=== PATIENT | male | born 1945 | race Caucasian/White ===

== ENCOUNTER → 2023-02-16 | Outpatient (CLI) | payer MEDICARE, SELFPAY ==
[2023-02-16 17:07] LABS: PSA,Total - Annual Screen 1.53 ng/mL (0.00-4.00)
== END | disposition home or self-care (01) ==
PROVIDERS: Referring Provider Urology; Visit Provider Urology
DX: Z12.5 Encounter for screening for malignant neoplasm of prostate (principal); N40.1 Benign prostatic hyperplasia with lower urinary tract symptoms
CPT/HCPCS: 36415; 84153; 87086; G0103

== ENCOUNTER 2023-04-07 07:47 | Day surgery (SDC) | payer MEDICARE, SELFPAY ==
[2023-04-07 08:17] VITALS: BP 128/50; PULSE 68; RESP 18; TEMP 36.3; O2SAT 100; BMI 25.9
[2023-04-07] MEDS: Lactated Ringers 1,000 ML 15 ML IV (08:27)
[2023-04-07] MEDS: Cefazolin 2 GM in 0.9% Normal Saline (100mL Bag) 100 ML IV (10:05)
--- NOTE | 2023-04-07 10:25 | HP.PCM_ITS ---
HPI - General HPI Narrative EDUARDO MORALES, is a 77 M who presents for dilation of meatal stenosis patient also has a hypospadias [facility] Medical History (Updated 03/26/23 @ 12:50 by Kimberly Dsouza) Abdominal aortic aneurysm (AAA) Abrasion Alzheimer disease Ambulates with cane Arthritis Back pain Bladder disease Cardiology follow-up encounter Diabetes Dietary restriction Easy bruising Exposure to Agent [place] Fatty liver Former smoker High cholesterol History of atrial fibrillation History of diverticulitis History of echocardiogram History of edema History of GI bleed History of Holter monitoring History of renal disease History of stress test Hypotension Injury of head and neck Loss of hearing Prostate disease Shortness of breath on exertion Syncope TIA (transient ischemic attack) Wears glasses Home Medications apixaban 5 mg tablet (Eliquis) 5 mg PO BID 03/26/23 [History Last Taken 04/02/23] cetirizine 10 mg capsule (All Day Allergy (cetirizine)) 10 mg PO DAILY PRN allergy symptoms 03/26/23 [History Last Taken Unknown] cholecalciferol (vitamin D3) 25 mcg (1,000 unit) capsule (Vitamin D3) 25 mcg PO DAILY 03/26/23 [History Last Taken Unknown] ezetimibe 10 mg tablet 10 mg PO DAILY 03/26/23 [History Last Taken Unknown] finasteride 5 mg tablet 5 mg PO DAILY 03/26/23 [History Last Taken Unknown] fluticasone propionate 50 mcg/actuation nasal spray,suspension 1 spray intranasal DAILY 03/26/23 [History Last Taken Unknown] furosemide 20 mg tablet 20 mg PO DAILY 03/26/23 [History Last Taken Unknown] mecobalamin (vitamin B12) 500 mcg chewable tablet 500 mcg PO DAILY 03/26/23 [History Last Taken Unknown] tfxtrocachzi-cbazxjmp-pqlowx tablet 1 tab PO DAILY 03/26/23 [History Last Taken Unknown] omega 6-xdr-old-fish oil 1,200 mg (144 mg-216 mg) capsule (Fish Oil) 1 cap PO DAILY 03/26/23 [History Last Taken 03/26/23] potassium chloride 20 mEq tablet,extended release(part/cryst) (Klor-Con M) 20 meq PO DAILY 03/26/23 [History Last Taken Unknown] rosuvastatin 10 mg tablet 10 mg PO QHS 03/26/23 [History Last Taken Unknown] tamsulosin 0.4 mg capsule 0.4 mg PO QHS 03/26/23 [History Last Taken Unknown] cephalexin 500 mg capsule 500 mg PO BID #10 caps 04/07/23 [Rx Last Taken Unknown] Allergy/AdvReac Type Severity Reaction Status Date / Time latex Allergy Intermediate Other Verified 04/07/23 08:04 adhesive tape AdvReac Intermediate Other Verified 04/07/23 08:04 hydromorphone [From Dilaudid] AdvReac Intermediate Vomiting Verified 04/07/23 08:04 morphine AdvReac Intermediate Vomiting Verified 04/07/23 08:04 Surgical History (Updated 03/26/23 @ 12:50 by Kimberly Dsouza) History of cardiac catheterization History of colectomy History of colostomy reversal Hx of arthroscopy of left knee Hx of arthroscopy of right knee Hx of colonoscopy Hx of esophagogastroduodenoscopy Hx of total hip arthroplasty Hx of total hip arthroplasty Social History Smoking Status: Former smoker Vital Signs Vital Signs Vital Signs: 04/07/23 08:17 04/07/23 08:17 Temperature 97.3 F L Temperature Source Temporal Pulse Rate 68 Respiratory Rate 18 Respiratory Pattern Normal Blood Pressure 128/50 H Blood Pressure Mean 76 Blood Pressure Source Monitor Blood Pressure Position Semi-Fowlers Blood Pressure Location Right Arm Pulse Ox 100 Oxygen Delivery Method Room Air Weight Weight: 87 kg Body Mass Index (BMI) 25.9
--- NOTE | 2023-04-07 10:27 | DCINST_ITS ---
Discharge Instructions Diet Discharge Diet: No restrictions Activity Discharge Activity: Return to Normal Activity and May Not Drive (while taking narcotic pain medications.) Dressing / Incision Call your doctor if you observe: Fever of 101 or Higher Follow Up Care Please Follow Up With: Dashawn Cortes MD When: Call [phone] for an appointment Test Results: Test results from this visit will be discussed in further detail at your follow- up appointment, if applicable. Discharge Plan Admission Primary Reason for Your Visit: Dilation of meatus Attending Provider: Dashawn Cortes Primary Care Provider: Adam Ruano Consulting Providers: Mikie Armstrong Discharge Orders/Prescriptions Prescriptions: New cephalexin 500 mg capsule 500 mg PO BID Qty: 10 0RF Continued Eliquis 5 mg tablet 5 mg PO BID ezetimibe 10 mg tablet 10 mg PO DAILY Patient Comments: TAKE 1 TABLET BY MOUTH ONCE DAILY potassium chloride [Klor-Con M20] 20 mEq tablet,ER particles/crystals 20 meq PO DAILY finasteride 5 mg tablet 5 mg PO DAILY furosemide 20 mg tablet 20 mg PO DAILY tamsulosin 0.4 mg capsule 0.4 mg PO QHS rosuvastatin 10 mg tablet 10 mg PO QHS Patient Comments: TAKE 1 TABLET BY MOUTH EVERY DAY AT BEDTIME fluticasone propionate 50 mcg/actuation spray,suspension 1 spray INTRANASAL DAILY omega 9-xnf-goz-fish oil [Fish Oil] 1,200 (144-216) mg capsule 1 cap PO DAILY cholecalciferol (vitamin D3) [Vitamin D3] 25 mcg (1,000 unit) capsule 25 mcg PO DAILY mecobalamin (vitamin B12) 500 mcg tablet,chewable 500 mcg PO DAILY ygkclyzngtlf-fdkgttzb-uuvqbl Tablet 1 tab PO DAILY All Day Allergy (cetirizine) 10 mg capsule 10 mg PO DAILY PRN (Reason: allergy symptoms) Referrals / Follow Up: Dashawn Cortes MD [Med Staff - Active Staff] - Adam Ruano PA [Primary Care Provider] - Disposition Disposition (needs filled in before D/C Order can be placed): Home, Self Care
--- NOTE | 2023-04-07 10:27 | OP.PCM_ITS ---
Report of Operation Date of Procedure: 04/07/23 Pre-Operative Diagnosis: Meatal stenosis hypospadias Post-Operative Diagnosis: The same Surgery/Procedure Performed:: Cystoscopy and dilation of meatal stent stenosis Description of Surgical Findings:: This is a 77-year-old male who had some hematuria and in the office we attempted do a cystoscopy but a very very tight meatus and he has a hypospadias [place] taken the surgery to do a dilation of the meatal stenosis and a diagnostic cystoscopy Patient was taken back to the operating room at a [facility] he was placed in dorsolithotomy position. On inspection he had a slit in the the tip of the penis but this is a false lip and then right below this off to the ones side he had a very tight opening which is his hypospadias I put a wire through this and then I dilated this with with sounds starting at [address] up to 22 Malagasy I then was able to get in with a 21 Malagasy rigid cystourethroscope the entire length the urethra was clear of any scar tissue no strictures or structures along the course of the urethra just the meatus was tight sphincter was intact the prostate was normal minimal obstruction inside the bladder no tumors or stones within the bladder I then drained the bladder and patient anesthetic was reversed and he was taken back to PACU in good condition follow-up in a few weeks for checkup but the cystoscopy was negative for any findings within the bladder of the prostate normal and he has had a tight meatal stenosis which was dilated. Surgeon: Dashawn Cortes Type of Anesthesia: [facility] Drains: none Estimated Blood Loss (mL): 0
[2023-04-07 10:31] VITALS: BP 103/53; BP 128/50; PULSE 51; RESP 18; TEMP 36.5; O2SAT 96
[2023-04-07 10:35] VITALS: BP 104/54; BP 128/50; PULSE 51; RESP 18; O2SAT 98
[2023-04-07 10:40] VITALS: BP 104/49; BP 128/50; PULSE 50; RESP 18; O2SAT 97
[2023-04-07 10:45] VITALS: BP 111/55; BP 128/50; PULSE 53; RESP 14; TEMP 36.7; O2SAT 97
[2023-04-07 11:11] VITALS: BP 128/50
== END 2023-04-07 11:20 | disposition home or self-care (01) ==
LOC: SDC 07:47 → AC 07:48
PROVIDERS: PCP Physician Assistant; Referring Provider Urology; Visit Provider Urology
PROC: 0T7D8ZZ Dilation of Urethra, Via Natural or Artificial Opening Endoscopic (ICD-10-PCS; CPT 52281; principal; 2023-04-07 09:40)
DX: N35.013 Post-traumatic anterior urethral stricture (principal); F02.80 Dementia in other diseases classified elsewhere, unspecified severity, without behavioral disturbance, psychotic disturbance, mood disturbance, and anxiety; I71.40 Abdominal aortic aneurysm, without rupture, unspecified; E11.9 Type 2 diabetes mellitus without complications; Z87.891 Personal history of nicotine dependence; E78.00 Pure hypercholesterolemia, unspecified; Z79.01 Long term (current) use of anticoagulants; Z86.73 Personal history of transient ischemic attack (TIA), and cerebral infarction without residual deficits; Q54.1 Hypospadias, penile; N40.1 Benign prostatic hyperplasia with lower urinary tract symptoms; Z87.440 Personal history of urinary (tract) infections
CPT/HCPCS: 52290; 00910; J7120; C1769; J2405

== ENCOUNTER → 2025-01-17 | Outpatient (CLI) | payer OTHER, SELFPAY ==
--- NOTE | 2025-01-17 15:05 | ECHOD_ITS ---
Reason For Study Reason For Study: CAD/ASHD Procedure This was a 2D Doppler, Color Flow transthoracic echocardiogram. Exam performed in department. Left Ventricle Normal LV size. The left ventricular ejection fraction is 55 %. Stage 2 diastolic dysfunction. No regional wall motion abnormalities noted. Right Ventricle Normal RV size. Normal systolic function. Atria Normal left atrium. Normal right atrium. Tricuspid Valve Normal tricuspid valve. Mild (1+) tricuspid valve insufficiency. Pulmonary artery systolic pressure is 28 mmHg. Aortic Valve Trisinus/trileaflet aortic valve. Mild (1+) aortic valve insufficiency. Pulmonic Valve Normal pulmonic valve. Great Vessels Normal aortic root. The pulmonary artery is normal size. Inferior vena cava collapse with respiration. Pericardium/Pleural No pericardial effusion. MMode/2D Measurements & Calculations LVIDd: 5.4 cm IVSd: 0.76 cm Ao root diam: 3.3 cm LVIDs: 3.5 cm LVPWd: 0.89 cm RVDd: 3.4 cm FS: 35.6 % LAV(MOD-bp): 66.1 ml LVAd ap4: 35.4 cm2 SV(MOD-sp4): 66.9 ml LAV(MOD-bp) Indexed: 32.1 ml/m2 LVLd ap4: 8.4 cm SI(MOD-sp4): 32.5 ml/m2 LAV(MOD-sp2): 72.4 ml EDV(MOD-sp4): 125.9 ml LAV(MOD-sp4): 59.0 ml EDV(sp4-el): 127.0 ml LVAs ap4: 21.4 cm2 LVLs ap4: 6.5 cm ESV(MOD-sp4): 59.0 ml ESV(sp4-el): 59.7 ml EF(MOD-sp4): 53.1 % EF(sp4-el): 53.0 % SV(sp4-el): 67.3 ml LA dimension(2D): 3.8 cm LA A4 area: 18.9 cm2 RA A4 area: 18.0 cm2 TAPSE: 2.9 cm Time Measurements MV dec time: 0.26 sec Doppler Measurements & Calculations MV E max jasen: 68.5 cm/sec Lat Peak E' Jasen: 12.2 cm/sec Med Peak E' Jasen: 9.6 cm/sec MV A max jasen: 41.3 cm/sec E/E' lat: 5.6 E/E' med: 7.2 MV E/A: 1.7 MV V2 max: 70.5 cm/sec MV P1/2t max jasen: 78.9 cm/sec Ao V2 max: 114.8 cm/sec MV max P.0 mmHg MV P1/2t: 69.2 msec Ao max P.3 mmHg MV V2 mean: 40.2 cm/sec Ao V2 mean: 82.4 cm/sec MV mean P.72 mmHg MV dec slope: 334.3 cm/sec2 Ao mean P.1 mmHg MV V2 VTI: 23.2 cm MVA(P1/2t): 3.2 cm2 Ao V2 VTI: 30.7 cm AV (velocity ratio): 0.63 AI max jasen: 354.0 cm/sec LV V1 max: 74.8 cm/sec MR max jasen: 526.8 cm/sec AI max P.2 mmHg LV V1 max P.2 mmHg MR max P.0 mmHg LV V1 mean P.3 mmHg MR mean jasen: 430.5 cm/sec AI dec slope: 217.2 cm/sec2 LV V1 mean: 53.7 cm/sec MR mean P.1 mmHg AI P1/2t: 477.3 msec LV V1 VTI: 19.3 cm MR VTI: 205.2 cm PA V2 max: 100.0 cm/sec TR max jasen: 249.1 cm/sec PA V2 mean: 74.1 cm/sec TR max P.8 mmHg ECHO/Echo Complete Interpretation Summary Normal LV size. The left ventricular ejection fraction is 55 %. Mild (1+) aortic valve insufficiency. Stage 2 diastolic dysfunction. Ordering Physician: Jake Rios Referring Physician: Adam Ruano Performed By: France Peck RDCS, RVT
== END | disposition home or self-care (01) ==
PROVIDERS: PCP Physician Assistant; Referring Provider Chiropractor; Visit Provider Chiropractor
DX: I25.10 Atherosclerotic heart disease of native coronary artery without angina pectoris (principal)
CPT/HCPCS: 93306

== ENCOUNTER 2025-01-31 10:28 | Emergency (ER) | payer OTHER, SELFPAY ==
[2025-01-31] VITALS (15 sets, daily range): BP systolic 91–146; BP diastolic 34–73; PULSE 48–64; RESP 12–22; TEMP 36.4–36.6; O2SAT 96–100; BMI 27.6
--- NOTE | 2025-01-31 10:43 | ED.VIS.CHEST ---
HPI History of Present Illness Chief Complaint: Chest Pain [facility] Medical History Loss of hearing Wears glasses Alzheimer disease Abrasion Diabetes Ambulates with cane Arthritis Prostate disease History of renal disease Bladder disease Fatty liver High cholesterol Easy bruising Back pain Injury of head and neck TIA (transient ischemic attack) Fall Syncope Dietary restriction History of GI bleed History of diverticulitis Former smoker Shortness of breath on exertion History of edema Exposure to Agent [place] Hypotension History of echocardiogram History of stress test Abdominal aortic aneurysm (AAA) History of Holter monitoring Cardiology follow-up encounter History of atrial fibrillation Home Medications ?Medication ?Instructions ?Recorded ?Last Taken ?Type apixaban 5 mg tablet (Eliquis) 5 mg PO BID 03/26/23 04/02/23 History cetirizine 10 mg capsule (All Day 10 mg PO DAILY PRN allergy symptoms 03/26/23 Unknown History Allergy (cetirizine)) cholecalciferol (vitamin D3) 25 25 mcg PO DAILY 03/26/23 Unknown History mcg (1,000 unit) capsule (Vitamin D3) ezetimibe 10 mg tablet 10 mg PO DAILY 03/26/23 Unknown History finasteride 5 mg tablet 5 mg PO DAILY 03/26/23 Unknown History fluticasone propionate 50 1 spray intranasal DAILY 03/26/23 Unknown History mcg/actuation nasal spray,suspension furosemide 20 mg tablet 20 mg PO DAILY 03/26/23 Unknown History mecobalamin (vitamin B12) 500 mcg 500 mcg PO DAILY 03/26/23 Unknown History chewable tablet tmsfxzfdjusc-brosoppo-oxlwqw tablet 1 tab PO DAILY 03/26/23 Unknown History omega 7-jck-nfl-fish oil 1,200 mg 1 cap PO DAILY 03/26/23 03/26/23 History (144 mg-216 mg) capsule (Fish Oil) potassium chloride 20 mEq 20 meq PO DAILY 03/26/23 Unknown History tablet,extended release(part/cryst) (Klor-Con M) rosuvastatin 10 mg tablet 10 mg PO QHS 03/26/23 Unknown History tamsulosin 0.4 mg capsule 0.4 mg PO QHS 03/26/23 Unknown History cephalexin 500 mg capsule 500 mg PO BID #10 caps 04/07/23 Unknown Rx Allergy/AdvReac Type Severity Reaction Status Date / Time latex Allergy Intermediate Other Verified 08/13/25 10:32 adhesive tape AdvReac Intermediate Other Verified 01/31/25 10:32 hydromorphone (From Dilaudid) AdvReac Intermediate Vomiting Verified 01/31/25 10:32 morphine AdvReac Intermediate Vomiting Verified 01/31/25 10:32 Surgical History History of cardiac catheterization Hx of esophagogastroduodenoscopy Hx of colonoscopy Hx of total hip arthroplasty Hx of total hip arthroplasty Hx of arthroscopy of right knee Hx of arthroscopy of left knee History of colostomy reversal History of colectomy Social History Smoking Status: Former smoker EXAM Physical Exam Const Vital Signs: 01/31/25 10:29 01/31/25 10:55 01/31/25 11:12 Temperature 97.6 F L Temperature Source Oral Pulse Rate 54 L Respiratory Rate 20 H Respiratory Effort Normal Respiratory Pattern Normal Blood Pressure 138/73 H Blood Pressure Mean 94 Pulse Ox 100 Oxygen Delivery Method Room Air Room Air 01/31/25 11:28 01/31/25 11:39 01/31/25 11:45 Temperature Temperature Source Pulse Rate 54 L 52 L 52 L Respiratory Rate 19 H 21 H 21 H Respiratory Effort Respiratory Pattern Blood Pressure 132/63 H 146/67 H Blood Pressure Mean 86 89 Pulse Ox 100 100 100 Oxygen Delivery Method Room Air 01/31/25 11:50 01/31/25 12:00 01/31/25 12:01 Temperature Temperature Source Pulse Rate 58 L 58 L 64 Respiratory Rate 22 H 16 Respiratory Effort Respiratory Pattern Blood Pressure 146/67 H 111/64 Blood Pressure Mean 77 Pulse Ox 96 97 Oxygen Delivery Method 01/31/25 13:00 01/31/25 13:00 01/31/25 13:31 Temperature Temperature Source Pulse Rate 48 L 58 L Respiratory Rate 16 14 Respiratory Effort Respiratory Pattern Blood Pressure 102/45 L 102/45 L 91/67 Blood Pressure Mean 63 63 74 Pulse Ox 100 99 Oxygen Delivery Method MDM MDM MDM Narrative Medical decision making narrative: HISTORY OF PRESENT ILLNESS: Chief complaint: Chest pain 79-year-old male history of A-fib on Eliquis, hyperlipidemia, presents with chest pain. Notes left-sided chest pain began 45 minutes prior to arrival. REVIEW OF SYSTEMS: Pertinent positives: Chest pain Pertinent negatives: Abdominal pain, vomiting PHYSICAL EXAM: Nursing triage notes reviewed, Vital signs reviewed Constitutional: please see mdm HENT: MMM Eyes: Pupils equal round and reactive to light, Extraocular muscles intact Neck: No stridor, no JVD, full neck ROM Lungs: Clear to auscultation, No wheezing or rales. No increased work of breathing, no conversational dyspnea, no accessory muscle use, no nasal flaring. No respiratory distress noted Heart: Regular rate and rhythm, No murmurs, No rubs and No gallops, 2+ distal pulses (radial, femoral, posterior tibial) in all extremities Abdomen: Soft, there is no tenderness, negative Lopez sign, no rigidity, rebound or guarding, no obvious peritoneal signs, no palpable pulsatile abdominal masses, no auscultated abdominal bruit : No CVAT Extremities: No edema Neuro: No new focal neurological deficits, cranial nerves II through XII intact, 5/5 strength in all present extremities. Intact sensation to light touch in all present extremities, 2+ reflexes bilateral patella tendons. Skin: No rash or lesions noted MEDICAL DECISION MAKING: Chief Complaint: please see HPI External records reviewed: Reviewed echocardiogram from December 2024 shows an ejection fraction of 55% Factors affecting care: Gallstone, A-fib Social determinants of health: none History obtained from others: Consults: none [facility] Narrative: Patient was initially hemodynamically stable, afebrile and nontoxic-appearing. Exam without focal cardiopulmonary maladies. No obvious abdominal abnormalities. I considered the following differential diagnosis: ACS, arrhythmia, anemia, electro disturbance, pneumonia, CHF, intra-abdominal surgical pathology I obtained broad lab and imaging workup to further determine if the patient was suffering from a life-threatening etiology. Initially gave aspirin and nitroglycerin. ALL IMAGES (IF OBTAINED) HAVE BEEN PERSONALLY REVIEWED AND INTERPRETED BY MYSELF. EKG with sinus bradycardia rate of 53, normal axis, normal intervals, no STEMI CBC without leukocytosis, severe anemia, no thrombocytopenia. BMP without evidence of significant electrolyte abnormalities, no anion gap, no acute kidney injury. High-sensitivity troponin is negative, no evidence of myocardial ischemia x2 essentially ruling out ACS by high-sensitivity troponin I have personally reviewed the patient's chest x-ray. Chest x-ray is unremarkable for pulmonary edema, pneumothorax, pneumonia or focal cardiopulmonary abnormality. Upon reassessment patient complains of left-sided abdominal pain. This point add on a CT scan of the abdomen pelvis. CT scan abdomen pelvis negative for acute intra-abdominal pathology. Gallbladder showed a gallstone but otherwise no signs of acute cholecystitis. The synthesis of the patient's history, physical exam, labs images suggest no acute life or limb threat in etiology. Specifically no sign of ACS or acute surgical process in the abdomen. The patient is appropriate for discharge home with close outpatient follow-up. The patient and/or family, caregivers express understanding. The patient and/or family, caregivers agrees with the plan. Shared decision making: I will have a discussion with the patient and or visitors regarding risk/benefits of further testing or admission. They will be made aware of of the risk/benefits inherent in this decision they will be given the opportunity to voice understanding. Total critical care time today provided was at least 0 minutes. This excludes separately billable procedures. Critical care time (if documented) is secondary to the patient having high probability of clinically significant/life threatening deterioration in the patient's condition which required my urgent intervention. Impression: 1. Chest pain 2. History of A-fib 3. Abdominal pain Dispo: Discharge home This note was generated with [employer] dictation software. It may contain incorrect words, spelling, and punctuation that were not noted in review of the chart prior to signing. Lab Data Labs: Laboratory Results - last 24 hr 01/31/25 01/31/25 10:52 13:06 WBC 5.8 RBC 4.37 L Hgb 13.4 Hct 40.2 MCV 92.0 MCH 30.7 MCHC 33.3 RDW Std Deviation 41.7 RDW Coeff of Geeta 12.3 Plt Count 172 MPV 10.1 Immature Gran % (Auto) 0.300 Neut % (Auto) 63.8 Lymph % (Auto) 22.8 [place] % (Auto) 7.5 Eos % (Auto) 4.2 Baso % (Auto) 1.4 H Absolute Neuts (auto) 3.7 Absolute Lymphs (auto) 1.31 Nucleated RBC % 0 Sodium 137 Potassium 4.0 Chloride 102 Carbon Dioxide 22.9 Anion Gap 12 BUN 14 Creatinine 1.19 Estim Creat Clear Calc 57.06 Est GFR (MDRD) Non-Af 63 BUN/Creatinine Ratio 11.5 Glucose 175 H Calcium 9.2 Troponin T High Sens 14 Troponin T Hi Sens 2 Hr 14 Radiography Diagnostic Testing: Clinical Impression(s) from Imaging Studies Chest X-Ray 01/31/25 12:05 IMPRESSION: Mild thoracic spine degenerative changes are seen, along with thoracic dextroscoliosis. No acute osseous change is seen. Lungs appear clear throughout. No pleural effusion or pneumothorax is seen. The cardiomediastinal silhouette is remarkable for a partially calcified aorta; no evidence of cardiomegaly. No evidence of acute cardiopulmonary disease. Reading Location: [address] Abdomen/Pelvis CT 01/31/25 13:07 IMPRESSION: 1. Gallstone 2. Postsurgical changes to the distal small bowel in the sigmoid colon are uncomplicated. No bowel obstruction. 3. Tortuous, atherosclerotic abdominal aorta with aneurysmal dilation up to 3.4 cm. 4. Right adrenal nodule. Likely an adenoma but non-specific. On a nonemergent basis consider contrast-enhanced MRI. Reading Location: [id number] Discharge Plan Triage Chief Complaint: Chest Pain ED Provider: Cesar Nolasco Dx/Rx/DC Orders Prescriptions: No Action Eliquis 5 mg tablet 5 mg PO BID ezetimibe 10 mg tablet 10 mg PO DAILY Patient Comments: TAKE 1 TABLET BY MOUTH ONCE DAILY potassium chloride [Klor-Con M20] 20 mEq tablet,ER particles/crystals 20 meq PO DAILY finasteride 5 mg tablet 5 mg PO DAILY furosemide 20 mg tablet 20 mg PO DAILY tamsulosin 0.4 mg capsule 0.4 mg PO QHS rosuvastatin 10 mg tablet 10 mg PO QHS Patient Comments: TAKE 1 TABLET BY MOUTH EVERY DAY AT BEDTIME fluticasone propionate 50 mcg/actuation spray,suspension 1 spray INTRANASAL DAILY omega 2-oif-dlg-fish oil [Fish Oil] 1,200 (144-216) mg capsule 1 cap PO DAILY cholecalciferol (vitamin D3) [Vitamin D3] 25 mcg (1,000 unit) capsule 25 mcg PO DAILY mecobalamin (vitamin B12) 500 mcg tablet,chewable 500 mcg PO DAILY amzdkpmyscqq-jugcckfz-wncoqh Tablet 1 tab PO DAILY All Day Allergy (cetirizine) 10 mg capsule 10 mg PO DAILY PRN (Reason: allergy symptoms) cephalexin 500 mg capsule 500 mg PO BID Qty: 10 0RF Primary Care Provider: [facility] Referrals: Adam Ruano PA [Non-Staff -Ordering Privileges] - Print Language: Belarusian
--- NOTE | 2025-01-31 11:05 | EKG12_ITS ---
Test Reason : CP Blood Pressure : */* mmHG Vent. Rate : 53 BPM Atrial Rate : 53 BPM P-R Int : 168 ms QRS Dur : 100 ms QT Int : 452 ms P-R-T Axes : 98 47 65 degrees QTcB Int : 424 ms Sinus bradycardia Otherwise normal ECG No previous ECGs available Confirmed by AYANNA WILBURN, MAGDY ([id number]), acquisition editor MARK JOSE ([id number]) on 02/06/2025 6:18:01 AM Referred By: Confirmed By: MAGDY URENA MD
[2025-01-31 11:31] LABS: Hematocrit 40.2 % (40-54); Hemoglobin 13.4 g/dL (13.0-16.5); Immature Granulocytes Count 0.020 X10^3/uL (0.0-0.0); Mean Corp Hgb Conc 33.3 g/dL (32-36); Mean Corpuscular Volume 92.0 fL (80-94); Mean Platelet Vol. 10.1 fl (6.2-12.0); NRBC Flagged by Analyzer 0 % (0-5); Platelet Count 172 K/mm3 (150-450); RBC Distribution Width CV 12.3 % (11.6-14.6); RBC Distribution Width SD 41.7 fl (35.1-43.9); Red Blood Count 4.37 M/mm3 (4.6-6.2); White Blood Count 5.8 K/mm3 (4.4-11.0)
[2025-01-31] MEDS: Nitroglycerin SL (ED/IMG/CATH) 0.4 MG TABLET SL (11:50)
--- NOTE | 2025-01-31 12:05 | RAD_ITS ---
PROCEDURE: CHEST 1 VIEW (PORTABLE) 01/31/2025 REASON FOR EXAM: CHEST PAIN TECHNIQUE: Two-view AP portable upright chest COMPARISON: None provided. RAD/Chest 1 View (Portable) IMPRESSION: Mild thoracic spine degenerative changes are seen, along with thoracic dextrosc oliosis. No acute osseous change is seen. Lungs appear clear throughout. No pleural effusion or pneumothorax is seen. The cardiomediastinal silhouette is remarkable for a partially calcified aorta; no evidence of cardiomegaly. No evidence of acute cardiopulmonary disease. Reading Location: [id number]
[2025-01-31 12:06] LABS: Troponin T High Sensitivity 14 ng/L (<=22)
[2025-01-31 12:26] LABS: Anion Gap 12 (5-15); BUN 14 mg/dL (4-19); BUN/Creat Ratio 11.5 RATIO (10-20); Carbon Dioxide 22.9 mmol/L (21.0-32.0); Chloride 102 mmol/L (98-108); Estimated Creatinine Clearance 57.06 ml/min (50-250); Glucose 175 mg/dL (70-99); Potassium 4.0 mmol/L (3.3-5.1)
[2025-01-31 12:34] LABS: Calcium,Total 9.2 mg/dL (7.6-11.0)
--- NOTE | 2025-01-31 13:07 | CT_ITS ---
PROCEDURE: ABDOMEN/PELVIS W IV CONT ONLY 01/31/2025 REASON FOR EXAM: ABDOMINAL PAIN TECHNIQUE: ABDOMEN/PELVIS W IV CONT ONLY Coronal and Sagittal reconstruction series were provided. CONTRAST: Isovue 370 VOLUME: 99 mL One or more dose reduction techniques were used (e.g., Automated exposure control, adjustment of the mA and/or kV according to patient size, use of iterative reconstruction technique. RADIATION DOSE SUMMARY: CTDlvol: 42 mGy DLP: 1117 mGycm COMPARISON: None FINDINGS: Lung bases: Clear Liver: Normal Gallbladder: Nitrogen containing stone near the gallbladder neck. Otherwise unremarkable gallbladder. Spleen: Normal Pancreas: Normal Adrenals: Right adrenal mass is 1.5 x 1.6 x 1.2 cm. Subtle foci of potential fat are shown but this is not definitively diagnostic. Left adrenal gland is normal. Kidneys: Normal. No collecting system dilation. Bladder: Normal, but there is artifact related to the patient's hip replacements. Reproductive Organs: Limited by artifact but grossly normal. Bowel: Stomach is normal. Small bowel is normal. Surgical anastomosis are present. One in the right lower quadrant involving the small bowel and another in the sigmoid colon Appendix: Normal Lymph nodes: None appear enlarged. Vasculature: Nrlimusg-cr-qomizk atherosclerosis. Fusiform dilation of the aorta is 3.4 x 3.3 cm. Peritoneum / Retroperitoneum: No free air, free fluid or mass. Bones: Bilateral hip replacements. SI joint degenerative changes. Lower lumbar spondylosis. Abdominal wall: Midline laparotomy. No hernia. No inguinal hernia. CT/Abdomen/Pelvis W IV Cont ONLY IMPRESSION: 1. Gallstone 2. Postsurgical changes to the distal small bowel in the sigmoid colon are unc omplicated. No bowel obstruction. 3. Tortuous, atherosclerotic abdominal aorta with aneurysmal dilation up to 3. 4 cm. 4. Right adrenal nodule. Likely an adenoma but non-specific. On a nonemergen t basis consider contrast-enhanced MRI. Reading Location: [id number]
[2025-01-31 13:27] LABS: Troponin T High Sens 2 HR 14 ng/L (<=22)
--- OUTSIDE RECORDS SUMMARY | 2025-01-31 19:34 | XMS RPT_ITS | CCD ---
Author Organization [facility] CliniSyd[facility] Care Team Providers Care Salesperson Neckties Name Role Phone Unavailable Primary Care Provider UnavailClarence Moreno MD Unavailable [phone] Unavailable Primary Care Provider Unavailkenny e PROVIDER, UNKNOWN Admitting Unavailable PROVIDER, UNKNOWN Attending Unavailable CHRISTIAN MONTESINOS Referring Unavailable Clarence Rios MD Unavailable Acosta SOLANO, Luke E Unavailable Sebastian WILBURN, Dr[facility] Unavailable [phone] Anjelica Schaefer MA Unavailable Unavailable Acosta, Bailey C Unavailable Unavailable Raquel VENTURA, Vangie Nelson Unavailable Unavaila blaze Merrill LPN, Herminio Unavailable Unavailable Paulino SOLANO, Marika Ojeda Unavailable [phone] Arelis SOARES, Kalani Cervantes Unavailable Unavailab Sherrie Brown MA Unavailable Unavailable Unavailable Unavailable Joanie Donato CNP Unavailable Alma Reis LPN Unavailable Unavailabl e Acosta PA-C, Luke E Unavailable YANI COPPOLA Admitting Unavailable YANI COPPOLA Attending Unavailable YANI COPPOLA Primary Care Unavailable ACOSTA, LUKE E Consulting Unavailable PROVIDER, UNKNOWN Consulting Unavailable ACOSTA, LUKE E Admitting Unavailable ACOSTA, LUKE E Attending Unavailable ACOSTA, LUKE E Primary Care Unavailable ACOSTA, LUKE E Consulting Unavailable PROVIDER, UNKNOWN Consulting Unavailable JOANIE DONATO AGPCNP%BC Admitting Unabárbarai JOANIE Modi AGPCNP%BC Attending Unavai JOANIE ModiNP%BC Primary Care Unavai lable ACOSTA, LUKE E Consulting Unavailable PROVIDER, UNKNOWN Consulting [facility] Attending Unavailable Sherrie Mason LPN Unavailable Unavailable Eleanor Burgos Unavailable Unavailable Joanie Donato CNP Unavailable ANTHONY, JM Referring Unavailable ANTHONY, JM Attending Unavailable ANTHONY, JM Referring Unavailable CLARENCE RIOS G Attending Unavailable RIOS, CLARENCE G Referring Unavailable RIOS, CLARENCE G Referring Unavailable PIZARRO, HIBA Attending Unavailable PIZARRO, HIBA Referring Unavailable TECCO, TERI M Attending Unavailable ANTHONY, JM Referring Unavailable ANTHONY, JM Referring Unavailable ROSEANNA, JOSÉ MIGUELKA M Attending Unavailable RIOS, CLARENCE G Referring Unavailable RIOS, CLARENCE G Attending Unavailable RIOS, CLARENCE G Referring Unavailable Adam Oconnell Primary Care Provider Blanca BOND, Dr. Joseph Attending Provider Blanca BOND, Dr. Joseph Referring Provider Tanmay SCHOOL BUS DRIVER/TEACHER ASSISTANT-CJoanie Other Provider [phone] Adam Oconnell Primary Care Provider [phone] Dr. Varinder Shepherd MD Attending Provider [phone] Varinder Shepherd Attending Unavailable Acosta Luke Primary Care Unavailable Blanca, Jake Referring Unavailable Luperf, Jake Attending Unavailable Acosta Luke Primary Care Unavailable Joanie Donato Consulting Unavailable Blanca, Jake Referring Unavailable Luperf, Jake Attending Unavailable Acosta, Luke Primary Care Unavailable Dr. Cesar Nolasco DO Emergency Provider [place], [place] Primary Care Provider Unavailabl e Allergies Allergy Classification Reported Allergen(s) Allergy Type Date of Onset Reaction(s) Facility Opioid Agonists (1 source) HYDROmorphone Drug Allergy [facility]. (20 sources) HYDROmorphone; Translations: [HYDROMORPHONE (BULK)] Drug Allergy [address] [facility] (20 sources) Latex; Translations: [LATEX] Drug Allergy 3 Itching, Rash [facility] Comment on above: SEVERE SKIN BREAK DO WN (20 sources) Memantine; Translations: [MEMANTINE] Drug Allergy [address] [facility] (20 sources) Morphine; Translations: [MORPHINE] Drug Allergy 3 GI Upset, Vomiting [facility] (4 sources) Adhesive Tape; Translations: [adhesive tape] Propensity to adverse reactions 3 Other [facility] Comment on above: SKIN TEARS (20 sources) HYDROmorphone Drug Allergy 3 Vomiting [facility] (20 sources) Latex Gloves *MEDICAL DEVICES AND SUPPLIES* Theorem; Theorem (20 sources) Morphine Sulfate (Bulk) *ANALGESICS - OPIOID* Theorem; Theorem (1 source) Morphine Drug Allergy [facility] (1 source) HYDROmorphone Drug Allergy 3 [facility] (1 source) Latex Drug allergy (disorder) 3 [facility] (1 source) Morphine Drug Allergy 3 [facility] Medications Current Medications Medication Drug Class(es) Dates Sig (Normalized) Sig (Original) apixaban 2.5 mg oral tablet (20 sources) Factor Xa Inhibitor Start: 06-05-2024 End: 05-22-2025 take 1 tablet by mouth twice daily apixaban (ELIQUIS) 2.5 mg tab(s) Take 1 tablet by mouth two times a day. 180 tablet 1 11/23/2024 05/22/2025 Active Start: 09-22-2021 End: 09-05-2024 take 1 tablet by mouth twice daily Apixaban (Eliquis) 5 mg tablet Active 5 mg PO TWICE A DAY March 26, 2023 12:00am Eliquis 2.5 mg t ablet ; 1 daily (2.5 mg) Comment on above: Take 5 mg by mouth t wice daily. Take 1 tablet by kaleigh th two times a day. atorvastatin 20 mg oral tablet (20 sources) HMG-CoA Reductase Inhibitor Start: 3 End: 3 take 4 tablets by mouth once daily atorvastatin (LIPITOR) 20 mg tablet Take 4 tablets by mouth once daily. 120 tablet 0 09/15/2022 10/15/2022 Active Start: 09-04-2022 End: 02-08-2023 take 1 tablet by mouth once daily atorvastatin (LIPITOR) 80 mg tablet Take 80 mg by mouth once daily. 0 09/04/2022 02/08/2023 Discontinued Start: 06-09-2022 take 1 tablet by kaleigh once daily atorvastatin (LIPITOR) 20 mg tablet Take 20 mg by mouth once daily. 0 06/09/2022 Active Comment on above: Take 20 mg by mouth once daily. Take 4 tablets by mo [facility] once daily. Take 80 mg by mouth once daily. azelastine hydrochloride 0.137 mg/actuat metered dose nasal spray (20 sources) Histamine-1 Receptor Antagonist Star t: 12-0 6- 22 take 1 spray(s) nasal route once daily azelastine (ASTELIN, ASTEPRO) 0.1% nasal spray Use 1 [place] in each nostril once daily. 05/26/2022 Active Comment on above: Use 1 [place] in each nostril once daily. carboxymethylcellulose sodium 5 mg/ml ophthalmic solution (11 sources) Star t: -2 8- 25 take 1 drop(s) into the eye(s) three times daily carboxymethylcellulose (REFRESH) 0.5 % drop Use 1 Drop in both eyes three times a day. 07/18/2024 Active cephalexin 500 mg oral capsule (20 sources) Cephalosporin Antibacterial Star t: 10-1 8- 23 take 1 capsule by mouth twice daily Cephalexin 500 mg capsule Active 500 mg PO TWICE A DAY 10 0 April 07, 2023 12:00am Start: 02-23-2023 End: 03-02-2023 cephALEXin 500 mg capsule ; 1 (one) capsule four times daily for 7 days Quantity: 28 {Capsule} Refills: 0 Ordered: 23-Feb-2023 FANY Merrill Start: 23-Feb-2023 End: 02-Mar-2023 Status: Inactive cetirizine hydrochloride 10 mg oral capsule (20 sources) Histamine-1 Receptor Antagonist Start: 05-26-2022 take 1 capsule by mouth once daily as needed Cetirizine (All Day Allergy (Cetirizine)) 10 mg capsule Active 10 mg PO DAILY as needed for allergy symptoms March 26, 2023 12:00am take 1 tablet by mouth once mohit y ZyrTEC Allergy 10 MG Oral Tablet ; 1 daily (10 MG) Comment on above: Take 10 mg by mouth once daily. cholecalciferol 0.025 mg oral capsule (20 sources) Vitamin D Start: 03-26-20 23 take 1 capsule by mouth once daily Cholecalciferol (Vitamin D3) (Vitamin D3) 25 mcg (1,000 unit) capsule Active 25 ug PO DAILY March 26, 2023 12:00am take 1 capsule by mo [facility] every twenty-four hours Cholecalciferol, Vitamin D3, 25 mcg (1,0 00 unit) cap Take 1,000 Units by mouth q 24 HR. Active Comment on above: Take 1,000 Units by mouth q 24 HR. CPAP (11 sources) CPAP Active ezetimibe 10 mg oral tablet (20 sources) Dietary Cholesterol Absorption Inhibitor Start: 3 End: 4 take 1 tablet by mouth once daily Ezetimibe 10 mg tablet Active 10 mg PO DAILY March 26, 2023 12:00am Comment on above: [facility] finasteride 5 mg oral tablet (20 sources) 5-alpha Reductase Inhibitor Start: 3 take 1 tablet by mouth once daily Finasteride 5 mg tablet Active 5 mg PO DAILY March 26, 2023 12:00am Comment on above: Take 5 mg by mouth o nce daily. FLUoxetine 10 mg oral tablet (20 sources) Serotonin Reuptake Inhibitor Start: 5 FLUoxetine 10 mg tablet ; 1 (one) tablet daily for 0 days Quantity: 90 {Tablet} Refills: 3 Ordered: 02-Nov-2024 XIOMARA Shane Start: 02-Nov-2024 Start: 07-19-2024 FLUoxetine 10 mg tablet ; 1 (one) tablet daily for 0 days Quantity: 90 {Tablet} Refills: 3 Ordered: 19-Jul-2024 XIOMARA Shane Start: 19-Jul-2024 Start: 05-17-2024 FLUoxetine 10 mg tablet ; 1 (one) tablet daily for 0 days Quantity: 30 {Tablet} Refills: 2 Ordered: 19-May-2024 XIOMARA Shane Start: 19-May-2024 [facility] 1 [facility] FLUoxetine (PROZAC) 10 mg capsule Take 10 mg by mouth once daily. Active fluticasone propionate 0.05 mg/actuat metered dose nasal spray (3 sources) Corticosteroid Start: 03-26-2023 Fluticasone Pr opionate 50 mcg/actuation spray,suspension Active 1 NMA INTRANASAL DAILY March 26, 2023 12:00am Start: 03-26-2023 Fluticasone Pr opionate Active 1 SPRAY INTRANASAL DAILY March 26, 2023 12:00am furosemide 20 mg oral tablet (20 sources) Loop Diuretic Start: 03-26-2023 take 1 tablet by mouth once daily Furosemide 20 mg tablet Active 20 mg PO DAILY March 26, 2023 12:00am End: 11-01-2024 furosemide (LASIX) 40 mg tab let Take 20 mg by mouth once daily. 11/01/2024 Discontinued End: 08-17-2024 take 10 mg by mouth once daily furosemide (LASIX) 20 m g tablet Take 10 mg by mouth once daily. 08/17/2024 Discontinued (Discontinued by another Health Care Provider) End: 08-10-2022 take 1 tablet by mouth once daily furosemide (LASIX) 40 mg tablet Take 40 mg by mouth once daily. 0 08/10/2022 Discontinued (Course of therapy completed) Comment on above: Take 20 mg by mouth once daily. Take 40 mg by mouth once daily. Take 10 mg by mouth once daily. Medication taken as needed. per children's entertainer as needed and to wear compression stockings daily iv contrast (will be provided with radiology test) (1 source) Start: End: inject 1 dose intravenously once iv contrast (will be provided with radiology test) Indications: Paroxysmal atrial fibrillation (HCC) CT Pulm Vein - No IV access, insert saline lock prior to the sedation, infusion, injection for imaging exam. Discontinue saline lock post exam. If Pt. has a central line or IVAD, may access for administration according to line specific nursing protocol. Once exam is complete flush line and de-access according to line specific nursing protocol in the CT contrast administration guidelines link. 1 Each 0 07/23/2023 07/24/2023 Active Comment on above: CT Pulm Vein - No IV access, insert saline lock prior to the sedation, infusion, injection for imaging exam. Discontinue saline lock post exam. If Pt. has a central line or IVAD, may access for administration according to line specific nursing protocol. Once exam is complete flush line and de-access according to line specific nursing protocol in the CT contrast administration guidelines link. mecobalamin (3 sources) Start: take 1 tablet by mouth once daily Mecobalamin (Vitamin B12) 500 mcg tablet,chewable Active 500 ug PO DAILY March 26, 2023 12:00am Start: 03-26-2023 take 500 ug by mouth once mohit y Mecobalamin (Vitamin B12) Active 500 MCG PO DAILY March 26, 2023 12:00am memantine hydrochloride 5 mg oral tablet (1 source) N-tequuy-K-aspartate Receptor Antagonist Start: 03-10-2024 End: 06-08-2024 take 1 tablet by mouth once daily memantine (NAMENDA) 5 mg tablet Take 1 tablet by mouth once daily. 30 tablet 2 03/10/2024 06/08/2024 Active Mens Multivitamin Oral Tablet (20 sources) Mens Multivitamin Oral Tablet ; daily multivit-minerals/ folic acid (MEN'S MULTIVITAMIN GUMMIES ORAL) (20 sources) take 2 tablets by mouth once daily multivit-mineral s/folic acid (MEN'S MULTIVITAMIN GUMMIES ORAL) Take 2 tablets by mouth once daily. Active take 2 tablets by mouth once desi ly multivit-minerals/folic acid (MEN'S MULTIVITAMIN GUMMIES ORAL) Take 2 tablets by mouth once daily. 0 Active Comment on above: Take 2 tablets by mo [facility] once daily. Multivitamin-[place] ls-Lutein (1 source) Start: 03-26-2023 take 1 tablet by mouth once daily Multivitamin-Drug Purchaser als-Lutein Active 1 TABLET PO DAILY March 26, 2023 12:00am Multivitamin-[place]-Lutein tablet (2 sources) Start: 03-26-2023 Multivitamin-[place] als-Lutein tablet Active 1 {tbl} PO DAILY March 26, 2023 12:00am [place] 9-Qrg-Dzx-Fish Oil (Fish Oil) 1,200 (144-216) mg capsule (3 sources) Start: 03-26-2023 [place] 0-Gpz-Wjc-Fish Oil (Fish Oil) 1,200 (144-216) mg capsule Active 1 NMA PO DAILY March 26, 2023 12:00am Start: 03-26-2023 take 1 capsule by mo [facility] once daily [place] 5-Fbj-Hzm-Fish Oil (Fish Oil) 1,200 (144-216) mg capsule Active 1 CAP PO DAILY March 26, 2023 12:00am microencapsulated potassium chloride 20 meq extended release oral tablet (20 sources) Start: 03-26-2023 Potassium Chlo ride (Klor-Con M20) 20 mEq tablet,ER particles/crystals Active 20 meq PO DAILY March 26, 2023 12:00am Potassium Chlori de 20 MEQ Oral Packet ; daily (20 MEQ) Comment on above: Take 20 mEq by mouth once daily. rosuvastatin calcium 10 mg oral tablet (20 sources) HMG-CoA Reductase Inhibitor Start: 3 End: 4 take 1 tablet by mouth at bedtime Rosuvastatin 10 mg tablet Active 10 mg PO AT BEDTIME March 26, 2023 12:00am rosuvastatin Comment on above: Take 1 tablet by [facility] daily at bedtime. tamsulosin hydrochloride 0.4 mg oral capsule (20 sources) alpha-Adrenergic Trista Start: 3 take 1 capsule by mouth at bedtime Tamsulosin 0.4 mg capsule Active 0.4 mg PO AT BEDTIME March 26, 2023 12:00am Comment on above: Take 0.4 mg by mouth once daily. vitamin b12 1 mg oral tablet (20 sources) Vitamin B12 cyanocobalamin (VITAMIN B-12) 1,000 mcg tab Take 500 mcg by mouth q 24 HR. Active take 1 ug by mouth once daily Vi tamin B-12 500 MCG Oral Tablet ; daily (500 MCG) Comment on above: Take 500 mcg by mout h q 24 HR. Completed/Discontinued Medications Medication Drug Class(es) Dates Sig (Normalized) Sig (Original) amoxicillin 875 mg / clavulanate 125 mg oral tablet (20 sources) Penicillin-class Antibacterial Start: 04-28-2022 End: 05-05-2022 take 1 tablet by mouth twice daily Amoxicillin-Pot Clavulanate 875-125 MG Oral Tablet ; 1 (one) Tablet two times daily for 7 days Quantity: 14 {Tablet} Refills: 0 Ordered: 28-Apr-2022 XIOMARA Shane Start: 28-Apr-2022 End: 05-May-2022 Status: Inactive cefdinir 300 mg oral capsule (20 sources) Cephalosporin Antibacterial Start: 12-30-2023 End: 02-28-2024 cefdinir 300 mg capsule ; 1 (one) Capsule two times daily for 7 days Quantity: 14 {Capsule} Refills: 0 Ordered: 30-Dec-2023 XIOMARA Shane Start: 30-Dec-2023 End: 06-Jan-2024 Status: Inactive Start: 11-25-2023 End: 12-02-2023 cefdinir 300 mg capsule ; 1 (one) Capsule two times daily for 7 days Quantity: 14 {Capsule} Refills: 0 Ordered: 25-Nov-2023 XIOMARA Shane Start: 25-Nov-2023 End: 02-Dec-2023 Status: Inactive Start: 10-11-2023 End: 10-18-2023 cefdinir 300 mg capsule ; 1 (one) Capsule two times daily for 7 days Quantity: 14 {Capsule} Refills: 0 Ordered: 11-Oct-2023 XIOMARA Shane Start: 11-Oct-2023 End: 18-Oct-2023 Status: Inactive Start: 08-06-2022 End: 02-08-2023 take 1 capsule by mouth twice daily Cefdinir 300 MG Oral Capsule ; 1 (one) Capsule two times daily for 7 days Quantity: 14 {Capsule} Refills: 0 Ordered: 06-Aug-2022 FANY Infante Start: 06-Aug-2022 End: 13-Aug-2022 Status: Inactive Comment on above: Take 300 mg by mouth twice daily. fexofenadine hydrochloride 180 mg oral tablet (20 sources) Histamine-1 Receptor Antagonist take 1 mg by mouth once daily Fexofenadine HCl 180 MG Oral Tablet ; daily (180 MG) Status: Inactive Fish Oil-[place]-3 Fatty Acids (FISH OIL) 340-1,000 mg cap (3 sources) Start: 023 take 1 capsule by mouth once daily Fish Oil-[place]-3 Fatty Acids (FISH OIL) 340-1,000 mg cap Take 1 capsule by mouth once daily. 0 08/02/2022 Active Comment on above: Take 1 capsule by [facility] once daily. fish oil/borage/flax/om3,6 ,9 1 (OMEGA 3-6-9 ORAL) (8 sources) fish oil/borage/flax/om3 ,6,9 1 (OMEGA 3-6-9 ORAL) Take by mouth. 0 Active Comment on above: Take by mouth. nitrofurantoin, macrocrystals 25 mg / nitrofurantoin, monohydrate 75 mg oral capsule (20 sources) Nitrofuran Antibacterial Start: 023 End: 023 take 1 capsule by mouth twice daily Macrobid 100 MG Oral Capsule ; 1 (one) Capsule BID for 7 days Quantity: 14 {Capsule} Refills: 0 Ordered: 03-Aug-2022 FANY Infante Start: 03-Aug-2022 End: 10-Aug-2022 Status: Inactive 24 hr rivastigmine 0.192 mg/hr transdermal system (14 sources) Start: 024 End: 024 apply 1 dose transdermal route once daily rivastigmine (EXELON) 4.6 mg/24 hour patch Indications: MCI (mild cognitive impairment) Apply 1 Patch as directed once daily. 30 Patch 2 12/31/2023 01/03/2024 Discontinued (Course of therapy completed) Start: 10-26-2023 End: 01-24-2024 take 1 capsule by mouth twice daily rivastigmine tartrate (EXELON) 1.5 mg capsule Indications: Mixed dementia (HCC) Take 1 capsule by mouth two times a day. 60 capsule 2 10/26/2023 12/31/2023 Discontinued simvastatin 40 mg oral tablet (20 sources) HMG-CoA Reductase Inhibitor simvastatin 40 mg ta blet ; daily (40 mg) Status: Inactive 125 ml sodium chloride 9 mg/ml prefilled syringe (20 sources) Start: 07-23-2023 End: 10-13-2024 sodium chloride 0.9 %, flush, (BD POSIFLUSH) syringe Inject 2-10 mL intravenously as directed. For Echo procedure 10 mL 0 10/14/2023 10/26/2023 Discontinued (Course of therapy completed) Comment on above: Inject 2-10 mL intra venously as directed. For Echo procedure Problems Active Problems Problem Classification Problem Date Documented Date Episodic/Chronic Abdominal pain (20 sources) Left flank pain; Translations: [Unspecified abdominal pain] 12-27-2023 Episodic Aortic; peripheral; and visceral artery aneurysms (20 sources) Aneurysm of infrarenal abdominal aorta ; Translations: [Infrarenal abdominal aortic aneurysm (AAA) without rupture] Onset: 07-15-2023 07-15-2023 Chronic Cardiac dysrhythmias (20 sources) Paroxysmal atrial fibrillation; Translations: [Paroxysmal atrial fibrillation] Onset: 08-17-2024 02-08-2023 Chronic Comment on above: Cardiology, Dr. Teagan Troy Cardiac dysrhythmias (20 sources) Sinus bradycardia 04-28-2023 Episodic Coronary atherosclerosis and other heart disease (20 sources) Coronary arteriosclerosis; Translations: [Atherosclerotic heart disease of [place] coronary artery with other forms of angina pectoris] Onset: 07-15-2023 Chronic Comment on above: Dr. Rios; atorvasta tin 80mg Coronary atherosclerosis and other heart disease (20 sources) Coronary atherosclerosis and other heart disease 04-28-2023 Delirium, dementia, and amnestic and other cognitive disorders (20 sources) Alzheimer's disease; Translations: [Alzheimer's disease, unspecified] 04-29-2023 Chronic Disorders of lipid metabolism (20 sources) Hyperlipidemia; Translations: [Hyperlipidemia, unspecified] 04-28-2023 Chronic Genitourinary symptoms and ill-defined conditions (20 sources) Blood in urine; Translations: [Hematuria, unspecified] 04-28-2023 Episodic Hyperplasia of prostate (20 sources) Benign prostatic hyperplasia; Translations: [Benign prostatic hyperplasia without lower urinary tract symptoms] 04-28-2023 Chronic Immunizations and screening for infectious disease (20 sources) Immunization due; Translations: [Encounter for immunization] 04-28-2023 Episodic Mood disorders (20 sources) Depressive disorder; Translations: [Depressive disorder, not elsewhere classified] 05-17-2024 Chronic Nutritional deficiencies (20 sources) Vitamin D deficiency; Translations: [Vitamin D deficiency, unspecified] 04-28-2023 Chronic Nutritional deficiencies (20 sources) Cobalamin deficiency; Translations: [Deficiency of other specified B group vitamins] 04-28-2023 Episodic Osteoarthritis (20 sources) Arthritis 04-28-2023 Chronic Other aftercare (20 sources) Post-discharge follow-up; Translations: [Encounter for follow-up examination after completed treatment for conditions other than malignant neoplasm] 04-28-2023 Episodic Other aftercare (1 source) Patient encounter status; Translations: [Encounter for therapeutic drug level monitoring] 10-01-2023 Episodic Other aftercare (1 source) Long-term current use of anticoagulant; Translations: [correction (current) use of anticoagulants] 01-03-2024 Episodic Other and ill-defined cerebrovascular disease (1 source) Cerebrovascular disease; Translations: [Cerebrovascular disease, unspecified] 02-23-2024 Chronic Other circulatory disease (20 sources) Presence of other cardiac implants and grafts; Translations: [Other specified cardiac device in situ] Onset: 10-04-2023 10-04-2023 Chronic Other connective tissue disease (1 source) Paraparesis; Translations: [Other symptoms and signs involving the musculoskeletal system] 02-08-2023 Episodic Other diseases of bladder and urethra (20 sources) Unspecified urethral stricture, male, unspecified site; Translations: [Urethral stricture, unspecified] 04-29-2023 Episodic Comment on above: Urology, Dr. Cortes Other hereditary and degenerative nervous system conditions (1 source) Impaired cognition; Translations: [Mild cognitive impairment, so stated] 12-31-2023 Chronic Other injuries and conditions due to external causes (20 sources) Injury of head; Translations: [Unspecified injury of head, initial encounter] 04-28-2023 Episodic Other injuries and conditions due to external causes (20 sources) Hematoma; Translations: [Other injury of unspecified body region, initial encounter] 04-28-2023 Episodic Other lower respiratory disease (1 source) Dyspnea; Translations: [Dyspnea, unspecified] Episodic Other lower respiratory disease (1 source) Dyspnea, unspecified; Translations: [Dyspnea, unspecified] Onset: 10-09-2022 Episodic Other lower respiratory disease (1 source) Dyspnea on exertion; Translations: [Other forms of dyspnea] 02-23-2024 Episodic Other lower respiratory disease (6 sources) Cough; Translations: [Cough] 09-28-2024 Episodic Other nutritional; endocrine; and metabolic disorders (20 sources) Gilbert's syndrome; 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-28-2023 Chronic Other screening for suspected conditions (not mental disorders or infectious disease) (20 sources) Raised prostate specific antigen; Translations: [Elevated prostate specific antigen [PSA]] 04-28-2023 Episodic Other upper respiratory infections (20 sources) Sinusitis; Translations: [Chronic sinusitis, unspecified] 08-03-2022 Chronic Peripheral and visceral atherosclerosis (20 sources) Atherosclerosis of aorta; Translations: [Atherosclerosis of aorta] 04-29-2023 Chronic Pulmonary heart disease (20 sources) Pulmonary hypertension; Translations: [Pulmonary hypertension, unspecified] Onset: 02-08-2023 02-08-2023 Chronic Residual codes; unclassified (14 sources) Sleep apnea; Translations: [Sleep apnea, unspecified] 07-19-2024 Chronic Residual codes; unclassified (20 sources) Edema of lower extremity; Translations: [Localized edema] 04-28-2023 Episodic Skin and subcutaneous tissue infections (20 sources) Cellulitis; Translations: [Cellulitis, unspecified] 04-28-2023 Episodic Unclassified (20 sources) Early onset of Alzheimers 04-28-2023 Unclassified (20 sources) EMPHYSEMA/COPD 04-28-2023 Unclassified (20 sources) KIDNEY STONES 04-28-2023 Unclassified (20 sources) Paroxysmal Atril Fibrillation 04-28-2023 Unclassified (20 sources) Follow up from hospital stay - Name of Hospital: [facility]. Date of Admission: 02/08/23. The patient was hospitalized for fall (closed head injury, knee contusion, left wrist sprain). New medications include zetia, crestor and No new medications were prescribed. No post hospital therapies were ordered. Patient was discharged to home. Current Symptoms: knee pain/swelling. Note for Follow up from hospital stay: Taken off atorvastatin 02-15-2023 Unclassified (20 sources) [ADDITIONAL REASON] Transition into care - The patient is transitioning into care from an emergency room and a summary of care was reviewed. 02-15-2023 Unclassified (20 sources) Follow up for multiple chronic conditions - The patient is here for follow-up of a-fib (parosysmal atrial fib) and hyperlipidemia. The patient always takes the prescribed medications. No side effects noted. The patient has low activity level and no regular exercise program. Note for Multiple chronic conditions follow-up: Patient underwent second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 abnormalities noted. Right Ventricle Normal RV size. Normal systolic function. Atria Normal left atrium. Normal right atrium. Tricuspid Valve Normal tricuspid valve. Mild (1+) tricuspid valve insufficiency. Pulmonary artery systolic pressure is 28 mmHg. Aortic Valve Trisinus/trileaflet aortic valve. Mild (1+) aortic valve insufficiency. Pulmonic Valve Normal pulmonic valve. Great Vessels Normal aortic root. The pulmonary artery is normal size. Inferior vena cava collapse with respiration. Pericardium/Pleural No pericardial effusion. MMode/2D Measurements & Calculations LVIDd: 5.4 cm IVSd: 0.76 cm Ao root diam: 3.3 cm LVIDs: 3.5 cm LVPWd: 0.89 cm RVDd: 3.4 cm FS: 35.6 % LAV(MOD-bp): 66.1 ml LVAd ap4: 35.4 cm2 SV(MOD-sp4): 66.9 ml LAV(MOD-bp) Indexed: 32.1 ml/m2 LVLd ap4: 8.4 cm SI(MOD-sp4): 32.5 ml/m2 LAV(MOD-sp2): 72.4 ml EDV(MOD-sp4): 125.9 ml LAV(MOD-sp4): 59.0 ml EDV(sp4-el): 127.0 ml LVAs ap4: 21.4 cm2 LVLs ap4: 6.5 cm ESV(MOD-sp4): 59.0 ml ESV(sp4-el): 59.7 ml EF(MOD-sp4): 53.1 % EF(sp4-el): 53.0 % SV(sp4-el): 67.3 ml LA dimension(2D): 3.8 cm LA A4 area: 18.9 cm2 _ RA A4 area: 18.0 cm2 TAPSE: 2.9 cm Time Measurements MV dec time: 0.26 sec Doppler Measurements & Calculations MV E max alo: 68.5 cm/sec Lat Peak E' Alo: 12.2 cm/sec Med Peak E' Alo: 9.6 cm/sec MV A max alo: 41.3 cm/sec E/E' lat: 5.6 E/E' med: 7.2 MV E/A: 1.7 MV V2 max: 70.5 cm/sec MV P1/2t max alo: 78.9 cm/sec Ao V2 max: 114.8 cm/sec MV max P.0 mmHg MV P1/2t: 69.2 msec Ao max P.3 mmHg MV V2 mean: 40.2 cm/sec Ao V2 mean: 82.4 cm/sec MV mean P.72 mmHg MV dec slope: 334.3 cm/sec2 Ao mean P.1 mmHg MV V2 VTI: 23.2 cm MVA(P1/2t): 3.2 cm2 Ao V2 VTI: 30.7 cm AV (velocity ratio): 0.63 _ AI max alo: 354.0 cm/sec LV V1 max: 74.8 cm/sec MR max alo: 526.8 cm/sec AI max P.2 mmHg LV V1 max P.2 mmHg MR max P.0 mmHg LV V1 mean P.3 mmHg MR mean alo: 430.5 cm/sec AI dec slope: 217.2 cm/sec2 LV V1 mean: 53.7 cm/sec MR mean P.1 mmHg AI P1/2t: 477.3 msec LV V1 VTI: 19.3 cm MR VTI: 205.2 cm PA V2 max: 100.0 cm/sec TR max alo: 249.1 cm/sec PA V2 mean: 74.1 cm/sec TR max P.8 mmHg ECHO/Echo Complete Interpretation Summary Normal LV size. The left ventricular ejection fraction is 55 %. Mild (1+) aortic valve insufficiency. Stage 2 diastolic dysfunction. Ordering Physician: Jake Rios Referring Physician: Adam Shane Performed By: France Peck RDCS, RVT 01/17/25 1624 Date _ Varinder Shepherd MD CC: Dr. 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 [facility] Work Phone: CBC W Auto Differential pane l (Bld)on 11-27-2024 Basophils (Bld) [#/Vol] 0.10 10*3/uL Normal <0.11 [facility] Comment on above: Order Comment: Speci men Type: BLOOD SPECIMENOrdering Facility: [facility] Address: [address] [place] [address] Performed By: #### 5 7021-8 ####[facility] [id number] [place] [address] [place] Basophils/100 WBC (Bld) 1.6 % Normal [facility] Comment on above: Order Comment: Speci men Type: BLOOD SPECIMENOrdering Facility: [facility] Address: [address] [place] [address] Performed By: #### 5 7021-8 ####[facility] [id number] [place] [address] [place] Differential cell count method Nom (Bld) Auto Normal [facility] Comment on above: Order Comment: Speci men Type: BLOOD SPECIMENOrdering Facility: [facility] Address: [address] [place] [address] Performed By: #### 5 7021-8 ####[facility] [id number] [place] [address] [place] Eosinophils (Bld) [#/Vol] 0.40 10*3/uL Normal <0.46 [facility] Comment on above: Order Comment: Speci men Type: BLOOD SPECIMENOrdering Facility: [facility] Address: [address] [place] [address] Performed By: #### 5 7021-8 ####[facility] MARTHAWANITALIA [id number] [place] [address] [place] Eosinophils/100 WBC (Bld) 6.2 % Normal [facility] Comment on above: Order Comment: Speci men Type: BLOOD SPECIMENOrdering Facility: [facility] Address: [address] [place] [address] Performed By: #### 5 7021-8 ####[facility]ITALLIA [id number] [place] [address] [place] Erythrocyte distribution width (RBC) [Ratio] 12.6 % Normal 11.5-15.0 [facility] Comment on above: Order Comment: Speci men Type: BLOOD SPECIMENOrdering Facility: [facility] Address: [address] [place] [address] Performed By: #### 5 7021-8 ####[facility] [id number] [address] [place] Hematocrit (Bld) [Volume fraction] 40.9 % Normal 39.0-51.0 [facility] Comment on above: Order Comment: Speci men Type: BLOOD SPECIMENOrdering Facility: [facility] Address: [address] [place] [address] Performed By: #### 5 7021-8 ####[facility] [id number] [place] [address] [place] Hemoglobin (Bld) [Mass/Vol] 13.5 g/dL Normal 13.0-17.0 [facility] Comment on above: Order Comment: Speci men Type: BLOOD SPECIMENOrdering Facility: [facility] Address: [address] [place] [address] Performed By: #### 5 7021-8 ####[facility]ITALNCLI [id number] [place] [address] [place] Immature granulocytes (Bld) [#/Vol] 10*3/uL Normal <0.10 [facility] Comment on above: Order Comment: Speci men Type: BLOOD SPECIMENOrdering Facility: [facility] Address: [address] [place] [address] Performed By: #### 5 7021-8 ####[facility]PITALNCA [id number] [place] [address] [place] Immature granulocytes/100 WBC (Bld) 0.2 % Normal [facility] Comment on above: Order Comment: Speci men Type: BLOOD SPECIMENOrdering Facility: [facility] Address: [address] [place] [address] Performed By: #### 5 7021-8 ####[facility] [id number] [place] [address] [place] Lymphocytes (Bld) [#/Vol] 1.72 10*3/uL Normal 1.00-4.00 [facility] Comment on above: Order Comment: Speci men Type: BLOOD SPECIMENOrdering Facility: [facility] Address: [address] [place] [address] Performed By: #### 5 7021-8 ####[facility] [id number] [place] [address] [place] Lymphocytes/100 WBC (Bld) 26.8 % Normal [facility] Comment on above: Order Comment: Speci men Type: BLOOD SPECIMENOrdering Facility: [facility] Address: [address] [place] [address] Performed By: #### 5 7021-8 ####[facility] [id number] [place] [address] [place] MCH (RBC) [Entitic mass] 30.8 pg Normal 26.0-34.0 [facility] Comment on above: Order Comment: Speci men Type: BLOOD SPECIMENOrdering Facility: [facility] Address: [address] [place] [address] Performed By: #### 5 7021-8 ####[facility] MARTHATREM[facility] CITYAALIYAH [id number] [place] [address] [place] MCHC (RBC) [Mass/Vol] 33.0 g/dL Normal 30.5-36.0 [facility] Comment on above: Order Comment: Speci men Type: BLOOD SPECIMENOrdering Facility: [facility] Address: [address] [place] [address] Performed By: #### 5 7021-8 ####[facility] [id number] [place] [address] [place] MCV (RBC) [Entitic vol] 93.4 fL Normal 80.0-100.0 [facility] Comment on above: Order Comment: Speci men Type: BLOOD SPECIMENOrdering Facility: [facility] Address: [address] [place] [address] Performed By: #### 5 7021-8 ####[facility]ITALNCA [id number] [place] [address] [place] Monocytes (Bld) [#/Vol] 0.73 10*3/uL Normal <0.87 [facility] Comment on above: Order Comment: Speci men Type: BLOOD SPECIMENOrdering Facility: [facility] Address: [address] [place] [address] Performed By: #### 5 7021-8 ####[facility]ITALNCLIA [id number] [place] [address] [place] Monocytes/100 WBC (Bld) 11.4 % Normal [facility] Comment on above: Order Comment: Speci men Type: BLOOD SPECIMENOrdering Facility: [facility] Address: [address] [place] [address] Performed By: #### 5 7021-8 ####[facility]ITALWNCLIA [id number] [place] [address] [place] Neutrophils (Bld) [#/Vol] 3.46 10*3/uL Normal 1.45-7.50 [facility] Comment on above: Order Comment: Speci men Type: BLOOD SPECIMENOrdering Facility: [facility] Address: [address] [place] [address] Performed By: #### 5 7021-8 ####[facility]ITALL[facility] [id number] [place] [address] [place] Neutrophils/100 WBC (Bld) 53.8 % Normal [facility] Comment on above: Order Comment: Speci men Type: BLOOD SPECIMENOrdering Facility: [facility] Address: [address] [place] [address] Performed By: #### 5 7021-8 ####[facility] [id number] [place] [address] [place] Nucleated RBC (Bld) [#/Vol] 10*3/uL Normal <0.01 [facility] Comment on above: Order Comment: Speci men Type: BLOOD SPECIMENOrdering Facility: [facility] Address: [address] [place] [address] Performed By: #### 5 7021-8 ####[facility] [id number] [place] [address] [place] Nucleated RBC/100 WBC (Bld) [Ratio] 0.0 /100 WBC Normal [facility] Comment on above: Order Comment: Speci men Type: BLOOD SPECIMENOrdering Facility: [facility] Address: [address] [place] [address] Performed By: #### 5 7021-8 ####[facility]ITALNCLI [id number] [place] [address] [place] Platelet mean volume (Bld) [Entitic vol] 9.3 fL Normal 9.0-12.7 [facility] Comment on above: Order Comment: Speci men Type: BLOOD SPECIMENOrdering Facility: [facility] Address: [address] [place] [address] Performed By: #### 5 7021-8 ####[facility] [id number] [place] [address] [place] Platelets (Bld) [#/Vol] 176 10*3/uL Normal 150-400 [facility] Comment on above: Order Comment: Speci men Type: BLOOD SPECIMENOrdering Facility: [facility] Address: [address] [place] [address] Performed By: #### 5 7021-8 ####[facility] [id number] [place] [address] [place] RBC (Bld) [#/Vol] 4.38 10*6/uL Normal 4.20-6.00 [facility] Comment on above: Order Comment: Speci men Type: BLOOD SPECIMENOrdering Facility: [facility] Address: [address] [place] [address] Performed By: #### 5 7021-8 ####[facility]ITALNCA [id number] [place] [address] [place] WBC (Bld) [#/Vol] 6.42 10*3/uL Normal 3.70-11.00 [facility] Comment on above: Order Comment: Speci men Type: BLOOD SPECIMENOrdering Facility: [facility] Address: [address] [place] [address] Performed By: #### 5 7021-8 ####[facility]ITALNCLIA [id number] [place] [address] [place] Comprehensive metabolic 2000 panelon 11-27-2024 Albumin [Mass/Vol] 4.3 g/dL Normal 3.9-4.9 [facility] Comment on above: Order Comment: Speci men Type: BLOOD SPECIMENOrdering Facility: [facility] Address: [address] [place] [address] Performed By: #### 2 4323-8 ####[facility] MARTHAWNCLIA [id number] [place] [address] [place] ALP [Catalytic activity/Vol] 115 U/L High 38-113 [facility] Comment on above: Order Comment: Speci men Type: BLOOD SPECIMENOrdering Facility: [facility] Address: [address] [place] [address] Performed By: #### 2 4323-8 ####[facility]ITALWNCLIA [id number] [place] [address] [place] ALT [Catalytic activity/Vol] 19 U/L Normal 10-54 [facility] Comment on above: Order Comment: Speci men Type: BLOOD SPECIMENOrdering Facility: [facility] Address: [address] [place] [address] Performed By: #### 2 4323-8 ####[facility]ITALL[facility] [id number] [place] [address] [place] Anion gap [Moles/Vol] 15 mmol/L Normal 8-15 [facility] Comment on above: Order Comment: Speci men Type: BLOOD SPECIMENOrdering Facility: [facility] Address: [address] [place] [address] Performed By: #### 2 4323-8 ####[facility] MILLTOWNCLIA [id number] [place] [address] [place] AST [Catalytic activity/Vol] 26 U/L Normal 14-40 [facility] Comment on above: Order Comment: Speci men Type: BLOOD SPECIMENOrdering Facility: [facility] Address: [address] [place] [address] Performed By: #### 2 4323-8 ####[facility] MILLTOWNCLIA [id number] [place] [address] [place] Bilirubin [Mass/Vol] 1.8 mg/dL High 0.2-1.3 [facility] Comment on above: Order Comment: Speci men Type: BLOOD SPECIMENOrdering Facility: [facility] Address: [address] [place] [address] Performed By: #### 2 4323-8 ####[facility] MILLTOWNCLIA [id number] [place] [address] [place] Calcium [Mass/Vol] 9.4 mg/dL Normal 8.5-10.2 [facility] Comment on above: Order Comment: Speci men Type: BLOOD SPECIMENOrdering Facility: [facility] Address: [address] [place] [address] Performed By: #### 2 4323-8 ####[facility]ITALWNCLIA [id number] [place] [address] [place] Chloride [Moles/Vol] 102 mmol/L Normal 98-107 [facility] Comment on above: Order Comment: Speci men Type: BLOOD SPECIMENOrdering Facility: [facility] Address: [address] [place] [address] Performed By: #### 2 4323-8 ####[facility] MILLTOWNCLIA [id number] [place] [address] [place] CO2 [Moles/Vol] 24 mmol/L Normal 22-30 [facility] Comment on above: Order Comment: Speci men Type: BLOOD SPECIMENOrdering Facility: [facility] Address: [address] [place] [address] Performed By: #### 2 4323-8 ####[facility]ITALNCL[facility] [id number] [place] [address] [place] Creatinine [Mass/Vol] 1.17 mg/dL Normal 0.73-1.22 [facility] Comment on above: Order Comment: Vel kumar Type: BLOOD SPECIMENOrdering Facility: [facility] Address: [address] [place] [address] Performed By: #### 2 4323-8 ####[facility] [id number] [place] [address] [place] Creatinine and Glomerular filtration rate.predicted panel (S/P/Bld) 64 mL/min/1.73m??? Normal >=60 [facility] Comment on above: Order Comment: Vel kumar Type: BLOOD SPECIMENOrdering Facility: [facility] Address: [address] [place] [address] Result Comment: Keisha mated Glomerular Filtration Rate (eGFR) is calculated using the 2020 CKD-EPI creatinine equation. This equation utilizes serum creatinine, sex, and age as parameters. The creatinine assay has traceable calibration to isotope dilution-mass spectrometry. Refer to KDIGO guidelines for clinical interpretation. In patients with unstable renal function, e.g. those with acute kidney injury, the eGFR may not accurately reflect actual GFR. Performed By: #### 2 4323-8 ####[facility] [id number] [place] [address] [place] Glucose [Mass/Vol] 109 mg/dL High 74-99 [facility] Comment on above: Order Comment: Vel kumar Type: BLOOD SPECIMENOrdering Facility: [facility] Address: [address] [place] [address] Result Comment: The [place] Diabetes Association (ADA) provides guidance for cutoff values for fasting glucose and random glucose. The ADA defines fasting as no caloric intake for at least 8 hours. Fasting plasma glucose results between 100 to 125 mg/dL indicate increased risk for diabetes (prediabetes). Fasting plasma glucose results greater than or equal to 126 mg/dL meet the criteria for diagnosis of diabetes. In the absence of unequivocal hyperglycemia, results should be confirmed by repeat testing. In a patient with classic symptoms of hyperglycemia or hyperglycemic crisis, random plasma glucose results greater than or equal to 200 mg/dL meet the criteria for diagnosis of diabetes. Reference: Standards of Medical Care in Diabetes 2016, [place] [employer] Association. Diabetes Care. 2016.39(Suppl 1). Performed By: #### 2 4323-8 ####[facility] ELISA THOMASMARVIN [id number] [place] [address] [place] Potassium [Moles/Vol] 4.3 mmol/L Normal 3.7-5.1 [facility] Comment on above: Order Comment: Speci men Type: BLOOD SPECIMENOrdering Facility: [facility] Address: [address] [place] [address] Performed By: #### 2 4323-8 ####[facility]OSPITALAALIYAH [id number] [place] [address] [place] Protein [Mass/Vol] 7.0 g/dL Normal 6.3-8.0 [facility] Comment on above: Order Comment: Speci men Type: BLOOD SPECIMENOrdering Facility: [facility] Address: [address] [place] [address] Performed By: #### 2 4323-8 ####[facility] HOSPITALAALIYAH [id number] [place] [address] [place] Sodium [Moles/Vol] 141 mmol/L Normal 136-144 [facility] Comment on above: Order Comment: Speci men Type: BLOOD SPECIMENOrdering Facility: [facility] Address: [address] [place] [address] Performed By: #### 2 4323-8 ####[facility]ITALANITALIA [id number] [place] [address] [place] Urea nitrogen [Mass/Vol] 15 mg/dL Normal 9-24 [facility] Comment on above: Order Comment: Speci men Type: BLOOD SPECIMENOrdering Facility: [facility] Address: [address] [place] [address] Performed By: #### 2 4323-8 ####[facility] ELISA THOMASINDIANA UNIVERSITY HE[facility] SA[facility] HOSPITALLIA [id number] [place] [address] [place] LIPID PANEL, NONFASTINGon Cholesterol [Mass/Vol] 99 mg/dL Normal <200 [facility] Comment on above: Order Comment: Speci men Type: BLOOD SPECIMENOrdering Facility: [facility] Address: [address] [place] [address] Result Comment: <200 mg/dL, Desirable 200-239 mg/dL, Borderline high >239 mg/dL, High Performed By: #### L IPNF ####[facility] LABCLIA [id number] [place] [address] [place] HDL CHOLESTEROL, NF 55 mg/dL Normal >39 [facility] Comment on above: Order Comment: Speci men Type: BLOOD SPECIMENOrdering Facility: [facility] Address: [address] [place] [address] Result Comment: 40-5 9 mg/dL, Acceptable >59 mg/dL, High: Negative risk factor for coronary heart disease <40 mg/dL, Low: Positive risk factor for coronary heart disease Performed By: #### L IPNF ####[facility] LABCLIA [id number] [address] [place] LDL CHOLESTEROL CALCULATED, NF 30 mg/dL Normal <100 [facility] Comment on above: Order Comment: Speci men Type: BLOOD SPECIMENOrdering Facility: [facility] Address: [address] [place] [address] Result Comment: <100 mg/dL, Optimal 100-129 mg/dL, Near optimal/above optimal 130-159 mg/dL, Borderline high 160-189 mg/dL, High >189 mg/dL, Very high Secondary prevention optimal LDL Cholesterol levels are recommended to be <70 mg/dL LDL cholesterol is calculated using the Rooney-NIH equation. Performed By: #### L IPNF ####[facility] LABCLIA [id number] [place] [address] [place] LDL/HDL RATIO, NF 0.55 mg/dL Normal <2.54 [facility] Comment on above: Order Comment: Speci men Type: BLOOD SPECIMENOrdering Facility: [facility] Address: [address] [place] [address] Result Comment: Refe ольгаce: 1. National Cholesterol Education Program ATP III Guideline At-A-Glance Quick Desk Reference: National Heart, Lung, and Blood [place]. National Institutes of Health. 2001: NIH Publication No. 01-3305. 2. An International Atherosclerosis Society position paper: global recommendations for the management of dyslipidemia: executive summary, Atherosclerosis. 2014: 232(2):410-413. Performed By: #### L IPNF ####[facility] LABCLIA [id number] [address] [place] NON HDL CHOL, NF 44 mg/dL Normal <130 [facility] Comment on above: Order Comment: Speci men Type: BLOOD SPECIMENOrdering Facility: [facility] Address: [address] [place] [address] Result Comment: <130 mg/dL, Optimal 130-159 mg/dL, Near optimal/above optimal 160-189 mg/dL, Borderline high 190-219 mg/dL, High >219 mg/dL, Very high Secondary prevention optimal non HDL Cholesterol levels are recommended to be <100 mg/dL Performed By: #### L IPNF ####[facility] LABCLIA [id number] [place] [address] [place] T CHOL/HDL RATIO NF 1.80 mg/dL Normal <5.10 [facility] Comment on above: Order Comment: Speci men Type: BLOOD SPECIMENOrdering Facility: [facility] Address: [address] [place] [address] Performed By: #### L IPNF ####[facility] LABCLIA [id number] [place] [id number] [place] TRIGLYCERIDES, NF 63 mg/dL Normal <150 [facility] Comment on above: Order Comment: Speci men Type: BLOOD SPECIMENOrdering Facility: [facility] Address: [address] [place] [address] Result Comment: <150 mg/dL, Normal 150-199 mg/dL, Borderline high 200-499 mg/dL, High >499 mg/dL, Very high Performed By: #### L IPNF ####[facility] LABCLIA [id number] [place] [address] [place] VLDL CHOLESTEROL, NF 8 mg/dL Normal <30 [facility] Comment on above: Order Comment: Ahsanjaskaran kumar Type: BLOOD SPECIMENOrdering Facility: [facility] Address: [address] [place] [address] Performed By: #### L IPNF ####[facility] LABCLIA [id number] [address] [place] CNPZuleyma 11-10-2024 CNPN Telephone (STEFANY) -------- EDUARDO MORALES ([id number]) 1945 M DEF Date Time Provider Department 11/10/24 JM CRUZ During your visit today, we recorded the following information about you: Silvia [place] 11/10/2024 1:55 PM Signed Received incoming fax, scanned into [employer]/EP Outside Report -Olga Murrell Allergies As of Date: 11/10/2024 Noted Allergy Reaction HYDROMORPHONE (BULK) 08/10/2022 11 - Vomiting LATEX 08/10/2022 9 - Itching 2 - Rash MORPHINE 08/10/2022 8 - GI Upset 11 - Vomiting MEMANTINE 08/10/2022 5 - Intolerance Comments: Dizziness Date Reviewed: 11/01/2024 Reviewed by: Cathryn Matos, LORENZO - Fully Assessed Prescriptions as of 11/10/2024 - FLUoxetine (PROZAC) 10 mg capsule Take 10 mg by mouth once daily. - carboxymethylcellulose (REFRESH) 0.5 % drop Use 1 Drop in both eyes three times a day. - CPAP - apixaban (ELIQUIS) 2.5 mg tab(s) Take 1 tablet by mouth two times a day. - ezetimibe (ZETIA) 10 mg tablet Take 1 tablet by mouth once daily. - rosuvastatin (CRESTOR) 10 mg tablet Take 1 tablet by mouth daily at bedtime. - finasteride (PROSCAR) 5 mg tablet Take 5 mg by mouth once daily. - tamsulosin (FLOMAX) 0.4 mg Take 0.4 mg by mouth once daily. - multivit-minerals/folic acid (MEN'S MULTIVITAMIN GUMMIES ORAL) Take 2 tablets by mouth once daily. - cyanocobalamin (VITAMIN B-12) 1,000 mcg tab Take 500 mcg by mouth q 24 HR. - Cetirizine 10 mg cap Take 10 mg by mouth once daily. - potassium chloride ER (K-DUR, KLOR-CON) 20 mEq tablet Take 20 mEq by mouth once daily. - Cholecalciferol, Vitamin D3, 25 mcg (1,000 unit) cap Take 1,000 Units by mouth q 24 HR. - azelastine (ASTELIN, ASTEPRO) 0.1% nasal spray Use 1 [place] in each nostril once daily. Meds Comments as of 02/08/2023: All medications are dispensed through [place] Please print all prescriptions. Thanks Problem List As Of Date 11/10/2024 Noted Resolved Pulmonary hypertension (HCC) [I27.20] 02/08/2023 Infrarenal abdominal aortic aneurysm (AAA) with*07/15/2023 Coronary artery disease [I25.10] 07/15/2023 Presence of Watchman left atrial appendage clos*10/04/2023 Encounter Status:Closed by SILVIA LONGO on 11/10/24 [facility] CNCOon 11-01-2024 CNCO Letter Text [facility] CNOVon 11-01-2024 CNOV Office Visit (CATHMN ) -------- EDUARDO MORALES ([id number]) 1945 M DEF Date Time Provider Department 11/01/24 1:45 PM CLARENCE RIOS CATHMN During your visit today, we recorded the following information about you: Pulse Blood pressure Weight Height 57/minute 136/54 84.8 kg 1.829 m Clarence Rios MD 11/01/2024 2:11 PM Signed [facility] Department of Cardiovascular Medicine SECTION OF INTERVENTIONAL CARDIOLOGY OUTPATIENT VISIT DATE November 01, 2024 OUTPATIENT VISIT TYPE ESTABLISHED PRIMARY CARE PHYSICIAN: To use this Smartlink, specify the provider ID whose address you want to display, e.g., .PROVADDR[1 (where 1 is the provider ID). REFERRING PHYSICIAN: Clarence Rios [id number] [facility] [id number] CHIEF COMPLAINT: Patient presents with: Established Patient Follow-Up HISTORY OF PRESENT ILLNESS: Mr. Morales is a 79 year old male who presents today for follow-up visit . He denies . PAST CARDIAC HISTORY: See HPI PAST MEDICAL HISTORY Diagnosis Date AAA (abdominal aortic aneurysm) Atrial fibrillation (HCC) Bowel perforation (HCC) CAD (coronary artery disease) HLD (hyperlipidemia) MILTON (obstructive sleep apnea) Sleep apnea TIA (transient ischemic attack) PAST SURGICAL HISTORY Procedure Laterality Date ABLATION A-FIB BY PVI KNEE SURGERY HX PAST SURGICAL HISTORY OF colon resection PAST SURGICAL HISTORY OF reversal ileostomy TOTAL HIP REPLACEMENT Bilateral SOCIAL HISTORY Social History Tobacco Use Smoking status: Former Current packs/day: 0.00 Types: Cigarettes Quit date: 1997 Years since quittin.3 Smokeless tobacco: Never Vaping Use Vaping status: Never Used Substance Use Topics Alcohol use: Not Currently Drug use: Never FAMILY HISTORY Problem Relation Age of Onset Breast Cancer Mother No Known Problems Father No Known Problems Brother ALLERGIES: ALLERGIES Allergen Reactions Hydromorphone (Bulk) Vomiting Latex Itching, Rash Morphine GI Upset, Vomiting Memantine Intolerance Dizziness MEDICATIONS: Current Outpatient Medications Medication Sig FLUoxetine (PROZAC) 10 mg capsule Take 10 mg by mouth once daily. furosemide (LASIX) 40 mg tablet Take 20 mg by mouth once daily. carboxymethylcellulose (REFRESH) 0.5 % drop Use 1 Drop in both eyes three times a day. CPAP apixaban (ELIQUIS) 2.5 mg tab(s) Take 1 tablet by mouth two times a day. ezetimibe (ZETIA) 10 mg tablet Take 1 tablet by mouth once daily. rosuvastatin (CRESTOR) 10 mg tablet Take 1 tablet by mouth daily at bedtime. finasteride (PROSCAR) 5 mg tablet Take 5 mg by mouth once daily. tamsulosin (FLOMAX) 0.4 mg Take 0.4 mg by mouth once daily. multivit-minerals/folic acid (MEN'S MULTIVITAMIN GUMMIES ORAL) Take 2 tablets by mouth once daily. cyanocobalamin (VITAMIN B-12) 1,000 mcg tab Take 500 mcg by mouth q 24 HR. Cetirizine 10 mg cap Take 10 mg by mouth once daily. potassium chloride ER (K-DUR, KLOR-CON) 20 mEq tablet Take 20 mEq by mouth once daily. Cholecalciferol, Vitamin D3, 25 mcg (1,000 unit) cap Take 1,000 Units by mouth q 24 HR. azelastine (ASTELIN, ASTEPRO) 0.1% nasal spray Use 1 [place] in each nostril once daily. No current facility-administered medications for this visit. REVIEW OF SYSTEMS: PHYSICAL EXAMINATION: BP 136/54 Pulse 57 Ht 6' 0 (1.83m) Wt 187 lb (84.8kg) SpO2 97% BMI 25.36 kg/(m2). CARDIOVASCULAR MEDICINE TESTING: Last ECHO Result Conclusion ECHO Collected: 09/24/2023 2:50 PM (Final result) Impression: CONCLUSIONS: - Exam indication: Paroxysmal AFib - The left ventricle is normal in size. Left ventricular systolic function is normal. EF = 54 ? 5% (2D biplane) - The right ventricle is normal in size. Right ventricular systolic function is normal. - Mild mitral and aortic valve regurgitation. - The patient has not had a prior CC echocardiographic exam for comparison. * * * Final * * * Last EKG Result Conclusion ECG COMPLETE Collected: 08/17/2024 10:31 AM (Final result) Impression: SINUS BRADYCARDIA OTHERWISE NORMAL ECG Confirmed by MD DEEPIKA, HEBA ([id number]) on 08/30/2024 6:06:04 PM IMPRESSION: Mr. Morales is a 79 year old male last seen' 03/14, struggling with strength and memory (barely can play 2 holes of golf) -> light wts + driving range PTSD when preop for cholecystectomy had SPECT-> TID-> cath 60% LMT Not active Had mild DODD PAF (13% a fib ) AAA-3.7 h/o SB surg early dementia Cath: CSA 7.3 RFR 0.94 (09/10) outside TTE EF 50%, no LAE or VHD TODAY Less depressed on new meds Couldn't stand up on driving range/legs very weak/uses cane DODD 1 FOS No c/p Palp 2-4 wk w/o syncope Just dx'd with MILTON zio brief SVT and CT crestro 10 lasizx 20 zetia ap (more content not included)... [facility] EDUARDO MORALES ([id number]) 1945 M DEF Date Time Provider Department 10/17/24 JM CRUZIN During your visit today, we recorded the following information about you: Emmie Vásquez, LORENZO 10/17/2024 2:19 PM Signed ----- Message from Jm Cruz MD sent at 08/17/2024 12:02 PM EST ----- Regarding: Redo PVI +/- Amulet Dr. Vera tried to place a Watchman in the past but the SCOT would not accept it. Need to find out if Jody thinks an Amulet is an option. But I'd like to get the patient scheduled for redo AF ablation. I am hoping we can to ablation + Amulet. Thank you Emmie. You are amazing. Patient: Eduardo Morales EP Lab Procedure requested: Ablations PVI with Watchman CPT 00268, [id number] (Not Watchman, but an Amulet--if Jody agrees) Anticoagulation Status: Eliquis (apixaban) Requesting Physician: Jm Cruz MD,MPH Procedural Physician: Fadi Vera MD and Jm Cruz MD,MPH Date of last HANDP or Date of upcoming HANDP: 08/17/24 Indications for procedure: Atrial Fibrillation Procedure time frame: Patient convenience Current Meds: Current Outpatient Medications: ? FLUoxetine (PROZAC) 10 mg capsule? furosemide (LASIX) 40 mg tablet? carboxymethylcellulose (REFRESH) 0.5 % drop? CPAP? apixaban (ELIQUIS) 2.5 mg tab(s)? ezetimibe (ZETIA) 10 mg tablet? rosuvastatin (CRESTOR) 10 mg tablet? finasteride (PROSCAR) 5 mg tablet? tamsulosin (FLOMAX) 0.4 mg? multivit-minerals/folic acid (MEN'S MULTIVITAMIN GUMMIES ORAL)? cyanocobalamin (VITAMIN B-12) 1,000 mcg tab? Cetirizine 10 mg cap? potassium chloride ER (K-DUR, KLOR-CON) 20 mEq tablet? Cholecalciferol, Vitamin D3, 25 mcg (1,000 unit) cap? azelastine (ASTELIN, ASTEPRO) 0.1% nasal spray input Section Potential Research Patient: No General anesthesia or Managed Anesthesia Care (MAC) needed: Yes Conscious Sedation: No Mapping Ablation: [employer] (REGGIE) and Other FP CT Scan needed pre-procedure: No ECHO needed pre-procedure: Yes Anticoagulation: Continue anticoagulation. Do not interrupt. Stop Antiarrhythmic: No Stop Beta Trista/ Calcium Channel Trista: No ASA: N/A Plavix: N/A Additional instructions:None Is the patient a candidate for same day d/c: No Jm Cruz MD August 17, 2024 12:03 PM Emmie Vásquez RN 10/17/2024 2:20 PM Signed The date of 04/02/25 with +Dr. Vera offered. Awaiting confirmation from patient. Emmie Vásquez RN 10/18/2024 2:[address] Cruz, no AF on Zio monitor. No need to schedule for redo PVI. I updated patient's spouse. She is agreeable. Patient does not wish to be scheduled for an Amulet. The date of 04/02/25 is no longer hold for the patient. Allergies As of Date: 10/17/2024 Noted Allergy Reaction HYDROMORPHONE (BULK) 08/10/2022 11 - Vomiting LATEX 08/10/2022 9 - Itching 2 - Rash MORPHINE 08/10/2022 8 - GI Upset 11 - Vomiting MEMANTINE 08/10/2022 5 - Intolerance Comments: Dizziness Date Reviewed: 08/17/2024 Reviewed by: Juventino Golden, LORENZO - Fully Assessed Reason for Visit: Patient Update [1234] Cmt: Redo PVI ablation+/- Amulet implant Prescriptions as of 10/18/2024 - FLUoxetine (PROZAC) 10 mg capsule Take 10 mg by mouth once daily. - furosemide (LASIX) 40 mg tablet Take 20 mg by mouth once daily. - carboxymethylcellulose (REFRESH) 0.5 % drop Use 1 Drop in both eyes three times a day. - CPAP - apixaban (ELIQUIS) 2.5 mg tab(s) Take 1 tablet by mouth two times a day. - ezetimibe (ZETIA) 10 mg tablet Take 1 tablet by mouth once daily. - rosuvastatin (CRESTOR) 10 mg tablet Take 1 tablet by mouth daily at bedtime. - finasteride (PROSCAR) 5 mg tablet Take 5 mg by mouth once daily. - tamsulosin (FLOMAX) 0.4 mg Take 0.4 mg by mouth once daily. - multivit-minerals/folic acid (MEN'S MULTIVITAMIN GUMMIES ORAL) Take 2 tablets by mouth once daily. - cyanocobalamin (VITAMIN B-12) 1,000 mcg tab Take 500 mcg by mouth q 24 HR. - Cetirizine 10 mg cap Take 10 mg by mouth once daily. - potassium chloride ER (K-DUR, KLOR-CON) 20 mEq tablet Take 20 mEq by mouth once daily. - Cholecalciferol, Vitamin D3, 25 mcg (1,000 unit) cap Take 1,000 Units by mouth q 24 HR. - azelastine (ASTELIN, ASTEPRO) 0.1% nasal spray Use 1 [place] in each nostril once daily. Meds Comments as of 02/08/2023: All medications are dispensed through [place] Please print all prescriptions. Thanks Problem List As Of Date 10/17/2024 Noted Resolved Pulmonary hypertension (HCC) [I27.20] 02/08/2023 Infrarenal abdominal aortic aneurysm (AAA) with*07/15/2023 Coronary artery disease [I25.10] 07/15/2023 Presence of Watchman left atrial appendage clos*10/04/2023 Encounter Status:Closed by EMMIE VÁSQUEZ on 10/18/24 [facility] CNOVon 08-17-2024 CNOV Office Visit (CARDMN ) -------- EDUARDO MORALES ([id number]) 1945 M DEF Date Time Provider Department 08/17/24 11:45 AM JM CRUZ During your visit today, we recorded the following information about you: Pulse Blood pressure Weight Height 57/minute 124/54 86.2 kg 1.829 m Jm Cruz MD 08/17/2024 12:17 PM Signed [facility] [place] Department of Cardiovascular Medicine SECTION OF CARDIAC PACING and ELECTROPHYSIOLOGY OUTPATIENT VISIT DATE August 17, 2024 OUTPATIENT VISIT TYPE ESTABLISHED PRIMARY CARE PHYSICIAN: To use this Smartlink, specify the provider ID whose address you want to display, e.g., .PROVADDR[1 (where 1 is the provider ID). REFERRING PHYSICIAN: No referring provider defined for this encounter. CHIEF COMPLAINT: PAF HISTORY OF PRESENT ILLNESS (includes edited nursing intake history): Eduardo Morales is a 79 y/o male returning for follow up for atrial fibrillation. His past medical history is significant for CAD (LHC 60% left main stenosis), HLD, AAA, bowel perforation s/p patria-colectomy. There was concern due to his prior bowel surgery he may not be absorbing the oral anticoagulation. On 10/04/2023 he underwent ablation. He underwent attempted watchman implant. It ws aborted after they were unable to achieve satisfactory compression/positioning. He was last seen in office by MYRA Palacio on 01/03/2024. He has episodes of atrial fibrillation at least once a week. Most of the time it lasts 5-10 minutes. Occasionally he will have a longer episodes that lasts 3 hours. Sometimes at night he has chest tightness. He was recently diagnosed with sleep apnea and will be starting CPAP. He has some SOB. He has edema in his BLE. Patient states he already completed the AF survey. He has had no syncope, nearsyncope, palpitations, orthopnea or PND CHADS2-Vasc Score Breakdown 5 Total Score 2 Age >= 75 years old 2 History of stroke, TIA, or thromboemolism 1 History of vascular disease PAST MEDICAL HISTORY Diagnosis Date AAA (abdominal aortic aneurysm) (HCC) Atrial fibrillation (HCC) Bowel perforation (HCC) CAD (coronary artery disease) HLD (hyperlipidemia) TIA (transient ischemic attack) PAST SURGICAL HISTORY Procedure Laterality Date ABLATION A-FIB BY PVI KNEE SURGERY HX PAST SURGICAL HISTORY OF colon resection PAST SURGICAL HISTORY OF reversal ileostomy TOTAL HIP REPLACEMENT Bilateral SOCIAL HISTORY Social History Tobacco Use Smoking status: Former Current packs/day: 0.00 Types: Cigarettes Quit date: 1997 Years since quittin.1 Smokeless tobacco: Never Vaping Use Vaping status: Never Used Substance Use Topics Alcohol use: Not Currently Drug use: Never FAMILY HISTORY Problem Relation Age of Onset Breast Cancer Mother No Known Problems Father No Known Problems Brother ALLERGIES: ALLERGIES Allergen Reactions Hydromorphone (Bulk) Vomiting Latex Itching, Rash Morphine GI Upset, Vomiting Memantine Intolerance Dizziness MEDICATIONS: FLUoxetine (PROZAC) 10 mg capsule Take 10 mg by mouth once daily. furosemide (LASIX) 40 mg tablet Take 20 mg by mouth once daily. carboxymethylcellulose (REFRESH) 0.5 % drop Use 1 Drop in both eyes three times a day. CPAP apixaban (ELIQUIS) 2.5 mg tab(s) Take 1 tablet by mouth two times a day. ezetimibe (ZETIA) 10 mg tablet Take 1 tablet by mouth once daily. rosuvastatin (CRESTOR) 10 mg tablet Take 1 tablet by mouth daily at bedtime. finasteride (PROSCAR) 5 mg tablet Take 5 mg by mouth once daily. tamsulosin (FLOMAX) 0.4 mg Take 0.4 mg by mouth once daily. multivit-minerals/folic acid (MEN'S MULTIVITAMIN GUMMIES ORAL) Take 2 tablets by mouth once daily. cyanocobalamin (VITAMIN B-12) 1,000 mcg tab Take 500 mcg by mouth q 24 HR. Cetirizine 10 mg cap Take 10 mg by mouth once daily. potassium chloride ER (K-DUR, KLOR-CON) 20 mEq tablet Take 20 mEq by mouth once daily. Cholecalciferol, Vitamin D3, 25 mcg (1,000 unit) cap Take 1,000 Units by mouth q 24 HR. azelastine (ASTELIN, ASTEPRO) 0.1% nasal spray Use 1 [place] in each nostril once daily. Juventino Golden RN PHYSICAL EXAMINATION: BP 124/54 Pulse (!) 57 Ht 182.9 cm (6') Wt 86.2 kg (190 lb) BMI 25.77 kg/m? General: Looks well; pleasant and cooperative Neck: JVP normal Lungs: Clear to auscultation Cardiac: Regular rate and rhythm, no murmurs, rubs, gallops or clicks Abdomen: Soft, nontender, nondistended, no bruits Extremities: No cyanosis, clubbing, or edema; extremeties are warm Neurologic: A AND O x 3 CARDIOVASCULAR MEDICINE TESTING: EKG 08/17/2024 reviewed: Record recurrences on or prior to the follow-up date but after the date of the previous follow-up (or after ablation date if this is the first follow-up) Palpitations: Yes AFib: Yes Aflutter: No AT or SVT: No Is (more content not included)... Normal [facility] ECG COMPLETEon 08-17-2024 ECG COMPLETE Ventricular Rate : 5 7 BPM Atrial Rate : 57 BPM P-R Interval : 168 ms QRS Duration : 102 ms Q-T Interval : 432 ms QTC Calculation(Bazett) : 420 ms Calculated P [place] : 77 degrees Calculated R [place] : 45 degrees Calculated T [place] : 62 degrees SINUS BRADYCARDIA OTHERWISE NORMAL ECG Confirmed by MD POE HEBA ([id number]) on 08/30/2024 6:06:04 PM NAME : EDUARDO MORALES PID : [id number] : 1945 Gender : Male Race : ORD : [id number] Procedure Date : Aug 17 2024 10:31:54 Edit Date : Aug 30 2024 18:06:06 Diagnosis: SINUS BRADYCARDIA OTHERWISE NORMAL ECG Confirmed by MD POE HEBA ([id number]) on 08/30/2024 6:06:04 PM Test Reason : Location : 314 : J14 Overread By : MD POE HEBA Edited By : MD POE HEBA Referred By : JM CRUZ [facility] C[facility] Tele[facility] (MICHELLEMN) -------- BAUDILIOEDUARDO MCCORD ([id number]) 1945 M DEF Date Time Provider Department 07/26/24 JM CRUZ During your visit today, we recorded the following information about you: Tawanda Kyle 07/26/2024 7:40 AM Signed Approved referral for medical care scanned into [employer] and [employer]. Patient is scheduled to see Dr. Jm Cruz on August 17, 2024. Allergies As of Date: 07/26/2024 Noted Allergy Reaction HYDROMORPHONE (BULK) 08/10/2022 11 - Vomiting LATEX 08/10/2022 9 - Itching 2 - Rash MORPHINE 08/10/2022 8 - GI Upset 11 - Vomiting MEMANTINE 08/10/2022 5 - Intolerance Comments: Dizziness Date Reviewed: 02/23/2024 Reviewed by: Daysi Norman OCCA - Fully Assessed Reason for Visit: Approved Referral for Medical Care [Other] Cmt: Appointment 08/17/2024 Prescriptions as of 07/26/2024 - apixaban (ELIQUIS) 2.5 mg tab(s) Take 1 tablet by mouth two times a day. - ezetimibe (ZETIA) 10 mg tablet Take 1 tablet by mouth once daily. - rosuvastatin (CRESTOR) 10 mg tablet Take 1 tablet by mouth daily at bedtime. - finasteride (PROSCAR) 5 mg tablet Take 5 mg by mouth once daily. - tamsulosin (FLOMAX) 0.4 mg Take 0.4 mg by mouth once daily. - multivit-minerals/folic acid (MEN'S MULTIVITAMIN GUMMIES ORAL) Take 2 tablets by mouth once daily. - cyanocobalamin (VITAMIN B-12) 1,000 mcg tab Take 500 mcg by mouth q 24 HR. - Cetirizine 10 mg cap Take 10 mg by mouth once daily. - potassium chloride ER (K-DUR, KLOR-CON) 20 mEq tablet Take 20 mEq by mouth once daily. - Cholecalciferol, Vitamin D3, 25 mcg (1,000 unit) cap Take 1,000 Units by mouth q 24 HR. - azelastine (ASTELIN, ASTEPRO) 0.1% nasal spray Use 1 [place] in each nostril once daily. - furosemide (LASIX) 20 mg tablet Take 10 mg by mouth once daily. Meds Comments as of 02/08/2023: All medications are dispensed through [place] Please print all prescriptions. Thanks Problem List As Of Date 07/26/2024 Noted Resolved Pulmonary hypertension (HCC) [I27.20] 02/08/2023 Infrarenal abdominal aortic aneurysm (AAA) with*07/15/2023 Coronary artery disease [I25.10] 07/15/2023 Presence of Watchman left atrial appendage clos*10/04/2023 Encounter Status:Closed by TAWANDA KYLE on 07/26/24 [facility]OVon 02-23-2024 [facility] -------- EDUARDO MORALES ([id number]) 1945 M DEF Date Time Provider Department 02/23/24 8:30 AM FARHAN PIZARRO During your visit today, we recorded the following information about you: Weight 87.1 kg Daysi Norman OCCA 02/23/2024 8:52 AM Signed Eduardo Morales is a 78 year old year old right handed man Accompanied by: spouse. 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 Vital Signs: Wt 87.1 kg (192 lb 1.6 oz) BMI 26.05 kg/m? Farhan Pizarro MD 02/23/2024 10:35 AM Signed [facility] New Patient Evaluation Date: February 23, 2024 Patient Name: Eduardo Morales [facility] was asked by Dr. Pizarro to evaluate Eduardo Morales. Our recommendations of care will be communicated by shared medical record. Reason for Evaluation/Chief complaint: memory problems Accompanied by: Spouse ---- SUBJECTIVE: HPI: Eduardo Morales is a 78 year old Right handed male who presents to [facility] for an initial evaluation. Patient has been seen and referred by Dr. Farhan Pizarro. Patient has a pertinent PMHx significant for A. Fib, bowel resection, PTSD, CAD. Today's visit: Mr. Morales presents for memory issues. He has been evaluated by Dr. Condon. He completed MRI brain in 10/2023. He had two NPT testing, 2021 and [facility]. He has an accomplished past and history of service in 1968, in [place] and then to [place]. 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 He feels very different now. As far as symptoms are concerned, he notes disorganization. 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 notes that he repeats himself often and he has no recollection of it. For example, not remembering friends came over to visit. He will repeat the same stories and repeat the same action. Sometimes asking questions multiple times in a short span. Symptoms fluctuate. Some days he seems close to his normal self. Was prescribed Exelon patch and has not started yet because of concern of bleeding while being on Apixaban. He has atrial fibrillation and he had an ablation and could not get the watchman device because of heart anatomy. He will need to stay on Apixaban. He has history of small bowel resection (about 50% of it was removed). He has history of diverticulitis and some stomach issues which led to bowel removal. Sleep: Has history of PTSD and [place]. sleeps in a different room because of [place]. Scheduled for sleep study. Mood: Some days feeling guilty of relying on and feeling down about his health. Neurobehavioral symptoms: normal REVIEW OF SYSTEMS: Weight change/Appetite: no concerns Hearing: no change Vision: no change Constipation, Diarrhea: no Incontinence: no Chest pain: No Edema: No Dyspnea: No Falls/injuries/accidents : No NEURO: SEE HPI ---- OUTPATIENT MEDICATIONS Current Outpatient Medications on File Prior to Visit Medication Sig apixaban (ELIQUIS) 5 mg tab(s) Take 1 tablet by mouth two times a day. finasteride (PROSCAR) 5 mg tablet Take 5 mg by mouth once daily. ezetimibe (ZETIA) 10 mg tablet Take 1 tablet by mouth once daily. rosuvastatin (CRESTOR) 10 mg tablet Take 1 tablet by mouth daily at bedtime. tamsulosin (FLOMAX) 0.4 mg Take 0.4 mg by mouth once daily. multivit-minerals/folic acid (MEN'S MULTIVITAMIN GUMMIES ORAL) Take 2 tablets by mouth once daily. cyanocobalamin (VITAMIN B-12) 1,000 mcg tab Take 500 mcg by mouth q 24 HR. Cetirizine 10 mg cap Take 10 mg by mouth once daily. potassium chloride ER (K-DUR, KLOR-CON) 20 mEq tablet Take 20 mEq by mouth once daily. Cholecalciferol, Vitamin D3, 25 mcg (1,000 unit) cap Take 1,000 Units by mouth q 24 HR. azelastine (ASTELIN, ASTEPRO) 0.1% nasal spray Use 1 [place] in each nostril once daily. furosemide (LASIX) 20 mg tablet Take 10 mg by mouth once daily. cefdinir (OMNICEF) 300 mg capsule No current facility-administered medications on file prior to visit. MEDICAL HISTORY PAST MEDICAL HISTORY No date: AAA (abdominal aortic aneurysm) (HCC) No date: Atrial fibrillation (HCC) No date: Bowel perforation (HCC) No date: CAD (coronary artery disease) No date: HLD (hyperlipidemia) No date: TIA (transient ischemic attack) SURGICAL HISTORY PAST SURGICAL HISTORY (more content not included)... Normal [facility] XR CHEST 2V FRONTAL/LATon XR CHEST 2V FRONTAL/LAT * * *Final Report* * * DATE OF EXAM: Feb 23 2024 10:38AM [facility]YS[facility] 5291 - XR CHEST 2V FRONTAL/LAT / PROCEDURE REASON: multiple diagnoses * * * * Physician Interpretation * * * * EXAMINATION: CHEST RADIOGRAPH (2 VIEW FRONTAL and LATERAL) CLINICAL HISTORY: Coronary artery disease involving [place] coronary artery of [place] heart with other form of angina pectoris (HCC) DODD (dyspnea on exertion) MQ: XC2_6 EXAM DATE/TIME: 02/23/2024 10:38 AM COMPARISON: None available RESULT: Lines, tubes, and devices: None. Lungs and pleura: The lungs appear clear of consolidation or mass. No pleural effusion or pneumothorax is identified. Cardiomediastinal silhouette: Normal cardiomediastinal silhouette. The heart size and pulmonary vascular pattern are within normal limits. There are atherosclerotic calcifications in the aortic arch. Bones and soft tissues: There are degenerative changes in the thoracic spine. IMPRESSION: No acute disease identified in the lungs or mediastinum. Welding Machine Setter: [facility] Transcribe Date/Time: Feb 23 2024 4:23P Dictated by : BONITA WALLER MD This examination was interpreted and the report reviewed and electronically signed by: BONITA WALLER MD on Feb 23 2024 4:24PM EST [id number] Normal [facility] XR Chest PA and Lateralon IMPRESSION: No acute disease identified in the lungs or mediastinum. Welding Machine Setter: [facility] Transcribe Date/Time: Feb 23 2024 4:23P Dictated by : BONITA WALLER MD This examination was interpreted and the report reviewed and electronically signed by: BONITA WALLER MD on Feb 23 2024 4:24PM EST DIVISION OF RADIOLOGY * * *Final Report* * * DATE OF EXAM: Feb 23 2024 10:38AM [id number] - XR CHEST 2V FRONTAL/LAT / PROCEDURE REASON: multiple diagnoses * * * * Physician Interpretation * * * * EXAMINATION: CHEST RADIOGRAPH (2 VIEW FRONTAL & LATERAL) CLINICAL HISTORY: Coronary artery disease involving [place] coronary artery of [place] heart with other form of angina pectoris (HCC) DODD (dyspnea on exertion) MQ: XC2_6 EXAM DATE/TIME: 02/23/2024 10:38 AM COMPARISON: None available RESULT: Lines, tubes, and devices: None. Lungs and pleura: The lungs appear clear of consolidation or mass. No pleural effusion or pneumothorax is identified. Cardiomediastinal silhouette: Normal cardiomediastinal silhouette. The heart size and pulmonary vascular pattern are within normal limits. There are atherosclerotic calcifications in the aortic arch. Bones and soft tissues: There are degenerative changes in the thoracic spine. DIVISION OF RADIOLOGY Provider, Rafael Love - 02/23/2024 * * *Final Report* * * DATE OF EXAM: Feb 23 2024 10:38AM [id number] - XR CHEST 2V FRONTAL/LAT / PROCEDURE REASON: multiple diagnoses * * * * Physician Interpretation * * * * EXAMINATION: CHEST RADIOGRAPH (2 VIEW FRONTAL & LATERAL) CLINICAL HISTORY: Coronary artery disease involving [place] coronary artery of [place] heart with other form of angina pectoris (HCC) DODD (dyspnea on exertion) MQ: XC2_6 EXAM DATE/TIME: 02/23/2024 10:38 AM COMPARISON: None available RESULT: Lines, tubes, and devices: None. Lungs and pleura: The lungs appear clear of consolidation or mass. No pleural effusion or pneumothorax is identified. Cardiomediastinal silhouette: Normal cardiomediastinal silhouette. The heart size and pulmonary vascular pattern are within normal limits. There are atherosclerotic calcifications in the aortic arch. Bones and soft tissues: There are degenerative changes in the thoracic spine. IMPRESSION IMPRESSION: No acute disease identified in the lungs or mediastinum. Welding Machine Setter: JESSICA Transcribe Date/Time: Feb 23 2024 4:23P Dictated by : BONITA WALLER MD This examination was interpreted and the report reviewed and electronically signed by: BONITA WALLER MD on Feb 23 2024 4:24PM EST [facility] Radiology Study observation (narrative) [facility] XR Chest PA and LateralOrder ed By: [facility] Provider on 02-23-2024 [facility] US RUQ (GB/PANCREAS)on 02-07 US RUQ (GB/PANCREAS) [place] [address] Patient: EDUARDO MORALES Phone#: : 1945 Age: 78 Gender: M Pt. Type: Out Account: [id number] Location: [facility] Ordering: [facility] Exam Date: 02/08/2024/7:50 Family Phys: Charge Code: [id number] Physician: [place] Order #: [id number] Dose#: PROCEDURE: RUQ (GB) ULTRASOUND COMPARISON: None. INDICATIONS: Abnormal labs FINDINGS: LIVER: Normal. Normal size and echotexture. No significant masses. BILIARY: Increased echogenicity with posterior acoustical shadowing is present in the gallbladder fossa in suspicious for multiple small stones/gravel within the gallbladder, possibly contracted. The common bile duct is 6.4 millimeters. PANCREAS: Normal. No visible mass, abnormal atrophy, or ductal dilatation. RIGHT KIDNEY: Normal. No mass or obstruction. OTHER: Negative. CONCLUSION: 1. Linear focus of increased echogenicity with posterior acoustical shadowing likely represents multiple calculi/gravel in a contracted gallbladder. 2. The common bile duct is 6.4 millimeters. Intraductal calculus is not identified. DICTATED BY: AYSHA GLORIA MD ON 02/08/2024 AT 10:35 APPROVED BY: AYSHA GLORIA MD ON 02/08/2024 AT 10:42 Normal [facility] ARRHYTHMIA TRANS TELE MEASUR Kenny 01-06-2024 Measure DC Interval 130 [facility] MEASURE QRS Interval 60 [facility] MEASURE QT Interval 365 [facility] MEASURE RR INTERVAL MAX 72.76 [facility] Symptoms routine [facility] Review of transmissi on demonstrates sinus rhythm NOTE TO PROVIDERS: CARD Flowsheets contain detailed device programming and testing data. Paceart/Interrogation PDF can be found under CARDIAC DATA AND REPORT, Scanned Documents section. PACEART 01/06/2024 Formattin g of this note might be different from the original. Review of transmission demonstrates sinus rhythm NOTE TO PROVIDERS: CARD Flowsheets contain detailed device programming and testing data. Paceart/Interrogation PDF can be found under CARDIAC DATA AND REPORT, Scanned Documents section. [facility] CNPZuleyam [facility]-05-20[facility] EDUARDO MORALES ([id number]) 1945 Helen ELLIOTT Date Time Provider Department 01/05/24 SHARI CONDON During your visit today, we recorded the following information about you: Ronaldo Martin OCCA 01/05/2024 11:30 AM Signed Called patient at [phone] Left voicemail message for patient to call back regarding PCP. Nothing further Ronaldo Martin ABIDALeslie 01/05/2024 1:55 PM Signed 2nd attempt to reach patient no answer Allergies As of Date: 01/05/2024 Noted Allergy Reaction HYDROMORPHONE (BULK) 08/10/2022 11 - Vomiting LATEX 08/10/2022 9 - Itching 2 - Rash MORPHINE 08/10/2022 8 - GI Upset 11 - Vomiting MEMANTINE 08/10/2022 5 - Intolerance Comments: Dizziness Date Reviewed: 01/03/2024 Reviewed by: Teri Palacio APRN.WARPMAN - Fully Assessed Reason for Visit: Patient Question [4667] Prescriptions as of 01/05/2024 - apixaban (ELIQUIS) 5 mg tab(s) Take 1 tablet by mouth two times a day. - cefdinir (OMNICEF) 300 mg capsule - finasteride (PROSCAR) 5 mg tablet Take 5 mg by mouth once daily. - ezetimibe (ZETIA) 10 mg tablet Take 1 tablet by mouth once daily. - rosuvastatin (CRESTOR) 10 mg tablet Take 1 tablet by mouth daily at bedtime. - tamsulosin (FLOMAX) 0.4 mg Take 0.4 mg by mouth once daily. - multivit-minerals/folic acid (MEN'S MULTIVITAMIN GUMMIES ORAL) Take 2 tablets by mouth once daily. - cyanocobalamin (VITAMIN B-12) 1,000 mcg tab Take 500 mcg by mouth q 24 HR. - Cetirizine 10 mg cap Take 10 mg by mouth once daily. - potassium chloride ER (K-DUR, KLOR-CON) 20 mEq tablet Take 20 mEq by mouth once daily. - Cholecalciferol, Vitamin D3, 25 mcg (1,000 unit) cap Take 1,000 Units by mouth q 24 HR. - azelastine (ASTELIN, ASTEPRO) 0.1% nasal spray Use 1 [place] in each nostril once daily. - furosemide (LASIX) 20 mg tablet Take 10 mg by mouth once daily. Meds Comments as of 02/08/2023: All medications are dispensed through [place] Please print all prescriptions. Thanks Problem List As Of Date 01/05/2024 Noted Resolved Pulmonary hypertension (HCC) [I27.20] 02/08/2023 Infrarenal abdominal aortic aneurysm (AAA) with*07/15/2023 Coronary artery disease [I25.10] 07/15/2023 Presence of Watchman left atrial appendage clos*10/04/2023 Encounter Status:Closed by RONALDO MARTIN on 01/05/24 Normal [facility] CNOVon 01-03-2024 CNOV Office Visit (CARDMN ) -------- EDUARDO MORALES ([id number]) 1945 M DEF Date Time Provider Department 01/03/24 2:30 PM TERI PALACIO CARDMN During your visit today, we recorded the following information about you: Pulse Blood pressure Weight Height 55/minute 118/62 85.3 kg 1.829 m Teri Palacio, SOFTWARE TOOLS BUILD ENGINEER.WARPMAN 01/03/2024 3:11 PM Signed [facility] [place] T[facility] Department of Cardiovascular Medicine SECTION OF CARDIAC PACING and ELECTROPHYSIOLOGY OUTPATIENT VISIT DATE January 03, 2024 OUTPATIENT VISIT TYPE ESTABLISHED CHIEF COMPLAINT: AF HISTORY OF PRESENT ILLNESS: Mr. Morales is a 78 year old male who presents today for follow-up visit for atrial fibrillation. He is an established patient of Dr. Anthony corral seen 07/15/23. His past medical history is significant for CAD ([facility] 60% left main stenosis), HLD, AAA, bowel perforation s/p patria-colectomy. The patient underwent a small bowel resection in 2009 s/p ileostomy reversal. The patient was diagnosed with atrial fibrillation around the time of the bowel resection in 2009. His potassium was very low. He was treated with metoprolol which he did tolerate. At some point he was only on aspirin. He was then tried on coumadin at some point. He had difficulty maintain therapeutic INRs. He had recurrent bowel obstruction in September 2021 and another episode of atrial fibrillation. At this time, bowel obstruction was treated medically. He was started on full dose anticoagulation (eliquis 5 mg BID). The patient is followed by Dr. Rios. He recently wore a Zio which revealed a 13% AF burden, seven pauses, longest 4.2 seconds. the patient states that he gets his medication from the [facility] in [place] and they informed him that given his history of large bowel resection that he may not be absorbing apixaban adequately. He was seen by vascular medicine today. He was told to consider warfarin or xarelto if approved by [place]. Watchman if anticoagulation in not possible. Sometimes he is able to tell when he goes into atrial fibrillation. He has dizziness, chest discomfort, SOB and weakness while in atrial fibrillation. He has swelling in his right leg. He has never underwent a cardoiversion or DCC. He has never taken any antiarrythmic medications. On 10/04/23 he underwent a PVI with Dr. Cruz. A watchman procedure was attempted by Dr. Vera, but this was aborted d/t unable to achieve a satisfactory compression/positioning of the device. He presents today for a follow up visit. TTMs reviewed and all show SR. ECG today shows SB (hr 55). He reports doing well since his ablation. He does think he went into AF a couple of times, both occurring at night - he felt SOB during these times. This last occurred at least a month ago. Does not use anything to monitor his rhythm. He denies chest pain, orthopnea, cough, edema, palpitations, PND, lightheadedness or syncope. He is scheduled for a sleep study in March. 1. How often on average, does your irregular heart rhythm (atrial fibrillation) occur? About once a month 2. How long on average, do the episodes of the irregular heart rhythm last? 30-45 minutes 3. How often have you been bothered by this symptom in the past 4 weeks? Palpitations: none, Shortness of breath at rest: a little, Shortness of breath during physical activity: a little, Exercise intolerance (fatigue during mild physical activity): none, Fatigue at rest: none, Lightheadedness/dizzines s: none, and Chest pain or pressure: none 4. Have you had an inpatient hospital admission within 30 days of your procedure? No Teri Palacio APRN.WARPMAN Record recurrences on or prior to the follow-up date but after the date of the previous follow-up (or after ablation date if this is the first follow-up) Palpitations: No AFib: Undocumented Aflutter: Undocumented AT or SVT: No Is patient currently in atrial fibrillation? No Arrhythmia recurrence beyond the blanking period: No One year success off AAD Not applicable Teri Palacio APRN.CNP PAST CARDIAC HISTORY: PAST MEDICAL HISTORY Diagnosis Date AAA (abdominal aortic aneurysm) (HCC) Atrial fibrillation (HCC) Bowel perforation (HCC) CAD (coronary artery disease) HLD (hyperlipidemia) TIA (transient ischemic attack) PAST SURGICAL HISTORY Procedure Laterality Date KNEE SURGERY HX PAST SURGICAL HISTORY OF colon resection PAST SURGICAL HISTORY OF reversal ileostomy TOTAL HIP REPLACEMENT Bilateral SOCIAL HISTORY Social History Tobacco Use Smoking status: Former Types: Cigarettes Quit date: 1997 Years since quittin.5 Smokeless tobacco: Never Vaping Use Vaping Use: Never used Substance Use Topics Alcohol use: Not Currently Drug use: Never FAMILY HISTORY Problem Relation Age of Onset Breast Cancer Mother No Known Problems Father No Known Probl (more content not included)... Normal [facility] Ghulam 01-03-2024 WILLIAM Telephone (YOAN) -------- EDUARDO MORALES ([id number]) 1945 [facility] Date Time Provider Department 01/03/24 SHARI CONDON During your visit today, we recorded the following information about you: Jessika Najera 01/03/2024 9:41 AM Signed Name of Caller: juventino Relationship to patient: pharmacy Last visit in this department: 12/31/2023 Reason for Call: Other : calling to clarify that rivastigamine patch is do replace oral rivastigamine medication he is already taking or if Dr wants oral and the patch. Please advise Callback number: [phone] Lisa Ren RN 01/03/2024 10:29 AM Signed LM for pt to callback. Allergies As of Date: 01/03/2024 Noted Allergy Reaction HYDROMORPHONE (BULK) 08/10/2022 11 - Vomiting LATEX 08/10/2022 9 - Itching 2 - Rash MORPHINE 08/10/2022 8 - GI Upset 11 - Vomiting MEMANTINE 08/10/2022 5 - Intolerance Comments: Dizziness Date Reviewed: 01/03/2024 Reviewed by: Teri Palacio APRN.WARPMAN - Fully Assessed Prescriptions as of 01/11/2024 - apixaban (ELIQUIS) 5 mg tab(s) Take 1 tablet by mouth two times a day. - cefdinir (OMNICEF) 300 mg capsule - finasteride (PROSCAR) 5 mg tablet Take 5 mg by mouth once daily. - ezetimibe (ZETIA) 10 mg tablet Take 1 tablet by mouth once daily. - rosuvastatin (CRESTOR) 10 mg tablet Take 1 tablet by mouth daily at bedtime. - tamsulosin (FLOMAX) 0.4 mg Take 0.4 mg by mouth once daily. - multivit-minerals/folic acid (MEN'S MULTIVITAMIN GUMMIES ORAL) Take 2 tablets by mouth once daily. - cyanocobalamin (VITAMIN B-12) 1,000 mcg tab Take 500 mcg by mouth q 24 HR. - Cetirizine 10 mg cap Take 10 mg by mouth once daily. - potassium chloride ER (K-DUR, KLOR-CON) 20 mEq tablet Take 20 mEq by mouth once daily. - Cholecalciferol, Vitamin D3, 25 mcg (1,000 unit) cap Take 1,000 Units by mouth q 24 HR. - azelastine (ASTELIN, ASTEPRO) 0.1% nasal spray Use 1 [place] in each nostril once daily. - furosemide (LASIX) 20 mg tablet Take 10 mg by mouth once daily. Meds Comments as of 02/08/2023: All medications are dispensed through [place] Please print all prescriptions. Thanks Problem List As Of Date 01/03/2024 Noted Resolved Pulmonary hypertension (HCC) [I27.20] 02/08/2023 Infrarenal abdominal aortic aneurysm (AAA) with*07/15/2023 Coronary artery disease [I25.10] 07/15/2023 Presence of Watchman left atrial appendage clos*10/04/2023 Encounter Status:Closed by JESSIKA NAJERA on 01/11/24 Normal [facility] ECG COMPLETEon 01-03-2024 ECG COMPLETE Ventricular Rate : 5 5 BPM Atrial Rate : 55 BPM P-R Interval : 172 ms QRS Duration : 108 ms Q-T Interval : 442 ms QTC Calculation(Bazett) : 422 ms Calculated P [place] : 66 degrees Calculated R [place] : 43 degrees Calculated T [place] : 61 degrees SINUS BRADYCARDIA OTHERWISE NORMAL ECG Confirmed by ARIAN MURRAY MD ([id number]) on 02/01/2024 10:23:54 AM NAME : EDUARDO MORALES PID : [id number] : 1945 Gender : Male Race : ORD : [id number] Procedure Date : Jan 03 2024 13:20:19 Edit Date : Feb 01 2024 10:23:56 Diagnosis: SINUS BRADYCARDIA OTHERWISE NORMAL ECG Confirmed by ARIAN MURRAY MD ([id number]) on 02/01/2024 10:23:54 AM Test Reason : Location : 314 : [facility] Overread By : ARIAN MURRAY MD Edited By : ARIAN MURRAY MD Referred By : JM CRUZ Acquired by : PINEDA ALEXANDER Normal [facility] CULTURE, URINE, ROUTINEon CULTURE, URINE, ROUTINE SEE NOTE Normal [facility] Comment on above: Result Comment: CULTURE, URINE, ROUTINE Micro Number: [id number] Test Status: Final Specimen Source: Urine Specimen Quality: Adequate Result: Mixed genital estefany isolated. These superficial bacteria are not indicative of a urinary tract infection. No further organism identification is warranted on this specimen. If clinically indicated, recollect clean-catch, mid-stream urine and transfer immediately to Urine Culture Transport Tube. Performed By: #### 3 [id number] #### [facility] [address], [address] [place] [address] Flotation Operator: Arturo Durbin MD CNOVon 12-31-2023 CNOV Office Visit (NUMBHT ) -------- EDUARDO MORALES ([id number]) 1945 M DEF Date Time Provider Department 12/31/23 7:30 AM SHARI CONDON During your visit today, we recorded the following information about you: Pulse Respiration Blood pressure 52/minute 16/minute 118/66 Shari Condon MD 12/31/2023 5:47 PM Signed [facility] Follow up/ Established patient visit Individuals who were included in, or assisted with the encounter were: Eduardo Condon MD Chief Complaint/Issues: Eduardo Morales is a 78 year old male seen in the [facility] for: Go over his neuropsychological testing from [place] Most Recent Neurological Assessment and Plan: Last Filed Values Date of Most Recent Assessment and Plan 12/31/23 (P) Specialty General Neurology (P) Assessment 1) 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 We talked about controlling his CV risk factors - HTN, HLD and Afib. He is a nonsmoker and non drinker. 2) Sleep apnea (P) Plan 1) Lifestyle changes of a more vegetable oriented diet: Mediterranean diet, Exercise, Hydration, social engagement and good amount of sleep. Seems like he is doing all that with his 's help and support. He seems to be happier and more engaged in the summer and able to do the things he likes like golfing. Secondary prevention: trial of Rivastigmine patch, lowest dose. He could not tolerate the oral low dose Rivastigmine as he has had a colectomy and had diarrhea. He has been tried on Memantine and had paradoxical confusion. He is not a candidate for Aricept given his cardiac issues. We talked about similar effects with Rivastigmine and watching for bleeding. Keep the appt with Dr. Pizarro and have her questions answered about dementia and the newer treatments and any further studies to be done. As far as agent [place] and his HTN and microhemorrhages in the brain, she may be well served by seeing a [place] neurologist who is more aware of the effects of agent [place] than I am and pursuing in action in regards to [place] benefits. 2) (P) HPI/Interval History: 's message: Unfortunately, I had to cancel Eduardo's appointment with the [facility] Neuropsychologist because the [place] would not allow that department for community care. I have scheduled an appointment with the [place] Neuropsyschologist at [facility] in [place] on November 30 as that was the earliest appointment I could get. I will make sure the results will be sent to you. Also, Eduardo seems to be having some issues with the new meds. He feels nauseated and has diarrhea. He does not feel hungry, and is more lethargic than normal. I'm not sure if his shortened bowel can be causing his stomach issues, but I would like to ask your permission to discontinue the use of the Rivastigmine. Thank you for all your help, Andie Morales He has half of his colon removed, and he is unable to tolerate the Rivastigmine 1.5 mg bid due to diarrhea and decreased appetite. We could try the Rivastigmine patch. I don't think any other drug of this class will work either because all of them are oral and have issues with bleeding. Memantine he could not tolerate it because it caused paradoxical confusion worsening. asks about the iv infusions, she was told that he has an appt with Dr. Pizarro for [facility]. She can ask about that. As far as his frequent UTIs - he had double meatus, BPH, kidney stone and has gone to urologist. She was asking about good days and bad days and this can happen normally. We just have to watch the quantity of bad days > good days. He is doing relatively better in the summer. He went golfing with his son. They are going to a show. Advance directives are done. They do not have alf care. General Examination: BP 118/66 (BP Site: Left Arm, BP Position: Sitting, BP Cuff Size: Regular Adult) Pulse (!) 52 Resp 16 General: Awake, alert, interactive, no acute distress, good nutritional status, normal development, well-kept Neurological Exam Mental Status Alert, fully oriented, attentive, with normal cognition, memory, speech and affect. Cranial Nerves Visual ortiz intact. Pupils reactive. Extraocular movements conjugate and full. No ptosis. No nystagmus. Facial sensation intact. Face symmetric and strong. Palate and tongue normal. XI normal. Hearing aids are in. Motor Examination and Coordination Motor examination with normal bulk, strength and tone. No drift. Normal rapid alternating movements and coordination. No adventitious movements or significant tremor. Reflexes Deferred Sensation Sensation intact to light touch, and proprioception. Gait Arises easily. Casual gait, tandem, and Romberg are normal. Can rise on heels (more content not included)... Normal [facility] Laboratory - Chemistry and C hemistry - challengeon 12-30-2023 Bilirubin Ql (U) small Abnormal [facility]. Ketones Ql (U) Negative Normal [facility] [employer].; [facility]. pH (U) 5.5 [pH] Normal [facility]. Specific gravity (U) [Rel density] 1.030 Abnormal [facility].; [facility]. Urobilinogen Qn (U) 1.0 mg/dL Normal [facility] Therap[facility].; [facility]. Laboratory - Hematology and Cell countson 12-30-2023 Hemoglobin Ql (U) moderate Abnormal [facility].; [facility]. Laboratory - Specimen inform ationon 12-30-2023 Appearance (U) Cloudy Abnormal [facility] [employer].; [employer]. Color (U) Dark Yellow Normal [facility].; [facility] Laboratory - Urinalysison Glucose Test strip (U) [Mass/Vol] Negative Normal [facility].; [employer], [facility]. Leukocyte esterase Test strip Ql (U) Trace Normal [facility].; [facility]. Nitrite Ql (U) Negative Normal [facility] [employer].; [employer], [facility]. Protein Ql (U) 100 mg/dL Abnormal [facility] [employer].; [employer], [facility]. No Panel Informationon 12-29 CULTURE, URINE, ROUTINE SEE NOTE Normal [facility].; [facility] ABDOMEN 2 VIEWSon 12-27-2023 ABDOMEN 2 VIEWS [place] [address] Patient: EDUARDO MORALES Phone#: : 1945 Age: 78 Gender: M Pt. Type: Out Account: [id number] Location: 052 Ordering: ADAM SHANE Exam Date: 12/27/2023/15:17 Family Phys: Charge Code: [id number] Physician: [place] Order #: [id number] Dose#: PROCEDURE: ABDOMEN 2 VIEWS COMPARISON: None. INDICATIONS: Abdomen pain. FINDINGS: BOWEL GAS PATTERN: The bowel gas pattern is nonspecific. CALCIFICATIONS: None significant. OTHER: Curvature of the lumbar spine to the left is present. Degenerative changes are present. Bilateral hip prostheses are present.. No abnormal gaseous collections. CONCLUSION: 1. Degenerative changes of the spine are present. 2. The bowel gas pattern is nonspecific. Dictated by: Aysha Gloria MD on 12/27/2023 at 19:05 Approved by: Aysha Gloria MD on 12/27/2023 at 19:06 Normal [facility] Laboratory - Chemistry and C hemistry - challengeon 12-27-2023 Bilirubin Ql (U) Negative Normal [facility], [facility].; [facility] Inc[facility] Ketones Ql (U) Negative Normal [facility], [facility].; [employer] [facility] pH (U) 5.5 [pH] Normal [facility], [facility].; [employer], [employer] Specific gravity (U) [Rel density] 1.000 Abnormal [facility], [facility].; [employer] Urobilinogen Qn (U) 0.2 mg/dL Normal [facility], [facility].; [employer] [facility] Laboratory - Hematology and Cell countson 12-27-2023 Hemoglobin Ql (U) trace, hemolyzed Abnormal [facility] [employer] [facility], [facility]. Laboratory - Specimen inform ationon 12-27-2023 Appearance (U) Cloudy Abnormal [facility].; [employer], [employer] Color (U) Yellow Normal [facility].; [employer], [employer] Laboratory - Urinalysison Glucose Test strip (U) [Mass/Vol] Negative Normal [employer].; [employer], [employer] Leukocyte esterase Test strip Ql (U) small Abnormal [facility].; [employer], [employer] Nitrite Ql (U) Negative Normal [employer], [employer] Protein Ql (U) Negative Normal [employer], [employer] ARRHYTHMIA TRANS TELE MEASUR Kenny 12-21-2023 Measure DC Interval [facility] MEASURE QRS Interval 60 [facility] MEASURE QT Interval 365 [facility] MEASURE RR INTERVAL MAX 63.93 [facility] Symptoms routine [facility] sinus rhythm NOTE TO PROVIDERS: CARD Flowsheets contain detailed device programming and testing data. Paceart/Interrogation PDF can be found under CARDIAC DATA AND REPORT, Scanned Documents section. PACEART 12/21/2023 Formattin g of this note might be different from the original. sinus rhythm NOTE TO PROVIDERS: CARD Flowsheets contain detailed device programming and testing data. Paceart/Interrogation PDF can be found under CARDIAC DATA AND REPORT, Scanned Documents section. [facility] ARRHYTHMIA TRANS TELE MEASUR Kenny 12-10-2023 Measure DC Interval 127 [facility] MEASURE QRS Interval 94 [facility] MEASURE QT Interval 382 [facility] MEASURE RR INTERVAL MAX 76.82 [facility] Symptoms Routine [facility] Review of transmissi on demonstrates sinus rhythm NOTE TO PROVIDERS: CARD Flowsheets contain detailed device programming and testing data. Paceart/Interrogation PDF can be found under CARDIAC DATA AND REPORT, Scanned Documents section. PACEART 12/10/2023 Formattin g of this note might be different from the original. Review of transmission demonstrates sinus rhythm NOTE TO PROVIDERS: CARD Flowsheets contain detailed device programming and testing data. Paceart/Interrogation PDF can be found under CARDIAC DATA AND REPORT, Scanned Documents section. [facility] ARRHYTHMIA TRANS TELE MEASUR Kenny 12-03-2023 Measure DC Interval [facility] MEASURE QRS Interval 74 [facility] MEASURE QT Interval 375 [facility] MEASURE RR INTERVAL MAX 72.76 [facility] Symptoms routine [facility] Review of transmissi on demonstrates sinus rhythm NOTE TO PROVIDERS: CARD Flowsheets contain detailed device programming and testing data. Paceart/Interrogation PDF can be found under CARDIAC DATA AND REPORT, Scanned Documents section. PACEART 12/03/2023 Formattin g of this note might be different from the original. Review of transmission demonstrates sinus rhythm NOTE TO PROVIDERS: CARD Flowsheets contain detailed device programming and testing data. Paceart/Interrogation PDF can be found under CARDIAC DATA AND REPORT, Scanned Documents section. [facility] CULTURE, URINE, ROUTINEon CULTURE, URINE, ROUTINE SEE NOTE Normal [facility] Comment on above: Result Comment: CULTURE, URINE, ROUTINE Micro Number: [id number] Test Status: Final Specimen Source: Urine Specimen Quality: Adequate Result: Less than 10,000 CFU/mL of single Gram negative organism isolated. No further testing will be performed. If clinically indicated, recollection using a method to minimize contamination, with prompt transfer to Urine Culture Transport Tube, is recommended. Performed By: #### 3 [id number] #### [facility] [address], [address] [place] [address] Flotation Operator: Arturo Durbin MD ARRHYTHMIA TRANS TELE MEASUR Kenny 11-25-2023 Measure DC Interval 130 [facility] MEASURE QRS Interval 60 [facility] MEASURE QT Interval 352 [facility] MEASURE RR INTERVAL MAX 64.39 [facility] Symptoms routine [facility] Review of transmissi on demonstrates sinus rhythm with artifact NOTE TO PROVIDERS: CARD Flowsheets contain detailed device programming and testing data. Paceart/Interrogation PDF can be found under CARDIAC DATA AND REPORT, Scanned Documents section. PACEART 11/25/2023 Formattin g of this note might be different from the original. Review of transmission demonstrates sinus rhythm with artifact NOTE TO PROVIDERS: CARD Flowsheets contain detailed device programming and testing data. Paceart/Interrogation PDF can be found under CARDIAC DATA AND REPORT, Scanned Documents section. [facility] Laboratory - Chemistry and C hemistry - challengeon 11-25-2023 Bilirubin Ql (U) Negative Normal [facility], Inc.; [facility], Inc. Ketones Ql (U) Negative Normal [facility], Inc.; [employer]. pH (U) 5.0 [pH] Abnormal [facility].; [facility]. Specific gravity (U) [Rel density] 1.015 Normal [facility].; [facility] Urobilinogen Qn (U) 0.2 mg/dL Normal [facility].; [employer]. Laboratory - Hematology and Cell countson 11-25-2023 Hemoglobin Ql (U) small Abnormal [employer].; [employer]. Laboratory - Specimen inform ationon 11-25-2023 Appearance (U) Clear Normal [facility] [employer].; [employer]. Color (U) Dark Yellow Normal [facility].; [facility] Laboratory - Urinalysison Glucose Test strip (U) [Mass/Vol] Negative Normal [facility].; [employer]. Leukocyte esterase Test strip Ql (U) small Abnormal [employer].; [employer]. Nitrite Ql (U) Negative Normal [employer].; [employer]. Protein Ql (U) Negative Normal [facility] [employer].; [employer]. No Panel Informationon 11-24 CULTURE, URINE, ROUTINE SEE NOTE Normal [facility].; [facility] ARRHYTHMIA TRANS TELE MEASUR Kenny 11-17-2023 Measure DC Interval 121 [facility] MEASURE QRS Interval 74 [facility] MEASURE QT Interval 379 [facility] MEASURE RR INTERVAL MAX 64.39 [facility] Symptoms Routine [facility] Review of transmissi on demonstrates sinus rhythm. NOTE TO PROVIDERS: CARD Flowsheets contain detailed device programming and testing data. Paceart/Interrogation PDF can be found under CARDIAC DATA AND REPORT, Scanned Documents section. PACEART 11/17/2023 Formattin g of this note might be different from the original. Review of transmission demonstrates sinus rhythm. NOTE TO PROVIDERS: CARD Flowsheets contain detailed device programming and testing data. Paceart/Interrogation PDF can be found under CARDIAC DATA AND REPORT, Scanned Documents section. [facility] ARRHYTHMIA TRANS TELE MEASUR Kenny 11-11-2023 Measure DC Interval 130 [facility] MEASURE QRS Interval 70 [facility] MEASURE QT Interval 375 [facility] MEASURE RR INTERVAL MAX 73.97 [facility] Symptoms routine [facility] Review of transmissi on demonstrates sinus rhythm with PAC's and artifact. NOTE TO PROVIDERS: CARD Flowsheets contain detailed device programming and testing data. Paceart/Interrogation PDF can be found under CARDIAC DATA AND REPORT, Scanned Documents section. PACEART 11/11/2023 Formattin g of this note might be different from the original. Review of transmission demonstrates sinus rhythm with PAC's and artifact. NOTE TO PROVIDERS: CARD Flowsheets contain detailed device programming and testing data. Paceart/Interrogation PDF can be found under CARDIAC DATA AND REPORT, Scanned Documents section. [facility] MR Brain WO contraston 11-09 IMPRESSION: * No evidence of an acute intracranial process or intracranial mass. * Mild generalized volume loss. * Hippocampal volumes at the 13th percentile when compared to age matched normal controls by quantitative analysis. * Moderate white matter disease which is nonspecific but likely reflective of chronic microvascular ischemia. * Greater than nine parenchymal microhemorrhages by MRI. REFERENCES: White Matter Lesions: 0 = No lesions, including symmetrical, well-defined caps or bands 1 = Focal Lesions 2 = Beginning of Converse 3 = Diffuse Involvement of Entire Region Basal Ganglia Lesions: 0 = No Lesions 1 = 1 Focal Lesion (>5mm) 2 = >1 Focal Lesion (>5mm) 3 = Confluent Lesions Delmar Palacios, et al. The clinical use of structural MRI in Alzheimer disease. Nature Reviews Neurology 6;67 (2010). Tray et al. Validation of a fully automated 3D hippocampal segmentation method using subjects with Alzheimer's disease mild cognitive impairment, and elderly controls. Neuroimage 43;59 (2008). Wahlund et al. A New Rating Scale for Age-Related White Matter Changes Applicable to MRI and CT. Stroke. 32:1318 (2001). * Asymmetry index defined as difference between left and right volumes divided by mean or [(L-R/Mean) x 100] (%). Age-matched reference charts measure total hippocampal volume (% of intracranial volume). See results from the analysis charts for details. Welding Machine Setter: JESSICA Transcribe Date/Time: Nov 10 2023 10:08A Dictated by : ACE ORELLANA MD This examination was interpreted and the report reviewed and electronically signed by: ACE ORELLANA MD on Nov 10 2023 10:39AM [facility] DIVISION OF RADIOLOGY * * *Final Report* * * DATE OF EXAM: Nov 10 2023 9:40AM [facility] 3015 - MRI BRAIN W QUANT WO IVCON / PROCEDURE REASON: multiple diagnoses * * * * Physician Interpretation * * * * EXAMINATION: MRI BRAIN W QUANT WO IVCON CLINICAL HISTORY: Mixed dementia TECHNIQUE: Axial SACHI FLAIR, SACHI T2, diffusion and susceptibility weighted imaging without contrast, using the ADNI dementia protocol and 3-D post-processing using the [employer] software at an independent workstation with concurrent physician supervision and images were created, reviewed and archived. MQ: [id number] COMPARISON: None RESULT: QUALITATIVE: Acute Intracranial Process: None. Chronic Intracranial Process: Number of chronic lacunar infarcts: None Location of chronic lacunar infarcts: Not applicable Age related white matter changes (ARWMC) rating: White matter lesions: 2 Basal ganglia lesions: 0 Prior intracranial hemorrhage: Parenchymal microhemorrhages: Ten or more Other (siderosis/macrohemorrha ges (>10mm): Not Applicable Amyloid Related Imaging Abnormalities: ARIA-E: N/A ARIA-H Microhemorrhage: N/A ARIA-H Siderosis: N/A Qualitative brain and hippocampal volume loss for age: Cortex: Mild and symmetric White Matter: Mild and symmetric Hippocampi: Moderate and Symmetric Ventricles: Commensurate with volume loss. Brain Parenchymal Signal and Morphology: The brain parenchyma is otherwise within normal limits of signal and morphology. There is no evidence of an intracranial mass or extraaxial fluid collection. Other Significant Findings: None multifocal polypoid mucosal thickening and/or retention cysts in the bilateral paranasal sinuses with possible small volume luminal fluid, compatible sequelae of inflammatory paranasal sinus disease.. QUANTITATIVE: Exam Quality: Good for volumetric analysis. Segmentation: Accurate segmentation by visual inspection Quantitative Data: Total Hippocampal Volume: Percentile for Age: 13 Asymmetry Index: -7.37 Inferior Lateral Vent Volume: Percentile for age: 99 Asymmetry Index: -12.7 Superior Lateral Vent Volume: Percentile for age: 81 Asymmetry Index: 7.37 Temporal Lobe Cortex Volume: Temporal Lobe Percentile for Age: 62 Temporal Lobe Asymmetry Index: 4.45 Frontal Lobe Cortex Volume: Frontal Lobe Percentile for Age: 58 Frontal Lobe Asymmetry Index: -1.4 Parietal Lobe Cortex Volume: Parietal Lobe Percentile for Age:96 Occipital Lobe Cortex Volume: Occipital Lobe Percentile for Age: 97 Whole Brain Volume Brain Percentile for Age: 96 Concordance between qualitative and quantitative hippocampal volume assessment: Concordant Change in brain volumes: No previous volumetric study for comparison Brain Volume Change: N/A Hippocampal Volume Change: N/A Superior Lateral Ventricle Volume Change: N/A Inferior Lateral Ventricle Volume Change: N/A Mean hippocampal volume loss among normal elderly: 0.7% per year, (-0.3 to 1.7; Tray 2008; also Delmar 2010). DIVISION OF RADIOLOGY Provider, [facility] - 11/10/2023 * * *Final Report* * * DATE OF EXAM: Nov 10 2023 9:40AM [facility] 3015 - MRI BRAIN W QUANT WO IVCON / PROCEDURE REASON: multiple diagnoses * * * * Physician Interpretation * * * * EXAMINATION: MRI BRAIN W QUANT WO IVCON CLINICAL HISTORY: Mixed dementia TECHNIQUE: Axial SACHI FLAIR, SACHI T2, diffusion and susceptibility weighted imaging without contrast, using the ADNI dementia protocol and 3-D post-processing using the [employer] software at an independent workstation with concurrent physician supervision and images were created, reviewed and archived. MQ: [id number] COMPARISON: None RESULT: QUALITATIVE: Acute Intracranial Process: None. Chronic Intracranial Process: Number of chronic lacunar infarcts: None Location of chronic lacunar infarcts: Not applicable Age related white matter changes (ARWMC) rating: White matter lesions: 2 Basal ganglia lesions: 0 Prior intracranial hemorrhage: Parenchymal microhemorrhages: Ten or more Other (siderosis/macrohemorrha ges (>10mm): Not Applicable Amyloid Related Imaging Abnormalities: ARIA-E: N/A ARIA-H Microhemorrhage: N/A ARIA-H Siderosis: N/A Qualitative brain and hippocampal volume loss for age: Cortex: Mild and symmetric White Matter: Mild and symmetric Hippocampi: Moderate and Symmetric Ventricles: Commensurate with volume loss. Brain Parenchymal Signal and Morphology: The brain parenchyma is otherwise within normal limits of signal and morphology. There is no evidence of an intracranial mass or extraaxial fluid collection. Other Significant Findings: None multifocal polypoid mucosal thickening and/or retention cysts in the bilateral paranasal sinuses with possible small volume luminal fluid, compatible sequelae of inflammatory paranasal sinus disease.. QUANTITATIVE: Exam Quality: Good for volumetric analysis. Segmentation: Accurate segmentation by visual inspection Quantitative Data: Total Hippocampal Volume: Percentile for Age: 13 Asymmetry Index: -7.37 Inferior Lateral Vent Volume: Percentile for age: 99 Asymmetry Index: -12.7 Superior Lateral Vent Volume: Percentile for age: 81 Asymmetry Index: 7.37 Temporal Lobe Cortex Volume: Temporal Lobe Percentile for Age: 62 Temporal Lobe Asymmetry Index: 4.45 Frontal Lobe Cortex Volume: Frontal Lobe Percentile for Age: 58 Frontal Lobe Asymmetry Index: -1.4 Parietal Lobe Cortex Volume: Parietal Lobe Percentile for Age:96 Occipital Lobe Cortex Volume: Occipital Lobe Percentile for Age: 97 Whole Brain Volume Brain Percentile for Age: 96 Concordance between qualitative and quantitative hippocampal volume assessment: Concordant Change in brain volumes: No previous volumetric study for comparison Brain Volume Change: N/A Hippocampal Volume Change: N/A Superior Lateral Ventricle Volume Change: N/A Inferior Lateral Ventricle Volume Change: N/A Mean hippocampal volume loss among normal elderly: 0.7% per year, (-0.3 to 1.7; Tray 2008; also Delmar 2010). IMPRESSION IMPRESSION: * No evidence of an acute intracranial process or intracranial mass. * Mild generalized volume loss. * Hippocampal volumes at the 13th percentile when compared to age matched normal controls by quantitative analysis. * Moderate white matter disease which is nonspecific but likely reflective of chronic microvascular ischemia. * Greater than nine parenchymal microhemorrhages by MRI. REFERENCES: White Matter Lesions: 0 = No lesions, including symmetrical, well-defined caps or bands 1 = Focal Lesions 2 = Beginning of Converse 3 = Diffuse Involvement of Entire Region Basal Ganglia Lesions: 0 = No Lesions 1 = 1 Focal Lesion (>5mm) 2 = >1 Focal Lesion (>5mm) 3 = Confluent Lesions Delmar Palacios, et al. The clinical use of structural MRI in Alzheimer disease. Nature Reviews Neurology 6;67 (2010). Tray et al. Validation of a fully automated 3D hippocampal segmentation method using subjects with Alzheimer's disease mild cognitive impairment, and elderly controls. Neuroimage 43;59 (2008). Kit et al. A New Rating Scale for Age-Related White Matter Changes Applicable to MRI and CT. Stroke. 32:1318 (2001). * Asymmetry index defined as difference between left and right volumes divided by mean or [(L-R/Mean) x 100] (%). Age-matched reference charts measure total hippocampal volume (% of intracranial volume). See results from the analysis charts for details. Welding Machine Setter: PSCB Transcribe Date/Time: Nov 10 2023 10:08A Dictated by : ACE ORELLANA MD This examination was interpreted and the report reviewed and electronically signed by: ACE ORELLANA MD on Nov 10 2023 10:39AM EST [facility] Radiology Study observation (narrative) [facility] MR Brain WO contrastOrdered By: Ccf Provider on 11-10-2023 [facility] ARRHYTHMIA TRANS TELE MEASUR Kenny 11-04-2023 Measure DC Interval [facility] MEASURE QRS Interval 84 [facility] MEASURE QT Interval [facility] MEASURE RR INTERVAL MAX 77.16 [facility] Symptoms Routine [facility] Review of transmissi on demonstrates sinus rhythm with PVC and artifact NOTE TO PROVIDERS: CARD Flowsheets contain detailed device programming and testing data. Paceart/Interrogation PDF can be found under CARDIAC DATA AND REPORT, Scanned Documents section. PACEART 11/04/2023 Formattin g of this note might be different from the original. Review of transmission demonstrates sinus rhythm with PVC and artifact NOTE TO PROVIDERS: CARD Flowsheets contain detailed device programming and testing data. Paceart/Interrogation PDF can be found under CARDIAC DATA AND REPORT, Scanned Documents section. [facility] ARRHYTHMIA TRANS TELE MEASUR Kenny 10-28-2023 Measure DC Interval [facility] MEASURE QRS Interval [facility] MEAS[facility] QT Interval 365 [facility] MEASURE RR INTERVAL MAX 71.6 [facility] Symptoms routine [facility] Review of transmissi on demonstrates sinus rhythm with baseline artifac NOTE TO PROVIDERS: CARD Flowsheets contain detailed device programming and testing data. Paceart/Interrogation PDF can be found under CARDIAC DATA AND REPORT, Scanned Documents section. PACEART 10/28/2023 Formattin g of this note might be different from the original. Review of transmission demonstrates sinus rhythm with baseline artifac NOTE TO PROVIDERS: CARD Flowsheets contain detailed device programming and testing data. Paceart/Interrogation PDF can be found under CARDIAC DATA AND REPORT, Scanned Documents section. [facility] ARRHYTHMIA TRANS TELE MEASUR Kenny 10-20-2023 Measure DC Interval [facility] MEASURE QRS Interval 93 [facility] MEASURE QT Interval 385 [facility] MEASURE RR INTERVAL MAX 73.81 [facility] Symptoms Routine [facility] Review of transmissi on demonstrates sinus rhythm. NOTE TO PROVIDERS: CARD Flowsheets contain detailed device programming and testing data. Paceart/Interrogation PDF can be found under CARDIAC DATA AND REPORT, Scanned Documents section. PACEART 10/20/2023 Formattin g of this note might be different from the original. Review of transmission demonstrates sinus rhythm. NOTE TO PROVIDERS: CARD Flowsheets contain detailed device programming and testing data. Paceart/Interrogation PDF can be found under CARDIAC DATA AND REPORT, Scanned Documents section. [facility] ARRHYTHMIA TRANS TELE MEASUR Kenny 10-13-2023 Measure DC Interval 151 [facility] MEASURE QRS Interval 77 [facility] MEASURE QT Interval 362 [facility] MEASURE RR INTERVAL MAX 64.62 [facility] Symptoms routine [facility] Review of transmissi on demonstrates sinus rhythm NOTE TO PROVIDERS: CARD Flowsheets contain detailed device programming and testing data. Paceart/Interrogation PDF can be found under CARDIAC DATA AND REPORT, Scanned Documents section. P[employer] 10/13/2023 Formattin g of this note might be different from the original. Review of transmission demonstrates sinus rhythm NOTE TO PROVIDERS: CARD Flowsheets contain detailed device programming and testing data. Paceart/Interrogation PDF can be found under CARDIAC DATA AND REPORT, Scanned Documents section. [facility] CULTURE, URINE, ROUTINEon CULTURE, URINE, ROUTINE SEE NOTE Abnormal [facility] Comment on above: Result Comment: CULTURE, URINE, ROUTINE Micro Number: [id number] Test Status: Final Specimen Source: Urine Specimen Quality: Adequate Result: 10,000-49,000 CFU/mL of Proteus mirabilis Comment: This organism may show imipenem resistance by mechanisms other than a carbapenemase. P.mirabilis INT SIDDHARTHA AMOX/CLAVULANATE S <=2 AMPICILLIN S <=2 AMP/SULBACTAM S <=2 CEFAZOLIN NR <=4 2 CEFEPIME S <=1 CEFTAZIDIME S <=1 CEFTRIAXONE S <=1 CIPROFLOXACIN S <=0.25 GENTAMICIN S <=1 IMIPENEM I 2 LEVOFLOXACIN S <=0.12 NITROFURANTOIN R 128 PIP/TAZOBACTAM S <=4 TOBRAMYCIN S <=1 TRIMETHOPRIM/SULFA S <=20 S=Susceptible I=Intermediate R=Resistant * = Not Tested NR = Not Reported NN = See Therapy Comments THERAPY COMMENTS Note 1: For infections other than uncomplicated UTI caused by E. coli, K. pneumoniae or P. mirabilis: Cefazolin is resistant if SIDDHARTHA > or = 8 mcg/mL. (Distinguishing susceptible versus intermediate for isolates with SIDDHARTHA < or = 4 mcg/mL requires additional testing.) Note 2: For uncomplicated UTI caused by E. coli, K. pneumoniae or P. mirabilis: Cefazolin is susceptible if SIDDHARTHA <32 mcg/mL and predicts susceptible to the oral agents cefaclor, cefdinir, cefpodoxime, cefprozil, cefuroxime, cephalexin and loracarbef. Performed By: #### 3 [id number] #### [facility] [address], [address] [place] [address] Flotation Operator: Arturo Durbin MD Laboratory - Chemistry and C hemistry - challengeon 10-08-2023 Bilirubin Ql (U) Negative Normal [facility] [employer], [facility] [employer] [facility]. Ketones Ql (U) Negative Normal [facility] [employer], [employer] [facility]. pH (U) 5.5 [pH] Normal [facility] [employer], [employer] [facility]. Specific gravity (U) [Rel density] 1.025 Normal [facility].; [employer], [employer] [facility]. Urobilinogen Qn (U) 0.2 mg/dL Normal [facility] [employer] [facility].; [employer], [employer]. Laboratory - Hematology and Cell countson 10-08-2023 Hemoglobin Ql (U) trace-intact Normal [facility] [employer]. Laboratory - Specimen inform ationon 10-08-2023 Appearance (U) clear Normal [facility] [employer].; [employer], [employer]. Color (U) yellow Normal [employer].; [employer], [employer]. Laboratory - Urinalysison Glucose Test strip (U) [Mass/Vol] Negative Normal [employer].; [employer] Leukocyte esterase Test strip Ql (U) Negative Normal [employer].; [employer] Nitrite Ql (U) Negative Normal [facility].; [employer] Protein Ql (U) Negative Normal [facility] [employer] No Panel Informationon 10-07 CULTURE, URINE, ROUTINE SEE NOTE Abnormal [employer] ARRHYTHMIA TRANS TELE MEASUR Kenny 10-06-2023 Measure DC Interval 137 [facility] MEASURE QRS Interval 94 [facility] MEASURE QT Interval 416 [facility] MEASURE RR INTERVAL MAX 48.77 [facility] Symptoms baseline [facility] CREATININE, BLOOD (POC)on Creatinine [Mass/Vol] 1.10 mg/dL 0.7 - 1.4 mg/dL [facility] eGFR (POCT) [facility] CTA Pulmonary veins W contra st Kathleen 09-24-2023 [facility] CBC (INCLUDES DIFF/PLT)on Basophils (Bld) [#/Vol] 0.11 10*3/uL Normal 0-200 [facility] Comment on above: Performed By: #### 1 9954, 7443 #### [facility] [place] [address] Flotation Operator: Arturo Durbin MD Basophils/100 WBC (Bld) 1.8 % Normal [facility] Comment on above: Performed By: #### 1 0935, 7224 #### [facility] [place] [address] Flotation Operator: Arturo Durbin MD Eosinophils (Bld) [#/Vol] 0.659 10*3/uL High 15-500 [facility] Comment on above: Performed By: #### 1 7098, 0490 #### [facility] [place] [address] Flotation Operator: Arturo Durbin MD Eosinophils/100 WBC (Bld) 10.8 % Normal [facility] Comment on above: Performed By: #### 1 7306, 6399 #### [facility] of [address], [address] [place] [address] Flotation Operator: Arturo Durbin MD Erythrocyte distribution width (RBC) [Ratio] 11.9 % Normal 11.0-15.0 [facility] Comment on above: Performed By: #### 1 7306, 6399 #### [facility] of [address], [address] [place] [address] Flotation Operator: Arturo Durbin MD Hematocrit (Bld) [Volume fraction] 43.8 % Normal 38.5-50.0 [facility] Comment on above: Performed By: #### 1 7306, 6399 #### [facility] of [address], [address] [place] [address] Flotation Operator: Arturo Durbin MD Hemoglobin (Bld) [Mass/Vol] 14.9 g/dL Normal 13.2-17.1 [facility] Comment on above: Performed By: #### 1 7306, 6399 #### [facility] of [address], [address] [place] [address] Flotation Operator: Arturo Durbin MD Lymphocytes (Bld) [#/Vol] 1.739 10*3/uL Normal 850-3900 [facility] Comment on above: Performed By: #### 1 7306, 6399 #### [facility] of [address], [address] [place] [address] Flotation Operator: Arturo Durbin MD Lymphocytes/100 WBC (Bld) 28.5 % Normal [facility] Comment on above: Performed By: #### 1 7306, 6399 #### [facility] of [address], [address] [place] [address] Flotation Operator: Arturo Durbin MD MCH (RBC) [Entitic mass] 32.3 pg Normal 27.0-33.0 [facility] Comment on above: Performed By: #### 1 7306, 6399 #### [facility] of [address], [address] [place], [place] [address] Flotation Operator: Arturo Durbin MD MCHC (RBC) [Mass/Vol] 34.0 g/dL Normal 32.0-36.[address] [facility] Comment on above: Performed By: #### 1 7306, 6399 #### [facility] of [place] [address] Flotation Operator: Arturo Durbin MD MCV (RBC) [Entitic vol] 94.8 fL Normal 80.0-100.0 [facility] Comment on above: Performed By: #### 1 7306, 6399 #### [facility] of [place] [address] Flotation Operator: Arturo Durbin MD Monocytes (Bld) [#/Vol] 0.592 10*3/uL Normal 200-950 [facility] Comment on above: Performed By: #### 1 7306, 6399 #### [facility] of [place] [address] Flotation Operator: Arturo Durbin MD Monocytes/100 WBC (Bld) 9.7 % Normal [facility] Comment on above: Performed By: #### 1 7306, 6399 #### [facility] of [place] [address] Flotation Operator: Arturo Durbin MD Neutrophils (Bld) [#/Vol] 3.001 10*3/uL Normal 0468-7468 [facility] Comment on above: Performed By: #### 1 7306, 6399 #### [facility] of [place] [address] Flotation Operator: Arturo Durbin MD Neutrophils/100 WBC (Bld) 49.2 % Normal [facility] Comment on above: Performed By: #### 1 7306, 6399 #### [facility] of [place] [address] Flotation Operator: Arturo Durbin MD Platelet mean volume (Bld) [Entitic vol] 10.5 fL Normal 7.5-12.5 [facility] Comment on above: Performed By: #### 1 7306, 6399 #### [facility] of [place] [address] Flotation Operator: Arturo Durbin MD Platelets (Bld) [#/Vol] 199 10*3/uL Normal 140-400 [facility] Comment on above: Performed By: #### 1 7306, 6399 #### [facility] of [place] [address] Flotation Operator: Arturo Durbin MD RBC (Bld) [#/Vol] 4.62 10*6/uL Normal 4.20-5.80 [facility] Comment on above: Performed By: #### 1 7306, 6399 #### [facility] of [place] [address] Flotation Operator: Arturo Durbin MD WBC (Bld) [#/Vol] 6.1 10*3/uL Normal 3.8-10.8 [facility] Comment on above: Performed By: #### 1 7306, 6399 #### [facility] [place] [address] Flotation Operator: Arturo Durbin MD VITAMIN B12on 04-16-2023 Cobalamin (Vitamin B12) [Mass/Vol] 1016 pg/mL Normal 200-1100 [facility] Comment on above: Performed By: #### 1 7306, 6399 #### [facility] of [place] [address] Flotation Operator: Arturo Duribn MD VITAMIN D,25-OH,TOTAL,IAon 1 VITAMIN D,25-OH,TOTAL,IA 34 ng/mL Normal 30-100 [facility] Comment on above: Result Comment: Ann min D Status 25-OH Vitamin D: Deficiency: <20 ng/mL Insufficiency: 20 - 29 ng/mL Optimal: > or = 30 ng/mL For 25-OH Vitamin D testing on patients on D2-supplementation and patients for whom quantitation of D2 and D3 fractions is required, the QuestAssureD(TM) 25-OH VIT D, (D2,D3), LC/MS/MS is recommended: order code 07378 (patients >2yrs). See Note 1 Note 1 For additional information, please refer to http://education.Triptease/faq/BDQ219 (This link is being provided for informational/ educational purposes only.) Performed By: #### 1 7306, 6399 #### [facility] [address], [address] [place] [address] Flotation Operator: Arturo Durbin MD Laboratory - Chemistry and C hemistry - challengeon 04-15-2023 Cobalamin (Vitamin B12) [Mass/Vol] 1016 pg/mL Normal 200 - 1100 pg/mL [facility], [facility].; [employer] [facility], [facility]. Laboratory - Hematology and Cell countson 04-15-2023 Basophils (Bld) [#/Vol] 0.11 10*3/uL Normal 0 - 200 {cells/uL} [facility] [employer], [facility]. Basophils/100 WBC (Bld) 1.8 % Normal [employer] [facility], [facility].; [employer], [employer]. Eosinophils (Bld) [#/Vol] 0.659 10*3/uL Abnormal 15 - 500 {cells/uL} [employer] Eosinophils/100 WBC (Bld) 10.8 % Normal [facility] [employer], [facility].; [employer] Erythrocyte distribution width (RBC) [Ratio] 11.9 % Normal 11.0 - 15.0 % [employer] [facility], [facility].; [employer] Hematocrit (Bld) [Volume fraction] 43.8 % Normal 38.5 - 50.0 % [employer], [facility].; [employer], [employer]. Hemoglobin (Bld) [Mass/Vol] 14.9 g/dL Normal 13.2 - 17.1 g/dL [place] [employer], [facility].; [employer] Lymphocytes (Bld) [#/Vol] 1.739 10*3/uL Normal 850 - 3900 {cells/uL} [employer] Lymphocytes/100 WBC (Bld) 28.5 % Normal [facility], [facility].; [facility], [facility]. MCH (RBC) [Entitic mass] 32.3 pg Normal 27.0 - 33.0 pg [facility].; [facility], [facility]. MCHC (RBC) [Mass/Vol] 34.0 g/dL Normal 32.0 - 36.0 g/dL [facility], [facility].; [facility], [facility]. MCV (RBC) [Entitic vol] 94.8 fL Normal 80.0 - 100.0 fL [facility].; [facility], [facility]. Monocytes (Bld) [#/Vol] 0.592 10*3/uL Normal 200 - 950 {cells/uL} [facility], [facility].; [facility], [facility]. Monocytes/100 WBC (Bld) 9.7 % Normal [facility], [facility].; [facility], [facility]. Neutrophils (Bld) [#/Vol] 3.001 10*3/uL Normal 1500 - 7800 {cells/uL} [facility], [facility].; [place] [employer], [facility]. Neutrophils/100 WBC (Bld) 49.2 % Normal [facility].; [employer] [facility], [facility]. Platelet mean volume (Bld) [Entitic vol] 10.5 fL Normal 7.5 - 12.5 fL [facility], [facility].; [employer] [facility], [facility]. Platelets (Bld) [#/Vol] 199 10*3/uL Normal 140 - 400 [facility].; [place] [employer], [facility]. RBC (Bld) [#/Vol] 4.62 10*6/uL Normal 4.20 - 5.8 0 {Million/uL } [facility], [facility].; [place] [employer], [facility]. WBC (Bld) [#/Vol] 6.1 10*3/uL Normal 3.8 - 10.8 [facility].; [place] [employer], [facility]. No Panel Informationon 04-15 VITAMIN D,25-OH,TOTAL,IA 34 ng/mL Normal 30 - 100 ng/mL [facility].; [place] [employer], [facility] Culture, urineOrdered By: Beth Cortes on 02-16-2023 Bacteria identified Cx Nom (U) Culture exhibits no growth. [facility] No Panel InformationOrdered By: Dashawn Cortes on 02-16-2023 Prostate Specific Antigen Screen 1.53 ng/mL 0.00-4.00 [facility] Comment on above: This test was perfor med using the TPSA assay method for [employer] chemistry system. Values obtained with differentassay methods cannot be used interchangably.When changing PSA assays in the course of monitoring apatient, additional sequential testing should be carriedout to confirm baseline values. CBC + DIFFon 02-08-2023 Baso # 0.10 x10EE3/UL Normal 0.00 - 0.10 [facility] Comment on above: Performed By: #### 2 20946 #### [facility],[address] [place] [address] 27158 Basophils/100 WBC (Bld) 1.9 % Normal 0.0 - 2.0 [facility] Comment on above: Performed By: #### 2 10232 #### [facility],[address] [place] [address] 49532 CBC + DIFF Normal [facility] Comment on above: Result Comment: CBC- COMPLETE BLOOD COUNT Performed By: #### 2 76409 #### [facility],[address] [place] [address] 07602 EO # 0.50 x10EE3/UL Normal 0.00 - 0.50 [facility] Comment on above: Performed By: #### 2 77597 #### [facility],[address] [place] [address] 28433 Eosinophils/100 WBC (Bld) 7.5 % High 0.0 - 7.0 [facility] Comment on above: Performed By: #### 2 74307 #### [facility],[address] [place] [address] 05913 Erythrocyte distribution width (RBC) [Ratio] 13.9 % Normal 12.0 - 15.6 [facility] Comment on above: Performed By: #### 2 93084 #### [facility],[address] [place] [address] 28824 Hematocrit (Bld) [Volume fraction] 42.3 % Normal 40.0 - 52.0 [facility] Comment on above: Performed By: #### 2 77786 #### [facility],[address] [place] [address] 52320 Hemoglobin (Bld) [Mass/Vol] 13.8 g/dL Normal 13.0 - 17.5 [facility] Comment on above: Performed By: #### 2 38094 #### [facility],[address] [place] [address] Lymph # 2.10 x10EE3/UL Normal 0.80 - 2.80 [facility] Comment on above: Performed By: #### 2 13407 #### [facility],[address] [place], [place] [address] Lymphocytes/100 WBC (Bld) 30.4 % Normal 20.0 - 45.0 [facility] Comment on above: Performed By: #### 2 01015 #### [facility],[address] [place] [address] 68477 MANUAL DIFF N/A Normal [facility] Comment on above: Performed By: #### 2 17779 #### [facility],[address] [place] [address] 71049 MCH (RBC) [Entitic mass] 31 pg Normal 27 - 33 [facility] Comment on above: Performed By: #### 2 29478 #### [facility],[address] [place] [address] 72245 MCHC 33 X10 3 Normal 32 - 36 [facility] Comment on above: Performed By: #### 2 30101 #### [facility],[address] [place] [address] 01961 MCV (RBC) [Entitic vol] 94 fL Normal 81 - 98 [facility] Comment on above: Performed By: #### 2 64968 #### [facility],[address] [place] [address]9994 [place] # 0.60 x10EE3/UL Normal 0.20 - 1.00 [facility] Comment on above: Performed By: #### 2 72350 #### [facility],[address] [place] [address] 32239 MONOS % 8.7 % Normal 0.0 - 10.0 [facility] Comment on above: Performed By: #### 2 59066 #### [facility],[address] [place] [address] Morphology Khris (Bld) [Interp] N/A Normal [facility] Comment on above: Result Comment: {CD] Performed By: #### 2 00496 #### [facility],[address] [place] [address] Neut # 3.60 x10EE3/UL Normal 1.50 - 7.10 [facility] Comment on above: Performed By: #### 2 05609 #### [facility],[address] [place] [address] Neutrophils/100 WBC (Bld) 51.5 % Normal 46.0 - 76.0 [facility] Comment on above: Performed By: #### 2 45045 #### [facility],[address] [place] [address] PLATELET 227 x10EE3/UL Normal 150 - 450 [facility] Comment on above: Performed By: #### 2 83679 #### [facility],[address] [place] [address] 18048 Platelet mean volume (Bld) [Entitic vol] 8.3 fL Normal 6.4 - 10.5 [facility] Comment on above: Result Comment: AUTO MATED DIFFERENTIAL Performed By: #### 2 76230 #### [facility],[address] [place], [place] [address] RBC 4.48 x 10EE6/UL Low 4.50 - 6.00 [facility] Comment on above: Performed By: #### 2 66807 #### [facility],[address] [place] [address] 47310 WBC 6.9 x 10EE3/UL Normal 4.5 - 10.8 [facility] Comment on above: Performed By: #### 2 75365 #### [facility],[address] [place] [address] 19833 CHEST 1 VIEWon 02-08-2023 CHEST 1 VIEW [place] [address] Patient: EDUARDO MORALES Phone#: : 1945 Age: 77 Gender: M Pt. Type: ER Account: [id number] Location: [facility] Ordering: YANI COPPOLA Exam Date: 02/08/2023/17:58 Family Phys: Charge Code: [id number] Physician: [place] Order #: [id number] Dose#: PROCEDURE: X-RAY CHEST 1 VIEW COMPARISON: None. INDICATIONS: Fall. FINDINGS: LUNGS: Normal. No significant pulmonary parenchymal abnormalities. VASCULATURE: Normal. Unremarkable pulmonary vasculature. CARDIAC: Normal. No cardiac silhouette abnormality or cardiomegaly. MEDIASTINUM: Aortic calcifications PLEURA: Normal. No effusion or pleural thickening. BONES: Mild rightward curvature of the thoracic spine. Multilevel osteophytes throughout the thoracic spine OTHER: Monitoring leads project across the thorax CONCLUSION: 1. No acute pulmonary parenchymal abnormality Dictated by: Lyndsay Del Valle MD on 02/08/2023 at 18:50 Approved by: Lyndsay Del Valle MD on 02/08/2023 at 18:52 Normal [facility] CMP with eGFRon 02-08-2023 AGE 77 years Normal [facility] Comment on above: Performed By: #### 2 86269 #### [facility],[address] [place] [address] 33137 Albumin [Mass/Vol] 3.6 g/dL Normal 3.4 - 5.0 [facility] Comment on above: Performed By: #### 2 47310 #### [facility],[address] [place] [address] 60824 Albumin/Globulin [Mass ratio] 1.0 {ratio} Normal 0.9 - 1.6 [facility] Comment on above: Performed By: #### 2 84311 #### [facility],[address] [place] [address] 20842 ALK PHOS 171 U/L High 46 - 116 [facility] Comment on above: Performed By: #### 2 70446 #### [facility],[address] [place] [address] 34149 ALT [Catalytic activity/Vol] 38 U/L Normal 16 - 63 [facility] Comment on above: Performed By: #### 2 64994 #### [facility],[address] [place] [address] 89764 Anion gap [Moles/Vol] 15 mmol/L Normal 10 - 20 [facility] Comment on above: Performed By: #### 2 87765 #### [facility],[address] [place] [address] 52900 AST [Catalytic activity/Vol] 38 U/L High 15 - 37 [facility] Comment on above: Performed By: #### 2 87585 #### [facility],[address] [place] [address] 49516 B/C RATIO 10 ratio Normal 0 - 30 [facility] Comment on above: Performed By: #### 2 57617 #### [facility],[address] [place] [address] 77030 Bilirubin [Mass/Vol] 2.1 mg/dL High 0.2 - 1.0 [facility] Comment on above: Performed By: #### 2 09850 #### [facility],[address] [place] [address] 88133 Calcium [Mass/Vol] 8.8 mg/dL Normal 8.5 - 10.1 [facility] Comment on above: Performed By: #### 2 26586 #### [facility],[address] [place] [address] 96540 Chloride [Moles/Vol] 101 mmol/L Normal 98 - 107 [facility] Comment on above: Performed By: #### 2 73351 #### [facility],[address] [place] [address] 70325 CMP with eGFR Normal [facility] Comment on above: Result Comment: COMP REHENSIVE METABOLIC PANEL Performed By: #### 2 03047 #### [facility],[address] [place] [address] 72710 CO2 [Moles/Vol] 27.8 mmol/L Normal 21.0 - 32.0 [facility] Comment on above: Performed By: #### 2 12735 #### [facility],[address] [place] [address] 22263 Creatinine [Mass/Vol] 1.26 mg/dL Normal 0.70 - 1.30 [facility] Comment on above: Performed By: #### 2 16525 #### [facility],[address] [place] [address] 81546 eGFR 56 ML/MINUTE Low 60 - 999 [facility] Comment on above: Performed By: #### 2 84449 #### [facility],[address] [place] [address] 05738 GFR/1.73 sq M.predicted among non-blacks MDRD (S/P/Bld) [Vol rate/Area] mL/min/{1.73_m2} Normal 60 - 999 [facility] Comment on above: Result Comment: ACCO RDING TO THE NATIONAL KIDNEY DISEASE EDUCATION PROGRAM(NKDE), A NORMAL eGFR IS A VALUE GREATER THAN OR EQUAL TO 60 ML/MIN/1.73 SQ METERS. CHRONIC KIDNEY DISEASE: <60mL/MIN/1.73 SQ METERS KIDNEY FAILURE: <15mL/MIN/1.73 SQ METERS THIS TEST SHOULD ONLY BE USED FOR PATIENTS 18 YEARS OF AGE AND OLDER. Performed By: #### 2 94224 #### [facility],[address] [place] [address] 33383 Globulin (S) [Mass/Vol] 3.6 g/dL Normal 1.5 - 3.8 [facility] Comment on above: Performed By: #### 2 21838 #### [facility],[address] [place] [address] 48277 Glucose [Mass/Vol] 138 mg/dL High 74 - 106 [facility] Comment on above: Performed By: #### 2 10869 #### [address] [address] Potassium [Moles/Vol] 3.8 mmol/L Normal 3.5 - 5.1 [facility] Comment on above: Performed By: #### 2 32718 #### [facility],[address] [place] [address] 99243 Protein [Mass/Vol] 7.2 g/dL Normal 6.4 - 8.2 [facility] Comment on above: Performed By: #### 2 17558 #### [facility],[address] [place] [address] 42341 Sodium [Moles/Vol] 140 mmol/L Normal 136 - 145 [facility] Comment on above: Performed By: #### 2 66466 #### [facility],[address] [place] [address] 47286 Urea nitrogen [Mass/Vol] 13 mg/dL Normal 7 - 18 [facility] Comment on above: Performed By: #### 2 84645 #### [facility],[address] [place] [address] BRAIN W/O CONTRASTon 08- CT BRAIN W/O CONTRAST [place] [address] Patient: EDUARDO MORALES Phone#: : 1945 Age: 77 Gender: M Pt. Type: ER Account: [id number] Location: 052 Ordering: YANI COPPOLA Exam Date: 02/08/2023/17:31 Family Phys: Charge Code: [id number] Physician: [place] Order #: [id number] Dose#: 57.5mGy PROCEDURE: CT BRAIN WITHOUT CONTRAST COMPARISON: None. INDICATIONS: Fall. TECHNIQUE: CT images were obtained without contrast material. All CT scans at this facility use dose modulation, iterative reconstruction, and/or weight based dosing when appropriate to reduce radiation dose to as low as reasonably achievable. IV CONTRAST: No IV contrast used,ml TOTAL DOSE: CTDIvol(mGy) FINDINGS: CEREBRUM: No edema, hemorrhage, mass. Global atrophy. Patchy deep cerebral white matter hypodensities, in a patient this age group consistent with small vessel ischemic disease CEREBELLUM: No edema, hemorrhage, mass. Global atrophy. BRAINSTEM: No edema, hemorrhage, mass, or inappropriate atrophy. CSF SPACES: Ventricles, cisterns, and sulci are to the degree of atrophy and symmetric in size and configuration. No subarachnoid hemorrhage, or mass. SKULL: No mass or other significant visible lesion. SINUSES: Opacification throughout the ethmoid air cells. Mucosal thickening of the maxillary sinuses. Rightward nasal septal deviation and nasal septal spur. ORBITS: Limited views are unremarkable. OTHER: Atherosclerotic calcifications of the cavernous carotid arteries Left frontal scalp hematoma measuring 1.5 x 0.5 x 2.3 cm. CONCLUSION: 1. No appreciable acute intracranial abnormality. Note: An acute ischemic event or extension of a chronic ischemic process may not be initially evident on CT. 2. Left frontal scalp hematoma. 3. Chronic small vessel ischemic disease 4. Global atrophy and atherosclerosis. [place] [address] Patient: EDUARDO MORALES Phone#: : 1945 Age: 77 Gender: M Pt. Type: ER Account: [id number] Location: 052 Ordering: YANI COPPOLA Exam Date: 02/08/2023/17:31 Family Phys: Charge Code: [id number] Physician: [place] Order #: [id number] Dose#: 57.5mGy Dictated by: Lyndsay Del Valle MD on 02/08/2023 at 18:26 Approved by: Lyndsay Del Valle MD on 02/08/2023 at 18:31 Normal [facility] CT CERVICAL W/O CONTRASTon 0 02-08-2023 CT CERVICAL W/O CONTRAST [place] [address] Patient: EDUARDO MORALES Phone#: : 1945 Age: 77 Gender: M Pt. Type: ER Account: [id number] Location: [facility] Ordering: YANI COPPOLA Exam Date: 02/08/2023/17:31 Family Phys: Charge Code: [id number] Physician: [place] Order #: [id number] Dose#: 11.4mGy PROCEDURE: CT CERVICAL WITHOUT CONTRAST COMPARISON: None. INDICATIONS: Fall. TECHNIQUE: Multi-planar CT images were created without intravenous contrast. All CT scans at this facility use dose modulation, iterative reconstruction, and/or weight-based dosing when appropriate to reduce radiation dose to as low as reasonably achievable. IV CONTRAST: No IV contrast used,0ml TOTAL DOSE: 11.4 CTDIvol(mGy) FINDINGS: CRANIOCERVICAL AREA: Normal foramen magnum with no Chiari malformation. PARASPINAL AREA: Normal with no visible mass. BONES: Vertebral bodies are maintained in height. There is chronic appearing anterolisthesis of C3 on C4 and retrolisthesis of C4 on C5. Multilevel degenerative disc disease and associated uncovertebral hypertrophy. The dens is intact. The lateral masses are symmetric. There it are bulky anterior osteophytes from C4 through T2. CERVICAL DISC LEVELS: C2-C3: Uncovertebral hypertrophy and facet arthropathy contributes to moderate bilateral foraminal narrowing C3-C4: Disc height loss, uncovertebral hypertrophy contributes to severe bilateral foraminal narrowing C4-C5: Disc height loss common and uncovertebral hypertrophy contributes to severe bilateral foraminal narrowing and at least mild spinal canal narrowing C5-C6: Disc height loss and uncovertebral hypertrophy contributes to severe bilateral foraminal narrowing and at least mild spinal canal narrowing C6-C7: Disc height loss and uncovertebral hypertrophy contributes to severe foraminal narrowing and at least mild spinal canal narrowing C7-T1: Disc height loss and facet arthropathy contributes to mild left foraminal narrowing. Continued Report - Page 2 of 2 Patient: EDUARDO MORALES Phone#: : 1945 Age: 77 Gender: M Pt. Type: ER Account: [id number] Location: 052 Ordering: YANI COPPOLA Exam Date: 02/08/2023/17:31 Family Phys: Charge Code: [id number] Physician: [place] Order #: [id number] Dose#: 11.4mGy CONCLUSION: 1. No acute osseous abnormality. 2. Multilevel degenerative disc disease with varying degrees of spinal canal and neural foraminal narrowing. Dictated by: Lyndsay Del Valle MD on 02/08/2023 at 18:31 Approved by: Lyndsay Del Valle MD on 02/08/2023 at 18:35 Normal [facility] CT FACIAL BONES W/O CONTRAST on 02-08-2023 CT FACIAL BONES W/[place] CONTRAST [place] [address] Patient: EDUARDO MORALES Phone#: : 1945 Age: 77 Gender: M Pt. Type: ER Account: [id number] Location: 052 Ordering: YANI COPPOLA Exam Date: 02/08/2023/17:31 Family Phys: Charge Code: [id number] Physician: [place] Order #: [id number] Dose#: 27.8mGy PROCEDURE: CT FACIAL BONES WITHOUT CONTRAST COMPARISON: None. INDICATIONS: Fall. TECHNIQUE: After obtaining the patient's consent, CT images were created without non-ionic intravenous contrast. All CT scans at this facility use dose modulation, iterative reconstruction, and/or weight based dosing when appropriate to reduce radiation dose to as low as reasonably achievable. IV CONTRAST: No IV contrast used,0ml TOTAL DOSE: 27.8 CTDIvol(mGy) FINDINGS: Dental amalgam streak artifact limits evaluation at the involved levels. FACIAL BONES: Normal. No bony lesion or fracture SINUSES: Mucosal thickening of the maxillary and frontal sinuses. Opacification of multiple ethmoid air cells. Right maxillary mucous retention cyst. NASAL FOSSA: Rightward nasal septal deviation and nasal septal spur. SKULL BASE: Normal. No mass or bone destruction. ORBITS: Normal. No visible mass, hematoma, edema or fracture. CAVERNOUS SINUS: Normal. Symmetric appearance with no visible lesion. SALIVARY GLANDS: Normal. The parotid and submandibular glands are unremarkable. OTHER: Left supraorbital/left frontal hematoma. Hematoma measures approximately 1.5 x 0.7 x 1.9 cm. Atherosclerotic calcifications of the carotid arteries. CONCLUSION: 1. No acute osseous abnormality 2. Left supraorbital/left frontal soft tissue hematoma 3. Sinus mucosal disease Dictated by: Lyndsay Del Valle MD on 02/08/2023 at 18:35 Continued Report - Page 2 of 2 Patient: EDUARDO MORALES Phone#: : 1945 Age: 77 Gender: M Pt. Type: ER Account: [id number] Location: 052 Ordering: YANI COPPOLA Exam Date: 02/08/2023/17:31 Family Phys: Charge Code: [id number] Physician: [place] Order #: [id number] Dose#: 27.8mGy Approved by: Lyndsay Del Valle MD on 02/08/2023 at 18:40 Normal [facility] KNEE COMPLETE LT MIN 4 VIEWS on 02-08-2023 KNEE COMPLETE LT MIN 4 VIEWS [place] [address] Patient: EDUARDO MORALES Phone#: : 1945 Age: 77 Gender: M Pt. Type: ER Account: [id number] Location: 052 Ordering: YANI COPPOLA Exam Date: 02/08/2023/17:59 Family Phys: Charge Code: [id number] Physician: [place] Order #: [id number] Dose#: PROCEDURE: X-RAY KNEE LT COMPLETE 4 VIEWS COMPARISON: None. INDICATIONS: Knee pain. FINDINGS: BONES: Medial compartment joint space loss. There is spurring of the medial tibial plateau. There is enthesopathy at the superior aspect of the patella. No fracture or dislocation. SOFT TISSUES: Negative. No visible soft tissue swelling. EFFUSION: None visible. OTHER: Negative. CONCLUSION: 1. No acute osseous abnormality Dictated by: Lyndsay Del Valle MD on 02/08/2023 at 18:46 Approved by: Lyndsay Del Valle MD on 02/08/2023 at 18:47 Normal [facility] KNEE COMPLETE RT MIN 4 VIEWS on 02-08-2023 KNEE COMPLETE RT MIN 4 VIEWS [place] [address] Patient: EDUARDO MORALES Phone#: : 1945 Age: 77 Gender: M Pt. Type: ER Account: [id number] Location: [facility] Ordering: YANI COPPOLA Exam Date: 02/08/2023/18:02 Family Phys: Charge Code: [id number] Physician: [place] Order #: [id number] Dose#: PROCEDURE: X-RAY KNEE RT COMPLETE 4 VIEWS COMPARISON: None. INDICATIONS: Knee pain. FINDINGS: BONES: No fracture or dislocation. Medial compartment joint space loss. Spurring of the medial tibial plateau. Enthesopathy at the superior aspect of the patella SOFT TISSUES: Soft tissue swelling overlying anterior tibia. EFFUSION: None visible. OTHER: Negative. CONCLUSION: 1. Soft tissue swelling without acute osseous abnormality Dictated by: Lyndsay Del Valle MD on 02/08/2023 at 18:47 Approved by: Lyndsay Del Valle MD on 02/08/2023 at 18:48 Normal [facility] PT panel Coag (PPP)on 2022 INR Coag (PPP) [Relative time] 1.1 {INR} 0.9 - 1.3 [facility] PT Coag (PPP) [Time] 11.7 s 9.7 - [address] [facility] TROPONIN I, HIGH SENSITIVITY on 02-08-2023 HS TROPONIN 6.6 pg/mL Normal 0.0 - 76.2 [facility] Comment on above: Performed By: #### [id number] #### [facility],[address] [place] [id number] WRIST COMPLETE LTon 02-09-20 23 WRIST COMPLETE LT [address] [address] Patient: EDUARDO MORALES Phone#: : 1945 Age: 77 Gender: M Pt. Type: ER Account: [id number] Location: [facility] Ordering: YANI COPPOLA Exam Date: 02/08/2023/18:01 Family Phys: Charge Code: [id number] Physician: [place] Order #: [id number] Dose#: PROCEDURE: X-RAY WRIST LT COMPLETE MIN 3 VIEWS COMPARISON: None. INDICATIONS: Wrist pain. FINDINGS: BONES: No fracture or dislocation. There are degenerative scaphoid. Degenerative spurring at the 1st carpometacarpal articulation. Degenerative spurring at the 1st interphalangeal articulation. SOFT TISSUES: Negative. No visible soft tissue swelling. EFFUSION: None visible. OTHER: Negative. CONCLUSION: 1. No acute osseous abnormality. Note: An acute wrist fracture may not be initially evident on if there is persistent pain in 7-10 days recommend repeat radiograph. Dictated by: Lyndsay Del Valle MD on 02/08/2023 at 18:48 Approved by: Lyndsay Del Valle MD on 02/08/2023 at 18:50 Normal [facility] Laboratory - Chemistry and C hemistry - challengeon 11-09-2022 Albumin [Mass/Vol] 4.0 g/dL Normal 3.6 - 5.1 g/dL [facility], [facility].; [employer], [facility]. Albumin/Globulin [Mass ratio] 1.4 {ratio} Normal 1.0 - 2.5 [facility], [facility].; [employer] [facility], [facility]. ALP [Catalytic activity/Vol] 170 U/L Abnormal 35 - 144 U/L [facility], [facility].; [employer], [employer]. ALT [Catalytic activity/Vol] 22 U/L Normal 9 - 46 U/L [employer] [facility].; [facility], [employer]. AST [Catalytic activity/Vol] 23 U/L Normal 10 - 35 U/L [facility], [facility].; [facility], [facility]. Bilirubin [Mass/Vol] 2.4 mg/dL Abnormal 0.2 - 1 .2 mg/dL [facility], [facility].; [facility], Inc[employer] Calcium [Mass/Vol] 9.4 mg/dL Normal 8.6 - 10. 3 mg/dL [facility], [facility].; [facility], [facility]. Chloride [Moles/Vol] 104 mmol/L Normal 98 - 11 0 mmol/L [facility], [facility].; [facility], [facility]. Cholesterol [Mass/Vol] 96 mg/dL Normal [facility].; [facility], [facility]. Cholesterol in HDL [Mass/Vol] 47 mg/dL Normal [facility], [facility].; [facility], [facility]. Cholesterol in LDL [Mass/Vol] 36 mg/dL Normal [facility], [facility].; [facility], [facility]. CO2 [Moles/Vol] 31 mmol/L Normal 20 - 32 mmol/L [facility], [facility].; [facility], [facility]. Creatinine [Mass/Vol] 1.08 mg/dL Normal 0.70 - 1.28 mg/dL [facility], [facility].; [facility], [facility]. GFR/1.73 sq M.predicted among non-blacks MDRD (S/P/Bld) [Vol rate/Area] 72 mL/min/{1.73_m2} Normal [facility], [facility].; [facility], [facility] Glucose [Mass/Vol] 106 mg/dL Abnormal 65 - 99 mg/dL [facility], [facility].; [facility], [facility] Potassium [Moles/Vol] 4.2 mmol/L Normal 3.5 - 5.3 mmol/L [facility], [facility].; [facility], [facility] Protein [Mass/Vol] 6.8 g/dL Normal 6.1 - 8.1 g/dL [facility], [facility].; [employer] Sodium [Moles/Vol] 142 mmol/L Normal 135 - 146 mmol/L [facility], [facility].; [facility], [facility] Triglyceride [Mass/Vol] 51 mg/dL Normal [facility].; [place] [employer] [facility]. Urea nitrogen [Mass/Vol] 17 mg/dL Normal 7 - 25 mg/dL [facility].; [place] [employer] [facility], [facility]. No Panel Informationon 11-09 BUN/CREATININE RATIO NOT APPLICABLE Normal 6 - 22 [facility].; [place] [employer] [facility], [facility]. CHOL/HDLC RATIO 2.0 Normal [facility].; [facility], [facility]. GLOBULIN 2.8 Normal 1.9 - 3.7 [facility].; [place] [employer] [facility]. NON HDL CHOLESTEROL 49 Normal [facility].; [facility] PSA, TOTAL 1.36 ng/mL Normal [facility].; [place] [employer] [facility]. XR CHEST 2 VIEW PA+LATon XR CHEST 2 VIEW PA+LAT EXAMINATION: XR C HEST 2 VIEW PA+LAT 10/09/2022 01:05 PM CLINICAL HISTORY: DYSPNEA ASSOCIATED DIAGNOSIS: Dyspnea, unspecified type ORDERING PROVIDER: CHRISTIAN MONTESINOS TECHNOLOGISTS NOTE: COMPARISON: None FINDINGS: Cardiomediastinal silhouette: Normal. Lungs/Pleura: No focal pulmonary consolidation, effusion or pneumothorax. Musculoskeletal: Degenerative spurring within the thoracic spine. 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 IMPRESSION: No acute cardiopulmonary abnormality identified. MACRO: None Normal [employer] XR Chest PA and Lateralon EXAMINATION: XR CHES T 2 VIEW PA+LAT 10/09/2022 01:05 PM CLINICAL HISTORY: DYSPNEA ASSOCIATED DIAGNOSIS: Dyspnea, unspecified type ORDERING PROVIDER: CHRISTIAN MONTESINOS TECHNOLOGISTS NOTE: COMPARISON: None FINDINGS: Cardiomediastinal silhouette: Normal. Lungs/Pleura: No focal pulmonary consolidation, effusion or pneumothorax. Musculoskeletal: Degenerative spurring within the thoracic spine. 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 IMPRESSION: No acute cardiopulmonary abnormality identified. MACRO: None RADIOLOGY Martin Son MD - 10/09/2022 EXAMINATION: XR CHEST 2 VIEW PA+LAT 10/09/2022 01:05 PM CLINICAL HISTORY: DYSPNEA ASSOCIATED DIAGNOSIS: Dyspnea, unspecified type ORDERING PROVIDER: CHRISTIAN MONTESINOS TECHNOLOGISTS NOTE: COMPARISON: None FINDINGS: Cardiomediastinal silhouette: Normal. Lungs/Pleura: No focal pulmonary consolidation, effusion or pneumothorax. Musculoskeletal: Degenerative spurring within the thoracic spine. 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 IMPRESSION: No acute cardiopulmonary abnormality identified. MACRO: None [id number] Rad[facility] Study observation (narrative) [facility] XR Chest PA and LateralOrder ed By: Martin Son on 10-09-2022 [employer] Work Phone: Laboratory - Chemistry and C hemistry - challengeon 08-03-2022 Bilirubin Ql (U) Negative Normal [facility] [employer]. Ketones Ql (U) Negative Normal [facility] [employer].; [employer], [employer]. pH (U) 5.0 [pH] Abnormal [employer]. Specific gravity (U) [Rel density] 1.020 Normal [employer].; [employer]. Urobilinogen Qn (U) 0.2 mg/dL Normal [facility] Therap[facility].; [employer]. Laboratory - Hematology and Cell countson 08-03-2022 Hemoglobin Ql (U) small Abnormal [employer].; [employer]. Laboratory - Specimen inform ationon 08-03-2022 Appearance (U) clear Normal [facility] [employer].; [employer]. Color (U) yellow Normal [employer].; [employer] Laboratory - Urinalysison Glucose Test strip (U) [Mass/Vol] Negative Normal [employer].; [employer]. Leukocyte esterase Test strip Ql (U) trace Normal [employer].; [employer], [employer] [facility]. Nitrite Ql (U) Negative Normal [facility] [employer].; [employer], [employer] [facility]. Protein Ql (U) Negative Normal [facility] [employer].; [employer], [employer]. No Panel Informationon 08-03 CULTURE, URINE, ROUTINE SEE NOTE Abnormal [facility], [facility].; [facility], [facility]. Vital Signs Date Time Vital Sign Value Performing Clinician Facility 01-31-2025 15:12-0400 Body temperature 97.8 [degF] Luke Acosta PA Work Phone: [facility] 01-31-2025 15:12-0400 Diastolic blood pressure 66 mm[Hg] Luke Acosta PA Work Phone: [facility] 01-31-2025 15:12-0400 Heart rate 48 /min Luke Acosta PA Work Phone: [facility] 01-31-2025 15:12-0400 Respiratory rate 14 /min Luke Acosta PA Work Phone: [facility] 01-31-2025 15:12-0400 SaO2% (BldA) [Mass fraction] 100 % Luke Acosta PA Work Phone: [facility] 01-31-2025 15:12-0400 Systolic blood pressure 95 mm[Hg] Luke Acosta PA Work Phone: [facility] 01-31-2025 10:56-0400 Body mass index (BMI) [Ratio] 27.6 kg/m2 Luke Acosta PA Work Phone: [facility] 01-31-2025 10:56-0400 Body weight 92.2 kg Luke Acosta PA Work Phone: [facility] 01-31-2025 10:29-0400 Body height 182.88 cm Luke Acosta PA Work Phone: [facility] 11-02-2024 10:14-0400 Body height 180.34 cm Eleanor LICEA [facility], [facility].; [facility], [facility]. 11-02-2024 10:14-0400 Body mass index (BMI) [Ratio] 27.2 kg/m2 Eleanor LICEA [facility].; [facility]. 11-02-2024 10:14-0400 Body surface area Derived from formula 2.09 m2 Eleanor Richards [facility], [facility].; [facility]. 11-02-2024 10:14-0400 Body weight 88.45 kg Eleanor Richards [facility], [facility].; [facility]. 11-02-2024 10:14-0400 Diastolic blood pressure 63 mm[Hg] Eleanor Richards [facility].; [facility]. Comment on above: Patient Position: Sitting; Cuff Location : Left Arm; Cuff Size: Standard 11-02-2024 10:14-0400 Heart rate 52 /min Eleanor Richards [facility].; [facility]. Comment on above: Pattern: Regular 11-02-2024 10:14-0400 Systolic blood pressure 118 mm[Hg] Eleanor Richards [facility].; [facility]. Comment on above: Patient Position: Sitting; Cuff Location : Left Arm; Cuff Size: Standard 11-01-2024 13:18-0400 Body height 182.9 cm Clarence Rios MD Work Phone: [facility] 11-01-2024 13:18-0400 Body mass index (BMI) [Ratio] 25.36 kg/m2 Clarence Rios MD Work Phone: [facility] 11-01-2024 13:18-0400 Body weight 84.82 kg Clarence Rios MD Work Phone: [facility] 11-01-2024 13:18-0400 Diastolic blood pressure 54 mm[Hg] Clarence Rios MD Work Phone: [facility] 11-01-2024 13:18-0400 Heart rate 57 /min Clarence Rios MD Work Phone: [facility] 11-01-2024 13:18-0400 SaO2% (BldA) [Mass fraction] 97 % Clarence Rios MD Work Phone: [facility] 11-01-2024 13:18-0400 Systolic blood pressure 136 mm[Hg] Clarence Rios MD Work Phone: [facility] 09-28-2024 [id number] Body height 180.34 cm Eleanor Richards [facility] [employer] [facility], [employer].; [employer] 09-28-2024 09:28-0400 Body mass index (BMI) [Ratio] 27.2 kg/m2 Eleanor Richards [facility] [employer] [facility], [employer].; [employer] 09-28-2024 [id number] Body surface area Derived from formula 2.09 m2 Eleanor Richards [facility], [employer].; [employer], [employer] [facility]. 09-28-2024 09:28040 Body temperature 97.1 [degF] Eleanor Richards [facility] [employer], [employer].; [employer], [employer] [facility]. Comment on above: Method: Tympanic 09-28-2024 [id number] Body weight 88.45 kg Eleanor Richards [facility] [employer] 09-28-2024 [id number] Diastolic blood pressure 68 mm[Hg] Eleanor Richards [facility], [employer] [facility].; [employer]. Comment on above: Patient Position: Sitting; Cuff Location : Left Arm; Cuff Size: Standard 09-28-2024 09:28-0400 Heart rate 60 /min Eleanor Richards [facility] [employer], [employer].; [employer]. Comment on above: Pattern: Regular 09-28-2024 09:28-0400 Inhaled oxygen concentration 21 % Eleanor Richards [facility], [facility].; [employer]. Comment on above: Room air 09-28-2024 09:28-0400 SaO2% (BldA) [Mass fraction] 97 % Eleanor Richards [facility], [employer] [facility].; [employer] 09-28-2024 09:28-0400 Systolic blood pressure 119 mm[Hg] Eleanor Richards [facility].; [employer]. Comment on above: Patient Position: Sitting; Cuff Location : Left Arm; Cuff Size: Standard 08-17-2024 11:10-0500 Body height 182.9 cm Jm Cruz MD Work Phone: [facility] 08-17-2024 11:10-0500 Body mass index (BMI) [Ratio] 25.77 kg/m2 Jm Cruz MD Work Phone: [facility] 08-17-2024 11:10-0500 Body weight 86.18 kg Jm Cruz MD Work Phone: [facility] 08-17-2024 11:10-0500 Diastolic blood pressure 54 mm[Hg] Jm Cruz MD Work Phone: [facility] 08-17-2024 11:10-0500 Heart rate 57 /min Jm Cruz MD Work Phone: [facility] 08-17-2024 11:10-0500 Systolic blood pressure 124 mm[Hg] Jm Cruz MD Work Phone: [facility] 07-19-2024 10:02-0500 Body height 180.34 cm Sherrie Mason LPN [facility].; [facility]. 07-19-2024 10:02-0500 Body mass index (BMI) [Ratio] 27.2 kg/m2 Sherrie Mason LPN [facility], Inc.; [facility], [facility]. 07-19-2024 10:02-0500 Body surface area Derived from formula 2.09 m2 Sherrie Mason LPN [facility], [facility].; [facility]. 07-19-2024 10:02-0500 Body weight 88.45 kg Sherrie Mason LPN [facility].; [facility]. 07-19-2024 10:02-0500 Diastolic blood pressure 67 mm[Hg] Sherrie Mason LPN [facility], [facility].; [facility]. Comment on above: Patient Position: Sitting; Cuff Location : Left Arm; Cuff Size: Standard 07-19-2024 10:02-0500 Heart rate 64 /min Sherrie Mason LPN [facility].; [facility]. Comment on above: Pattern: Regular 07-19-2024 10:02-0500 Systolic blood pressure 116 mm[Hg] Sherrie Mason [facility].; [facility]. Comment on above: Patient Position: Sitting; Cuff Location : Left Arm; Cuff Size: Standard 05-17-2024 10:02-0500 Body height 180.34 cm Alma Reis [facility].; [facility]. 05-17-2024 10:02-0500 Body mass index (BMI) [Ratio] 26.92 kg/m2 [facility].; [facility]. 05-17-2024 10:02-0500 Body surface area Derived from formula 2.08 m2 Alma Reis [facility].; [facility]. 05-17-2024 10:02-0500 Body weight 87.54 kg Alma Reis [facility].; [facility], [facility]. 05-17-2024 10:02-0500 Diastolic blood pressure 49 mm[Hg] Alma Reis [facility].; [place] [employer] [facility]. Comment on above: Patient Position: Sitting; Cuff Location : Left Arm; Cuff Size: Standard 05-17-2024 10:02-0500 Heart rate 59 /min Alma Reis [facility].; [place] [employer] [facility]. Comment on above: Pattern: Regular 05-17-2024 10:02-0500 Systolic blood pressure 115 mm[Hg] Alma Reis [facility].; [place] [employer] [facility]. Comment on above: Patient Position: Sitting; Cuff Location : Left Arm; Cuff Size: Standard 02-23-2024 08:48-0400 Body mass index (BMI) [Ratio] 26.05 kg/m2 Farhan Pizarro MD Work Phone: [facility] 02-23-2024 08:48-0400 Body weight 87.14 kg Farhan Pizarro MD Work Phone: [facility] 01-03-2024 14:48-0400 Body height 182.9 cm Teri Tecco [employer] Work Phone: [facility] 01-03-2024 14:48-0400 Body mass index (BMI) [Ratio] 25.5 kg/m2 Teri Tecco [employer] Work Phone: [facility] 01-03-2024 14:48-0400 Body weight 85.28 kg Teri Tecco [employer] Work Phone: [facility] 01-03-2024 14:48-0400 Diastolic blood pressure 62 mm[Hg] Teri Tecco [employer] Work Phone: [facility] 01-03-2024 14:48-0400 Heart rate 55 /min Teri Tecco [employer] Work Phone: [facility] 01-03-2024 14:48-0400 Systolic blood pressure 118 mm[Hg] Teri Tecco [employer] Work Phone: [facility] 12-31-2023 08:23-0400 Diastolic blood pressure 66 mm[Hg] Shari Condon MD Work Phone: [facility] 12-31-2023 08:23-0400 Heart rate 52 /min Shari Condon MD Work Phone: [facility] 12-31-2023 08:23-0400 Respiratory rate 16 /min Shari Condon MD Work Phone: [facility] 12-31-2023 08:23-0400 Systolic blood pressure 118 mm[Hg] Shari Condon MD Work Phone: [facility] 12-27-2023 13:27-0400 Body height 180.34 cm Alma Reis LPN [facility].; [facility]. 12-27-2023 13:27-0400 Body mass index (BMI) [Ratio] 26.78 kg/m2 Alma Reis LPN [facility].; [facility]. 12-27-2023 13:27-0400 Body surface area Derived from formula 2.07 m2 [facility], [facility].; [facility]. 12-27-2023 13:27-0400 Body temperature 98.6 [degF] [facility], [facility].; [employer], [employer]. Comment on above: Method: Tympanic 12-27-2023 13:270400 Body weight 87.09 kg [facility], [facility].; [place] [employer] [facility], [employer]. 12-27-2023 13:27-0400 Diastolic blood pressure 75 mm[Hg] [facility], [facility].; [employer] [facility], [employer]. Comment on above: Patient Position: Sitting; Cuff Location : Left Arm; Cuff Size: Standard 12-27-2023 13:27-0400 Heart rate 68 /min [facility], [facility].; [employer], [employer]. Comment on above: Pattern: Regular 12-27-2023 13:27-0400 Systolic blood pressure 124 mm[Hg] [facility], [facility].; [employer], [employer]. Comment on above: Patient Position: Sitting; Cuff Location : Left Arm; Cuff Size: Standard 11-25-2023 10:040400 Body height 180.34 cm [facility], [facility].; [place] [employer] [facility], [employer]. 11-25-2023 10:040400 Body mass index (BMI) [Ratio] 26.92 kg/m2 [facility], [facility].; [employer] [facility] [employer] 11-25-2023 10:040400 Body surface area Derived from formula 2.08 m2 [facility], [facility].; [place] [employer] [facility], [facility]. 11-25-2023 10:040400 Body temperature 98.3 [degF] [facility], [facility].; [employer], [employer]. Comment on above: Method: Tympanic 11-25-2023 10:040400 Body weight 87.54 kg [facility], [facility].; [facility] 11-25-2023 10:04-0400 Diastolic blood pressure 67 mm[Hg] Alma Reis LPN [facility], [facility].; [facility], [facility]. Comment on above: Patient Position: Sitting; Cuff Location : Left Arm; Cuff Size: Standard 11-25-2023 10:04-0400 Heart rate 76 /min Alma Reis LPN [facility] Comment on above: Pattern: Regular 11-25-2023 10:04-0400 Systolic blood pressure 119 mm[Hg] Alma Reis LPN [facility], [facility].; [facility], [facility]. Comment on above: Patient Position: Sitting; Cuff Location : Left Arm; Cuff Size: Standard 10-26-2023 11:52-0400 Body height 179 cm Shari Condon MD Work Phone: [facility] 10-26-2023 11:52-0400 Body mass index (BMI) [Ratio] 27.78 kg/m2 Shari Condon MD Work Phone: [facility] 10-26-2023 11:52-0400 Body weight 89 kg Shari Condon MD Work Phone: [facility] 10-26-2023 11:52-0400 Diastolic blood pressure 62 mm[Hg] Shari Condon MD Work Phone: [facility] 10-26-2023 11:52-0400 Heart rate 58 /min Shari Condon MD Work Phone: [facility] 10-26-2023 11:52-0400 Systolic blood pressure 112 mm[Hg] Shari Condon MD Work Phone: [facility] 10-08-2023 09:55-0400 Body height 180.34 cm Anjelica Schaefer MA [facility], [facility].; [facility], [facility]. 10-08-2023 09:55-0400 Body mass index (BMI) [Ratio] 27.48 kg/m2 Anjelica Schaefer MA [facility], [facility].; [facility]. 10-08-2023 09:55-0400 Body surface area Derived from formula 2.1 m2 Anjelica Schaefer MA [facility].; [facility]. 10-08-2023 09:55-0400 Body weight 89.36 kg Anjelica Schaefer MA [facility].; [place] [employer] [facility]. 10-08-2023 09:55-0400 Diastolic blood pressure 68 mm[Hg] Anjelica Schaefer MA [facility].; [facility]. Comment on above: Patient Position: Sitting; Cuff Location : Left Arm; Cuff Size: Standard 10-08-2023 09:55-0400 Heart rate 51 /min Anjelica Schaefer MA [facility].; [facility]. Comment on above: Pattern: Regular 10-08-2023 09:55-0400 Systolic blood pressure 114 mm[Hg] Anjelica Schaefer MA [facility].; [facility]. Comment on above: Patient Position: Sitting; Cuff Location : Left Arm; Cuff Size: Standard 09-24-2023 12:53-0400 Diastolic blood pressure 53 mm[Hg] Manjit Guerrier MD Work Phone: [facility] 09-24-2023 12:53-0400 Systolic blood pressure 129 mm[Hg] Manjit Guerrier MD Work Phone: [facility] 09-24-2023 12:49-0400 Body height 182.9 cm Manjit Guerrier MD Work Phone: [facility] 09-24-2023 12:49-0400 Body weight 88.45 kg Manjit Guerrier MD Work Phone: [facility] 09-24-2023 12:49-0400 Heart rate 56 /min Manjit Guerrier MD Work Phone: [facility] 09-24-2023 12:49-0400 SaO2% (BldA) [Mass fraction] 98 % Manjit Guerrier MD Work Phone: [facility] 04-28-2023 10:01-0500 Body height 180.34 cm Herminio Merrill [facility].; [facility]. 04-28-2023 10:01-0500 Body mass index (BMI) [Ratio] 26.92 kg/m2 Herminiorosi Merrill [facility].; [facility]. 04-28-2023 10:01-0500 Body surface area Derived from formula 2.08 m2 Herminiorosi Merrill [facility].; [facility] 04-28-2023 10:01-0500 Body weight 87.54 kg Herminio Garfield [facility].; [facility] 04-28-2023 10:01-0500 Diastolic blood pressure 47 mm[Hg] Herminiorosi Merrill [facility].; [facility]. Comment on above: Patient Position: Sitting; Cuff Location : Left Arm; Cuff Size: Standard 04-28-2023 10:01-0500 Heart rate 63 /min Herminiorosi Merrill [facility].; [facility]. Comment on above: Pattern: Regular 04-28-2023 10:01-0500 Systolic blood pressure 107 mm[Hg] Herminiorosi Merrill [facility].; [facility]. Comment on above: Patient Position: Sitting; Cuff Location : Left Arm; Cuff Size: Standard 04-07-2023 10:45-0400 Body temperature 98 [degF] [facility] 04-07-2023 10:45-0400 Diastolic blood pressure 55 mm[Hg] [facility] 04-07-2023 10:45-0400 Heart rate 53 /min [facility] 04-07-2023 10:45-0400 Respiratory rate 14 /min [facility] 04-07-2023 10:45-0400 SaO2% (BldA) [Mass fraction] 97 % [facility] 04-07-2023 10:45-0400 Systolic blood pressure 111 mm[Hg] [facility] 04-07-2023 08:17-0400 Body height 182.88 cm [facility] 04-07-2023 08:17-0400 Body mass index (BMI) [Ratio] 25.9 kg/m2 [facility] 04-07-2023 08:170400 Body weight 87 kg [facility] 02-23-2023 14:02-0400 Body temperature 97.5 [degF] Herminio Merrill LPN [employer] 02-23-2023 14:02040 Body weight 87.54 kg Herminio Merrill LPN [employer] 02-23-2023 14:02-0400 Diastolic blood pressure 62 mm[Hg] Herminio Garfield [employer] Comment on above: Patient Position: Sitting; Cuff Location : Left Arm; Cuff Size: Standard 02-23-2023 14:02-0400 Heart rate 61 /min Herminio Merrill LPN [employer] Comment on above: Pattern: Regular 02-23-2023 14:02-0400 Systolic blood pressure 106 mm[Hg] Herminio Babbon CONTACT AGENT [employer] Comment on above: Patient Position: Sitting; Cuff Location : Left Arm; Cuff Size: Standard 02-12-2023 08:32-0400 Body weight 87.54 kg Herminio Merrill LPN [employer] 02-12-2023 08:32-0400 Diastolic blood pressure 58 mm[Hg] Herminio Merrill LPN [employer] Comment on above: Patient Position: Sitting; Cuff Location : Left Arm; Cuff Size: Standard 02-12-2023 08:32-0400 Heart rate 64 /min Herminio Garfield SO[employer] Comment on above: Pattern: Regular 02-12-2023 08:32-0400 Systolic blood pressure 108 mm[Hg] Herminio Garfield CONTACT AGENT [employer] Comment on above: Patient Position: Sitting; Cuff Location : Left Arm; Cuff Size: Standard 02-08-2023 11:48-0400 Body height 182.9 cm Clarence Rios MD Work Phone: [facility] 02-08-2023 11:48-0400 Body weight 85.5 kg Clarence Rios MD Work Phone: [facility] 02-08-2023 11:48-0400 Diastolic blood pressure 57 mm[Hg] Clarence Rios MD Work Phone: [facility] 02-08-2023 11:48-0400 Heart rate 54 /min Clarence Rios MD Work Phone: [facility] 02-08-2023 11:48-0400 Respiratory rate 17 /min Clarence Rios MD Work Phone: [facility] 02-08-2023 11:48-0400 SaO2% (BldA) [Mass fraction] 99 % Clarence Rios MD Work Phone: [facility] 02-08-2023 11:48-0400 Systolic blood pressure 134 mm[Hg] Clarence Rios MD Work Phone: [facility] 11-13-2022 08:11-0400 Body height 180.34 cm Anjelica Schaefer MA [facility], [facility].; [facility]. 11-13-2022 08:11-0400 Body mass index (BMI) [Ratio] 27.62 kg/m2 Anjelica Schaefer MA [facility], [facility].; [facility]. 11-13-2022 08:11-0400 Body surface area Derived from formula 2.1 m2 Anjelica Schaefer MA [facility], [facility].; [facility]. 11-13-2022 08:11-0400 Body weight 89.81 kg Anjelica Schaefer MA [facility], [facility].; [facility]. 11-13-2022 08:11-0400 Diastolic blood pressure 69 mm[Hg] Anjelica Schaefer MA [facility], [facility].; [facility]. Comment on above: Patient Position: Sitting; Cuff Location : Left Arm; Cuff Size: Standard 11-13-2022 08:11-0400 Heart rate 50 /min Anjelica Schaefer MA [facility].; [facility], [facility]. Comment on above: Pattern: Regular 11-13-2022 08:11-0400 Systolic blood pressure 120 mm[Hg] Anjelica Schaefer MA [facility].; [facility], [facility]. Comment on above: Patient Position: Sitting; Cuff Location : Left Arm; Cuff Size: Standard 08-10-2022 13:32-0500 Diastolic blood pressure 55 mm[Hg] Clarence Rios MD Work Phone: [facility] 08-10-2022 13:32-0500 Systolic blood pressure 121 mm[Hg] Clarence Rios MD Work Phone: [facility] 08-10-2022 13:25-0500 Body height 182.9 cm Clarence Rios MD Work Phone: [facility] 08-10-2022 13:25-0500 Body weight 87.73 kg Clarence Rios MD Work Phone: [facility] 08-10-2022 13:25-0500 Heart rate 62 /min Clarence Rios MD Work Phone: [facility] 08-10-2022 13:25-0500 Respiratory rate 15 /min Clarence Rios MD Work Phone: [facility] 08-10-2022 13:25-0500 SaO2% (BldA) [Mass fraction] 97 % Clarence Rios MD Work Phone: [facility] 08-03-2022 13:15-0500 Body height 180.34 cm Kalani Infante LPN [facility], [facility].; [facility]. 08-03-2022 13:15-0500 Body mass index (BMI) [Ratio] 27.34 kg/m2 Kalani Infante LPN [facility], [facility].; [facility]. 08-03-2022 13:15-0500 Body surface area Derived from formula 2.09 m2 Kalani Infante LPN [facility], [facility].; [facility]. 08-03-2022 13:15-0500 Body temperature 100.8 [degF] Kalani Cervantes Arelis CONTACT AGENT [facility].; [place] [employer] [facility] Comment on above: Method: Tympanic 08-03-2022 13:15-0500 Body weight 88.91 kg Kalani Helen Infante LPN [facility].; [place] [employer]. 08-03-2022 13:15-0500 Diastolic blood pressure 67 mm[Hg] Kalani Infante LPN [facility].; [employer] [place] [employer]. Comment on above: Patient Position: Sitting; Cuff Location : Left Arm; Cuff Size: Standard 08-03-2022 13:15-0500 Heart rate 76 /min Kalani Infante LPN [facility].; [place] [employer]. Comment on above: Pattern: Regular 08-03-2022 13:15-0500 Systolic blood pressure 144 mm[Hg] Kalani Infante LPN [facility].; [employer] [place] [employer]. Comment on above: Patient Position: Sitting; Cuff Location : Left Arm; Cuff Size: Standard 04-28-2022 14:02-0500 Body height 180.34 cm Sherrie Harrison MA [facility], [facility].; [place] [employer] [facility]. 04-28-2022 14:02-0500 Body mass index (BMI) [Ratio] 27.75 kg/m2 Sherrie Harrison MA [facility].; [facility]. 04-28-2022 14:02-0500 Body surface area Derived from formula 2.1 m2 Sherrie Harrison MA [facility].; [place] [employer] [facility]. 04-28-2022 14:02-0500 Body weight 90.27 kg Sherrie Harrison MA [facility].; [place] [employer] [facility]. 04-28-2022 14:02-0500 Diastolic blood pressure 64 mm[Hg] Sherrie Harrison MA [facility].; [employer] Comment on above: Patient Position: Sitting; Cuff Location : Left Arm; Cuff Size: Standard 04-28-2022 14:02-0500 Heart rate 77 /min Sherrie Harrison [facility] [employer] Comment on above: Pattern: Regular 04-28-2022 14:02-0500 Systolic blood pressure 102 mm[Hg] Sherrie Harrison MA [facility] [place] [employer]. Comment on above: Patient Position: Sitting; Cuff Location : Left Arm; Cuff Size: Standard 01-12-2022 11:01-0400 Body height 180.34 cm Luke Acosta PA-C Work Phone: [facility] [place] [employer]. 01-12-2022 11:01-0400 Body mass index (BMI) [Ratio] 28.45 kg/m2 Luke Acosta PA-C Work Phone: [facility].; [place] [employer]. 01-12-2022 11:01-0400 Body surface area Derived from formula 2.13 m2 Luke Acosta PA-C Work Phone: [facility].; [employer] 01-12-2022 11:01-0400 Body weight 92.53 kg Luke Acosta PA-C Work Phone: [place] [employer].; [employer]. 01-12-2022 11:01-0400 Diastolic blood pressure 66 mm[Hg] Luke Acosta PA-C Work Phone: [place] [employer].; [employer]. Comment on above: Patient Position: Sitting; Cuff Location : Left Arm; Cuff Size: Standard 01-12-2022 11:01-0400 Heart rate 56 /min Luke Acosta PA-C Work Phone: [employer] Comment on above: Pattern: Regular 01-12-2022 11:01-0400 Systolic blood pressure 114 mm[Hg] Luke Acosta PA-C Work Phone: [employer] [facility]. Comment on above: Patient Position: Sitting; Cuff Location : Left Arm; Cuff Size: Standard Encounters Encounter Date Encounter Type Care Provider Facility Start: 01-31-2025 End: 01-31-2025 Emergency department patient visit Adam CASTILLO Work Phone: -Emergency Department Work Phone: Start: 01-18-2025 End: 01-18-2025 ambulatory Clarence Rios MD Work Phone: Cardiology Comment on above: Echocardiogram Start: 01-17-2025 Non-patient / Non-visit Dr. Varinder Shepherd MD -[facility] Start: 01-17-2025 End: 01-17-2025 ambulatory Adam CASTILLO Work Phone: -Cardiovascular Services Start: 01-17-2025 End: 01-17-[address] Jake Rios DO -Cardiovascular Services Work Phone: Start: 01-17-2025 End: 01-17-2025 ambulatory Jake Rios Facility:[facility] Start: 11-27-2024 End: 11-27-2024 ambulatory CLARENCE RIOS Facility:[facility] Start: 11-22-2024 End: 11-23-2024 Refill Clarence Rios MD Work Phone: Cardiology Comment on above: Refill Request Start: 11-14-2024 End: 11-14-2024 Transcribe Orders Work Phone: Referring Physician Comment on above: Chronic atrial fibri llation (HCC) (Primary Dx) Start: 11-02-2024 End: 11-02-2024 Office outpatient visit 15 minutes Adam Shane PA-C Work Phone: [facility] Start: 11-01-2024 End: 11-01-2024 Patient encounter procedure Clarence Rios MD Work Phone: Cardiology Comment on above: 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) Start: 11-01-2024 End: 11-01-2024 ambulatory CLARENCE RIOS Facility:[facility] Start: 10-24-2024 End: 12-13-2024 ambulatory [facility] Comment on above: lab results Start: 10-24-2024 End: 12-13-2024 E-mail encounter from caregiver Felicita [facility] Start: 10-17-2024 End: 10-18-2024 Telephone encounter Jm Cruz MD Work Phone: Cardiology Comment on above: Patient Update (Redo PVI ablation+/- Amulet implant) Start: 09-28-2024 End: 09-28-2024 Office outpatient visit 15 minutes Adam Shane PA-C Work Phone: [facility] Start: 08-31-2024 End: 08-31-2024 ambulatory Jm Cruz MD Work Phone: Cardiology Comment on above: Zio monitor Start: 08-24-2024 [facility] Start: 08-22-2024 End: 08-23-2024 ambulatory Jm Cruz MD Work Phone: Cardiology Comment on above: Zio monitor Start: 08-18-2024 End: 08-18-2024 ambulatory Jm Cruz MD Work Phone: Cardiology Comment on above: Monitor Start: 08-17-2024 End: 08-17-2024 Patient encounter procedure Jm Cruz MD Work Phone: Cardiology Comment on above: Paroxysmal atrial fi brillation (HCC) (Primary Dx) Start: 08-17-2024 End: 08-17-2024 ambulatory [facility] Work Phone: Cardiology Comment on above: Event (ZIO PATCH) Start: 07-26-2024 End: 07-26-2024 Telephone encounter Jm Cruz MD Work Phone: Cardiology Comment on above: Approved Referral [facility] (Appointment 08/17/2024) Start: 07-19-2024 Follow-up encounter Adam romano PA-C Work Phone: [employer] Start: 07-19-2024 End: 07-19-2024 Office outpatient visit 25 minutes Luke Acosta PA-C Work Phone: [employer] Start: 07-10-2024 End: 07-10-2024 Orders Luke Acosta PA-C Work Phone: [facility] [employer] Start: 07-10-2024 Review Adam Chetnal er PA-C [facility] Phone[facility] 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 Start: 02-28-2024 End: 02-28-2024 ambulatory Clarence Rios MD Work Phone: Cardiology Comment on above: 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) Start: 02-28-2024 End: 02-28-2024 Telemedicine consultation with patient Clarence Rios MD Work Phone: Cardiology Start: 02-23-2024 End: 02-23-2024 ambulatory CLARENCE RIOS Facility:[facility] Start: 02-23-2024 End: 02-23-2024 Subsequent hospital visit by physician Xr Chest Main J1 Work Phone: Radiology Comment on above: Coronary artery dise ase involving [place] coronary artery of [place] heart with other form of angina pectoris (HCC) [I25.118] Start: 02-23-2024 End: 02-23-2024 ambulatory FARHAN PIZARRO Facility:[facility] Start: 02-23-2024 End: 02-23-2024 Office outpatient new 60 minutes Farhan Pizarro MD Work Phone: Neurology Comment on above: Major neurocognitive disorder (HCC) (Primary Dx); Coronary artery disease involving [place] coronary artery of [place] heart with other form of angina pectoris (HCC); Atrial fibrillation, unspecified type (HCC); Cerebrovascular disease Start: 02-08-2024 End: 02-08-2024 [facility] Start: 01-05-2024 Telephone encounter Shari Condon MD Work Phone: [facility] Comment on above: Patient Question Start: 01-03-2024 End: 01-03-2024 ambulatory TERI PALACIO Facility:[facility] Start: 01-03-2024 End: 01-03-2024 Patient encounter procedure Teri Palacio [employer] Work Phone: Cardiology Comment on above: Paroxysmal atrial fi brillation (HCC) (Primary Dx); Current use of alf anticoagulation; Coronary artery disease involving [place] coronary artery of [place] heart with other form of angina pectoris (HCC) Start: 01-03-2024 Telephone encounter Shari Condon MD Work Phone: [facility] Start: 01-03-2024 End: 01-03-2024 ambulatory JM CRUZ Facility:[facility] Start: 12-31-2023 End: 12-31-2023 ambulatory SHARI CONDON Facility:[facility] Start: 12-31-2023 End: 12-31-2023 Patient encounter procedure Shari Condon MD Work Phone: [facility] Comment on above: MCI (mild cognitive impairment) (Primary Dx) Start: 12-30-2023 Review Luke Hochstetl er PA-C Work Phone: [facility] Start: 12-30-2023 End: 12-30-2023 Orders Luke Acosta PA-C [facility] Start: 12-30-2023 Patient encounter procedure Jm Cruz MD Work Phone: [facility] Start: 12-30-2023 Recurring Plan Jm Amaya Work Phone: [facility] Start: 12-27-2023 End: 12-27-2023 [facility] Start: 12-27-2023 End: 12-28-2023 Office outpatient visit 15 minutes Luke Acosta PA-C [facility] Start: 12-27-2023 Review Luke Hochstetl er PA-C [facility] Phone: [facility] Start: 12-16-2023 Patient encounter procedure Jm Cruz MD Work Phone: [facility] Start: 12-16-2023 Recurring Plan Jm Amaya Work Phone: [facility] Start: 12-10-2023 Patient encounter procedure Jm Cruz MD Work Phone: [facility] Start: 12-10-2023 Recurring Plan Jm Amaya Work Phone: [facility] Start: 12-03-2023 Patient encounter procedure Jm Cruz MD Work Phone: [facility] Start: 12-03-2023 Recurring Plan Jm Amaya Work Phone: [facility] Start: 11-25-2023 Patient encounter procedure mJ Cruz MD Work Phone: [facility] Start: 11-25-2023 Recurring Plan Jm Amaya Work Phone: [facility] Start: 11-25-2023 End: 11-25-2023 Office outpatient visit 15 minutes Adam Shane PA-C Work Phone: [facility] Start: 11-17-2023 Patient encounter procedure Jm Cruz MD Work Phone: [facility] Start: 11-17-2023 Recurring Plan Jm Amaya Work Phone: [facility] Start: 11-11-2023 Patient encounter procedure Jm Cruz MD Work Phone: [facility] Start: 11-11-2023 Recurring Plan Jm Amaya Work Phone: [facility] Start: 11-10-2023 End: 11-10-2023 Subsequent hospital visit by physician [employer] (Lg Bore/3t) Radiology Comment on above: Mixed dementia (HCC) [G30.9, F01.50, F02.80] Start: 11-05-2023 ambulatory Shari fabian MD Work Phone: [facility] [place] Comment on above: Patient Update Start: 11-05-2023 E-mail encounter fro m caregiver Shari Condon MD Work Phone: [facility] Start: 11-04-2023 Patient encounter procedure Jm Cruz MD Work Phone: [facility] Start: 11-04-2023 Recurring Plan Jm Amaya Work Phone: [facility] Start: 10-28-2023 Patient encounter procedure Jm Cruz MD Work Phone: [facility] Start: 10-28-2023 Recurring Plan Jm Amaya Work Phone: [facility] Start: 10-26-2023 End: 10-26-2023 Patient encounter procedure Shari Condon MD Work Phone: [facility] Comment on above: Mixed dementia (HCC) (Primary Dx); Vitamin D deficiency Start: 10-20-2023 Patient encounter procedure Jm Cruz MD Work Phone: [facility] Start: 10-20-2023 Recurring Plan Jm Amaya Work Phone: [facility] Start: 10-20-2023 Telephone encounter Clarence Rios MD Work Phone: Cardiology Comment on above: Future Appointment Start: 10-14-2023 ambulatory Jm Amaya Work Phone: Cardiology Start: 10-13-2023 Patient encounter procedure Jm Cruz MD Work Phone: [facility] Start: 10-13-2023 Recurring Plan Jm Amaya Work Phone: [facility] Start: 10-11-2023 End: 10-11-2023 Medication Adam Shane PA-C Work Phone: [facility] Start: 10-11-2023 ambulatory Jm Amaya Work Phone: Cardiology Comment on above: Urinary infection. Start: 10-08-2023 End: 10-08-2023 Office outpatient visit 25 minutes Yamilexke Acosta PA-C Work Phone: [facility] Start: 10-07-2023 Telephone encounter Shari Condon MD Work Phone: [facility] Comment on above: VA REFERRAL Start: 10-06-2023 Arrhythmia TTM Jm Amaya Work Phone: [facility] Start: 10-06-2023 Recurring Plan Jm Amaya Work Phone: [facility] Start: 10-06-2023 End: 10-06-2023 Telephone follow-up Adam Akhtaretler PA-C Work Phone: [facility] Start: 10-05-2023 ambulatory Jm Amaya Work Phone: Cardiology Comment on above: TRANSMITTER (90 Days ) Start: 10-04-2023 Telephone encounter Lilian reyes MD Work Phone: Neurology Comment on above: Referral Request Start: 10-01-2023 ambulatory Jm Amaya Work Phone: Cardiology Comment on above: Patient Education (P / Watchman ) Start: 09-29-2023 Telephone encounter Debbie tapia MD Work Phone: Pain Management Comment on above: Referral Request Start: 09-24-2023 End: 09-24-2023 Patient encounter procedure Manjit Guerrier MD Work Phone: Cardiology Comment on above: Paroxysmal atrial fi brillation (HCC) (Primary Dx); Coronary artery disease involving port graham coronary artery of port [place] heart with other form of angina pectoris (HCC); Anticoagulation management encounter Start: 09-24-2023 End: 09-24-2023 Subsequent hospital visit by physician Keshia Ojeda (I-Stat) Work Phone: Radiology Comment on above: Paroxysmal atrial fi brillation (HCC) [I48.0] Start: 09-23-2023 Refill Jm Amaya Work Phone: Cardiology Comment on above: Refill Request Start: 07-23-2023 Telephone encounter Jm wing MD Work Phone: Cardiology Comment on above: Schedule Surgery ( P ablation + Watchman implant) Paroxysmal atrial fi brillation (HCC) (Primary Dx) Start: 06-04-2023 End: 06-04-2023 Medication Adam Shane [facility]-C [facility] Start: 04-28-2023 End: 04-29-2023 Patient encounter procedure Adam Shane PA-C Work Phone: [facility] [employer] Start: 04-28-2023 End: 04-29-2023 Periodic preventive med est patient 65yrs& older Adam Shane PA-C Work Phone: [facility] Start: 04-18-2023 ambulatory Clarence payton MD Work Phone: Cardiology Start: 04-13-2023 End: 04-13-2023 Orders Adam Shane PA-C Work Phone: [facility] Start: 04-07-2023 End: 04-07-2023 ambulatory Clarence Rios MD Work Phone: [facility] Work Phone: Start: 04-07-2023 End: 04-07-2023 Admission to same day surgery center [facility] Start: 03-31-2023 Telephone encounter Clarence Rios MD Work Phone: Cardiology Start: 02-23-2023 End: 02-23-2023 Office outpatient visit 15 minutes Luke Acosta PA-C Work Phone: [facility] Start: 02-20-2023 ambulatory Clarence payton MD Work Phone: Cardiology Comment on above: Response to Dr. Teagan payton colon resection Start: 02-19-2023 ambulatory Clarence payton MD Work Phone: [facility] Start: 02-19-2023 Letter encounter Clarence aranda MD Work Phone: Cardiology Comment on above: Response to Dr Gabriel bynum a fib Start: 02-16-2023 End: 02-16-2023 ambulatory [facility] Work Phone: Start: 02-16-2023 End: 02-16-2023 Patient encounter procedure [facility] Work Phone: Start: 02-12-2023 End: 02-15-2023 Office outpatient visit 25 minutes Luke Acosta PA-C Work Phone: [facility] Start: 02-10-2023 ambulatory Clarence payton MD Work Phone: Cardiology Comment on above: Eduardo fell after we left hospital Start: 02-08-2023 End: 02-08-2023 Emergency department patient visit [facility] Start: 02-08-2023 End: 02-08-2023 Patient encounter procedure Clarence Rios MD Work Phone: Cardiology Comment on above: Weakness of both low er extremities (Primary Dx); Paroxysmal atrial fibrillation (HCC); Pulmonary hypertension (HCC) Start: 01-21-2023 End: 01-21-2023 Orders Luke Acosta PA-C Work Phone: [facility] Start: 11-13-2022 End: 11-14-2022 Office outpatient visit 40 minutes Luke Acosta PA-C Work Phone: [facility] Start: 11-09-2022 End: 11-09-2022 Orders Luke Acosta PA-C Work Phone: [facility] Start: 11-04-2022 End: 11-04-2022 Orders Luke Acosta PA-C Work Phone: [facility] Start: 10-09-2022 End: 10-12-2022 Transcribe Orders Christian Montesinos APRN-WARPMAN Work Phone: [facility] Radiology Start: 09-16-2022 Telephone encounter Clarence Rios MD Work Phone: Cardiology Comment on above: Medication Problem Start: 09-14-2022 Telephone encounter Clarence Rios MD Work Phone: Cardiology Comment on above: Education Of Patient /family Start: 09-03-2022 Telephone encounter Clarence Rios MD Work Phone: Cardiology Comment on above: Patient Education Start: 08-10-2022 End: 08-10-2022 Patient encounter procedure Clarence Rios MD Work Phone: Cardiology Comment on above: Coronary artery dise ase involving port graham coronary artery of [place] heart with other form of angina pectoris (HCC) (Primary Dx) Start: 08-06-2022 End: 08-06-2022 Medication Luke Acosta PA-C Work Phone: [facility] Start: 08-03-2022 End: 08-03-2022 Office outpatient visit 15 minutes Luke Acosta PA-C Work Phone: [facility] [employer] Start: 07-28-2022 Telephone encounter Clarence Rios MD Work Phone: Cardiology Comment on above: Scanned Med Records Start: 04-28-2022 End: 04-28-2022 Office outpatient visit 25 minutes Luke Acosta PA-C Work Phone: [facility] [employer] Start: 01-12-2022 End: 01-12-2022 Office outpatient new 45 minutes Luke Acosta PA-C [facility] Phone[facility] Patient encounter procedure Yamilexke E Acosta PA-C Work [facility]: [facility]; [employer] Patient encounter procedure Luke E Acosta PA-C Work Phone: [facility] [employer]; [employer] [facility] [employer] Procedures Date Procedure Procedure Detail Performing Clinician Start: 01-31-2025 Computed tomography of abdomen and pelvis with intravenous contrast Adam Akhtaretler PA Work Phone: Start: 01-31-2025 Plain chest X-ray Adam Basilioler PA Work Phone: Start: 01-31-2025 Estimated creatinine clearance Yamilexke Acosta PA Work Phone: Start: 07-10-2024 End: 07-10-2024 Ecg routine ecg w/least 12 lds w/i&r Adam Flahertystetler PA-C Work Phone: Start: 05-17-2024 End: 05-17-2024 Adv care pln tlkd & alt dcsn maker docd Adam E Acosta PA-C Work Phone: Start: 05-17-2024 End: 05-17-2024 Depression screening Yamilexke Bill FlahertyAcosta PA-C Work Phone: Start: 05-17-2024 End: 05-17-2024 Falls risk assessment documented Luke Bill FlahertyAcosta PA-C Work Phone: Start: 05-17-2024 End: 05-17-2024 Pos clin depres scrn f/u doc Luke E Acosta PA-C Work Phone: Start: 05-17-2024 End: 05-17-2024 PPPS, subseq visit Luke Blil Acosta P A-C Work Phone: Start: 05-17-2024 End: 05-17-2024 Pt falls assess docd 2/> falls/fall w/injury/yr Luke E Acosta PA-C Work Phone: Start: 02-23-2024 Radiologic exam ches t 2 views Clarence Rios MD Work Phone: Start: 12-30-2023 ARRHYTHMIA TRANS TEL E MEASURE Jm Cruz MD Work Phone: Start: 12-27-2023 End: 12-28-2023 Radiologic exam abdomen 3+ views Luke E Acosta PA-C Work Phone: Start: 12-16-2023 ARRHYTHMIA TRANS TEL E MEASURE Jm Cruz MD Work Phone: Start: 12-10-2023 ARRHYTHMIA TRANS TEL E MEASURE Jm Cruz MD Work Phone: Start: 12-03-2023 ARRHYTHMIA TRANS TEL E MEASURE Jm Cruz MD Work Phone: Start: 11-25-2023 ARRHYTHMIA TRANS TEL E MEASURE Jm Cruz MD Work Phone: Start: 11-17-2023 ARRHYTHMIA TRANS TEL E MEASURE Jm Cruz MD Work Phone: Start: 11-11-2023 ARRHYTHMIA TRANS TEL E MEASURE Jm Cruz MD Work Phone: Start: 11-10-2023 Mri brain brain stem w/o contrast material Shari Condon MD Work Phone: Start: 11-04-2023 ARRHYTHMIA TRANS TEL E MEASURE Jm Cruz MD Work Phone: Start: 10-28-2023 ARRHYTHMIA TRANS TEL E MEASURE Jm Cruz MD Work Phone: Start: 10-20-2023 ARRHYTHMIA TRANS TEL E MEASURE Jm Cruz MD Work Phone: Start: 10-13-2023 ARRHYTHMIA TRANS TEL E MEASURE Jm Cruz MD Work Phone: Start: 10-06-2023 ARRHYTHMIA TRANS TEL E MEASURE Jm Cruz MD Work Phone: Start: 09-24-2023 Ct heart contrast ev al cardiac structure&morph Jm Cruz MD Work Phone: Start: 09-24-2023 Creatinine [Mass/vol ume] in Serum or Plasma [facility] Provider Start: 04-28-2023 End: 04-28-2023 Adv care pln tlkd & alt dcsn maker docd Adam Akhtaretler PA-C Work Phone: Start: 04-28-2023 End: 04-28-2023 Depression screening Luke Bill FlahertyAcosta PA-C Work Phone: Start: 04-28-2023 End: 04-28-2023 Falls risk assessment documented Luke Bill FlahertyAcosta PA-C Work Phone: Start: 04-28-2023 End: 04-28-2023 PPPS, subseq visit Yamilexke Bill Shane P A-C Work Phone: Start: 04-28-2023 End: 04-28-2023 Pt falls assess docd 2/> falls/fall w/injury/yr Yamilexke Bill FlahertyAcosta PA-C Work Phone: Start: 04-28-2023 End: 04-28-2023 Scr dep neg, no plan reqd Luke Bill Akhtare tler PA-C Work Phone: Start: 04-15-2023 End: 04-15-2023 CBC panel - Blood by Automated count Herminio Garfield CONTACT AGENT Start: 04-15-2023 End: 04-15-2023 Vitamin B-12 serum Herminio Garfield CONTACT AGENT Start: 04-15-2023 End: 04-15-2023 Vitamin D Herminio Garfield CONTACT AGENT Start: 04-07-2023 Abdomen endoscopy Start: 03-21-2023 End: 03-21-2023 cystoscopy Herminio Babbleroy SOARES Start: 02-16-2023 Urine culture Start: 11-09-2022 End: 11-09-2022 Lab findings surveillance Herminio Merrill Prem PN Comment on above: CMP 106 Start: 11-09-2022 End: 11-09-2022 Lipid panel Herminio Babbleroy SOARES Comment on above: TC 96, HDL 47, TRI 5 1, LDL 36 Start: 11-09-2022 End: 11-09-2022 Prostate specific antigen measurement Herminio Babbleroy SOARES Comment on above: 1.36 Start: 08-03-2022 End: 08-03-2022 Ceftriaxone sodium injection Marika Bob PA-C Work Phone: Start: 06-21-2020 End: 06-21-2020 Screening colonoscopy Herminio Merrill LPN Comment on above: Pt. Carolyn Start: 08-19-2003 End: 08-19-2003 Total replacement of hip Herminio Merrill LP N Comment on above: Right. Start: 06-21-2003 End: 06-21-2003 Total replacement of hip Herminio Merrill LP N Arthroscopic knee operation Herminio Merrill LPN Comment on above: 1995 and 1998 Partial resection of colon A gisela Merrill LPN Comment on above: November 2009 [facility] Plan of Treatment Date Care Activity Detail Author Start: 02-15-2033 Urine microalbumin profile DTaP,Tdap,Td Vaccine (3 - Td or Tdap) [facility] Start: 11-28-2027 Diabetes Screening Diabetes Screening [facility] Start: 09-23-2026 Diabetes Screening Diabetes Screening [facility] Start: 11-27-2025 Hepatitis B surface antibody level LDL Cholesterol [facility] Start: 09-15-2025 DIABETES SCREEN DIABETES SCREEN [facility] Start: 09-15-2025 Diabetes Screening Diabetes Screening [facility] Start: 05-23-2025 End: 05-23-2025 Patient encounter procedure 05/23/2025 1:45 PM EST Office Visit Cardiology [address] [place] [address] Clarence Rios MD [address] [id number] Coronary artery disease involving port graham coronary artery of port graham heart without angina pectoris Cardiology Comment on above: Coronary artery disease involving port [place] coronary artery of port [place] heart without angina pectoris Start: 03-12-2025 End: 06-11-2025 Comprehensive metabolic 2000 panel - Serum or Plasma COMPREHENSIVE METABOLIC PANEL Lab Routine Elevated liver function tests Expected: 03/12/2025, Expires: 06/11/2025 [facility] Work Phone: Comment on above: Expected: 03/12/2025, Expires: Start: 02-19-2025 Influenza vaccination Influenza Vaccine (#1) [facility] Start: 01-31-2025 [facility] Start: 01-31-2025 [facility] Start: 11-27-2024 End: 11-27-2024 ambulatory 11/27/2024 9:30 AM EDT Results Only [facility] [address] [place] [address] [facility] Start: 11-23-2024 End: 02-22-2025 CBC W Auto Differential panel - Blood COMPLETE BLOOD COUNT AND DIFFERENTIAL Lab Routine Coronary artery disease involving port graham coronary artery of port [place] heart with other form of angina pectoris Presence of Watchman left atrial appendage closure device Expected: 11/23/2024, Expires: 02/22/2025 [facility] Work Phone: Comment on above: Expected: 11/23/2024, Expires: Start: 11-23-2024 End: 02-22-2025 Comprehensive metabolic 2000 panel - Serum or Plasma COMPREHENSIVE METABOLIC PANEL Lab Routine Coronary artery disease involving port graham coronary artery of port [place] heart with other form of angina pectoris Presence of Watchman left atrial appendage closure device Expected: 11/23/2024, Expires: 02/22/2025 [facility] Comment on above: Expected: 11/23/2024, Expires: Start: 11-23-2024 End: 02-22-2025 LIPID PANEL, NONFASTING LIPID PANEL, NONFASTING Lab Routine Coronary artery disease involving port graham coronary artery of [place] heart with other form of angina pectoris Presence of Watchman left atrial appendage closure device Expected: 11/23/2024, Expires: 02/22/2025 [facility] Comment on above: Expected: 11/23/2024, Expires: Start: 11-02-2024 Patient encounter procedure Medical; EXTENDED RTN - 4 month rtn [employer] Start: 02-Nov-2024 09:50-04:00 XIOMARA Shane Appointment Request [employer] Start: 11-01-2024 End: 11-01-2024 Patient encounter procedure 11/01/2024 1:45 PM EDT Office Visit Cardiology [address] [place], [place] [id number] Clarence Rios MD [address] [place] [address] Coronary artery disease involving port graham coronary artery of port graham heart without angina pectoris Cardiology Comment on above: Coronary artery disease involving port [place] coronary artery of port [place] heart without angina pectoris Start: 09-16-2024 Hepatitis B surface antibody level LDL Cholesterol [facility] Start: 08-17-2024 End: 08-17-2024 ambulatory 08/17/2024 11:15 AM EST Results Only Cardiology [address] [place] [address] EKG Cardiology Comment on above: EKG Start: 08-17-2024 End: 08-17-2024 Patient encounter procedure Cardiology Comment on above: Coronary artery disease EKG Start: 07-19-2024 Patient encounter procedure Medical; RTN OFFICE VISIT - 2 month rtn [employer] Start: 19-Jul-2024 09:50-05:00 XIOMARA Shane Appointment Request [employer] Start: 06-21-2024 Advance Directive Discussion Advance Directive Discussion [facility] Start: 06-21-2024 Medicare Advantage Annual Wellness Visit Medicare Advantage Annual Wellness Visit [facility] Start: 02-28-2024 End: 02-28-2024 [facility] [address] [phone] Clarence Rios MD [address] [place] [address] DX: CAD Cardiology Comment on above: DX: CAD Start: 02-23-2024 End: 02-23-2024 Patient encounter procedure 02/23/2024 10:30 AM EDT Appointment Radiology [address] [phone] Coronary artery disease involving port graham coronary artery of port graham heart with ot... Radiology Comment on above: Coronary artery disease involving port graham coronary artery of port [place] heart with ot... Start: 02-23-2024 End: 02-23-2024 Patient encounter procedure 02/23/2024 8:30 AM EDT Office Visit Neurology [address] [phone] Farhan Pizarro MD [address] [address] Mild Cognitive Impairment Neurology Comment on above: Mild Cognitive Impairment Start: 02-20-2024 Covid-19 Vaccine ( season) Covid-19 Vaccine ( season) [facility] Start: 02-20-2024 Covid-19 Vaccine ( season) Covid-19 Vaccine ( season) [facility] Start: 02-20-2024 Covid-19 Vaccine ( season) Covid-19 Vaccine ( season) [facility] Start: 02-20-2024 Influenza vaccination Influenza Vaccine (#1) [facility] Start: 01-03-2024 End: 01-03-2024 Patient encounter procedure Cardiology Comment on above: PVI+WATCHMAN DX 3 MONTH PVI Start: 01-03-2024 End: 01-03-2024 ambulatory 01/03/2024 1:45 PM EDT Results Only Cardiology [address] [place] [address] DX 3 MONTH PVI Cardiology Comment on above: DX 3 MONTH PVI Start: 01-03-2024 End: 01-03-2024 Patient encounter procedure 01/03/2024 12:30 PM EDT Office Visit Cardiology [address] [phone] PVI+WATCHMAN Cardiology Comment on above: PVI+WATCHMAN Start: 01-03-2024 End: 01-03-2024 ambulatory 01/03/2024 11:45 AM EDT Results Only Cardiology [address] [phone] PVI+WATCHMAN Cardiology Comment on above: PVI+WATCHMAN Start: 12-31-2023 End: 12-31-2023 Patient encounter procedure 12/31/2023 7:30 AM EDT Office Visit Neurology [facility] [address] [place] [address] [place] [address] [place] [address] follow up Neurology [facility] Comment on above: follow up Start: 12-30-2023 Culture bacterial quanttative colony count urine Urine Culture ([id number]) Start: 30-Dec-2023 Request [employer] [facility] Start: 12-30-2023 Urnls dip stick/tablet rgnt auto w/o microscopy Urinalysis, Automated w/o micro (in house)* ([id number]) Start: 30-Dec-2023 Request [facility] Start: 12-27-2023 Radiologic exam abdomen 3+ views Abdominal Xray, Complete ([id number]) Start: 27-Dec-2023 Intent [facility] Start: 11-25-2023 Culture bacterial quanttative colony count urine Urine Culture ([id number]) Start: 25-Nov-2023 Request [facility] Start: 11-10-2023 End: 11-10-2023 Patient encounter procedure 11/10/2023 10:00 AM EDT Appointment Radiology [address] [place] [address] Cognitive impairment, mild, so stated [G31.84] Radiology Comment on above: Cognitive impairment, mild, so stated [G 31.84] Start: 10-27-2023 End: 10-27-2023 ambulatory 10/27/2023 10:15 AM EDT Results Only [facility] [address] [place] [address] [facility] Start: 10-26-2023 End: 01-25-2024 25-hydroxyvitamin D3 [Mass/volume] in Serum or Plasma VITAMIN D 25 HYDROXY Lab Routine Vitamin D deficiency Expected: 10/26/2023, Expires: 01/25/2024 [facility] Comment on above: Expected: 10/26/2023, Expires: Start: 10-26-2023 End: 01-25-2024 Cobalamin (Vitamin B12) [Mass/volume] in Serum or Plasma VITAMIN B12 Lab Routine Mixed dementia (HCC) Expected: 10/26/2023, Expires: 01/25/2024 [facility] Comment on above: Expected: 10/26/2023, Expires: Start: 10-26-2023 End: 01-25-2024 Folate [Mass/volume] in Serum or Plasma FOLATE, SERUM Lab Routine Mixed dementia (HCC) Expected: 10/26/2023, Expires: 01/25/2024 [facility] Comment on above: Expected: 10/26/2023, Expires: Start: 10-26-2023 End: 01-25-2024 SYPHILIS TOTAL W/REFLEX SYPHILIS TOTAL W/REFLEX Lab Routine Mixed dementia ([facility]) Expected: 10/26/2023, Expires: 01/25/2024 [facility] Comment on above: Expected: 10/26/2023, Expires: Start: 10-26-2023 End: 01-25-2024 Thyrotropin [Units/volume] in Serum or Plasma THYROID STIMULATING HORMONE Lab Routine Mixed dementia (HCC) Expected: 10/26/2023, Expires: 01/25/2024 [facility] Comment on above: Expected: 10/26/2023, Expires: Start: 10-26-2023 End: 10-26-2023 Patient encounter procedure 10/26/2023 1:00 PM EDT Office Visit Neurology [facility] [address] [place] [address] [place] [address] [place] [address] mild cognititve impairment Neurology [facility] Comment on above: mild cognititve impairment Start: 10-08-2023 Culture bacterial quanttative colony count urine Urine Culture ([id number]) Start: 08-Oct-2023 10:40-04:00 [facility] Start: 10-08-2023 Patient encounter procedure Medical; [facility] F/U - Hosp FU, [facility] D/C 10/04 ablation [facility] [employer]. Start: 08-Oct-2023 10:00-04:00 XIOMARA Shane Appointment Request [facility] Start: 09-06-2023 End: 07-23-2024 Basic metabolic 2000 panel - Serum or Plasma BASIC METABOLIC PNL Lab Routine Paroxysmal atrial fibrillation (HCC) Expected: 09/06/2023, Expires: 07/23/2024 [facility] Work Phone: Comment on above: Expected: 09/06/2023, Expires: Start: 09-06-2023 End: 07-23-2024 CBC panel - Blood by Automated count CBC Lab Routine Paroxysmal atrial fibrillation (HCC) Expected: 09/06/2023, Expires: 07/23/2024 [facility] Work Phone: Comment on above: Expected: 09/06/2023, Expires: Start: 09-06-2023 End: 07-23-2024 TYPE AND SCREEN,30 DAY TYPE AND SCREEN,30 DAY Blood Bank Routine Paroxysmal atrial fibrillation (HCC) Expected: 09/06/2023, Expires: 07/23/2024 [facility] Work Phone: Comment on above: Expected: 09/06/2023, Expires: Start: 06-21-2023 Advance Directive Discussion Advance Directive Discussion [facility] Start: 06-21-2023 Behavioral Health Screening Behavioral Health Screening [facility] Start: 06-21-2023 Depression Assessment Depression Assessment [facility] Start: 04-07-2023 Patient discharge [facility] Start: 04-07-2023 Ambulation without limitation [facility] Start: 04-07-2023 Medical regimen orders management [facility] Start: 04-07-2023 Medication education [facility] Start: 04-07-2023 Taking patient vital signs [facility] Start: 04-07-2023 [facility] Start: 02-19-2023 Covid-19 Vaccine () Covid-19 Vaccine () [facility] Start: 02-19-2023 Covid-19 Vaccine () Covid-19 Vaccine () [facility] Start: 02-19-[address] [facility] Start: 2022 RSV Vaccine (1 - 1-dose 75+ series) RSV Vaccine (1 - 1-dose 75+ series) [facility] Start: 06-21-2022 ADVANCE DIRECTIVE DISCUSSION ADVANCE DIRECTIVE DISCUSSION [facility] Start: 06-21-2022 DEPRESSION ASSESSMENT DEPRESSION ASSESSMENT [facility] Start: 02-19-2022 Influenza vaccination INFLUENZA (#1) [facility] Start: 06-24-2021 COVID-19 VACCINE (4 - Moderna series) COVID-19 VACCINE (4 - Moderna series) [facility] Start: 12-05-2020 COVID-19 VACCINE (3 - Booster for Moderna series) COVID-19 VACCINE (3 - Booster for Moderna series) [facility] Start: 2012 Pneumococcal vaccination Pneumococcal Vaccine(s) (65+ yrs) (1 - PCV) [facility] Start: 2012 Pneumococcal Vaccine: 65+ (1 - PCV) Pneumococcal Vaccine: 65+ (1 - PCV) [facility] Start: 2012 PNEUMOCOCCAL: 65+ (1 - PCV) PNEUMOCOCCAL: 65+ (1 - PCV) [facility] Start: 2007 RSV Vaccine (1 - 1-dose 60+ series) RSV Vaccine (1 - 1-dose 60+ series) [facility] [facility] Start: 1997 Shingles (RZV) Vaccine (1 of 2) Shingles (RZV) Vaccine (1 of 2) [facility] Start: 1997 SHINGRIX VACCINE (1 of 2) SHINGRIX VACCINE (1 of 2) [facility] Start: 1992 COLOGUARD (FIT-DNA) COLOGUARD (FIT-DNA) [facility] Start: [address] [facility] Start: 1992 COLORECTAL CANCER SCREENING COLORECTAL CANCER SCREENING [facility] Start: [address] [facility] Start: 1992 DIABETES SCREEN DIABETES SCREEN [facility] Start: 1992 FECAL OCCULT BLOOD FECAL OCCULT BLOOD [facility] Start: 1992 Screening for malignant neoplasm of colon [facility] Start: [address] [facility] Start: 1982 Lipid 1996 panel - Serum or Plasma Lipid Screening [facility] Start: 1982 Lipid panel Cholesterol [facility] Start: 1982 [address]EN LIPID SCREEN [facility] Start: 1966 Tetanus vaccination Tetanus (Td or Tdap) [facility] Start: [address] [facility] Start: 1965 Annual PCP Team Chronic Disease Visit Annual PCP Team Chronic Disease Visit [facility] Start: 1965 Anxiety Screening Anxiety Screening [facility] Start: 1965 Depression Screening Depression Screening [facility] Start: 1965 Hepatitis B surface antibody level LDL Cholesterol [facility] Start: 1965 HEPATITIS C SCREENING HEPATITIS C SCREENING [facility] Start: 1965 Hepatitis C screening [facility] Start: 1965 Tetanus + diphtheria + acellular pertussis vaccine (product) Tdap Booster [facility] Start: 01-10-1946 COVID-19 Vaccine (#1) COVID-19 Vaccine (#1) [facility] Start: 1947 ABDOMINAL AORTIC ANEURYSM SCREENING ABDOMINAL AORTIC ANEURYSM SCREENING [facility] Start: 1947 Screening for malignant neoplasm of colon Colonoscopy [facility] End: 08-21-2024 Ct heart contrast eval cardiac structure&morph CT PULMONARY VEIN W IVCON Radiology Routine Paroxysmal atrial fibrillation (HCC) 1 Occurrences starting 07/23/2023 until 08/21/2024 [facility] Work Phone: Comment on above: 1 Occurrences starting 07/23/2023 until 08/21/2024 End: 07-23-2024 ECG COMPLETE ECG COMPLETE ECG Routine Paroxysmal atrial fibrillation (HCC) 1 Occurrences starting 07/23/2023 until 07/23/2024 [facility] Work Phone: Comment on above: 1 Occurrences starting 07/23/2023 until 07/23/2024 End: 10-13-2024 ECG COMPLETE ECG COMPLETE ECG Routine Paroxysmal atrial fibrillation (HCC) 1 Occurrences starting 10/14/2023 until 10/13/2024 [facility] Work Phone: Comment on above: 1 Occurrences starting 10/14/2023 until 10/13/2024 End: 01-02-2025 ECG COMPLETE ECG COMPLETE ECG Routine Paroxysmal atrial fibrillation (HCC) 1 Occurrences starting 01/03/2024 until 01/02/2025 [facility] Work Phone: Comment on above: 1 Occurrences starting 01/03/2024 until 01/02/2025 End: 07-23-2024 ECHO TRANSESOPHAGEAL ECHO TRANSESOPHAGEAL Cardiology Routine Paroxysmal atrial fibrillation (HCC) 1 Occurrences starting 07/23/2023 until 07/23/2024 [facility] Work Phone: Comment on above: 1 Occurrences starting 07/23/2023 until 07/23/2024 End: 10-13-2024 ECHO TRANSESOPHAGEAL ECHO TRANSESOPHAGEAL Cardiology Routine Paroxysmal atrial fibrillation (HCC) Presence of Watchman left atrial appendage closure device 1 Occurrences starting 10/14/2023 until 10/13/2024 [facility] Comment on above: 1 Occurrences starting 10/14/2023 until 10/13/2024 End: 07-23-2024 Echocardiography ECHO Cardiology Routine Paroxysmal atrial fibrillation (HCC) 1 Occurrences starting 07/23/2023 until 07/23/2024 [facility] Work Phone: Comment on above: 1 Occurrences starting 07/23/2023 until 07/23/2024 End: 11-24-2024 MR Brain WO contrast MRI BRAIN W QUANT WO IVCON Radiology Routine Mixed dementia (HCC) 1 Occurrences starting 10/26/2023 until 11/24/2024 [facility] Work Phone: Comment on above: 1 Occurrences starting 10/26/2023 until 11/24/2024 End: 11-24-2024 MR Unspecified body region 3D post processing MRI 3D POST PROCESSING Radiology Routine Mixed dementia (HCC) 1 Occurrences starting 10/26/2023 until 11/24/2024 [facility] Comment on above: 1 Occurrences starting 10/26/2023 until 11/24/2024 MR Unspecified body region 3D post processing MRI 3D POST PROCESSING Radiology Routine Mixed dementia (HCC) 11/10/2023 9:[address] [facility] Work Phone: OUTSIDE VENDOR CARDI AC OUTPATIENT EXTENDED RHYTHM RECORDING (WITHOUT TELEMETRY) OUTSIDE VENDOR CARDIAC OUTPATIENT EXTENDED RHYTHM RECORDING (WITHOUT TELEMETRY) Holter Routine Paroxysmal atrial fibrillation (HCC) Ordered: 02/23/2023 [facility] Work Phone: Comment on above: Ordered: 02/23/2023 OUTSIDE VENDOR CARDI AC OUTPATIENT EXTENDED RHYTHM RECORDING (WITHOUT TELEMETRY) OUTSIDE VENDOR CARDIAC OUTPATIENT EXTENDED RHYTHM RECORDING (WITHOUT TELEMETRY) Holter Routine Paroxysmal atrial fibrillation (HCC) Ordered: 08/17/2024 [facility] Work Phone: Comment on above: Ordered: 08/17/2024 Patient Education Chest Pain [facility] Work Phone: [facility] referral [facility] Work Phone: [facility] Immunizations Immunization Date Immunization Notes Care Provider [facility] 04-20-2024 influenza virus vaccine, unspecified formulation Clarence Rios MD Work Phone: [facility] 04-28-2023 pneumococcal Conjugate, unspecified formulation Adam Shane PA-C Work Phone: [facility] 04-28-2023 influenza, injectabl e, quadrivalent, preservative free Adam Shane PA-C Work Phone: [facility] Comment on above: Site: Right [place] iven: * Influenza (Flu) Vaccine (Inactivated or Recombinant) (01/24/21) 04-28-2023 Pneumococcal conjugate, 20 valent (PCV20) Adam Shane PA-C [facility] Comment on above: Site: Left [place] j[place]: * Pneumococcal Conjugate Vaccine (10/30/22) 04-28-2023 influenza virus vaccine, unspecified formulation Jm Cruz MD Work Phone: [facility] 03-21-2022 influenza virus vaccine, unspecified formulation Clarence Rios MD Work Phone: [facility] Payers Date Payer Category Payer Self-pay 2024 Unknown 2023 Medicare (Managed Care) [employer] [id number] 2023 Private Health Insurance 101 [id number] 2021 Medicare [id number] 2021 Private Health Insurance [id number] 2021 Unknown [id number] 2021 Unknown [id number] 2021 Unknown [id number] 18 1945 Unknown [id number] 1945 Unknown [id number] 1945 Unknown [id number] Unknown [id number] Unknown [id number] Unknown [id number] Social History Date Type Detail Facility Start: 03-26-2023 Tobacco smoking stat [facility] Tobacco smoking consumption unknown [facility] Start: 1945 Sex Assigned At Not on file C [facility] Start: 08-10-2022 End: 01-31-2025 Tobacco smoking status NHIS Ex-smoker [facility] End: 06-21-1997 History of tobacco use Current smoker [facility] End: 06-21-1997 History of tobacco use Cigarette Smoker [facility] Start: 08-10-2022 Tobacco use and exposure Smokeless tobacco non-user [facility] Start: 08-10-2022 End: 11-01-2024 Alcohol intake Ex-drinker (finding) [facility] Start: 1945 [facility] Start: 02-08-2023 End: 02-18-2024 History of Social function [facility]. Start: 02-08-2023 End: 02-18-[address] [facility] National Score (1-100), lower number is lower risk [address] [facility] Start: 08-12-2022 Gender identity Identifies as male gender (finding) [facility] Start: 08-12-2022 Sexual orientation Heterosexual (lana romero) [facility] Tobacco Use: Tobacco Use: ; F ormer smoker. [facility] NEGATED: Highlighted row No Social History Information Available No Social History Information Available [employer]; [employer] Work Phone: Goals Date Patient Goal Desired Activity /State Personal health goal Functional Status Date Assessment Result Facility 10-05-2023 Are you deaf, or do you have serious difficulty hearing No 10/05/2023 11:31 AM Rhina Bingham RN No [facility] 10-05-2023 Are you blind, or do you have serious difficulty seeing, even when wearing glasses No 10/05/2023 11:31 AM Rhina Bingham, LORENZO No [facility] 10-05-2023 Do you have serious difficulty walking or climbing stairs No 10/05/2023 11:31 AM Rhina Bingham, LORENZO No [facility] 10-05-2023 Do you have difficul ty dressing or bathing No 10/05/2023 11:31 AM Rhina Bingham, LORENZO No [facility] 10-05-2023 Because of a physica l, mental, or emotional condition, do you have difficulty doing errands alone such as visiting a physician's office or shopping No 10/05/2023 11:31 AM Rhina Bingham RN No [facility] Mental Status Date Assessment Result Facility 01-31-2025 Cognitive function Voice/Name [facility] Work Phone: 10-05-2023 Because of a physica l, mental, or emotional condition, do you have serious difficulty concentrating, remembering, or making decisions No 10/05/2023 11:31 AM Rhina Bingham, LORENZO No [facility] 04-07-2023 Cognitive function Awake;Alert;A ppropriat e [facility] Work Phone: Clinical Notes 07-28-2022 to 01-31-2025 Note Date & Type Note Facility 01-31-2025 Discharge summary [facility] 01-31-2025 Radiology Diagnostic study note [facility] Imaging Services [address] [place], [place] [address] Abdomen/Pelvis W IV Cont ONLY MR#: [id number] Acct: [id number] Name: EDUARDO MORALES Rep #: [id number] : 1945 M 79 From: Deshawn Pleitez MD PCP: [place] Hospital Status: REG ER Study:Abdomen/Pelvis W IV Cont ONLY Date of E xam: 01/31/25 Exam# [id number] Ordering Dr: Brenda Nolasco DO PROCEDURE: ABDOMEN/PELVIS W IV CONT ONLY 01/31/2025 REASON FOR EXAM: ABDOMINAL PAIN TECHNIQUE: ABDOMEN/PELVIS W IV CONT ONLY Coronal and Sagittal reconstruction series were provided. CONTRAST: Isovue 370 VOLUME: 99 mL One or more dose reduction techniques were used (e.g., Automated exposure control, adjustment of the mA and/or kV according to patient size, use of iterative reconstruction technique. RADIATION DOSE SUMMARY: CTDlvol: 42 mGy DLP: 1117 mGycm COMPARISON: None FINDINGS: Lung bases: Clear Liver: Normal Gallbladder: Nitrogen containing stone near the gallbladder neck. Otherwise unremarkable gallbladder. Spleen: Normal Pancreas: Normal Adrenals: Right adrenal mass is 1.5 x 1.6 x 1.2 cm. Subtle foci of potential fat are shown but this is not definitively diagnostic. Left adrenal gland is normal. Kidneys: Normal. No collecting system dilation. Bladder: Normal, but there is artifact related to the patient's hip replacements. Reproductive Organs: Limited by artifact but grossly normal. Bowel: Stomach is normal. Small bowel is normal. Surgical anastomosis are present. One in the right lower quadrant involving the small bowel and another in the sigmoid colon Appendix: Normal Lymph nodes: None appear enlarged. Vasculature: Vzvqogtb-jl-cddaam atherosclerosis. Fusiform dilation of the aortais 3.4 x 3.3 cm. Peritoneum / Retroperitoneum: No free air, free fluid or mass. Bones: Bilateral hip replacements. SI joint degenerative changes. Lower lumbarspondylosis. Abdominal wall: Midline laparotomy. No hernia. No inguinal hernia. CT/Abdomen/Pelvis W IV Cont ONLY IMPRESSION: 1. Gallstone 2. Postsurgical changes to the distal small bowel in the sigmoid colon are uncomplicated. No bowel obstruction. 3. Tortuous, atherosclerotic abdominal aorta with aneurysmal dilation up to 3.4cm. 4. Right adrenal nodule. Likely an adenoma but non-specific. On a nonemergentbasis consider contrast-enhanced MRI. Reading Location: [id number] CC: Dr. Cesar Nolasco DO; 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 Status:REG ER Location: ED HPI History of Present Illness Chief Complaint: Chest Pain PFSH [facility] Medical History Loss of hearing Wears glasses Alzheimer disease Abrasion Diabetes Ambulates with cane Arthritis Prostate disease History of renal disease Bladder disease Fatty liver High cholesterol Easy bruising Back pain Injury of head and neck TIA (transient ischemic attack) Fall Syncope Dietary restriction History of GI bleed History of diverticulitis Former smoker Shortness of breath on exertion History of edema Exposure to Agent [place] Hypotension History of echocardiogram History of stress test Abdominal aortic aneurysm (AAA) History of Holter monitoring Cardiology follow-up encounter History of atrial fibrillation Home Medications ?Medication ?Instructions ?Recorded ?Last Taken ?Type apixaban 5 mg tablet (Eliquis) 5 mg PO BID 03/26/23 History cetirizine 10 mg capsule (All Day 10 mg PO DAILY PRN a llergy symptoms 03/26/23 Unknown History Allergy (cetirizine)) cholecalciferol (vitamin D3) 25 25 mcg PO DAILY Unknown History mcg (1,000 unit) capsule (Vitamin D3) ezetimibe 10 mg tablet 10 mg PO DAILY 03/26/23 Unkn own History finasteride 5 mg tablet 5 mg PO DAILY 03/26/23 Unkno wn History fluticasone propionate 50 1 spray intranasal DAILY 12/11 Unknown History mcg/actuation nasal spray,suspension furosemide 20 mg tablet 20 mg PO DAILY 03/26/23 Unkn own History mecobalamin (vitamin B12) 500 mcg 500 mcg PO DAILY 12/11 Unknown History chewable tablet vvjlgrcyyyvq-nglayuwu-wqnkpm tablet 1 tab PO DAILY 12/11 Unknown History omega 2-bxi-ddu-fish oil 1,200 mg 1 cap PO DAILY 03/2603/26/23 History (144 mg-216 mg) capsule (Fish Oil) potassium chloride 20 mEq 20 meq PO DAILY 03/26/23 Unk nown History tablet,extended release(part/cryst) (Klor-Con M) rosuvastatin 10 mg tablet 10 mg PO QHS 03/26/23 Unknow n History tamsulosin 0.4 mg capsule 0.4 mg PO QHS 03/26/23 Unkno wn History cephalexin 500 mg capsule 500 mg PO BID #10 caps 04/07 Unknown Rx Allergy/AdvReac Type Severity Reaction Status Date / Time latex Allergy Intermediate Other Verified 01/31/25 10:32 adhesive tape AdvReac Intermediate Other Verified 01/31/25 10:32 hydromorphone (From Dilaudid) AdvReac Intermediate Vomiting Verified 01/31/25 10:32 morphine AdvReac Intermediate Vomiting Verified 01/31/25 10:32 Surgical History History of cardiac catheterization Hx of esophagogastroduodenoscopy Hx of colonoscopy Hx of total hip arthroplasty Hx of total hip arthroplasty Hx of arthroscopy of right knee Hx of arthroscopy of left knee History of colostomy reversal History of colectomy Social History Smoking Status: Former smoker EXAM Physical Exam Const Vital Signs: 01/31/25 10:29 01/31/25 10:55 01/31/25 11:12 Temperature 97.6 F L Temperature Source Oral Pulse Rate 54 L Respiratory Rate 20 H Respiratory Effort Normal Respiratory Pattern Normal Blood Pressure 138/73 H Blood Pressure Mean 94 Pulse Ox 100 Oxygen Delivery Method Room Air Room Air 01/31/25 11:28 01/31/25 11:39 01/31/25 11:45 Temperature Temperature Source Pulse Rate 54 L 52 L 52 L Respiratory Rate 19 H 21 H 21 H Respiratory Effort Respiratory Pattern Blood Pressure 132/63 H 146/67 H Blood Pressure Mean 86 89 Pulse Ox 100 100 100 Oxygen Delivery Method Room Air 01/31/25 11:50 01/31/25 12:00 01/31/25 12:01 Temperature Temperature Source Pulse Rate 58 L 58 L 64 Respiratory Rate 22 H 16 Respiratory Effort Respiratory Pattern Blood Pressure 146/67 H 111/64 Blood Pressure Mean 77 Pulse Ox 96 97 Oxygen Delivery Method 01/31/25 13:00 01/31/25 13:00 01/31/25 13:31 Temperature Temperature Source Pulse Rate 48 L 58 L Respiratory Rate 16 14 Respiratory Effort Respiratory Pattern Blood Pressure 102/45 L 102/45 L 91/67 Blood Pressure Mean 63 63 74 Pulse Ox 100 99 Oxygen Delivery Method [facility] MDM MDM Narrative Medical decision making narrative: HISTORY OF PRESENT ILLNESS: Chief complaint: Chest pain 79-year-old male history of A-fib on Eliquis, hyperlipidemia, presents with chest pain. Notes left-sided chest pain began 45 minutes prior to arrival. REVIEW OF SYSTEMS: Pertinent positives: Chest pain Pertinent negatives: Abdominal pain, vomiting PHYSICAL EXAM: Nursing triage notes reviewed, Vital signs reviewed Constitutional: please see mdm HENT: MMM Eyes: Pupils equal round and reactive to light, Extraocular muscles intact Neck: No stridor, no JVD, full neck ROM Lungs: Clear to auscultation, No wheezing or rales. No increased work of breathing, no conversational dyspnea, no accessory muscle use, no nasal flaring. No respiratory distress noted Heart: Regular rate and rhythm, No murmurs, No rubs and No gallops, 2+ distal pulses (radial, femoral, posterior tibial) in all extremities Abdomen: Soft, there is no tenderness, negative Lopez sign, no rigidity, rebound or guarding, no obvious peritoneal signs, no palpable pulsatile abdominal masses, no auscultated abdominal bruit : No CVAT Extremities: No edema Neuro: No new focal neurological deficits, cranial nerves II through XII intact,5/5 strength in all present extremities. Intact sensation to light touch in all present extremities, 2+ reflexes bilateral patella tendons. Skin: No rash or lesions noted MEDICAL DECISION MAKING: Chief Complaint: please see HPI External records reviewed: Reviewed echocardiogram from December 2024 shows an ejection fraction of 55% Factors affecting care: Gallstone, A-fib Social determinants of health: none History obtained from others: Consults: none [facility] Narrative: Patient was initially hemodynamically stable, afebrile and nontoxic-appearing. Exam without focal cardiopulmonary maladies. No obvious abdominal abnormalities. I considered the following differential diagnosis: ACS, arrhythmia, anemia, electro disturbance, pneumonia, CHF, intra-abdominal surgical pathology I obtained broad lab and imaging workup to further determine if the patient was suffering from a life-threatening etiology. Initially gave aspirin and nitroglycerin. ALL IMAGES (IF OBTAINED) HAVE BEEN PERSONALLY REVIEWED AND INTERPRETED BY MYSELF. EKG with sinus bradycardia rate of 53, normal axis, normal intervals, no STEMI CBC without leukocytosis, severe anemia, no thrombocytopenia. BMP without evidence of significant electrolyte abnormalities, no anion gap, no acute kidney injury. High-sensitivity troponin is negative, no evidence of myocardial ischemia x2 essentially ruling out ACS by high-sensitivity troponin I have personally reviewed the patient's chest x-ray. Chest x-ray is unremarkable for pulmonary edema, pneumothorax, pneumonia or focal cardiopulmonary abnormality. Upon reassessment patient complains of left-sided abdominal pain. This point add on a CT scan of the abdomen pelvis. CT scan abdomen pelvis negative for acute intra-abdominal pathology. Gallbladder showed a gallstone but otherwise no signs of acute cholecystitis. The synthesis of the patient's history, physical exam, labs images suggest no acute life or limb threat in etiology. Specifically no sign of ACS or acute surgical process in the abdomen. The patient is appropriate for discharge home with close outpatient follow-up. The patient and/or family, caregivers express understanding. The patient and/orfamily, caregivers agrees with the plan. Shared decision making: I will have a discussion with the patient and or visitors regarding risk/benefits of further testing or admission. They will be made aware of of the risk/benefits inherent in this decision they will be given the opportunity to voice understanding. Total critical care time today provided was at least 0 minutes. This excludes separately billable procedures. Critical care time (if documented) is secondary to the patient having high probability of clinically significant/life threatening deterioration in the patient's condition which required my urgent intervention. Impression: 1. Chest pain 2. History of A-fib 3. Abdominal pain Dispo: Discharge home This note was generated with Automattication software. It may contain incorrectwords, spelling, and punctuation that were not noted in review of the chart prior to signing. Lab Data Labs: Laboratory Results - last 24 hr 01/31/25 01/31/25 10:52 13:06 WBC 5.8 RBC 4.37 L Hgb 13.4 Hct 40.2 MCV 92.0 MCH 30.7 MCHC 33.3 RDW Std Deviation 41.7 RDW Coeff of Geeta 12.3 Plt Count 172 MPV 10.1 Immature Gran % (Auto) 0.300 Neut % (Auto) 63.8 Lymph % (Auto) 22.8 [place] % (Auto) 7.5 Eos % (Auto) 4.2 Baso % (Auto) 1.4 H Absolute Neuts (auto) 3.7 Absolute Lymphs (auto) 1.31 Nucleated RBC % 0 Sodium 137 Potassium 4.0 Chloride 102 Carbon Dioxide 22.9 Anion Gap 12 BUN 14 Creatinine 1.19 Estim Creat Clear Calc 57.06 Est GFR (MDRD) Non-Af 63 BUN/Creatinine Ratio 11.5 Glucose 175 H Calcium 9.2 Troponin T High Sens 14 Troponin T Hi Sens 2 Hr 14 Radiography Diagnostic Testing: Clinical Impression(s) from Imaging Studies Chest X-Ray 01/31/25 12:05 IMPRESSION: Mild thoracic spine degenerative changes are seen, along with thoracic dextroscoliosis. No acute osseous change is seen. Lungs appear clear throughout. No pleural effusion or pneumothorax is seen. The cardiomediastinal silhouette is remarkable for a partially calcified aorta; no evidence of cardiomegaly. No evidence of acute cardiopulmonary disease. Reading Location: [id number] Abdomen/Pelvis CT 01/31/25 13:07 IMPRESSION: 1. Gallstone 2. Postsurgical changes to the distal small bowel in the sigmoid colon are uncomplicated. No bowel obstruction. 3. Tortuous, atherosclerotic abdominal aorta with aneurysmal dilation up to 3.4cm. 4. Right adrenal nodule. Likely an adenoma but non-specific. On a nonemergentbasis consider contrast-enhanced MRI. Reading Location: [id number] Discharge Plan Triage Chief Complaint: Chest Pain ED Provider: Cesar Nolasco Dx/Rx/DC Orders Prescriptions: No Action Eliquis 5 mg tablet 5 mg PO BID ezetimibe 10 mg tablet 10 mg PO DAILY Patient Comments: TAKE 1 TABLET BY MOUTH ONCE DAILY potassium chloride [Klor-Con M20] 20 mEq tablet,ER particles/crystals 20 meq PO DAILY finasteride 5 mg tablet 5 mg PO DAILY furosemide 20 mg tablet 20 mg PO DAILY tamsulosin 0.4 mg capsule 0.4 mg PO QHS rosuvastatin 10 mg tablet 10 mg PO QHS Patient Comments: TAKE 1 TABLET BY MOUTH EVERY DAY AT BEDTIME fluticasone propionate 50 mcg/actuation spray,suspension 1 spray INTRANASAL DAILY omega 7-wgy-oke-fish oil [Fish Oil] 1,200 (144-216) mg capsule 1 cap PO DAILY cholecalciferol (vitamin D3) [Vitamin D3] 25 mcg (1,000 unit) capsule 25 mcg PO DAILY mecobalamin (vitamin B12) 500 mcg tablet,chewable 500 mcg PO DAILY eurreensiyuj-lxtookas-khlbhf Tablet 1 tab PO DAILY All Day Allergy (cetirizine) 10 mg capsule 10 mg PO DAILY PRN (Reason: allergy symptoms) cephalexin 500 mg capsule 500 mg PO BID Qty: 10 0RF Primary Care Provider: [facility] Referrals: Adam Shane PA [Non-Staff -Ordering Privileges] - Print Language: Croatian What to do if you have Problems For any increased pain, shortness of breath, bleeding, nausea or vomiting, chestpain, or any unexpected problems, contact your Primary Care Provider. Call [facility] ([phone]) or report to the closest Emergency Room. Call 911 if necessary. 01/31/25 1457 <Electronically signed by Cesar Nolasco DO> Cosigner Signature (if applicable): CC: [facility] ~ Signed [facility] Work Phone: [phone]) 245-718908-13-2025 Radiology Diagnostic study note [facility] Imaging Services [address] [place], [place] [address] Chest 1 View (Portable) MR#: [id number] Acct: [id number] Name: CINTIAEDUARDO HAJI Rusty Rep #: [id number] : 1945 M 79 From: Alfa Agee MD PCP: [facility] Status: REG ER Study:Chest 1 View (Portable) Date of Exam: 01/31/25 Exam# [id number] Ordering Dr: Brenda Nolasco DO PROCEDURE: CHEST 1 VIEW (PORTABLE) 01/31/2025 REASON FOR EXAM: CHEST PAIN TECHNIQUE: Two-view AP portable upright chest COMPARISON: None provided. RAD/Chest 1 View (Portable) IMPRESSION: Mild thoracic spine degenerative changes are seen, along with thoracic dextroscoliosis. No acute osseous change is seen. Lungs appear clear throughout. No pleural effusion or pneumothorax is seen. The cardiomediastinal silhouette is remarkable for a partially calcified aorta; no evidence of cardiomegaly. No evidence of acute cardiopulmonary disease. Reading Location: [address] CC: Dr. 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06-25-2025 Miscellaneous Notes* Telephone Encounter - Raoul Miles - 12/13/2024 5:51 PM EDT printed documented in this encounterSt. [facility] Telephone encounter Note * Telephone Encounter - Raoul Miles - 11/23/2024 3:08 PM EDT Call from pharmacy requesting refill. Requested Prescriptions Pending Prescriptions Disp Refills apixaban (ELIQUIS) 2.5 mg tab(s) 180 tablet 1 Sig: Take 1 tablet by mouth two times a day. Patient last seen 11/01/[address] [facility]06-05-2025 Miscellaneous Notes* Telephone Encounter - Raoul Milesoine - 11/23/2024 3:08 PM EDT Call from pharmacy requesting refill. Requested Prescriptions Pending Prescriptions Disp Refills apixaban (ELIQUIS) 2.5 mg tab(s) 180 tablet 1 Sig: Take 1 tablet by mouth two times a day. Patient last seen 11/01/24 Raoul Miles documented in this encounterSt. [facility]05-14-2025 NoteHNO ID: [id number] Author: CLARENCE RIOS MD Service: ? Author Type: Physician Type: Progress Notes Filed: 11/01/2024 14:11 Note Text: [facility] [place] [facility] Department of Cardiovascular Medicine SECTION OF INTERVENTIONAL CARDIOLOGY OUTPATIENT VISIT DATE November 01, 2024 OUTPATIENT VISIT TYPE ESTABLISHED PRIMARY CARE PHYSICIAN: To use this Smartlink, specify the provider ID whose address you want to display, e.g., .PROVADDR[1 (where 1 is the provider ID). REFERRING PHYSICIAN: Clarence Rios [id number] [facility] [id number] CHIEF COMPLAINT: Patient presents with: Established Patient Follow-Up HISTORY OF PRESENT ILLNESS: Mr. Morales is a 79 year old male who presents today for follow-up visit . He denies . PAST CARDIAC HISTORY: See HPI PAST MEDICAL HISTORY Diagnosis Date AAA (abdominal aortic aneurysm) Atrial fibrillation (HCC) Bowel perforation (HCC) CAD (coronary artery disease) HLD (hyperlipidemia) MILTON (obstructive sleep apnea) Sleep apnea TIA (transient ischemic attack) PAST SURGICAL HISTORY Procedure Laterality Date ABLATION A-FIB BY PVI KNEE SURGERY HX PAST SURGICAL HISTORY OF colon resection PAST SURGICAL HISTORY OF reversal ileostomy TOTAL HIP REPLACEMENT Bilateral SOCIAL HISTORY Social History Tobacco Use Smoking status: Former Current packs/day: 0.00 Types: Cigarettes Quit date: 1997 Years since quittin.3 Smokeless tobacco: Never Vaping Use Vaping status: Never Used Substance Use Topics Alcohol use: Not Currently Drug use: Never FAMILY HISTORY Problem Relation Age of Onset Breast Cancer Mother No Known Problems Father No Known Problems Brother ALLERGIES: ALLERGIES Allergen Reactions Hydromorphone (Bulk) Vomiting Latex Itching, Rash Morphine GI Upset, Vomiting Memantine Intolerance Dizziness MEDICATIONS: Current Outpatient Medications Medication Sig FLUoxetine (PROZAC) 10 mg capsule Take 10 mg by mouth once daily. furosemide (LASIX) 40 mg tablet Take 20 mg by mouth once daily. carboxymethylcellulose (REFRESH) 0.5 % drop Use 1 Drop in both eyes three times a day. CPAP apixaban (ELIQUIS) 2.5 mg tab(s) Take 1 tablet by mouth two times a day. ezetimibe (ZETIA) 10 mg tablet Take 1 tablet by mouth once daily. rosuvastatin (CRESTOR) 10 mg tablet Take 1 tablet by mouth daily at bedtime. finasteride (PROSCAR) 5 mg tablet Take 5 mg by mouth once daily. tamsulosin (FLOMAX) 0.4 mg Take 0.4 mg by mouth once daily. multivit-minerals/folic acid (MEN'S MULTIVITAMIN GUMMIES ORAL) Take 2 tablets by mouth once daily. cyanocobalamin (VITAMIN B-12) 1,000 mcg tab Take 500 mcg by mouth q 24 HR. Cetirizine 10 mg cap Take 10 mg by mouth once daily. potassium chloride ER (K-DUR, KLOR-CON) 20 mEq tablet Take 20 mEq by mouth once daily. Cholecalciferol, Vitamin D3, 25 mcg (1,000 unit) cap Take 1,000 Units by mouth q 24 HR. azelastine (ASTELIN, ASTEPRO) 0.1% nasal spray Use 1 [place] in each nostril once daily. No current facility-administered medications for this visit. REVIEW OF SYSTEMS: PHYSICAL EXAMINATION: BP 136/54 Pulse 57 Ht 6' 0 (1.83m) Wt 187 lb (84.8kg) SpO2 97% BMI 25.36 kg/(m2). CARDIOVASCULAR MEDICINE TESTING: Last ECHO Result Conclusion ECHO Collected: 09/24/2023 2:50 PM (Final result) Impression: CONCLUSIONS: - Exam indication: Paroxysmal AFib - The left ventricle is normal in size. Left ventricular systolic function is normal. EF = 54 ? 5% (2D biplane) - The right ventricle is normal in size. Right ventricular systolic function is normal. - Mild mitral and aortic valve regurgitation. - The patient has not had a prior CC echocardiographic exam for comparison. * * * Final * * * Last EKG Result Conclusion ECG COMPLETE Collected: 08/17/2024 10:31 AM (Final result) Impression: SINUS BRADYCARDIA OTHERWISE NORMAL ECG Confirmed by MD DEEPIKA, HEBA ([id number]) on 08/30/2024 6:06:04 PM IMPRESSION: Mr. Morales is a 79 year old male last seen' 03/14, struggling with strength and memory (barely can play 2 holes of golf) -> light wts + driving range PTSD when preop for cholecystectomy had SPECT-> TID-> cath 60% LMT Not active Had mild DODD PAF (13% a fib ) AAA-3.7 h/o SB surg early dementia Cath: CSA 7.3 RFR 0.94 (09/10) outside TTE EF 50%, no LAE or VHD TODAY Less depressed on new meds Couldn't stand up on driving range/legs very weak/uses cane DODD 1 FOS No c/p Palp 2-4 wk w/o syncope Just dx'd with MILTON zio brief SVT and CT crestro 10 lasizx 20 zetia apix BP 136/54 (BP Site: Left Arm, BP Position: Sitting) Pulse (!) 57 Ht 182.9 cm (6') Wt 84.8 kg (187 lb) SpO2 97% BMI 25.36 kg/m? HEENT: No bruits or evident JVD Lungs: Clear to auscultation Cor: RR 1/6 SOLITARIO Extremities: good pulses, tr edema Neur (more content not included)...[facility]05-14-2025 History of Present illness Narrative* Clarence Rios MD - 11/01/2024 1:34 PM EDT Images from the original note were not included. [facility] [place] [facility] Department of Cardiovascular Medicine SECTION OF INTERVENTIONAL CARDIOLOGY OUTPATIENT VISIT DATE November 01, 2024 OUTPATIENT VISIT TYPE ESTABLISHED PRIMARY CARE PHYSICIAN: To use this Smartlink, specify the provider ID whose address you want to display, e.g., .PROVADDR[1(where 1 is the provider ID). REFERRING PHYSICIAN: Clarence Rios [address] [facility] [address] CHIEF COMPLAINT: Patient presents with: Established Patient Follow-Up HISTORY OF PRESENT ILLNESS: Mr. Morales is a 79 year old male who presents today for follow-up visit . He denies . PAST CARDIAC HISTORY: See HPI PAST MEDICAL HISTORY Diagnosis Date AAA (abdominal aortic aneurysm) Atrial fibrillation (HCC) Bowel perforation (HCC) CAD (coronary artery disease) HLD (hyperlipidemia) MILTON (obstructive sleep apnea) Sleep apnea TIA (transient ischemic attack) PAST SURGICAL HISTORY Procedure Laterality Date ABLATION A-FIB BY PVI KNEE SURGERY HX PAST SURGICAL HISTORY OF colon resection PAST SURGICAL HISTORY OF reversal ileostomy TOTAL HIP REPLACEMENT Bilateral SOCIAL HISTORY Social History Tobacco Use Smoking status: Former Current packs/day: 0.00 Types: Cigarettes Quit date: 1997 Years since quittin.3 Smokeless tobacco: Never Vaping Use Vaping status: Never Used Substance Use Topics Alcohol use: Not Currently Drug use: Never FAMILY HISTORY Problem Relation Age of Onset Breast Cancer Mother No Known Problems Father No Known Problems Brother ALLERGIES: ALLERGIES Allergen Reactions Hydromorphone (Bulk) Vomiting Latex Itching, Rash Morphine GI Upset, Vomiting Memantine Intolerance Dizziness MEDICATIONS: Current Outpatient Medications Medication Sig FLUoxetine (PROZAC) 10 mg capsule Take 10 mg by mouth once daily. furosemide (LASIX) 40 mg tablet Take 20 mg by mouth once daily. carboxymethylcellulose (REFRESH) 0.5 % drop Use 1 Drop in both eyes three times a day. CPAP apixaban (ELIQUIS) 2.5 mg tab(s) Take 1 tablet by mouth two times a day. ezetimibe (ZETIA) 10 mg tablet Take 1 tablet by mouth once daily. rosuvastatin (CRESTOR) 10 mg tablet Take 1 tablet by mouth daily at bedtime. finasteride (PROSCAR) 5 mg tablet Take 5 mg by mouth once daily. tamsulosin (FLOMAX) 0.4 mg Take 0.4 mg by mouth once daily. multivit-minerals/folic acid (MEN'S MULTIVITAMIN GUMMIES ORAL) Take 2 tablets by mouth once daily. cyanocobalamin (VITAMIN B-12) 1,000 mcg tab Take 500 mcg by mouth q 24 HR. Cetirizine 10 mg cap Take 10 mg by mouth once daily. potassium chloride ER (K-DUR, KLOR-CON) 20 mEq tablet Take 20 mEq by mouth once daily. Cholecalciferol, Vitamin D3, 25 mcg (1,000 unit) cap Take 1,000 Units by mouth q 24 HR. azelastine (ASTELIN, ASTEPRO) 0.1% nasal spray Use 1 [place] in each nostril once daily. No current facility-administered medications for this visit. REVIEW OF SYSTEMS: PHYSICAL EXAMINATION: BP 136/54 Pulse 57 Ht 6' 0 (1.83m) Wt 187 lb (84.8kg) SpO2 97% BMI 25.36 kg/(m^2). CARDIOVASCULAR MEDICINE TESTING: Last ECHO Result Conclusion ECHO Collected: 09/24/2023 2:50 PM (Final result) Impression: CONCLUSIONS: - Exam indication: Paroxysmal AFib - The left ventricle is normal in size. Left ventricular systolic function is normal. EF = 54 5% (2D biplane) - The right ventricle is normal in size. Right ventricular systolic function is normal. - Mild mitral and aortic valve regurgitation. - The patient has not had a prior CC echocardiographic exam for comparison. * * * Final * * * Last EKG Result Conclusion ECG COMPLETE Collected: 08/17/2024 10:31 AM (Final result) Impression: SINUS BRADYCARDIA OTHERWISE NORMAL ECG Confirmed by MD DEEPIKA, HEBA ([id number]) on 08/30/2024 6:06:04 PM IMPRESSION: Mr. Morales is a 79 year old male last seen' 03/14, struggling with strength and memory (barely canplay 2 holes of golf) -> light wts + driving range PTSD when preop for cholecystectomy had SPECT-> TID-> cath 60% LMT Not active Had mild DODD PAF (13% a fib ) AAA-3.7 h/o SB surg early dementia Cath: CSA 7.3 RFR 0.94 (09/10) outside TTE EF 50%, no LAE or VHD TODAY Less depressed on new meds Couldn't stand up on driving range/legs very weak/uses cane DODD 1 FOS No c/p Palp 2-4 wk w/o syncope Just dx'd with MILTON zio brief SVT and CT crestro 10 lasizx 20 zetia apix BP 136/54 (BP Site: Left Arm, BP Position: Sitting) Pulse (!) 57 Ht 182.9 cm (6') Wt 84.8 kg (187 lb) SpO2 97% BMI 25.36 kg/m HEENT: No bruits or evident JVD Lungs: Clear to auscultation Cor: RR 1/6 SOLITARIO Extremities: good pulses, tr edema Neuro: grossly intact PLAN AND RECOMMENDATIONS: PT trial d/c lasix or get CS Doc METS->VA Putting? CONTACT INFORMATION: documented in this encounterSt. [facility] Telephone encounter Note * Telephone Encounter - Emmie Vásquez RN - 10/18/2024 1:[address] Cruz, no AF on Zio monitor. No need to schedule for redo PVI. I updated patient's spouse. She is agreeable. Patient does not wish to be scheduled for an Amulet. The date of 04/02/25 is no longer hold for the patient. [facility]04-30-2025 Miscellaneous Notes* Telephone Encounter - Emmie Vásquez RN - 10/18/2024 1:[address] Cruz, no AF on Zio monitor. No need to schedule for redo PVI. I updated patient's spouse. She is agreeable. Patient does not wish to be scheduled for an Amulet. The date of 04/02/25 is no longer hold for the patient. * Telephone Encounter - Emmie Vásquez RN - 10/17/2024 2:19 PM EDT The date of 04/02/25 with +Dr. Vera offered. Awaiting confirmation from patient. * Telephone Encounter - Emmie Vásquez RN - 10/17/2024 2:19 PM EDT ----- Message from Jm Cruz MD sent at 08/17/2024 12:02 PM EST ----- Regarding: Redo PVI +/- Amulet Dr. Vera tried to place a Watchman in the past but the SCOT would not accept it. Need to find out ifJody thinks an Amulet is an option. But I'd like to get the patient scheduled for redo AF ablation.I am hoping we can to ablation + Amulet. Thank you Emmie. You are amazing. Patient: Eduardo Morales EP [facility] Procedure requested: Ablations PVI with Watchman CPT 55359, [id number] (Not Watchman, but an Amulet--if Jody agrees) Anticoagulation Status: Eliquis (apixaban) Requesting Physician: Jm Cruz MD,MPH Procedural Physician: Fadi Vera MD and Jm Cruz MD,MPH Date of last H&P or Date of upcoming H&P: 08/17/24 Indications for procedure: Atrial Fibrillation Procedure time frame: Patient convenience Current Meds: Current Outpatient Medications: FLUoxetine (PROZAC) 10 mg capsule furosemide (LASIX) 40 mg tablet carboxymethylcellulose (REFRESH) 0.5 % drop CPAP apixaban (ELIQUIS) 2.5 mg tab(s) ezetimibe (ZETIA) 10 mg tablet rosuvastatin (CRESTOR) 10 mg tablet finasteride (PROSCAR) 5 mg tablet tamsulosin (FLOMAX) 0.4 mg multivit-minerals/folic acid (MEN'S MULTIVITAMIN GUMMIES ORAL) cyanocobalamin(VITAMIN B-12) 1,000 mcg tab Cetirizine 10 mg cap potassium chloride ER (K-DUR, KLOR-CON) 20 mEq tablet Cholecalciferol, Vitamin D3, 25 mcg (1,000 unit) cap azelastine (ASTELIN, ASTEPRO) 0.1% nasal spray input Section Potential Research Patient: No General anesthesia or Managed Anesthesia Care (MAC) needed: Yes Conscious Sedation: No Mapping Ablation: [employer] (REGGIE) and Other FP CT Scan needed pre-procedure: No ECHO needed pre-procedure: Yes Anticoagulation: Continue anticoagulation. Do not interrupt. Stop Antiarrhythmic: No Stop Beta Trista/ Calcium Channel Trista: No ASA: N/A Plavix: N/A Additional instructions:None Is the patient a candidate for same day d/c: No Jm Cruz MD August 17, 2024 12:03 PM documented in this encounterSt. [facility]04-29-20[facility] Telephone encounter Note * Telephone Encounter - Emmie Vásquez RN - 10/17/2024 2:19 PM EDT The date of 04/02/25 with +Dr. Vera offered. Awaiting confirmation from patient. [facility]04-29-[facility]25 Telephone encounter Note* Telephone Encounter - Emmie Vásquez RN - 10/17/2024 2:19 PM EDT ----- Message from Jm Cruz MD sent at 08/17/2024 12:02 PM EST ----- Regarding: Redo PVI +/- Amulet Dr. Vera tried to place a Watchman in the past but the SCOT would not accept it. Need to find out ifJody thinks an Amulet is an option. But I'd like to get the patient scheduled for redo AF ablation.I am hoping we can to ablation + Amulet. Thank you Emmie. You are amazing. Patient: Eduardo Morales EP Lab Procedure requested: Ablations PVI with Watchman CPT 76778, [id number] (Not Watchman, but an Amulet--if Jody agrees) Anticoagulation Status: Eliquis (apixaban) Requesting Physician: Jm Cruz MD,MPH Procedural Physician: Fadi Vera MD and Jm Cruz MD,MPH Date of last H&P or Date of upcoming H&P: 08/17/24 Indications for procedure: Atrial Fibrillation Procedure time frame: Patient convenience Current Meds: Current Outpatient Medications: FLUoxetine (PROZAC) 10 mg capsule furosemide (LASIX) 40 mg tablet carboxymethylcellulose (REFRESH) 0.5 % drop CPAP apixaban (ELIQUIS) 2.5 mg tab(s) ezetimibe (ZETIA) 10 mg tablet rosuvastatin (CRESTOR) 10 mg tablet finasteride (PROSCAR) 5 mg tablet tamsulosin (FLOMAX) 0.4 mg multivit-minerals/folic acid (MEN'S MULTIVITAMIN GUMMIES ORAL) cyanocobalamin(VITAMIN B-12) 1,000 mcg tab Cetirizine 10 mg cap potassium chloride ER (K-DUR, KLOR-CON) 20 mEq tablet Cholecalciferol, Vitamin D3, 25 mcg (1,000 unit) cap azelastine (ASTELIN, ASTEPRO) 0.1% nasal spray MD input Section Potential Research Patient: No General anesthesia or Managed Anesthesia Care (MAC) needed: Yes Conscious Sedation: No Mapping Ablation: [employer] (REGGIE) and Other FP CT Scan needed pre-procedure: No ECHO needed pre-procedure: Yes Anticoagulation: Continue anticoagulation. Do not interrupt. Stop Antiarrhythmic: No Stop Beta Trista/ Calcium Channel Trista: No ASA: N/A Plavix: N/A Additional instructions:None Is the patient a candidate for same day d/c: No Jm Cruz MD August 17, 2024 12:[address] [facility]25 NoteHNO ID: [id number] Author: VANESSA ALVARENGA Tech Service: ? Author Type: Technologist Type: Progress Notes Filed: 08/17/2024 12:36 Note Text: EVENT MONITOR DISPOSABLE PATCH INSTRUCTIONS Patient Name: Eduardo Morales [facility] Number: [id number] Skin prepped and cleansed with alcohol Patch secured to prepped area Monitor Activated Serial #: [id number] Patient Instructed: Prescribed order timeframe Bathing guidelines Usage of event button and diary documentation Return of monitor at the end of prescribed order Call with problems [phone] or [phone]. [phone] Patient expresses a good understanding of instructions [facility] History of Present illness Narrative* Vanessa Alvarenga Tech - 08/17/2024 12:34 PM EST EVENT MONITOR DISPOSABLE PATCH INSTRUCTIONS Patient Name: Eduardo Morales [facility] Number: [id number] Skin prepped and cleansed with alcohol Patch secured to prepped area Monitor Activated Serial #: [id number] Patient Instructed: Prescribed order timeframe Bathing guidelines Usage of event button and diary documentation Return of monitor at the end of prescribed order Call with problems [phone] or [phone]. [phone] Patient expresses a good understanding of instructions Robyn Cobb documented in this encounterSt. [facility]02-27-2025 History of Present illness Narrative* Jm rCuz MD - 08/17/2024 11:45 AM EST Images from the original note were not included. [facility] [place] [facility] Department of Cardiovascular Medicine SECTION OF CARDIAC PACING and ELECTROPHYSIOLOGY OUTPATIENT VISIT DATE August 17, 2024 OUTPATIENT VISIT TYPE ESTABLISHED PRIMARY CARE PHYSICIAN: To use this Smartlink, specify the provider ID whose address you want to display, e.g., .PROVADDR[1(where 1 is the provider ID). REFERRING PHYSICIAN: No referring provider defined for this encounter. CHIEF COMPLAINT: PAF HISTORY OF PRESENT ILLNESS (includes edited nursing intake history): Eduardo Morales is a 79 y/o male returning for follow up for atrial fibrillation. His past medical history is significant for CAD (LHC 60% left main stenosis), HLD, AAA, bowel perforation s/p patria-colectomy. There was concern due to his prior bowel surgery he may not be absorbing the oral anticoagulation. On 10/04/2023 he underwent ablation. He underwent attempted watchman implant. It ws aborted after they were unable to achieve satisfactory compression/positioning. He was last seen in office by MYRA Palacio on 01/03/2024. He has episodes of atrial fibrillation at least once a week. Most of the time it lasts 5-10 minutes. Occasionally he will have a longer episodes that lasts 3 hours. Sometimes at night he has chest tightness. He was recently diagnosed with sleep apnea and will be starting CPAP. He has some SOB. He has edema in his BLE. Patient states he already completed the AF survey. He has had no syncope, nearsyncope, palpitations, orthopnea or PND CHADS2-Vasc Score Breakdown 5 Total Score 2 Age >= 75 years old 2 History of stroke, TIA, or thromboemolism 1 History of vascular disease PAST MEDICAL HISTORY Diagnosis Date AAA (abdominal aortic aneurysm) (HCC) Atrial fibrillation (HCC) Bowel perforation (HCC) CAD (coronary artery disease) HLD (hyperlipidemia) TIA (transient ischemic attack) PAST SURGICAL HISTORY Procedure Laterality Date ABLATION A-FIB BY PVI KNEE SURGERY HX PAST SURGICAL HISTORY OF colon resection PAST SURGICAL HISTORY OF reversal ileostomy TOTAL HIP REPLACEMENT Bilateral SOCIAL HISTORY Social History Tobacco Use Smoking status: Former Current packs/day: 0.00 Types: Cigarettes Quit date: 1997 Years since quittin.1 Smokeless tobacco: Never Vaping Use Vaping status: Never Used Substance Use Topics Alcohol use: Not Currently Drug use: Never FAMILY HISTORY Problem Relation Age of Onset Breast Cancer Mother No Known Problems Father No Known Problems Brother ALLERGIES: ALLERGIES Allergen Reactions Hydromorphone (Bulk) Vomiting Latex Itching, Rash Morphine GI Upset, Vomiting Memantine Intolerance Dizziness MEDICATIONS: FLUoxetine (PROZAC) 10 mg capsule Take 10 mg by mouth once daily. furosemide (LASIX) 40 mg tablet Take 20 mg by mouth once daily. carboxymethylcellulose (REFRESH) 0.5 % drop Use 1 Drop in both eyes three times a day. CPAP apixaban (ELIQUIS) 2.5 mg tab(s) Take 1 tablet by mouth two times a day. ezetimibe (ZETIA) 10 mg tablet Take 1 tablet by mouth once daily. rosuvastatin (CRESTOR) 10 mg tablet Take 1 tablet by mouth daily at bedtime. finasteride (PROSCAR) 5 mg tablet Take 5 mg by mouth once daily. tamsulosin (FLOMAX) 0.4 mg Take 0.4 mg by mouth once daily. multivit-minerals/folic acid (MEN'S MULTIVITAMIN GUMMIES ORAL) Take 2 tablets by mouth once daily. cyanocobalamin (VITAMIN B-12) 1,000 mcg tab Take 500 mcg by mouth q 24 HR. Cetirizine 10 mg cap Take 10 mg by mouth once daily. potassium chloride ER (K-DUR, KLOR-CON) 20 mEq tablet Take 20 mEq by mouth once daily. Cholecalciferol, Vitamin D3, 25 mcg (1,000 unit) cap Take 1,000 Units by mouth q 24 HR. azelastine (ASTELIN, ASTEPRO) 0.1% nasal spray Use 1 [place] in each nostril once daily. Juventino Golden RN PHYSICAL EXAMINATION: BP 124/54 Pulse (!) 57 Ht 182.9 cm (6') Wt 86.2 kg (190 lb) BMI 25.77 kg/m General: Looks well; pleasant and cooperative Neck: JVP normal Lungs: Clear to auscultation Cardiac: Regular rate and rhythm, no murmurs, rubs, gallops or clicks Abdomen: Soft, nontender, nondistended, no bruits Extremities: No cyanosis, clubbing, or edema; extremeties are warm Neurologic: A & O x 3 CARDIOVASCULAR MEDICINE TESTING: EKG 08/17/2024 reviewed: Record recurrences on or prior to the follow-up date but after the date of the previous follow-up (or after ablation date if this is the first follow-up) Palpitations: Yes AFib: Yes Aflutter: No AT or SVT: No Is patient currently in atrial fibrillation? No Arrhythmia recurrence beyond the blanking period: Yes, date of recurrence: unknown One year success off AAD IMPRESSION: PAF: Still having symptoms after PVI last year where we used the Pulse Select PFA catheter. Plan was too place a Watchman at the same time, but his SCOT anatomy was not accommodating. By sx's. patientcontinues to have episodes of PAF. Ablation using the FaraPulse catheter is a very reasonable option. I sent a msg to get him scheduled for redo AF ablation. Will ask Dr. Vera if he thinks an Amulet would be an option as we could potentially try to place that was well. I will have him wear a Zio todocument PAF. If it shows no AF, then I will recommend a Kardia device. Jm Cruz MD, MPH documented in this encounterSt. Rita'[facility]02-27-2025 NoteEducation (CARDMN) EDUARDO MORALES ([id number]) 1945 M DEF Date Time Provider Department 08/17/24 11:45 AM ARRHYTHMIA MONITORING LAB [facility] Reason for Visit: Event [921] Cmt: ZIO PATCH Primary Visit Diagnosis:Paroxysmal atrial fibrillation (HCC) [I48.0] During your visit today, we recorded the following information about you: Allergies As of Date: 08/17/2024 Noted Allergy Reaction HYDROMORPHONE (BULK) 08/10/2022 11 - Vomiting LATEX 08/10/2022 9 - Itching 2 - Rash MORPHINE 08/10/2022 8 - GI Upset 11 - Vomiting MEMANTINE 08/10/2022 5 - Intolerance Comments: Dizziness Date Reviewed: 08/17/2024 Reviewed by: Juventino Golden, RN - Fully Assessed Prescriptions as of 08/17/2024 - FLUoxetine (PROZAC) 10 mg capsule Take 10 mg by mouth once daily. - furosemide (LASIX) 40 mg tablet Take 20 mg by mouth once daily. - carboxymethylcellulose (REFRESH) 0.5 % drop Use 1 Drop in both eyes three times a day. - CPAP - apixaban (ELIQUIS) 2.5 mg tab(s) Take 1 tablet by mouth two times a day. - ezetimibe (ZETIA) 10 mg tablet Take 1 tablet by mouth once daily. - rosuvastatin (CRESTOR) 10 mg tablet Take 1 tablet by mouth daily at bedtime. - finasteride (PROSCAR) 5 mg tablet Take 5 mg by mouth once daily. - tamsulosin (FLOMAX) 0.4 mg Take 0.4 mg by mouth once daily. - multivit-minerals/folic acid (MEN'S MULTIVITAMIN GUMMIES ORAL) Take 2 tablets by mouth once daily. - cyanocobalamin (VITAMIN B-12) 1,000 mcg tab Take 500 mcg by mouth q 24 HR. - Cetirizine 10 mg cap Take 10 mg by mouth once daily. - potassium chloride ER (K-DUR, KLOR-CON) 20 mEq tablet Take 20 mEq by mouth once daily. - Cholecalciferol, Vitamin D3, 25 mcg (1,000 unit) cap Take 1,000 Units by mouth q 24 HR. - azelastine (ASTELIN, ASTEPRO) 0.1% nasal spray Use 1 [place] in each nostril once daily. Meds Comments as of 02/08/2023: All medications are dispensed through [place], [place]. Please print all prescriptions. Thanks Encounter Status:Closed by VANESSA ALVARENGA on 08/17/24[facility]02-27-2025 NoteHNO ID: [id number] Author: JM CRUZ MD Service: ? Author Type: Physician Type: Progress Notes Filed: 08/17/2024 12:17 Note Text: [facility] Department of Cardiovascular Medicine SECTION OF CARDIAC PACING and ELECTROPHYSIOLOGY OUTPATIENT VISIT DATE August 17, 2024 OUTPATIENT VISIT TYPE ESTABLISHED PRIMARY CARE PHYSICIAN: To use this Smartlink, specify the provider ID whose address you want to display, e.g., .PROVADDR[1 (where 1 is the provider ID). REFERRING PHYSICIAN: No referring provider defined for this encounter. CHIEF COMPLAINT: PAF HISTORY OF PRESENT ILLNESS (includes edited nursing intake history): Eduardo Morales is a 79 y/o male returning for follow up for atrial fibrillation. His past medical history is significant for CAD (LHC 60% left main stenosis), HLD, AAA, bowel perforation s/p patria-colectomy. There was concern due to his prior bowel surgery he may not be absorbing the oral anticoagulation. On 10/04/2023 he underwent ablation. He underwent attempted watchman implant. It ws aborted after they were unable to achieve satisfactory compression/positioning. He was last seen in office by MYRA Palacio on 01/03/2024. He has episodes of atrial fibrillation at least once a week. Most of the time it lasts 5-10 minutes. Occasionally he will have a longer episodes that lasts 3 hours. Sometimes at night he has chest tightness. He was recently diagnosed with sleep apnea and will be starting CPAP. He has some SOB. He has edema in his BLE. Patient states he already completed the AF survey. He has had no syncope, nearsyncope, palpitations, orthopnea or PND CHADS2-Vasc Score Breakdown 5 Total Score 2 Age >= 75 years old 2 History of stroke, TIA, or thromboemolism 1 History of vascular disease PAST MEDICAL HISTORY Diagnosis Date AAA (abdominal aortic aneurysm) (HCC) Atrial fibrillation (HCC) Bowel perforation (HCC) CAD (coronary artery disease) HLD (hyperlipidemia) TIA (transient ischemic attack) PAST SURGICAL HISTORY Procedure Laterality Date ABLATION A-FIB BY PVI KNEE SURGERY HX PAST SURGICAL HISTORY OF colon resection PAST SURGICAL HISTORY OF reversal ileostomy TOTAL HIP REPLACEMENT Bilateral SOCIAL HISTORY Social History Tobacco Use Smoking status: Former Current packs/day: 0.00 Types: Cigarettes Quit date: 1997 Years since quittin.1 Smokeless tobacco: Never Vaping Use Vaping status: Never Used Substance Use Topics Alcohol use: Not Currently Drug use: Never FAMILY HISTORY Problem Relation Age of Onset Breast Cancer Mother No Known Problems Father No Known Problems Brother ALLERGIES: ALLERGIES Allergen Reactions Hydromorphone (Bulk) Vomiting Latex Itching, Rash Morphine GI Upset, Vomiting Memantine Intolerance Dizziness MEDICATIONS: FLUoxetine (PROZAC) 10 mg capsule Take 10 mg by mouth once daily. furosemide (LASIX) 40 mg tablet Take 20 mg by mouth once daily. carboxymethylcellulose (REFRESH) 0.5 % drop Use 1 Drop in both eyes three times a day. CPAP apixaban (ELIQUIS) 2.5 mg tab(s) Take 1 tablet by mouth two times a day. ezetimibe (ZETIA) 10 mg tablet Take 1 tablet by mouth once daily. rosuvastatin (CRESTOR) 10 mg tablet Take 1 tablet by mouth daily at bedtime. finasteride (PROSCAR) 5 mg tablet Take 5 mg by mouth once daily. tamsulosin (FLOMAX) 0.4 mg Take 0.4 mg by mouth once daily. multivit-minerals/folic acid (MEN'S MULTIVITAMIN GUMMIES ORAL) Take 2 tablets by mouth once daily. cyanocobalamin (VITAMIN B-12) 1,000 mcg tab Take 500 mcg by mouth q 24 HR. Cetirizine 10 mg cap Take 10 mg by mouth once daily. potassium chloride ER (K-DUR, KLOR-CON) 20 mEq tablet Take 20 mEq by mouth once daily. Cholecalciferol, Vitamin D3, 25 mcg (1,000 unit) cap Take 1,000 Units by mouth q 24 HR. azelastine (ASTELIN, ASTEPRO) 0.1% nasal spray Use 1 [place] in each nostril once daily. Juventino Golden RN PHYSICAL EXAMINATION: BP 124/54 Pulse (!) 57 Ht 182.9 cm (6') Wt 86.2 kg (190 lb) BMI 25.77 kg/m? General: Looks well; pleasant and cooperative Neck: JVP normal Lungs: Clear to auscultation Cardiac: Regular rate and rhythm, no murmurs, rubs, gallops or clicks Abdomen: Soft, nontender, nondistended, no bruits Extremities: No cyanosis, clubbing, or edema; extremeties are warm Neurologic: A AND O x 3 CARDIOVASCULAR MEDICINE TESTING: EKG 08/17/2024 reviewed: Record recurrences on or prior to the follow-up date but after the date of the previous follow-up (or after ablation date if this is the first follow-up) Palpitations: Yes AFib: Yes Aflutter: No AT or SVT: No Is patient currently in atrial fibrillation? No Arrhythmia recurrence beyond the blanking period: Yes, date of recurrence: unknown One year success off AAD IMPRESSION: PAF: Still having symptoms after PVI last year where we used the Pulse Select PFA cathete (more content not included)...[facility]02-27-2025 NoteHNO ID: [id number] Author: JM CRUZ MD Service: ? Author Type: Physician Type: Procedures Filed: 09/05/2024 14:33 Note Text: Patient Name: Eduardo Morales : 1945 Ordering Provider: Jm Cruz Indication: I48.0 Paroxysmal atrial fibrillation Type of Monitor: Extended Monitoring-Zio Patch Enrollment Dates: 08/17/2024-08/31/2024 IRHYTHM FINDINGS: Patient had a min HR of 34 bpm, max HR of 141 bpm, and avg HR of 58 bpm. Predominant underlying rhythm was Sinus Rhythm. Intermittent Bundle Branch Block was present. 2 Ventricular Tachycardia runs occurred, the run with the fastest interval lasting 8 beats with a max rate of 141 bpm (avg 127 bpm); the run with the fastest interval was also the longest. 4 Supraventricular Tachycardia runs occurred, the run with the fastest interval lasting 5 beats with a max rate of 120 bpm, the longest lasting 4 beats with an avg rate of 100 bpm. 3 Pauses occurred, the longest lasting 3.6 secs (17 bpm). Isolated SVEs were rare (<1.0%), SVE Couplets were rare (<1.0%), and SVE Triplets were rare (<1.0%). Isolated VEs were rare (<1.0%), VE Couplets were rare (<1.0%), and no VE Triplets were present. Ventricular Bigeminy was present. Jm Cruz MD, MPH[facility] Telephone encounter Note* Telephone Encounter - Tawanda Kyle - 07/26/2024 7:40 AM EST Approved referral for medical care scanned into [employer] and [employer]. Patient is scheduled to see Dr. Jm Cruz on August 17, 2024. [facility]02-05-2025 Miscellaneous Notes* Telephone Encounter - Tawanda Kyle - 07/26/2024 7:40 AM EST Approved referral for medical care scanned into [employer] and [employer]. Patient is scheduled to see Dr. Jm Curz on August 17, 2024. documented [facility] Telephone encounter Note * Telephone Encounter - Raoul Miles - 03/09/2024 9:00 AM EDT Call from pharmacy requesting refill. Requested Prescriptions Pending Prescriptions Disp Refills ezetimibe (ZETIA) 10 mg tablet 90 tablet 1 Sig: Take 1 tablet by mouth once daily. rosuvastatin (CRESTOR) 10 mg tablet 90 tablet 1 Sig: Take 1 tablet by mouth daily at bedtime. Patient last seen 02/28/[address] [facility]09-19-2024 Miscellaneous Notes* Telephone Encounter - BaljinderRaoul cherry Rajinder - 03/09/2024 9:00 AM EDT Call from pharmacy requesting refill. Requested Prescriptions Pending Prescriptions Disp Refills ezetimibe (ZETIA) 10 mg tablet 90 tablet 1 Sig: Take 1 tablet by mouth once daily. rosuvastatin (CRESTOR) 10 mg tablet 90 tablet 1 Sig: Take 1 tablet by mouth daily at bedtime. Patient last seen 02/28/24 Raoul Rajinder Miles documented in this encounterSt. [facility] Telephone encounter Note * Telephone Encounter - Silvia Longo - 03/08/2024 3:32 PM EDT Call from patient requesting refill. Requested Prescriptions Pending Prescriptions Disp Refills apixaban (ELIQUIS) 5 mg tab(s) 180 tablet 1 Sig: Take 1 tablet by mouth two times a day. Patient last seen 01-03-[address] [facility]09-18-2024 Miscellaneous Notes* Telephone Encounter - Silvia Longo - 03/08/2024 3:32 PM EDT Call from patient requesting refill. Requested Prescriptions Pending Prescriptions Disp Refills apixaban (ELIQUIS) 5 mg tab(s) 180 tablet 1 Sig: Take 1 tablet by mouth two times a day. Patient last seen 01-03-2024 Silvia Longo documented in this encounterSt. [facility]24 NoteHNO ID: [id number] Author: CLARENCE RIOS MD Service: ? Author Type: Physician Type: Progress Notes Filed: 02/28/2024 09:45 Note Text: [facility] Department of Cardiovascular Medicine SECTION OF INTERVENTIONAL CARDIOLOGY OUTPATIENT VISIT DATE February 28, 2024 OUTPATIENT VISIT TYPE ESTABLISHED PRIMARY CARE PHYSICIAN: To use this Smartlink, specify the provider ID whose address you want to display, e.g., .PROVADDR[1 (where 1 is the provider ID). REFERRING PHYSICIAN: Clarence Rios [address] [facility] [id number] CHIEF COMPLAINT: No chief complaint on file. HISTORY OF PRESENT ILLNESS: Mr. Morales is a 78 year old male who presents today for follow-up visit . He denies . PAST CARDIAC HISTORY: See HPI PAST MEDICAL HISTORY No date: AAA (abdominal aortic aneurysm) (HCC) No date: Atrial fibrillation (HCC) No date: Bowel perforation (HCC) No date: CAD (coronary artery disease) No date: HLD (hyperlipidemia) No date: TIA (transient ischemic attack) PAST SURGICAL HISTORY No date: KNEE SURGERY HX No date: PAST SURGICAL HISTORY OF Comment: colon resection No date: PAST SURGICAL HISTORY OF Comment: reversal ileostomy No date: TOTAL HIP REPLACEMENT; Bilateral SOCIAL HISTORY Social History Tobacco Use Smoking status: Former Current packs/day: 0.00 Types: Cigarettes Quit date: 1997 Years since quittin.7 Smokeless tobacco: Never Vaping Use Vaping status: Never Used Substance Use Topics Alcohol use: Not Currently Drug use: Never FAMILY HISTORY Problem Relation Age of Onset Breast Cancer Mother No Known Problems Father No Known Problems Brother ALLERGIES: ALLERGIES Allergen Reactions Hydromorphone (Bulk) Vomiting Latex Itching, Rash Morphine GI Upset, Vomiting Memantine Intolerance Dizziness MEDICATIONS: Current Outpatient Medications Medication Sig apixaban (ELIQUIS) 5 mg tab(s) Take 1 tablet by mouth two times a day. cefdinir (OMNICEF) 300 mg capsule finasteride (PROSCAR) 5 mg tablet Take 5 mg by mouth once daily. ezetimibe (ZETIA) 10 mg tablet Take 1 tablet by mouth once daily. rosuvastatin (CRESTOR) 10 mg tablet Take 1 tablet by mouth daily at bedtime. tamsulosin (FLOMAX) 0.4 mg Take 0.4 mg by mouth once daily. multivit-minerals/folic acid (MEN'S MULTIVITAMIN GUMMIES ORAL) Take 2 tablets by mouth once daily. cyanocobalamin (VITAMIN B-12) 1,000 mcg tab Take 500 mcg by mouth q 24 HR. Cetirizine 10 mg cap Take 10 mg by mouth once daily. potassium chloride ER (K-DUR, KLOR-CON) 20 mEq tablet Take 20 mEq by mouth once daily. Cholecalciferol, Vitamin D3, 25 mcg (1,000 unit) cap Take 1,000 Units by mouth q 24 HR. azelastine (ASTELIN, ASTEPRO) 0.1% nasal spray Use 1 [place] in each nostril once daily. furosemide (LASIX) 20 mg tablet Take 10 mg by mouth once daily. No current facility-administered medications for this visit. REVIEW OF SYSTEMS: PHYSICAL EXAMINATION: There were no vitals taken for this visit. CARDIOVASCULAR MEDICINE TESTING: Last ECHO Result Conclusion ECHO Collected: 09/24/2023 2:50 PM (Final result) Impression: CONCLUSIONS: - Exam indication: Paroxysmal AFib - The left ventricle is normal in size. Left ventricular systolic function is normal. EF = 54 ? 5% (2D biplane) - The right ventricle is normal in size. Right ventricular systolic function is normal. - Mild mitral and aortic valve regurgitation. - The patient has not had a prior CC echocardiographic exam for comparison. * * * Final * * * Last MARISELA Result Conclusion INTRAPROCEDURAL ECHO Collected: 10/04/2023 12:18 PM (Final result) Impression: CONCLUSIONS: - Exam indication: Percutaneous noncoronary guidance - The left ventricle is normal in size. Left ventricular systolic function is normal. EF = 55 ? 5% (visual est.) - The right ventricle is normal in size. Right ventricular systolic function is normal. - There is moderate (2+) tricuspid valve regurgitation. Pre-procedure imaging by Dr. Kirkland. - The following is senior human resources representative of measurements of SCOT dimensions from different angles (width x depth): - At 0 degree: 1.4 - At 45 degree: 1.4 - At 90 degree: 1.8 - At 135 degree: 1.5 MPR/3D imaging of the left atrial appendage was performed. Ostium measures 1.9 x 1.7 cm. - SCOT morphology appears 'chicken-wing'. Attempted implantation of a #24 WATCHMAN FLX Pro device was unsuccessful due to prominent shoulder and borderline low percentage compression. - There was no evidence of pericardial effusion pre-procedure. No changes noted post. - There is a small residual IAS defect post puncture, with left to right shunt detected by color Doppler. - Exam was compared with the prior echocardiographic exam performed on 09/24/2023. Similar findings. Electronically signed by Aldo (more content not included)...[facility]09-09-2024 History of Present illness Narrative* Clarence Rios MD - 02/28/2024 9:02 AM EDT Images from the original note were not included. [facility] Department of Cardiovascular Medicine SECTION OF INTERVENTIONAL CARDIOLOGY OUTPATIENT VISIT DATE February 28, 2024 OUTPATIENT VISIT TYPE ESTABLISHED PRIMARY CARE PHYSICIAN: To use this Smartlink, specify the provider ID whose address you want to display, e.g., .PROVADDR[1(where 1 is the provider ID). REFERRING PHYSICIAN: Clarence Rios [address] [facility] [address] CHIEF COMPLAINT: No chief complaint on file. HISTORY OF PRESENT ILLNESS: Mr. Morales is a 78 year old male who presents today for follow-up visit . He denies . PAST CARDIAC HISTORY: See HPI PAST MEDICAL HISTORY No date: AAA (abdominal aortic aneurysm) (HCC) No date: Atrial fibrillation (HCC) No date: Bowel perforation (HCC) No date: CAD (coronary artery disease) No date: HLD (hyperlipidemia) No date: TIA (transient ischemic attack) PAST SURGICAL HISTORY No date: KNEE SURGERY HX No date: PAST SURGICAL HISTORY OF Comment: colon resection No date: PAST SURGICAL HISTORY OF Comment: reversal ileostomy No date: TOTAL HIP REPLACEMENT; Bilateral SOCIAL HISTORY Social History Tobacco Use Smoking status: Former Current packs/day: 0.00 Types: Cigarettes Quit date: 1997 Years since quittin.7 Smokeless tobacco: Never Vaping Use Vaping status: Never Used Substance Use Topics Alcohol use: Not Currently Drug use: Never FAMILY HISTORY Problem Relation Age of Onset Breast Cancer Mother No Known Problems Father No Known Problems Brother ALLERGIES: ALLERGIES Allergen Reactions Hydromorphone (Bulk) Vomiting Latex Itching, Rash Morphine GI Upset, Vomiting Memantine Intolerance Dizziness MEDICATIONS: Current Outpatient Medications Medication Sig apixaban (ELIQUIS) 5 mg tab(s) Take 1 tablet by mouth two times a day. cefdinir (OMNICEF) 300 mg capsule finasteride (PROSCAR) 5 mg tablet Take 5 mg by mouth once daily. ezetimibe (ZETIA) 10 mg tablet Take 1 tablet by mouth once daily. rosuvastatin (CRESTOR) 10 mg tablet Take 1 tablet by mouth daily at bedtime. tamsulosin (FLOMAX) 0.4 mg Take 0.4 mg by mouth once daily. multivit-minerals/folic acid (MEN'S MULTIVITAMIN GUMMIES ORAL) Take 2 tablets by mouth once daily. cyanocobalamin (VITAMIN B-12) 1,000 mcg tab Take 500 mcg by mouth q 24 HR. Cetirizine 10 mg cap Take 10 mg by mouth once daily. potassium chloride ER (K-DUR, KLOR-CON) 20 mEq tablet Take 20 mEq by mouth once daily. Cholecalciferol, Vitamin D3, 25 mcg (1,000 unit) cap Take 1,000 Units by mouth q 24 HR. azelastine (ASTELIN, ASTEPRO) 0.1% nasal spray Use 1 [place] in each nostril once daily. furosemide (LASIX) 20 mg tablet Take 10 mg by mouth once daily. No current facility-administered medications for this visit. REVIEW OF SYSTEMS: PHYSICAL EXAMINATION: There were no vitals taken for this visit. CARDIOVASCULAR MEDICINE TESTING: Last ECHO Result Conclusion ECHO Collected: 09/24/2023 2:50 PM (Final result) Impression: CONCLUSIONS: - Exam indication: Paroxysmal AFib - The left ventricle is normal in size. Left ventricular systolic function is normal. EF = 54 5% (2D biplane) - The right ventricle is normal in size. Right ventricular systolic function is normal. - Mild mitral and aortic valve regurgitation. - The patient has not had a prior CC echocardiographic exam for comparison. * * * Final * * * Last MARISELA Result Conclusion INTRAPROCEDURAL ECHO Collected: 10/04/2023 12:18 PM (Final result) Impression: CONCLUSIONS: - Exam indication: Percutaneous noncoronary guidance - The left ventricle is normal in size. Left ventricular systolic function is normal. EF = 55 5% (visual est.) - The right ventricle is normal in size. Right ventricular systolic function is normal. - There is moderate (2+) tricuspid valve regurgitation. Pre-procedure imaging by Dr. Kirkland. - The following is senior human resources representative of measurements of SCOT dimensions from different angles (width x depth): - At 0 degree: 1.4 - At 45 degree: 1.4 - At 90 degree: 1.8 - At 135 degree: 1.5 MPR/3D imaging of the left atrial appendage was performed. Ostium measures 1.9 x 1.7 cm. - SCOT morphology appears 'chicken-wing'. Attempted implantation of a #24 WATCHMAN FLX Pro device was unsuccessful due to prominent shoulder and borderline low percentage compression. - There was no evidence of pericardial effusion pre-procedure. No changes noted post. - There is a small residual IAS defect post puncture, with left to right shunt detected by color Doppler. - Exam was compared with the prior echocardiographic exam performed on 09/24/2023. Similar findings. * * * Final * * * Last EKG Result Conclusion ECG COMPLETE Collected: 01/03/2024 1:20 PM (Final result) Impression: SINUS BRADYCARDIA OTHERWISE NORMAL ECG Confirmed by ARIAN MURRAY MD ([id number]) on 02/01/2024 10:23:54 AM IMPRESSION: Mr. Morales is a 78 year old male last seen 09/11, weaker with declining memory PTSD A fib memory loss when preop for cholecystectomy had SPECT-> TID-> cath 60% LMT Not active Had mild DODD PAF (13% a fib ) AAA-3.7 h/o SB surg early dementia Cath: CSA 7.3 RFR 0.94 (09/10) outside TTE EF 50%, no LAE or VHD -> OMT TODAY (VV-audio very challenging) Ablation 10/12 Weak and depressed Hippocampal volume loss Was able to play 2 holes of golf walks w cane May take memantine for memory interim testing LDL 37 NTpro 301 Apix 241 apix 5x2 lasix 20 zetia+crestor 10 PLAN AND RECOMMENDATIONS: suggested light wt lifting, driving range for strength, balance and perhaps better mental outlook CAD RF seem well controlled Ask Dr Pizarro about brain MRI findings v/v amyloid CONTACT INFORMATION: [facility] in [facility] History of Present illness Narrative* Annika Arora RT(R) - 02/23/2024 10:30 AM EDT Radiology Service Progress Note PATIENT NAME: Eduardo Morales DATE OF SERVICE: February 23, 2024 TIME: 10:42 AM PATIENT IDENTITY VERIFICATION COMPLETED USING TWO (2) IDENTIFIERS: Name and Date of confirmedby patient verbally. FALL SCREENING: Has the patient had 2 falls in the last year or 1 fall with injury or currently using an Ambulatory Assistive Device (Walker, Cane, Wheelchair, Crutches, etc.)? No PATIENT GENDER DATA: Male PATIENT RELEVANT IMPLANT DATA REVIEWED: Not Applicable PATIENT PRESENTS WITH AN IMPLANTABLE OR ATTACHED ADMINISTRATIVE SUPPORT MANAGER: No RADIOLOGY DEPARTMENT: General X-ray: Exam(s) Completed: Chest X-Ray PERIPHERAL IV DATA: Not applicable SIGNED BY: MANASA Patricia) February 23, 2024 10:42 AM documented in this encounterSt. [facility]-2024 NoteHNO ID: [id number] Author: ANINKA ARORA RT(Hira) Service: Radiology Author Type: Technologist Type: Progress Notes Filed: 02/23/2024 10:42 Note Text: Radiology Service Progress Note PATIENT NAME: Eduardo Morales DATE OF SERVICE: February 23, 2024 TIME: 10:42 AM PATIENT IDENTITY VERIFICATION COMPLETED USING TWO (2) IDENTIFIERS: Name and Date of confirmed by patient verbally. FALL SCREENING: Has the patient had 2 falls in the last year or 1 fall with injury or currently using an Ambulatory Assistive Device (Walker, Cane, Wheelchair, Crutches, etc.)? No PATIENT GENDER DATA: Male PATIENT RELEVANT IMPLANT DATA REVIEWED: Not Applicable PATIENT PRESENTS WITH AN IMPLANTABLE OR ATTACHED ADMINISTRATIVE SUPPORT MANAGER: No RADIOLOGY DEPARTMENT: General X-ray: Exam(s) Completed: Chest X-Ray PERIPHERAL IV DATA: Not applicable SIGNED BY: RT Harshad(R) February 23, 2024 10:42 [facility]09-04-2024 NoteHNO ID: [id number] Author: FARHAN PIZARRO MD Service: ? Author Type: Physician Type: Progress Notes Filed: 02/23/2024 10:35 Note Text: [facility] New Patient Evaluation Date: February 23, 2024 Patient Name: Eduardo Morales [facility] was asked by Dr. Pizarro to evaluate Eduardo Morales. Our recommendations of care will be communicated by shared medical record. Reason for Evaluation/Chief complaint: memory problems Accompanied by: Spouse SUBJECTIVE: HPI: Eduardo Morales is a 78 year old Right handed male who presents to the [facility] for an initial evaluation. Patient has been seen and referred by Dr. Farhan Pizarro. Patient has a pertinent PMHx significant for A. Fib, bowel resection, PTSD, CAD. Today's visit: Mr. Morales presents for memory issues. He has been evaluated by Dr. Condon. He completed MRI brain in 10/2023. He had two NPT testing, 2021 and [facility]. He has an accomplished past and history of service in 1968, in [place] and then to [place]. 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 He feels very different now. As far as symptoms are concerned, he notes disorganization. 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 notes that he repeats himself often and he has no recollection of it. For example, not remembering friends came over to visit. He will repeat the same stories and repeat the same action. Sometimes asking questions multiple times in a short span. Symptoms fluctuate. Some days he seems close to his normal self. Was prescribed Exelon patch and has not started yet because of concern of bleeding while being on Apixaban. He has atrial fibrillation and he had an ablation and could not get the watchman device because of heart anatomy. He will need to stay on Apixaban. He has history of small bowel resection (about 50% of it was removed). He has history of diverticulitis and some stomach issues which led to bowel removal. Sleep: Has history of PTSD and AFRICA. sleeps in a different room because of AFRICA. Scheduled for sleep study. Mood: Some days feeling guilty of relying on and feeling down about his health. Neurobehavioral symptoms: normal REVIEW OF SYSTEMS: Weight change/Appetite: no concerns Hearing: no change Vision: no change Constipation, Diarrhea: no Incontinence: no Chest pain: No Edema: No Dyspnea: No Falls/injuries/accidents: No NEURO: SEE HPI OUTPATIENT MEDICATIONS Current Outpatient Medications on File Prior to Visit Medication Sig apixaban (ELIQUIS) 5 mg tab(s) Take 1 tablet by mouth two times a day. finasteride (PROSCAR) 5 mg tablet Take 5 mg by mouth once daily. ezetimibe (ZETIA) 10 mg tablet Take 1 tablet by mouth once daily. rosuvastatin (CRESTOR) 10 mg tablet Take 1 tablet by mouth daily at bedtime. tamsulosin (FLOMAX) 0.4 mg Take 0.4 mg by mouth once daily. multivit-minerals/folic acid (MEN'S MULTIVITAMIN GUMMIES ORAL) Take 2 tablets by mouth once daily. cyanocobalamin (VITAMIN B-12) 1,000 mcg tab Take 500 mcg by mouth q 24 HR. Cetirizine 10 mg cap Take 10 mg by mouth once daily. potassium chloride ER (K-DUR, KLOR-CON) 20 mEq tablet Take 20 mEq by mouth once daily. Cholecalciferol, Vitamin D3, 25 mcg (1,000 unit) cap Take 1,000 Units by mouth q 24 HR. azelastine (ASTELIN, ASTEPRO) 0.1% nasal spray Use 1 [place] in each nostril once daily. furosemide (LASIX) 20 mg tablet Take 10 mg by mouth once daily. cefdinir (OMNICEF) 300 mg capsule No current facility-administered medications on file prior to visit. MEDICAL HISTORY PAST MEDICAL HISTORY No date: AAA (abdominal aortic aneurysm) (HCC) No date: Atrial fibrillation (HCC) No date: Bowel perforation (HCC) No date: CAD (coronary artery disease) No date: HLD (hyperlipidemia) No date: TIA (transient ischemic attack) SURGICAL HISTORY PAST SURGICAL HISTORY No date: KNEE SURGERY HX No date: PAST SURGICAL HISTORY OF Comment: colon resection No date: PAST SURGICAL HISTORY OF Comment: reversal ileostomy No date: TOTAL HIP REPLACEMENT; Bilateral SOCIAL HISTORY Social History Tobacco Use Smoking status: Former Current packs/day: 0.00 Types: Cigarettes Quit date: 1997 Years since quittin.6 Smokeless tobacco: Never Vaping Use Vaping status: Never Used Substance Use Topics Alcohol use: Not Currently Drug use: Never Education: Completed some college, 1years 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 No significant alcohol abuse. No history of substance abuse. -Marital status: russ (more content not included)...[facility] 02-23-2024 History of Present illness Narrative* Farhan Pizarro MD - 02/23/2024 9:22 AM EDT Images from the original note were not included. [facility] New Patient Evaluation Date: February 23, 2024 Patient Name: Eduardo Morales [facility] was asked by Dr. Pizarro to evaluate Eduardo Morales. Our recommendations ofcare will be communicated by shared medical record. Reason for Evaluation/Chief complaint: memory problems Accompanied by: Spouse SUBJECTIVE: HPI: Eduardo Morales is a 78 year old Right handed male who presents to the [facility] for an initial evaluation. Patient has been seen and referred by Dr. Farhan Pizarro. Patient has a pertinent PMHx significant for A. Fib, bowel resection, PTSD, CAD. Today's visit: Mr. Morales presents for memory issues. He has been evaluated by Dr. Condon. He completed MRI brain in 10/2023. He had two NPT testing, 2021 [facility]. He has an accomplished past and history of service in 1968, in [place] and then to [place]. 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 He feels very different now. As far as symptoms are concerned, he notes disorganization. 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 notes that he repeats himself often and he has no recollection of it. For example, not remembering friends came over to visit. He will repeat the same stories and repeat the same action. Sometimes asking questions multiple times in a short span. Symptoms fluctuate. Some days he seems close to his normal self. Was prescribed Exelon patch and has not started yet because of concern of bleeding while being on Apixaban. He has atrial fibrillation and he had an ablation and could not get the watchman device because of heart anatomy. He will need to stay on Apixaban. He has history of small bowel resection (about 50% of it was removed). He has history of diverticulitis and some stomach issues which led to bowel removal. Sleep: Has history of PTSD and [place]ICA. sleeps in a different room because of AFRICA. Scheduled for sleep study. Mood: Some days feeling guilty of relying on and feeling down about his health. Neurobehavioral symptoms: normal REVIEW OF SYSTEMS: Weight change/Appetite: no concerns Hearing: no change Vision: no change Constipation, Diarrhea: no Incontinence: no Chest pain: No Edema: No Dyspnea: No Falls/injuries/accidents: No NEURO: SEE HPI OUTPATIENT MEDICATIONS Current Outpatient Medications on File Prior to Visit Medication Sig apixaban (ELIQUIS) 5 mg tab(s) Take 1 tablet by mouth two times a day. finasteride (PROSCAR) 5 mg tablet Take 5 mg by mouth once daily. ezetimibe (ZETIA) 10 mg tablet Take 1 tablet by mouth once daily. rosuvastatin (CRESTOR) 10 mg tablet Take 1 tablet by mouth daily at bedtime. tamsulosin (FLOMAX) 0.4 mg Take 0.4 mg by mouth once daily. multivit-minerals/folic acid (MEN'S MULTIVITAMIN GUMMIES ORAL) Take 2 tablets by mouth once daily. cyanocobalamin (VITAMIN B-12) 1,000 mcg tab Take 500 mcg by mouth q 24 HR. Cetirizine 10 mg cap Take 10 mg by mouth once daily. potassium chloride ER (K-DUR, KLOR-CON) 20 mEq tablet Take 20 mEq by mouth once daily. Cholecalciferol, Vitamin D3, 25 mcg (1,000 unit) cap Take 1,000 Units by mouth q 24 HR. azelastine (ASTELIN, ASTEPRO) 0.1% nasal spray Use 1 [place] in each nostril once daily. furosemide (LASIX) 20 mg tablet Take 10 mg by mouth once daily. cefdinir (OMNICEF) 300 mg capsule No current facility-administered medications on file prior to visit. MEDICAL HISTORY PAST MEDICAL HISTORY No date: AAA (abdominal aortic aneurysm) (HCC) No date: Atrial fibrillation (HCC) No date: Bowel perforation (HCC) No date: CAD (coronary artery disease) No date: HLD (hyperlipidemia) No date: TIA (transient ischemic attack) SURGICAL HISTORY PAST SURGICAL HISTORY No date: KNEE SURGERY HX No date: PAST SURGICAL HISTORY OF Comment: colon resection No date: PAST SURGICAL HISTORY OF Comment: reversal ileostomy No date: TOTAL HIP REPLACEMENT; Bilateral SOCIAL HISTORY Social History Tobacco Use Smoking status: Former Current packs/day: 0.00 Types: Cigarettes Quit date: 1997 Years since quittin.6 Smokeless tobacco: Never Vaping Use Vaping status: Never Used Substance Use Topics Alcohol use: Not Currently Drug use: Never Education: Completed some college, 1years 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 No significant alcohol abuse. No history of substance abuse. -Marital status: -Advanced directives/POA: yes FAMILY HISTORY FAMILY HISTORY Problem Relation Age of Onset Breast Cancer Mother No Known Problems Father No Known Problems Brother No known family history of dementia. ALLERGIES ALLERGIES Allergen Reactions Hydromorphone (Bulk) Vomiting Latex Itching, Rash Morphine GI Upset, Vomiting Memantine Intolerance Dizziness OUTSIDE RECORDS: No outside records provided to review. INTERNAL RECORDS: The patient's electronic medical record was reviewed. The relevant details are summarized in this note. Functional Evaluation: B-ADLs: (I=independent,A=assistance,D=dependent) ?Bathing: I , Dressing: I , Toileting: I , Transferring: I , Continence: I , Feeding: I I-ADLs: Transportation: A and is comfortable with his driving , Medications: A, Handle Finances: Nevermanaged finances. OBJECTIVE: PHYSICAL EXAM: Vitals: Wt 87.1 kg (192 lb 1.6 oz) BMI 26.05 kg/m General appearance: Sitting upright. Appears stated age. No acute distress. Non- toxic appearing. Nohypomimia. Lungs: Nonlabored breathing Heart: RRR Neuro: Mental Status: Alert, oriented to person, place, and time. Follows commands. Answering questions appropriately. No dysarthria or hypophonia. [place] Cognitive Assessment (MoCA) MoCA Past Scores 10/26/2023 MoCA MOCA TOTAL SCORE 18 out of 30 Visuospatial/ Executive 3 Naming 3 Attention 6 Language 0 Abstraction 1 Delayed Recall 0 Orientation 5 Cranial Nerves: EOMI CN VII: Face symmetric, no ptosis or facial droop CN VIII: Auditory acuity intact CN IX/CN X: Normal palate elevation CN XI: Normal shoulder shrug CN XII: Normal tongue strength and range of motion; no deviation Motor Exam: No rest tremor. No significant postural or intention tremor. No bradykinesia with finger tapping bilaterally. No abnormal movements, jerks. Strength 5/5 in UE's bilaterally. LE's 5/5 throughout as well. Sensory: Intact to light touch in all extremities. Pinprick, vibration, and proprioception not assessed. Coordination: FNF with no ataxia or dysmetria. Gait: Arises independently; normal posture; gait stable with cane NEUROPSYCHOLOGY: Report was scanned in: Results of testing is 2023 were similar to 2021 and showed focal memory consolidation issue at the level of MCI. Poor recall of verbal and visual memory without benefit from recognition cues. IMAGING REVIEW: 11/10/2023 10:41 AM - Radiology, [place] In Impression IMPRESSION: * No evidence of an acute intracranial process or intracranial mass. * Mild generalized volume loss. * Hippocampal volumes at the 13th percentile when compared to age matched normal controls by quantitative analysis. * Moderate white matter disease which is nonspecific but likely reflective of chronic microvascular ischemia. * Greater than nine parenchymal microhemorrhages by MRI. LABS TSH Date Value Ref Range Status 10/27/2023 3.020 0.270 - 4.200 mIU/L Final Vitamin B12 Date Value Ref Range Status 10/27/2023 1,022 232 - 1,245 pg/mL Final Folate Date Value Ref Range Status 10/27/2023 >20.0 >4.7 ng/mL Final Comment: A result of > 20 ng/mL is not necessarily indicative of a pathologic or treatable condition: it reflects a limitation of the test methodology. Assay reference range: 4.8 to 24.2 ng/mL. Suitable for detection of folate deficiency. Reference: Folate III (Folate III) [package insert V 1.0 Croatian]. [facility], [place], [place]: April 2015. Plan ASSESSMENT: Mr. Morales is a 78 year old MALE with pmh of A, fib, CAD, PTSD and Dream enactment behavior presents for memory assessment. 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 Amnestic symptoms with progressive cognitive decline and test results are consistent with possible AD. We discussed symptomatic treatment with cholinesterase inhibitor and Memantine. Pattern of microhemorrhages (mostly peripheral lesions) raises concern for amyloid angiopathy. History of Atrial fibrillation, unable to get watchman device. On Apixaban. PLAN: Not a candidate for anti-amyloid therapy because of number of microhemorrhages and need for anticoagulation. Discuss with Cardiology regarding Exelon and bradycardia. Risk of further lowering of pulse. Send me a [employer] message about medications and I will be happy to prescribe. Follow up in 6 months. 3 months if we are starting a new medication. They will continue to see [facility] for memory. Cardiology at [facility] and other care at [place]. I spent a total of 75 minutes on the date of the service which included preparing to see the patient, [id number] patient care, completing clinical documentation, obtaining and/or reviewing separately obtained history, performing a medically appropriate examination, counseling and educating the pat ient/family/caregiver, ordering medications, tests, or procedures, and communicating with other HCPs (not separately reported). Voice recognition software was used to compose this office note. Please excuse any unintended typographical errors. Farhan Pizarro MD [facility] 02/23/2024 9:22 AM CC: Referring Physician: Farhan Pizarro [id number] [address] PCP: To use this Smartlink, specify the provider ID whose address you want to display, e.g., .[email or web address][1(where 1 is the provider ID). Patient Entered Data: Patient-Reported 02/18/2024 -- Where are you currently living? Home / Private residence Are you using any community resources to help care for yourself? No Has your caregiver accompanied you today? Yes Did you receive help completing this questionnaire? Yes If you received help, could you have completed this questionnaire on your own? No Activities of Daily Living (ADL) No data to display PROMIS-10 02/20/2024 10/19/2023 PROMIS 10 Health, in general Fair Fair Quality of life, in general Good Good Physical health, in general Fair Fair Mental health, in general Good Fair Social activities satisfaction Good Good Performing ADL's Moderately A little Social role satisfaction Good Good Pain, on average 5 4 Fatigue, on average Moderate Severe Emotional problems Sometimes Often PHYSICAL Score 37.4 (Fair) 32.4 (Poor) MENTAL Score 43.5 (Good) 38.8 (Fair) PHQ-9 02/18/2024 PHQ-9 All Questions Little interest or pleasure in doing things 1 Feeling down, depressed, or hopeless 1 Trouble falling or staying asleep, or sleeping too much 0 Feeling tired or having little energy 0 Poor appetite or overeating 0 Feeling bad about yourself - or that you are a failure or have let yourself or your family down 0 Trouble concentrating on things, such as reading the newspaper or watching television 0 Moving or speaking so slowly that other people could have noticed. Or the opposite - being so fidgety or restless that you have been moving around a lot more than usual 0 Thoughts that you would be better off , or of hurting yourself in some way 0 PHQ-9 Score 2 (0-4) minimal depression (5-9) mild depression (10-14) moderate depression (15-19) moderately severe depression (20-27) severe depression Full History of PHQ-9 Scores PHQ-9 Score 02/18/2024 2 Sleep 02/18/2024 07/14/2023 -- What is your average total sleep time per night over the past 4 weeks? 9 Hours What is your average total sleep time during the day over the past 4 weeks? 0 Hours Have you been diagnosed with sleep apnea? I don't know Snore Loudly No Tired, fatigued or sleepy in daytime Yes Stop breathing or choking/gasping during sleep No High blood pressure Yes Probability of moderate-severe sleep apnea (%) SAPS V2 64 (Recommend sleep study) 02/18/2024 09/17/2023 Insomnia Severity Index Difficulty falling asleep 0 1 Difficulty staying asleep 0 0 Problem waking up too early 0 0 Satisfied/dissatisfied with current sleep pattern 1 1 Sleep interferes with daily functions 0 0 Sleep problems noticeable to others 0 0 Worried/distressed about current sleep problems 0 0 Score 1 2 Caregiver-Reported 02/18/2024 -- Are you the person who cares for the patient the majority of the time? (Primary Caregiver) Yes How are you related to the patient? Spouse Do you currently reside with the patient? Yes Are you currently employed outside the home? No What is your gender? Female Please enter your age 77 Dementia Severity Rating Scale (DSRS) No data to display [facility]* Daysi Norman OCCA - 02/23/2024 8:52 AM EDT Eduardo Morales is a 78 year old year old right handed man Accompanied by: spouse. 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 Vital Signs: Wt 87.1 kg (192 lb 1.6 oz) BMI 26.05 kg/m [facility]09-04-2024 Nurse Note* Daysi Norman OCCA - 02/23/2024 8:52 AM EDT Eduardo Morales is a 78 year old year old right handed man Accompanied by: spouse. Referral by: Farhan Pizarro [address] [facility] [address] Education: Completed some college, 1years Employment Status: Retired Title of Last Job (What did pt do?) [employer] What would you like to accomplish with this visit today? Vital Signs: Wt 87.1 kg (192 lb 1.6 oz) BMI 26.05 kg/m documented in this encounterSt[facility] Telephone encounter Note * Telephone Encounter - Ronaldo Martin OCCA - 01/05/2024 1:54 PM EDT 2nd attempt to reach patient no answer [facility]07-17-2024 Miscellaneous Notes* Telephone Encounter - Ronaldo Martin OCCA - 01/05/2024 1:54 PM EDT 2nd attempt to reach patient no answer * Telephone Encounter - Ronaldo Martin OCCA - 01/05/2024 11:28 AM EDTSummary: Patient question Called patient at [phone] Left voicemail message for patient to call back regarding PCP. Nothing further documented in this encounterSt. [facility] Telephone encounter Note * Telephone Encounter - Ronaldo Martin OCCA - 01/05/2024 11:28 AM EDT Summary: Patient question Called patient at [phone] Left voicemail message for patient to call back regarding PCP. Nothing further [facility]07-15-2024 NoteHNO ID: [id number] Author: TERI PALACIO APRN.MYRA Service: ? Author Type: Nurse Practitioner Type: Progress Notes Filed: 01/03/2024 15:11 Note Text: [facility] [place] Department of Cardiovascular Medicine SECTION OF CARDIAC PACING and ELECTROPHYSIOLOGY OUTPATIENT VISIT DATE January 03, 2024 OUTPATIENT VISIT TYPE ESTABLISHED CHIEF COMPLAINT: AF HISTORY OF PRESENT ILLNESS: Mr. Morales is a 78 year old male who presents today for follow-up visit for atrial fibrillation. He is an established patient of Dr. Anthony corral seen 07/15/23. His past medical history is significant for CAD (LHC 60% left main stenosis), HLD, AAA, bowel perforation s/p patria-colectomy. The patient underwent a small bowel resection in 2009 s/p ileostomy reversal. The patient was diagnosed with atrial fibrillation around the time of the bowel resection in 2009. His potassium was very low. He was treated with metoprolol which he did tolerate. At some point he was only on aspirin. He was then tried on coumadin at some point. He had difficulty maintain therapeutic INRs. He had recurrent bowel obstruction in September 2021 and another episode of atrial fibrillation. At this time, bowel obstruction was treated medically. He was started on full dose anticoagulation (eliquis 5 mg BID). The patient is followed by Dr. Rios. He recently wore a Zio which revealed a 13% AF burden, seven pauses, longest 4.2 seconds. the patient states that he gets his medication from the [facility] in [place] and they informed him that given his history of large bowel resection that he may not be absorbing apixaban adequately. He was seen by vascular medicine today. He was told to consider warfarin or xarelto if approved by [place]. Watchman if anticoagulation in not possible. Sometimes he is able to tell when he goes into atrial fibrillation. He has dizziness, chest discomfort, SOB and weakness while in atrial fibrillation. He has swelling in his right leg. He has never underwent a cardoiversion or DCC.He has never taken any antiarrythmic medications. On 10/04/23 he underwent a PVI with Dr. Cruz. A watchman procedure was attempted by Dr. Vera, but this was aborted d/t unable to achieve a satisfactory compression/positioning of the device. He presents today for a follow up visit. TTMs reviewed and all show SR. ECG today shows SB (hr 55). He reports doing well since his ablation. He does think he went into AF a couple of times, both occurring at night - he felt SOB during these times. This last occurred at least a month ago. Does not use anything to monitor his rhythm. He denies chest pain, orthopnea, cough, edema, palpitations, PND, lightheadedness or syncope. He is scheduled for a sleep study in March. 1. How often on average, does your irregular heart rhythm (atrial fibrillation) occur? About once a month 2. How long on average, do the episodes of the irregular heart rhythm last? 30-45 minutes 3. How often have you been bothered by this symptom in the past 4 weeks? Palpitations: none, Shortness of breath at rest: a little, Shortness of breath during physical activity: a little, Exercise intolerance (fatigue during mild physical activity): none, Fatigue at rest: none, Lightheadedness/dizziness: none, and Chest pain or pressure: none 4. Have you had an inpatient hospital admission within 30 days of your procedure? No Teri Palacio APRN.WARPMAN Record recurrences on or prior to the follow-up date but after the date of the previous follow-up (or after ablation date if this is the first follow-up) Palpitations: No AFib: Undocumented Aflutter: Undocumented AT or SVT: No Is patient currently in atrial fibrillation? No Arrhythmia recurrence beyond the blanking period: No One year success off AAD Not applicable Teri Palacio APRN.WARPMAN PAST CARDIAC HISTORY: PAST MEDICAL HISTORY Diagnosis Date AAA (abdominal aortic aneurysm) (HCC) Atrial fibrillation (HCC) Bowel perforation (HCC) CAD (coronary artery disease) HLD (hyperlipidemia) TIA (transient ischemic attack) PAST SURGICAL HISTORY Procedure Laterality Date KNEE SURGERY HX PAST SURGICAL HISTORY OF colon resection PAST SURGICAL HISTORY OF reversal ileostomy TOTAL HIP REPLACEMENT Bilateral SOCIAL HISTORY Social History Tobacco Use Smoking status: Former Types: Cigarettes Quit date: 1997 Years since quittin.5 Smokeless tobacco: Never Vaping Use Vaping Use: Never used Substance Use Topics Alcohol use: Not Currently Drug use: Never FAMILY HISTORY Problem Relation Age of Onset Breast Cancer Mother No Known Problems Father No Known Problems Brother ALLERGIES: ALLERGIES Allergen Reactions Hydromorphone (Bulk) Vomiting Latex Itching, Rash Morphine GI Upset, Vomiting Memantine Intolerance Dizziness MEDICATIONS: rivastigmine (EXELON) 4.6 mg/24 hour patch Apply 1 Patch as directed (more content not included)...[facility]07-[facility]-2024 History of Present illness Narrative* Teri Palacio, FABBY.WARPMAN - 01/03/2024 2:21 PM EDT Images from the original note were not included. [facility] Department of Cardiovascular Medicine SECTION OF CARDIAC PACING and ELECTROPHYSIOLOGY OUTPATIENT VISIT DATE January 03, 2024 OUTPATIENT VISIT TYPE ESTABLISHED CHIEF COMPLAINT: AF HISTORY OF PRESENT ILLNESS: Mr. Morales is a 78 year old male who presents today for follow-up visit for atrial fibrillation. He is an established patient of Dr. Anthony corral seen 07/15/23. His past medical history is significant for CAD (C 60% left main stenosis), HLD, AAA, bowel perforation s/p patria-colectomy. The patient underwent a small bowel resection in 2009 s/p ileostomy reversal. The patient was diagnosed with atrial fibrillation around the time of the bowel resection in 2009. His potassium was verylow. He was treated with metoprolol which he did tolerate. At some point he was only on aspirin. Hewas then tried on coumadin at some point. He had difficulty maintain therapeutic INRs. He had recurrent bowel obstruction in September 2021 and another episode of atrial fibrillation. At this time, bowel obstruction was treated medically. He was started on full dose anticoagulation (eliquis 5 mg BID). The patient is followed by Dr. Rios. He recently wore a Zio which revealed a 13% AF burden, seven pauses, longest 4.2 seconds. the patient states that he gets his medication from the [facility] in [place] and they informed him that given his history of large bowel resection that he may not be absorbing apixaban adequately. He was seen by vascular medicine today. He was told to consider warfarinor xarelto if approved by [place]. Watchman if anticoagulation in not possible. Sometimes he is able to tell when he goes into atrial fibrillation. He has dizziness, chest discomfort, SOB and weakness while in atrial fibrillation. He has swelling in his right leg. He has never underwent a cardoiversion or DCC. He has never taken any antiarrythmic medications. On 10/04/23 he underwent a PVI with Dr. Cruz. A watchman procedure was attempted by Dr. Vera, but this was aborted d/t unable to achieve a satisfactory compression/positioning of the device. He presents today for a follow up visit. TTMs reviewed and all show SR. ECG today shows SB (hr 55).He reports doing well since his ablation. He does think he went into AF a couple of times, both occurring at night - he felt SOB during these times. This last occurred at least a month ago. Does not use anything to monitor his rhythm. He denies chest pain, orthopnea, cough, edema, palpitations, PND, lightheadedness or syncope. He is scheduled for a sleep study in March. 1. How often on average, does your irregular heart rhythm (atrial fibrillation) occur? About once amonth 2. How long on average, do the episodes of the irregular heart rhythm last? 30- 45 minutes 3. How often have you been bothered by this symptom in the past 4 weeks? Palpitations: none, Shortness of breath at rest: a little, Shortness of breath during physical activity: a little, Exercise intolerance (fatigue during mild physical activity): none, Fatigue at rest: none, Lightheadedness/dizziness: none, and Chest pain or pressure: none 4. Have you had an inpatient hospital admission within 30 days of your procedure? No Teri Palacio APRN.WARPMAN Record recurrences on or prior to the follow-up date but after the date of the previous follow-up (or after ablation date if this is the first follow-up) Palpitations: No AFib: Undocumented Aflutter: Undocumented AT or SVT: No Is patient currently in atrial fibrillation? No Arrhythmia recurrence beyond the blanking period: No One year success off AAD Not applicable Teri Palacio APRN.WARPMAN PAST CARDIAC HISTORY: PAST MEDICAL HISTORY Diagnosis Date AAA (abdominal aortic aneurysm) (HCC) Atrial fibrillation (HCC) Bowel perforation (HCC) CAD (coronary artery disease) HLD (hyperlipidemia) TIA (transient ischemic attack) PAST SURGICAL HISTORY Procedure Laterality Date KNEE SURGERY HX PAST SURGICAL HISTORY OF colon resection PAST SURGICAL HISTORY OF reversal ileostomy TOTAL HIP REPLACEMENT Bilateral SOCIAL HISTORY Social History Tobacco Use Smoking status: Former Types: Cigarettes Quit date: 1997 Years since quittin.5 Smokeless tobacco: Never Vaping Use Vaping Use: Never used Substance Use Topics Alcohol use: Not Currently Drug use: Never FAMILY HISTORY Problem Relation Age of Onset Breast Cancer Mother No Known Problems Father No Known Problems Brother ALLERGIES: ALLERGIES Allergen Reactions Hydromorphone (Bulk) Vomiting Latex Itching, Rash Morphine GI Upset, Vomiting Memantine Intolerance Dizziness MEDICATIONS: rivastigmine (EXELON) 4.6 mg/24 hour patch Apply 1 Patch as directed once daily. cefdinir (OMNICEF) 300 mg capsule apixaban (ELIQUIS) 5 mg tab(s) Take 1 tablet by mouth two times a day. finasteride (PROSCAR) 5 mg tablet Take 5 mg by mouth once daily. ezetimibe (ZETIA) 10 mg tablet Take 1 tablet by mouth once daily. rosuvastatin (CRESTOR) 10 mg tablet Take 1 tablet by mouth daily at bedtime. tamsulosin (FLOMAX) 0.4 mg Take 0.4 mg by mouth once daily. multivit-minerals/folic acid (MEN'S MULTIVITAMIN GUMMIES ORAL) Take 2 tablets by mouth once daily. cyanocobalamin (VITAMIN B-12) 1,000 mcg tab Take 500 mcg by mouth q 24 HR. Cetirizine 10 mg cap Take 10 mg by mouth once daily. potassium chloride ER (K-DUR, KLOR-CON) 20 mEq tablet Take 20 mEq by mouth once daily. Cholecalciferol, Vitamin D3, 25 mcg (1,000 unit) cap Take 1,000 Units by mouth q 24 HR. azelastine (ASTELIN, ASTEPRO) 0.1% nasal spray Use 1 [place] in each nostril once daily. furosemide (LASIX) 20 mg tablet Take 10 mg by mouth once daily. REVIEW OF SYSTEMS: See HPI PHYSICAL EXAMINATION: BP 118/62 Pulse (!) 55 Ht 182.9 cm (6') Wt 85.3 kg (188 lb) BMI 25.50 kg/m General: Well appearing, in no acute distress. Neck: No jugular venous distention, no carotid bruits, carotids have a normal upstroke, no palpablethyromegaly. Lungs: Clear to auscultation bilaterally, no wheezing or rhonchi. Heart: Regular rhythm, PMI not displaced, S1, S2 normal, no S3, no S4, no heaves, no rub and no murmur. Abdomen: Soft, nontender, bowel sounds normal, no palpable organomegaly, no bruits. Extremities: No peripheral edema . Grade 2/4 distal pulses bilaterally. Neuro: Oriented to person, place and time, alert, cooperative, gait coordinated. CARDIOVASCULAR MEDICINE TESTING: Last MARISELA Result Conclusion INTRAPROCEDURAL ECHO Collected: 10/04/2023 12:18 PM (Final result) Impression: CONCLUSIONS: - Exam indication: Percutaneous noncoronary guidance - The left ventricle is normal in size. Left ventricular systolic function is normal. EF = 55 5% (visual est.) - The right ventricle is normal in size. Right ventricular systolic function is normal. - There is moderate (2+) tricuspid valve regurgitation. Pre-procedure imaging by Dr. Kirkland. - The following is senior human resources representative of measurements of SCOT dimensions from different angles (width x depth): - At 0 degree: 1.4 - At 45 degree: 1.4 - At 90 degree: 1.8 - At 135 degree: 1.5 MPR/3D imaging of the left atrial appendage was performed. Ostium measures 1.9 x 1.7 cm. - SCOT morphology appears 'chicken-wing'. Attempted implantation of a #24 WATCHMAN FLX Pro device was unsuccessful due to prominent shoulder and borderline low percentage compression. - There was no evidence of pericardial effusion pre-procedure. No changes noted post. - There is a small residual IAS defect post puncture, with left to right shunt detected by color Doppler. - Exam was compared with the prior echocardiographic exam performed on 09/24/2023. Similar findings. * * * Final * * * Last EKG Result Conclusion ECG COMPLETE Collected: 01/03/2024 1:20 PM (Preliminary result) Impression: SINUS BRADYCARDIA OTHERWISE NORMAL ECG IMPRESSION: Mr. Morales is a 78 year old male who presents today for follow-up visit for atrial fibrillation. He is an established patient of Dr. Cruz - last seen 07/15/23. His past medical history is significant for CAD ([facility] 60% left main stenosis), HLD, AAA, bowel perforation s/p patria-colectomy. Atrial fibrillation - dx 2009 - paroxysmal - symptoms: dizziness, chest discomfort, SOB and weakness - Zio monitor 03/2023 revealed a 13% AF burden, seven pauses, longest 4.2 seconds - s/p PVI 10/04/23 - TTMs reviewed and all show SR - today, he reports he thinks he went into AF a couple of times during the blanking period, both episodes occurring at night and were brief - he does not monitor his rhythm at home - he is scheduled for a sleep study in March - ECG today: SB (hr 59) - LVEF 55% Anticoagulation - stroke prophylaxis - on Eliquis - denies missed doses - denies bleeding events - He has been on warfarin in the past and there was great difficulty in maintaining therapeutic INRs - He has had small bowel resection, and this could affect absorption of this medication. A watchmanprocedure was attempted by Dr. Vera, but this was aborted d/t unable to achieve a satisfactory compression/positioning of the device. CHADS2-Vasc Score Breakdown 5 Total Score 2 Age >= 75 years old 2 History of stroke, TIA, or thromboemolism 1 History of vascular disease CAD - [facility] 60% left main stenosis - follows with Dr. Rios PLAN AND RECOMMENDATIONS: Patient may have had brief AF recurrences during the blanking period but is overall doing well. Plan to follow up with Dr. Cruz in September 2024 Instructed to reach out if he has AF recurrence now that he is out of the blanking period CONTACT INFORMATION: Teri Palacio APRN.CNP [facility] encounter Note * Telephone Encounter - Lisa Ren RN - 01/03/2024 10:27 AM EDT Images from the original note were not included. LM for pt to callback. [facility] Miscellaneous Notes* Telephone Encounter - Lisa Ren RN - 01/03/2024 10:27 AM EDT Images from the original note were not included. LM for pt to callback. * Telephone Encounter - Jessika Najera - 01/03/2024 9:36 AM EDT Name of Caller: juventino Relationship to patient: pharmacy Last visit in this department: 12/31/2023 Reason for Call: Other : calling to clarify that rivastigamine patch is do replace oral rivastigamine medication he is already taking or if Dr wants oral and the patch. Please advise Callback number: [phone] documented in this encounterSt. [facility] Telephone encounter Note * Telephone Encounter - Jessika Najera - 01/03/2024 9:36 AM EDT Name of Caller: juventino Relationship to patient: pharmacy Last visit in this department: 12/31/2023 Reason for Call: Other : calling to clarify that rivastigamine patch is do replace oral rivastigamine medication he is already taking or if Dr wants oral and the patch. Please advise Callback number: [phone] [facility]20[facility] History of Present illness Narrative* Shari Condon MD - 12/31/2023 7:30 AM EDT Images from the original note were not included. [facility] General Neurology Follow up/ Established patient visit Individuals who were included in, or assisted with the encounter were: Eduardo Condon MD Chief Complaint/Issues: Eduardo Morales is a 78 year old male seen in the [facility] for: [facility] Most Recent Neurological Assessment and Plan: Last Filed Values Date of Most Recent Assessment and Plan 12/31/23 (P) Specialty General Neurology (P) Assessment 1) 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 We talked about controlling his CV risk factors - HTN, HLD andAfib. He is a nonsmoker and non drinker. 2) Sleep apnea (P) Plan 1) Lifestyle changes of a more vegetable oriented diet: Mediterranean diet, Exercise, Hydration, social engagement and good amount of sleep. Seems like he is doing all that with his 's help and support. He seems to be happier and more engaged in the summer and able to do the things he likes like golfing. Secondary prevention: trial of Rivastigmine patch, lowest dose. He could not tolerate the oral low dose Rivastigmine as he has had a colectomy and had diarrhea. He has been tried on Memantine and hadparadoxical confusion. He is not a candidate for Aricept given his cardiac issues. We talked about similar effects with Rivastigmine and watching for bleeding. Keep the appt with Dr. Pizarro and have her questions answered about dementia and the newer treatmentsand any further studies to be done. As far as agent [place] and his HTN and microhemorrhages in the brain, she may be well served by seeing a [place] neurologist who is more aware of the effects of agent [place] than I am and pursuing in action in regards to [facility] benefits. 2) (P) HPI/Interval History: 's message: Unfortunately, I had to cancel Eduardo's appointment with the [facility] because the [place] would not allow that department for community care. I [facility] in [place] on November 30 as that was the earliest appointment I could get. I will make sure the results will be sent to you. Also, Eduardo seems to be having some issues with the new meds. He feels nauseated and has diarrhea. He does not feel hungry, and is more lethargic than normal. I'm not sure if his shortened bowel can be causing his stomach issues, but I would like to ask your permission to discontinue the use of theRivastigmine. Thank you for all your help, Andie Morales He has half of his colon removed, and he is unable to tolerate the Rivastigmine 1.5 mg bid due to diarrhea and decreased appetite. We could try the Rivastigmine patch. I don't think any other drug ofthis class will work either because all of them are oral and have issues with bleeding. Memantine he could not tolerate it because it caused paradoxical confusion worsening. asks about the iv infusions, she was told that he has an appt with Dr. Pizarro for [facility]. She can ask about that. As far as his frequent UTIs - he had double meatus, BPH, kidney stone and has gone to urologist. She was asking about good days and bad days and this can happen normally. We just have to watch thequantity of bad days > good days. He is doing relatively better in the summer. He went golfing with his son. They are going to a show. Advance directives are done. They do not have middle or intermediate school principal care. General Examination: BP 118/66 (BP Site: Left Arm, BP Position: Sitting, BP Cuff Size: Regular Adult) Pulse (!) 52 Resp 16 General: Awake, alert, interactive, no acute distress, good nutritional status, normal development,well-kept Neurological Exam Mental Status Alert, fully oriented, attentive, with normal cognition, memory, speech and affect. Cranial Nerves Visual ortiz intact. Pupils reactive. Extraocular movements conjugate and full. No ptosis. No nystagmus. Facial sensation intact. Face symmetric and strong. Palate and tongue normal. XI normal. Hearing aids are in. Motor Examination and Coordination Motor examination with normal bulk, strength and tone. No drift. Normal rapid alternating movementsand coordination. No adventitious movements or significant tremor. Reflexes Deferred Sensation Sensation intact to light touch, and proprioception. Gait Arises easily. Casual gait, tandem, and Romberg are normal. Can rise on heels and toes. Assessment & Plan 12/31/2023 - General Neurology, Shari Condon MD ASSESSMENT 1) 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 We talked about controlling his CV risk factors - HTN, HLD and Afib. He is a nonsmoker and non drinker. 2) Sleep ap[facility] 1) Lifestyle changes of a more vegetable oriented diet: Mediterranean diet, Exercise, Hydration, social engagement and good amount of sleep. Seems like he is doing all that with his 's help and support. He seems to be happier and more engaged in the summer and able to do the things he likes like golfing. Secondary prevention: trial of Rivastigmine patch, lowest dose. He could not tolerate the oral low dose Rivastigmine as he has had a colectomy and had diarrhea. He has been tried on Memantine and hadparadoxical confusion. He is not a candidate for Aricept given his cardiac issues. We talked about similar effects with Rivastigmine and watching for bleeding. Keep the appt with Dr. Pizarro and have her questions answered about dementia and the newer treatmentsand any further studies to be done. As far as agent [place] and his HTN and microhemorrhages in the brain, she may be well served by seeing a [place] neurolog[place] who is more aware of the effects of agent [place] than I am and pursuing in action in regards to [facility] benefits. 2) [facility] sleep study Encounter Diagnosis ICD-10-CM 1. MCI (mild cognitive impairment) G31.84 rivastigmine (EXELON) 4.6 mg/24 hour patch No follow-ups on file. Data Review Objective Current Outpatient Medications Medication Sig rivastigmine (EXELON) 4.6 mg/24 hour patch Apply 1 Patch as directed once daily. cefdinir (OMNICEF) 300 mg capsule apixaban (ELIQUIS) 5 mg tab(s) Take 1 tablet by mouth two times a day. finasteride (PROSCAR) 5 mg tablet Take 5 mg by mouth once daily. ezetimibe (ZETIA) 10 mg tablet Take 1 tablet by mouth once daily. rosuvastatin (CRESTOR) 10 mg tablet Take 1 tablet by mouth daily at bedtime. tamsulosin (FLOMAX) 0.4 mg Take 0.4 mg by mouth once daily. multivit-minerals/folic acid (MEN'S MULTIVITAMIN GUMMIES ORAL) Take 2 tablets by mouth once daily. cyanocobalamin (VITAMIN B-12) 1,000 mcg tab Take 500 mcg by mouth q 24 HR. Cetirizine 10 mg cap Take 10 mg by mouth once daily. potassium chloride ER (K-DUR, KLOR-CON) 20 mEq tablet Take 20 mEq by mouth once daily. Cholecalciferol, Vitamin D3, 25 mcg (1,000 unit) cap Take 1,000 Units by mouth q 24 HR. azelastine (ASTELIN, ASTEPRO) 0.1% nasal spray Use 1 [place] in each nostril once daily. furosemide (LASIX) 20 mg tablet Take 10 mg by mouth once daily. No current facility-administered medications for this visit. ACTIVE PROBLEM LIST Pulmonary Hypertension (Hcc) Infrarenal Abdominal Aortic Aneurysm (Aaa) Without Rupture (Hcc) Coronary Artery Disease Presence of Watchman Left Atrial Appendage Closure Device PAST MEDICAL HISTORY Diagnosis Date AAA (abdominal aortic aneurysm) (HCC) Atrial fibrillation (HCC) Bowel perforation (HCC) CAD (coronary artery disease) HLD (hyperlipidemia) TIA (transient ischemic attack) PAST SURGICAL HISTORY Procedure Laterality Date KNEE SURGERY HX PAST SURGICAL HISTORY OF colon resection PAST SURGICAL HISTORY OF reversal ileostomy TOTAL HIP REPLACEMENT Bilateral Social History Tobacco Use Smoking status: Former Types: Cigarettes Quit date: 1997 Years since quittin.5 Smokeless tobacco: Never Vaping Use Vaping Use: Never used Substance Use Topics Alcohol use: Not Currently Drug use: Never FAMILY HISTORY Problem Relation Age of Onset Breast Cancer Mother No Known Problems Father No Known Problems Brother Review of Systems Constitutional: Negative. Skin: Negative. HENT: Negative. Musculoskeletal: Negative. Eyes: Negative. Respiratory: Negative. Cardiovascular: Atrial Fibrillation Gastrointestinal: Negative. Endocrine: Negative. Hematologic/Lymphatic: Negative. Allergic/Immunologic: Negative. Psychiatric: Negative. Lab and Test Review: General Medical Labs: Last 3 sets of CBC, CMP, Lipids, HBA1C, TSH Latest Ref Rng & Units 09/24/2023 09/15/2022 CBC WBC 3.70 - 11.00 k/uL 5.78 7.32 RBC 4.20 - 6.00 m/uL 4.44 4.61 Hemoglobin 13.0 - 17.0 g/dL 13.8 14.2 Hematocrit 39.0 - 51.0 % 42.3 42.9 MCV 80.0 - 100.0 fL 95.3 93.1 MCH 26.0 - 34.0 pg 31.1 30.8 MCHC 30.5 - 36.0 g/dL 32.6 33.1 RDW-CV 11.5 - 15.0 % 12.3 13.0 Platelet Count 150 - 400 k/uL 202 197 MPV 9.0 - 12.7 fL 10.5 9.6 Latest Ref Rng & Units 09/24/2023 09/24/2023 09/15/2022 CMP Sodium 136 - 144 mmol/L 145 140 Potassium 3.7 - 5.1 mmol/L 4.6 4.1 Chloride 97 - 105 mmol/L 107 106 CO2 22 - 30 mmol/L 28 26 Glucose 74 - 99 mg/dL 115 117 BUN 9 - 24 mg/dL 16 15 Creatinine 0.73 - 1.22 mg/dL 1.04 1.12 Creatinine (POCT) 0.7 - 1.4 mg/dL 1.10 EGFR >=60 mL/min/1.73m 74 69 Calcium 8.5 - 10.2 mg/dL 9.7 9.3 Latest Ref Rng & Units 09/17/2023 Lipids Triglyceride <150 mg/dL 78 Non HDL Cholesterol <130 mg/dL 53 Fasting Time hrs 13 LDL Cholesterol <100 mg/dL 37 LDL:HDL Ratio <2.54 0.74 Latest Ref Rng & Units 10/27/2023 TSH TSH 0.270 - 4.200 mIU/L 3.020 Common Neurology Labs: Last 3 sets of ESR, CRP, CK, Vitamin B12, MMA, Folate, Vitamin D, Copper No data to display Latest Ref Rng & Units 10/27/2023 Vitamin B12 Vitamin B12 232 - 1,245 pg/mL 1,022 Latest Ref Rng & Units 10/27/2023 Folate Folate >4.7 ng/mL >20.0 Latest Ref Rng & Units 10/27/2023 Vitamin D Vitamin D 25 Hydroxy 31.0 - 80.0 ng/mL 35.3 MRI Head/Brain - Last 2 Impressions No resulted procedures found. Outside Data/Labs: Subjective Patient-Entered Data: 12/29/23 - GENERAL NEUROLOGY SCORES 07/14/2023 10/19/2023 PROMIS 10 Health, in general Fair Fair Quality of life, in general Fair Good Physical health, in general Fair Fair Mental health, in general Fair Fair Social activities satisfaction Fair Good Performing ADL's Moderately A little Social role satisfaction Fair Good Pain, on average 4 4 Fatigue, on average Moderate Severe Emotional problems Sometimes Often PHYSICAL Score 37.4 (Fair) 32.4 (Poor) MENTAL Score 36.3 (Fair) 38.8 (Fair) 07/14/2023 SLEEP APNEA SCORE Probability of moderate-severe sleep apnea (%) SAPS V2 64 (Recommend sleep study) 09/17/2023 AVERAGE SLEEP 24 HOURS Average sleep last 24 hrs 9 I spent a total of 40 minutes on the date of the service which included preparing to see the patient, [id number] patient care, completing clinical documentation, obtaining and/or reviewing separately obtained history, performing a medically appropriate examination, counseling and educating the pat ient/family/caregiver, ordering medications, tests, or procedures, communicating with other HCPs (not separately reported), and communicating results to the patient/family/caregiver. Shari Condon MD documented in this encounterSt[facility] NoteHNO ID: [id number] Author: SHARI CONDON MD Service: ? Author Type: Physician Type: Progress Notes Filed: 12/31/2023 17:47 Note Text: [facility] Follow up/ Established patient visit Individuals who were included in, or assisted with the encounter were: Eduardo Baudiliosuri Shari Condon MD Chief Complaint/Issues: Eduardo Morales is a 78 year old male seen in the [facility] for: [facility] Most Recent Neurological Assessment and Plan: Last Filed Values Date of Most Recent Assessment and Plan 12/31/23 (P) Specialty General Neurology (P) Assessment 1) 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 We talked about controlling his CV risk factors - HTN, HLD and Afib. He is a nonsmoker and non drinker. 2) Sleep apnea (P) Plan 1) Lifestyle changes of a more vegetable oriented diet: Mediterranean diet, Exercise, Hydration, social engagement and good amount of sleep. Seems like he is doing all that with his 's help and support. He seems to be happier and more engaged in the summer and able to do the things he likes like golfing. Secondary prevention: trial of Rivastigmine patch, lowest dose. He could not tolerate the oral low dose Rivastigmine as he has had a colectomy and had diarrhea. He has been tried on Memantine and had paradoxical confusion. He is not a candidate for Aricept given his cardiac issues. We talked about similar effects with Rivastigmine and watching for bleeding. Keep the appt with Dr. Pizarro and have her questions answered about dementia and the newer treatments and any further studies to be done. As far as agent [place] and his HTN and microhemorrhages in the brain, she may be well served by seeing a [place] neurologist who is more aware of the effects of agent [place] than I am and pursuing in action in regards to [facility] benefits. 2) (P) HPI/Interval History: 's message: Unfortunately, I had to cancel Eduardo's appointment [facility] because the [place] would not allow that department for community care. I have scheduled an appointment with the [place] Neuropsyschologist at [facility] in [place] on November 30 as that was the earliest appointment I could get. I will make sure the results will be sent to you. Also, Eduardo seems to be having some issues with the new meds. He feels nauseated and has diarrhea. He does not feel hungry, and is more lethargic than normal. I'm not sure if his shortened bowel can be causing his stomach issues, but I would like to ask your permission to discontinue the use of the Rivastigmine. Thank you for all your help, Andie Morales He has half of his colon removed, and he is unable to tolerate the Rivastigmine 1.5 mg bid due to diarrhea and decreased appetite. We could try the Rivastigmine patch. I don't think any other drug of this class will work either because all of them are oral and have issues with bleeding. Memantine he could not tolerate it because it caused paradoxical confusion worsening. asks about the iv infusions, she was told that he has an appt with Dr. Pizarro for Brain Health. She can ask about that. As far as his frequent UTIs - he had double meatus, BPH, kidney stone and has gone to urologist. She was asking about good days and bad days and this can happen normally. We just have to watch the quantity of bad days > good days. He is doing relatively better in the summer. He went golfing with his son. They are going to a show. Advance directives are done. They do not have middle or intermediate school principal care. General Examination: BP 118/66 (BP Site: Left Arm, BP Position: Sitting, BP Cuff Size: Regular Adult) Pulse (!) 52 Resp 16 General: Awake, alert, interactive, no acute distress, good nutritional status, normal development, well-kept Neurological Exam Mental Status Alert, fully oriented, attentive, with normal cognition, memory, speech and affect. Cranial Nerves Visual ortiz intact. Pupils reactive. Extraocular movements conjugate and full. No ptosis. No nystagmus. Facial sensation intact. Face symmetric and strong. Palate and tongue normal. XI normal. Hearing aids are in. Motor Examination and Coordination Motor examination with normal bulk, strength and tone. No drift. Normal rapid alternating movements and coordination. No adventitious movements or significant tremor. Reflexes Deferred Sensation Sensation intact to light touch, and proprioception. Gait Arises easily. Casual gait, tandem, and Romberg are normal. Can rise on heels and toes. Assessment AND Plan 12/31/2023 - General Neurology, Shari Condon MD ASSESSMENT 1) 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 We talked about controlling his CV (more content not included)...[facility] 11-10-2023 History of Present illness Narrative* Tessa Kasper RT(R) - 11/10/2023 10:00 AM EDT Radiology Service Progress Note PATIENT NAME: Eduardo Morales DATE OF SERVICE: November 10, 2023 TIME: 9:56 AM PATIENT IDENTITY VERIFICATION COMPLETED USING TWO (2) IDENTIFIERS: Name and Date of confirmedby patient verbally. FALL SCREENING: Has the patient had 2 falls in the last year or 1 fall with injury or currently using an Ambulatory Assistive Device (Walker, Cane, Wheelchair, Crutches, etc.)? No PATIENT GENDER DATA: Male PATIENT RELEVANT IMPLANT DATA REVIEWED: Yes PATIENT PRESENTS WITH AN IMPLANTABLE OR ATTACHED ADMINISTRATIVE SUPPORT MANAGER: No RADIOLOGY DEPARTMENT: MR; Exam(s) Completed: Head: Dementia PERIPHERAL IV DATA: Not applicable SIGNED BY: RT Travis(R) November 10, 2023 9:56 AM documented in this encounterSt. [facility] Telephone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 lasting 2 hours 17 mins with an avg rate of 92 bpm. 7 Pauses occurred, the longestlasting 4.2 secs (14 bpm). Atrial Fibrillation was detected within +/- 45 seconds of symptomatic patient event(s). Isolated SVEs were rare (<1.0%), SVE Couplets were rare (<1.0%), and SVE Triplets were rare (<1.0%). Isolated VEs were rare (<1.0%), VE Couplets were rare (<1.0%), and no VE Triplets were present. Ventricular Trigeminy was present. CARDIAC CATH 09/15/22 LMT: The distal LMT is narrowed 60 % - focal disease. Additional Comment: The LM bifurcates into the LAD and LCX arteries . IVUS is performed and MLA 7.3at its narrowest point. RFR is performed as well, with findings showing 0.9 x3. With pullback, peakgoes up to 0.96. LAD: The proximal LAD - moderate diffuse disease. Additional Comment: The LAD has moderate, diffuse disease proximally and wraps around the apex. LCX: The proximal circumflex is narrowed 60 % - focal disease. Additional Comment: The LCX is a non-dominant vessel that provides a l-PLV branch with a 60% proximal lesion. RAMUS: The Ramus is Absent. RCA: The proximal RCA - mild diffuse disease. The distal RCA is narrowed 40 % - focal disease. Additional Comment: The RCA is a dominant vessel with mild, diffuse disease in the proximal portionwith a 40% lesion in the distal portion. FFR Results: LAD RFR: 0.9, 0.9, 0.9 Pull back: 0.9 that peaks at 0.96 OSH - ECHO (TTE) 01/19/22 OSH - NM STRESS TEST 11/20/21 Last EKG Result Conclusion ECG COMPLETE Collected: 07/15/2023 12:47 PM (Final result) Impression: SINUS BRADYCARDIA WITH PREMATURE ATRIAL COMPLEXES OTHERWISE NORMAL ECG Confirmed by TRAN MEDINA MD ([id number]) on 08/02/2023 2:27:02 PM I have personally reviewed the Electrocardiogram. IMPRESSION: Mr. Morales is a 78 year old male with a history of coronary artery disease and paroxysmal atrial fibrillation who is here for an opinion regarding consideration of a Watchman device. Patient has atrial fibrillation and a high CHADS2 Vasc score. Because of his bowel disease, he is not a candidate for a direct oral anticoagulant. He had significant trouble with warfarin in the past. In addition, with his history of dementia and gait abnormalities-he is at an elevated risk of falling. In light of that, agree with consideration of a left atrial appendage occluder device. We spoke at length about antithrombotic therapy periprocedurally. Patient will follow-up with his regular children's entertainer Dr. Gabriel ospina-keke. I personally interviewed, confirmed and edited the above information as obtained by others. CONTACT INFORMATION: Manjit Guerrier MD, MS, FACC, FSVM, FACP, ALESHIA Villegas and Fany Hansen Department of [place] [address] Appointments: (Cardiology); (Vascular Medicine) This note was dictated using a voice recognition software. Please excuse any inadvertent typographical/grammatical/syntax errors that may have escaped the final proofread. Please don't hesitate to contact my office for any clarification. documented in this encounterSt. Rita'[facility]04-05-2024 History of Present illness Narrative* Stanley Grullon RN - 09/24/2023 10:45 AM EDT Radiology Service Progress Note DATE OF SERVICE: September 24, 2023 TIME: 10:45 AM PATIENT WEIGHT: 195 LBS PATIENT IDENTITY VERIFICATION COMPLETED USING TWO (2) STANDARD IDENTIFIERS: Name and Date of confirmed by patient verbally. FALL SCREENING: Has the patient had 2 falls in the last year or 1 fall with injury or currently using an Ambulatory Assistive Device (Walker, Cane, Wheelchair, Crutches, etc.)? No PATIENT GENDER DATA: Male ALLERGIES: Reviewed and unchanged CONTRAST ALLERGY: No EXAM: CT -CONTRAST INDUCED NEPHROPATHY RISK FACTORS: Patient age > 60 years CREATININE: Creatinine Date Value Ref Range Status 09/15/2022 1.12 0.73 - 1.22 mg/dL Final Estimated Glomerular Filtration Rate Date Value Ref Range Status 09/15/2022 69 >=60 mL/min/1.73m Final Comment: Estimated Glomerular Filtration Rate (eGFR) is calculated using the 2020 CKD-EPI creatinine equation. This equation utilizes serum creatinine, sex, and age as parameters. The creatinine assay has traceable calibration to isotope dilution- mass spectrometry. Refer to KDIGO guidelines for clinical interpretation. In patients with unstable renal function, e.g. those with acute kidney injury, the eGFRmay not accurately reflect actual GFR. P.O.C.T. RESULTS: POC done: Yes, See Lab Tab September 24, 2023 TREATMENT: N/A and No Hydration needed. IV SITE: Ambulatory: A peripheral IV was started in the Left antecubital site with a Angio cath: 20gauge. and A Saline lock was inserted per protocol IV SITE APPEARANCE: Clean,Dry and Intact SIGNATURE: Stanley Grullon RN PATIENT NAME: Eduardo Morales DATE: September 24, 2023 TIME: 10:45 AM * Tere Hayes RT(R) - 09/24/2023 10:45 AM EDT Radiology Service Progress Note PATIENT NAME: Eduardo Morales DATE OF SERVICE: September 24, 2023 TIME: 11:02 AM PATIENT IDENTITY VERIFICATION COMPLETED USING TWO (2) IDENTIFIERS: Name and Date of confirmedby patient verbally. FALL SCREENING: Has the patient had 2 falls in the last year or 1 fall with injury or currently using an Ambulatory Assistive Device (Walker, Cane, Wheelchair, Crutches, etc.)? No PATIENT GENDER DATA: Male PATIENT RELEVANT IMPLANT DATA REVIEWED: Yes PATIENT PRESENTS WITH AN IMPLANTABLE OR ATTACHED ADMINISTRATIVE SUPPORT MANAGER: No RADIOLOGY DEPARTMENT: CT; Exam(s) Completed: Cardiac PERIPHERAL IV DATA: Site assessment: Clean,Dry and Intact, Site disposition Discontinued SIGNED BY: RT Tracy(R) September 24, 2023 11:02 AM documented in this encounterSt. Rita'[facility] Hospital04-04-2024 Miscellaneous Notes* Telephone Encounter - Tawanda Kyle - 09/23/2023 4:29 PM EDT Electronic request for refill. Requested Prescriptions Pending Prescriptions Disp Refills apixaban (ELIQUIS) 5 mg tab(s) 180 tablet 3 Sig: Take 1 tablet by mouth two times a day. Last office visit in was 07/15/2023 Tawanda Kyle documented in this encounterSt. Rita'[facility] Hospital02-02-2024 Miscellaneous Notes* Telephone Encounter - Emmie Vásquez RN - 07/23/2023 11:43 AM EST Patient returned call & accepted date. Needs Shared Decision Making appointment with Clinical Cardiology staff, Echo, Cardiac CT, ECG & Labs (CBC,BMP,30 day T&S) within 30 days prior to procedure date. Medication instructions given, as indicated below. Stated understanding. * Telephone Encounter - Joanie Molina RN - 07/23/2023 10:21 AM EST Attempted to reach patient, no answer, left voicemail message offering procedure date of Wednesday10/04/23 and AFib scheduling office number. Awaiting return call from patient. Joanie Molina RN, RN * Telephone Encounter - Joanie Molina RN - 07/23/2023 9:51 AM EST Called patient to schedule procedure as requested below, patient asked that we call back after 10am. Will try to reach patient after 10am. Joanie M Dehlinger, RN, RN * Telephone Encounter - Joanie Molina RN - 07/23/2023 9:51 AM EST ----- Message from Jm Cruz MD sent at 07/15/2023 2:41 PM EST ----- Regarding: AFIB Patient: Eduardo Morales EP Lab Procedure requested: Left Appendage Closure Device Watchman CPT 26848 and PVI Anticoagulation Status: Eliquis (apixaban) Requesting Physician: Jm Cruz MD,MPH Procedural Physician: MD Jm Swann MD,MPH Date of last H&P or Date of upcoming H&P: 07/15/23 Indications for procedure: Atrial Fibrillation Procedure time frame: Patient convenience Current Meds: Current Outpatient Medications: apixaban (ELIQUIS) 5 mg tab(s) finasteride (PROSCAR) 5 mg tablet ezetimibe (ZETIA) 10 mg tablet rosuvastatin (CRESTOR) 10 mg tablet tamsulosin (FLOMAX) 0.4 mg multivit-minerals/folic acid (MEN'S MULTIVITAMIN GUMMIES ORAL) cyanocobalamin (VITAMIN B-12) 1,000 mcg tab Cetirizine 10 mg cap potassium chloride ER (K-DUR, KLOR-CON) 20 mEq tablet Cholecalciferol, Vitamin D3, 25 mcg (1,000 unit) cap azelastine (ASTELIN, ASTEPRO) 0.1% nasal spray furosemide (LASIX) 20 mg tablet input Section Potential Research Patient: No General anesthesia or Managed Anesthesia Care (MAC) needed: Yes Conscious Sedation: No Mapping Ablation: [employer] (REGGIE) CT Scan needed pre-procedure: Yes ECHO needed pre-procedure: Yes Anticoagulation: Continue anticoagulation. Do not interrupt. Stop Antiarrhythmic: No Stop Beta Trista/ Calcium Channel Trista: No ASA: N/A Plavix: N/A Additional instructions:None Is the patient a candidate for same day d/c: No Need to coordinate with Jody so that he can do the Watchman portion. Jm Cruz MD July 15, 2023 2:42 PM documented in this encounterSt. Rita'[facility] Hospital10-18-[address] [facility]10-18-2023 History of Present illness Narrative* Clarence Rios MD - 04/07/2023 7:54 AM EDT Significant a fib on zio Non therapeutic response to coumadin and apixaban (prior SB surg) Consult vasc med- best anticoag options? If nothing good, consider ablation/Watchman Dr Rios documented in this encounterSt. Rita'[facility] Hospital10-11-2023 Miscellaneous Notes* Telephone Encounter - Kathryn Guerra - 03/31/2023 9:14 AM EDT Office received medical record request from [facility] - Scanned & uploaded into patients chart - Review under scanned documents - Office faxed over requested medical records for surgery clearance - Records Include: Office Visit Notes on 03/11/23 EKG on 09/15/22 Cardiac Cath Report on 09/15/22 Sent & delivered on 03/31/23 via LanFax - documented in this encounterSt. Rita'S Hospital08-21-2023 History of Present illness Narrative* Clarence Rios MD - 02/08/2023 11:50 AM EDT Images from the original note were not included. [facility] [place] Department of Cardiovascular Medicine SECTION OF INTERVENTIONAL CARDIOLOGY OUTPATIENT VISIT DATE February 08, 2023 OUTPATIENT VISIT TYPE ESTABLISHED PRIMARY CARE PHYSICIAN: To use this Smartlink, specify the provider ID whose address you want to display, e.g., .PROVADDR[1(where 1 is the provider ID). REFERRING PHYSICIAN: No referring provider defined for this encounter. CHIEF COMPLAINT: Patient presents with: Follow Up HISTORY OF PRESENT ILLNESS: Mr. Morales is a 77 year old male who presents today for follow-up visit . He denies . PAST CARDIAC HISTORY: See HPI No past medical history on file. No past surgical history on file. SOCIAL HISTORY Social History Tobacco Use Smoking status: Former Types: Cigarettes Quit date: 1997 Years since quittin.6 Smokeless tobacco: Never Substance Use Topics Alcohol use: Not Currently Drug use: Never No family history on file. ALLERGIES: ALLERGIES Allergen Reactions Hydromorphone (Bulk) Vomiting Latex Itching, Rash Morphine GI Upset, Vomiting Memantine Intolerance Dizziness MEDICATIONS: Current Outpatient Medications Medication Sig atorvastatin (LIPITOR) 80 mg tablet Take 80 mg by mouth once daily. tamsulosin (FLOMAX) 0.4 mg Take 0.4 mg by mouth once daily. multivit-minerals/folic acid (MEN'S MULTIVITAMIN GUMMIES ORAL) Take 2 tablets by mouth once daily. cyanocobalamin (VITAMIN B-12) 1,000 mcg tab Take 500 mcg by mouth q 24 HR. Cetirizine 10 mg cap Take 10 mg by mouth once daily. apixaban (ELIQUIS) 5 mg tab(s) Take 5 mg by mouth twice daily. potassium chloride ER (K-DUR, KLOR-CON) 20 mEq tablet Take 20 mEq by mouth once daily. Cholecalciferol, Vitamin D3, 25 mcg (1,000 unit) cap Take 1,000 Units by mouth q 24 HR. azelastine (ASTELIN, ASTEPRO) 0.1% nasal spray Use 1 [place] in each nostril once daily. fish oil/borage/flax/om3,6,9 1 (OMEGA 3-6-9 ORAL) Take by mouth. furosemide (LASIX) 20 mg tablet Take 20 mg by mouth once daily. No current facility-administered medications for this visit. REVIEW OF SYSTEMS: PHYSICAL EXAMINATION: BP 134/57 Pulse 54 Resp 17 Ht 6' 0 (1.83m) Wt 188 lb 8 oz (85.5kg) SpO2 99% BMI 25.56 kg/(m^2). CARDIOVASCULAR MEDICINE TESTING: Last EKG Result Conclusion ECG COMPLETE Collected: 09/15/2022 11:29 AM (Final result) Impression: SINUS BRADYCARDIA OTHERWISE NORMAL ECG Confirmed by CAROL WILBURN, TRAN ([id number]) on 09/24/2022 11:43:16 PM IMPRESSION: Mr. Morales is a 77 year old male last seen 09/10 when preop for cholecystectomy had SPECT-> TID-> cath 60% LMT No active Had mild DODD PAF AAA-3.7 h/o SB surg early dementia Cath: CSA 7.3 RFR 0.94 -> OMT lipitor 80 -> 96 TC LDL 40s apix lasix Today Never had surg Not very active, maybe walking 5K steps No EAP, mild stable DODD He and his thinks legs are weaker since being on lipitor Wonders if apix working d/t his prior SB surg ([facility] refuses to [place] it) PLAN AND RECOMMENDATION Lipitor-> LD crestor+zetia Check INR CONTACT INFORMATION: documented in this encounterSt. Rita'S Hospital03-29-2023 Miscellaneous Notes* Telephone Encounter - Kathryn Guerra - 09/16/2022 4:02 PM EDT Pt , Andie, called wanting to verify medication - Pt had appt with Dr. Rios 09/15/22 - Dr. Rios changed Lipitor medication Pt thought Dr. Rios said 40 MG of LIPITOR DAILY - pt picked up RX from pharmacy and directions say- TAKE 4 TABLETS BY MOUTH DAILY - Pt is wanting to confirm if this is correct before he proceeds w/ taking the medication - documented in this encounterSt. Rita'S Hospital03-27-2023 Miscellaneous Notes* Telephone Encounter - Renee Torres RN - 09/14/2022 1:45 PM EDT CARDIOVASCULAR LAB INSTRUCTIONS: Readiness to Learn: Cognitive Ability: Alert and oriented Motivation To Learn: Interested Family/Significant Other Support: Unable to assess - Family not present Instruction Provided To: Patient Patient Learns Best By: Individual Instruction Factors Affecting Learning: None Physical Limitations Affecting Learning: None Learning Response: Procedure: Diagnostic Cath with Intervention Pre procedure education topics: Arrival time/NPO Status/Medications/Travel Instructions/Restrictions- patient aware to be accompanied by adult frontload driver upon discharge Patient/Family Response Evaluation: Verbalizes understanding Follow Up Plan and Medication: As directed by physician Instruction/Supplemental Material Given: Cardiac catheterization instructions, procedure information, hospital information, hotel information. Instructed By Renee Torres RN, RN. In Department of CARDIOLOGY. documented in this encounterSt. Rita'S Hospital03-16-2023 Miscellaneous Notes* Telephone Encounter - Kailyn Iniguez RN - 09/03/2022 1:56 PM EDT CARDIOVASCULAR LAB INSTRUCTIONS: Readiness to Learn: Cognitive Ability: Alert and oriented Motivation To Learn: Interested Family/Significant Other Support: Unable to assess - Family not present Instruction Provided To: Patient Patient Learns Best By: Verbal Instruction Factors Affecting Learning: None Physical Limitations Affecting Learning: None Learning Response: Procedure: Left Heart Diagnostic Pre procedure education topics: Arrival time/NPO Status/Medications/Travel Instructions/Restrictions. Pt took Eliquis at 0800 this AM. Told to Hold. Dr. Rios text paged and emailed about the Eliquis. Patient/Family Response Evaluation: Verbalizes understanding Follow Up Plan and Medication: As directed by physician Instruction/Supplemental Material Given: Cardiac catheterization instructions, procedure information, hospital information, hotel information. Instructed By Alfredo Iniguez RN, RN. In Department of CARDIOLOGY. documented in this encounterSt. Rita'S Hospital02-20-2023 History and physical note * Julito Cali MD - 08/10/2022 3:46 PM EST Images from the original note were not included. [facility] [place] Department of Cardiovascular Medicine Section of Interventional Cardiology Outpatient visit date: August 10, 2022 Visit Type: New patient Primary Physician No primary care provider on file. No primary provider on file. Impression: Coronary artery disease LHC 60% left main stenosis with described catheter dampening (outside films not available) 11/20/21 SPECT TID 1.2 HLD AAA pAF on AFIB on Eliquis Hx of bowel perforation s/p patria-colectomy, ?small bowel resection? 2009 Plan: [facility] with IVUS of left main Patient seen and plan of care formulated with Dr. 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 He presented to a hospital in [place] September 2021 with abdominal discomfort and was recommended to have a cholecystectomy. He underwent cardiac risk stratification and was found to have TID 1.2 on SPECT. Subsequent cardiac catheterization revealed 60% left main stenosis with described catheter dampening (outside films not available). He reports some dyspnea on exertion. He is not very physically active. He does not have significant chest pain on exertion. He otherwise denies palpitations, syncope, pre-syncope, early satiety, orthopnea, PND, edema. ast cardiac history: As noted above. Past medical history: No past medical history on file. Past surgical history: No past surgical history on file. Social history: Social History Tobacco Use Smoking status: Former Types: Cigarettes Quit date: 1997 Years since quittin.1 Smokeless tobacco: Never Substance Use Topics Alcohol use: Not Currently Drug use: Never Family history: No family history on file. Current medications: cefdinir (OMNICEF) 300 mg capsule Take 300 mg by mouth twice daily. tamsulosin (FLOMAX) 0.4 mg Take 0.4 mg by mouth once daily. multivit-minerals/folic acid (MEN'S MULTIVITAMIN GUMMIES ORAL) Take 2 tablets by mouth once daily. cyanocobalamin (VITAMIN B-12) 1,000 mcg tab Take 500 mcg by mouth q 24 HR. atorvastatin (LIPITOR) 20 mg tablet Take 20 mg by mouth once daily. Cetirizine 10 mg cap Take 10 mg by mouth once daily. apixaban (ELIQUIS) 5 mg tab(s) Take 5 mg by mouth twice daily. potassium chloride ER (K-DUR, KLOR-CON) 20 mEq tablet Take 20 mEq by mouth once daily. Cholecalciferol, Vitamin D3, 25 mcg (1,000 unit) cap Take 1,000 Units by mouth q 24 HR. azelastine (ASTELIN, ASTEPRO) 0.1% nasal spray Use 1 [place] in each nostril once daily. fish oil/borage/flax/om3,6,9 1 (OMEGA 3-6-9 ORAL) Take by mouth. furosemide (LASIX) 20 mg tablet Take 20 mg by mouth once daily. Allergies: ALLERGIES Allergen Reactions Hydromorphone (Bulk) Vomiting Latex Itching, Rash Morphine GI Upset, Vomiting Memantine Intolerance Dizziness ROS: Constitutional: denies fevers chills or change in weight Eyes: denies changes in visual acuity, floaters, double vision ENT: denies changes in hearing acuity, rhinorrhea, coryza CV: as noted in HPI Pulm: denies cough, wheezing, hemoptysis GI: denies abdominal pain, nausea, vomiting, melena, hematochezia, dysphagia : denies dysuria, hematuria, nephrolithiasis. Musculoskel: denies myaglias, arthralgias, or unsteady gait Integ: denies rash, non healing wounds or ulcers Heme: denies easy bruising or bleeding diathesis Endo: denies polyuria, polydipsia, polyphagia, or temperature intolerance Neuro: denies numbness tingling or speech disturbance Psych: denies depression or anxiety Allergy/Immuno: denies seasonal allergies or immunocompromised state PHYSICAL EXAM: BP 121/55 Pulse 62 Resp 15 Ht 182.9 cm (6') Wt 87.7 kg (193 lb 6.4 oz) SpO2 97% BMI 26.23 kg/m General: Stable, with no apparent distress. Neck: JVP 7cm @ 45deg. No carotid bruits. CV: RRR no MRG; Normal S1S2; non-sustained, non-displaced PMI. Respiratory: CTA x 2. GI: No palpable aneurysm Extremities: Intact peripheral pulses. Integumentary: No clubbing, cyanosis, or edema. Neuro: Intact speech/language. Non-focal motor/sensory exam. CARDIOVASCULAR MEDICINE TESTING: SPECT 11/20/21 [facility] 03/09/22 documented in this encounterSt. Rita'S Hospital02-07-2023 Miscellaneous Notes* Telephone Encounter - Blair Hale - 07/28/2022 10:08 AM EST Scanned through onbase, review in scanned documents documented in this encounterSt. Rita'S HospitalDischarge summary Author Dashawn Cortes [facility] April 07, 2023 10:27am Note Date/Time April 07, 2023 1 0:27am [facility] Medical Records Department [address] [place] [address] Instructions for Home/Discharge Instructions 04/07/23 1027 MR#: [id number] Acct: [id number] Name: EDUARDO MORALES Rep #:[id number] : 1945 77 From: Dashawn Cortes MD PCP: ANNA Khalil Status:REG S DC Discharge Instructions Diet Discharge Diet: No restrictions Activity Discharge Activity: Return to Normal Activity and May Not Drive (while taking narcotic pain medications.) Dressing / Incision Call your doctor if you observe: Fever of 101 or Higher Follow Up Care Please Follow Up With: Dashawn Cortes MD When: Call [phone] for an appointment Test Results: Test results from this visit will be discussed in further detail at your follow- up appointment, if applicable. Discharge Plan Admission Primary Reason for Your Visit: Dilation of meatus Attending Provider: Dashawn Cortes Primary Care Provider: Adam Shane Consulting Providers: Mikie Armstrong Discharge Orders/Prescriptions Prescriptions: New cephalexin 500 mg capsule 500 mg PO BID Qty: 10 0RF Continued Eliquis 5 mg tablet 5 mg PO BID ezetimibe 10 mg tablet 10 mg PO DAILY Patient Comments: TAKE 1 TABLET BY MOUTH ONCE DAILY potassium chloride [Klor-Con M20] 20 mEq tablet,ER particles/crystals 20 meq PO DAILY finasteride 5 mg tablet 5 mg PO DAILY furosemide 20 mg tablet 20 mg PO DAILY tamsulosin 0.4 mg capsule 0.4 mg PO QHS rosuvastatin 10 mg tablet 10 mg PO QHS Patient Comments: TAKE 1 TABLET BY MOUTH EVERY DAY AT BEDTIME fluticasone propionate 50 mcg/actuation spray,suspension 1 spray INTRANASAL DAILY omega 4-yjd-etb-fish oil [Fish Oil] 1,200 (144-216) mg capsule 1 cap PO DAILY cholecalciferol (vitamin D3) [Vitamin D3] 25 mcg (1,000 unit) capsule 25 mcg PO DAILY mecobalamin (vitamin B12) 500 mcg tablet,chewable 500 mcg PO DAILY uwajzjytzobr-twxerlbe-cosevs Tablet 1 tab PO DAILY All Day Allergy (cetirizine) 10 mg capsule 10 mg PO DAILY PRN (Reason: allergy symptoms) Referrals / Follow Up: Dashawn Cortes MD [Med Staff - Active Staff] - Adam Shane PA [Primary Care Provider] - Disposition Disposition (needs filled in before D/C Order can be placed): Home, Self Care 04/07/23 1027<Electronically signed by Dashawn Cortes MD>Dashawn Cortes MD CC: Dr. Mikie Armstrong MD; ANNA Khalil ~ Signed [facility] Work Phone: Evaluation note* Diagnosis Coronary artery disease involving port graham coronary artery of port graham heart with other form of angina pectoris (HCC)- Primary Coronary artery disease involving port graham coronary artery of port graham heart with other form of angina pectoris (HCC) [facility]* Diagnosis Dyspnea, unspecified type- Primary Dyspnea, unspecified type [facility] Diagnosis Weakness of both lower extremities- Primary Paroxysmal atrial fibrillation (HCC) Atrial fibrillation Pulmonary hypertension (HCC) Other chronic pulmonary heart diseases documented in [facility] noteNo assessment information availableWChildren's [facility] for [facility] Work Phone: Evaluation note* Diagnosis Paroxysmal atrial fibrillation (HCC)- Primary Atrial fibrillation [facility]* Diagnosis Paroxysmal atrial fibrillation (HCC)- Primary Atrial fibrillation [facility]* Diagnosis Paroxysmal atrial fibrillation (HCC)- Primary Atrial fibrillation documented in [facility] encounter [facility]* Diagnosis Paroxysmal atrial fibrillation (HCC)- Primary Atrial fibrillation Atrial fibrillation, unspecified type (HCC) [facility] Diagnosis Paroxysmal atrial fibrillation (HCC) Atrial fibrillation Atrial fibrillation, unspecified type (HCC) [facility]* Diagnosis Paroxysmal atrial fibrillation (HCC)- Primary Atrial fibrillation Coronary artery disease involving port graham coronary artery of port graham heart with other form of angina pectoris (HCC) Anticoagulation management encounter Encounter for therapeutic drug monitoring Atrial fibrillation, unspecified type (HCC) [facility]* Diagnosis Atrial fibrillation, unspecified type (HCC)- Primary [facility]* Diagnosis Paroxysmal atrial fibrillation (HCC)- Primary Atrial fibrillation Presence of Watchman left atrial appendage closure device [facility]* Diagnosis Mixed dementia (HCC)- Primary Vitamin D deficiency Unspecified vitamin D deficiency [facility]* Diagnosis MCI (mild cognitive impairment)- Primary Mild cognitive impairment, so stated [facility]* Diagnosis Paroxysmal atrial fibrillation (HCC)- Primary Atrial fibrillation 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) DODD (dyspnea on exertion) Other dyspnea and respiratory abnormality [facility]* Diagnosis Coronary artery disease involving port graham coronary artery of port graham heart without angina pectoris- Primary [facility]* Diagnosis Mixed dementia (HCC) [facility]* Diagnosis Major neurocognitive disorder (HCC)- Primary Unspecified persistent mental disorders due to conditions classified elsewhere [facility] Diagnosis Paroxysmal atrial fibrillation (HCC)- Primary Atrial fibrillation [facility]* Diagnosis Paroxysmal atrial fibrillation (HCC)- Primary Atrial fibrillation [facility] Diagnosis Coronary artery disease involving port graham coronary artery of port graham heart without angina pectoris- Primary [facility] Diagnosis Chronic atrial fibrillation (HCC)- Primary Atrial fibrillation [facility] this [facility]* Diagnosis Coronary artery disease involving port graham coronary artery of port graham heart with other form of angina pectoris- Primary Presence of Watchman left atrial appendage closure device documented [facility] this [facility]* Diagnosis Elevated liver function tests- Primary Other abnormal blood chemistry [facility] Author Dashawn Cortes [facility] April 07, 2023 10:27am Note Date/Time April 07, 2023 1 0:27am [facility] Medical Records Department [address] [place] [address] History & Physical Exam 04/07/23 1025 MR#: [id number] Acct: [id number] Name: EDUARDO MORALES Rep #:[id number] : 1945 77 From: Dashawn Cortes MD PCP: ANNA Khalil Status:REG S DC Location: [place] [address] HPI - General HPI Narrative EDUARDO MORALES, is a 77 M who presents for dilation of meatal stenosis patient also has a hypospadias [facility] Medical History (Updated 03/26/23 @ 12:50 by Kimberly Dsouza) Abdominal aortic aneurysm (AAA) Abrasion Alzheimer disease Ambulates with cane Arthritis Back pain Bladder disease Cardiology follow-up encounter Diabetes Dietary restriction Easy bruising Exposure to Agent [place] Fatty liver Former smoker High cholesterol History of atrial fibrillation History of diverticulitis History of echocardiogram History of edema History of GI bleed History of Holter monitoring History of renal disease History of stress test Hypotension Injury of head and neck Loss of hearing Prostate disease Shortness of breath on exertion Syncope TIA (transient ischemic attack) Wears glasses Home Medications apixaban 5 mg tablet (Eliquis) 5 mg PO BID 03/26/23 [History Last Taken 04/02/23] cetirizine 10 mg capsule (All Day Allergy (cetirizine)) 10 mg PO DAILY PRN allergy symptoms 03/26/23 [History Last Taken Unknown] cholecalciferol (vitamin D3) 25 mcg (1,000 unit) capsule (Vitamin D3) 25 mcg PO DAILY 03/26/23 [History Last Taken Unknown] ezetimibe 10 mg tablet 10 mg PO DAILY 03/26/23 [History Last Taken Unknown] finasteride 5 mg tablet 5 mg PO DAILY 03/26/23 [History Last Taken Unknown] fluticasone propionate 50 mcg/actuation nasal spray,suspension 1 spray intranasal DAILY 03/26/23 [History Last Taken Unknown] furosemide 20 mg tablet 20 mg PO DAILY 03/26/23 [History Last Taken Unknown] mecobalamin (vitamin B12) 500 mcg chewable tablet 500 mcg PO DAILY 03/26/23 [History Last Taken Unknown] ybjhstskxfkg-gnvtytrg-gtytcn tablet 1 tab PO DAILY 03/26/23 [History Last Taken Unknown] omega 6-tun-gsq-fish oil 1,200 mg (144 mg-216 mg) capsule (Fish Oil) 1 cap PO DAILY 03/26/23 [History Last Taken 03/26/23] potassium chloride 20 mEq tablet,extended release(part/cryst) (Klor-Con M) 20 meq PO DAILY 03/26/23 [History Last Taken Unknown] rosuvastatin 10 mg tablet 10 mg PO QHS 03/26/23 [History Last Taken Unknown] tamsulosin 0.4 mg capsule 0.4 mg PO QHS 03/26/23 [History Last Taken Unknown] cephalexin 500 mg capsule 500 mg PO BID #10 caps 04/07/23 [Rx Last Taken Unknown] Allergy/AdvReac Type Severity Reaction Status Date / Time latex Allergy Intermediate Other Verified 04/07/23 08:04 adhesive tape AdvReac Intermediate Other Verified 04/07/23 08:04 hydromorphone [From Dilaudid] AdvReac Intermediate Vomiting Verified 04/07/23 08:04 morphine AdvReac Intermediate Vomiting Verified 04/07/23 08:04 Surgical History (Updated 03/26/23 @ 12:50 by Kimberly Dsouza) History of cardiac catheterization History of colectomy History of colostomy reversal Hx of arthroscopy of left knee Hx of arthroscopy of right knee Hx of colonoscopy Hx of esophagogastroduodenoscopy Hx of total hip arthroplasty Hx of total hip arthroplasty Social History Smoking Status: Former smoker Vital Signs Vital Signs Vital Signs: 04/07/23 08:17 04/07/23 08:17 Temperature 97.3 F L Temperature Source Temporal Pulse Rate 68 Respiratory Rate 18 Respiratory Pattern Normal Blood Pressure 128/50 H Blood Pressure Mean 76 Blood Pressure Source Monitor Blood Pressure Position Semi-Fowlers Blood Pressure Location Right Arm Pulse Ox 100 Oxygen Delivery Method Room Air Weight Weight: 87 kg Body Mass Index (BMI) 25.9 04/07/23 1027 <Electronically signed by Dashawn Cortes MD> Cosigner Signature (if applicable): CC: Dr. Dashawn Cortes MD; ANNA Khalil~ Signed [facility] Work Phone: Hospital Discharge instructions Additional Instructions Implant Used?: [facility] Work Phone: Hospital Discharge instructionsAdditional Instructions Thank you for trusting us with your care today! Your labs images are reassuring. Specifically no sign of damage to your heart or signs of bowel obstructions, perforations or new gallbladder findings. The cause of your chest pain is unclear at this time but does NOT represent a life-threatening process given labs and images. Please take Tylenol (2 pills, 650 mg), ibuprofen (2 pills, 400 mg) every 6 hours as needed for pain and fever control. Please return to the emergency department if your symptoms change or worsen. Please follow with your primary care physician for further outpatient evaluation and management.[facility] Work Phone: Reason for referral (narrative)* Outpatient Procedure (Routine) - Pending Review Specialty Diagnoses / Procedures Referred By Contac t Referred To Contact [facility] [place] Diagnoses Paroxysmal atrial fibrillation (HCC) Presence of Watchman left atrial appendage closure device Procedures ECHO TRANSESOPHAGEAL ECHO TRANSESOPHAG R-T 2D W/PRB IMG ACQUANASTASIA Lovell&R Jm Cruz MD [address] [place] [address] [facility] [place] [id number] [place] [address] Referral ID Status Reason Start Date Expiration Date Visits Requested Visits Authorized [id number] Pending Review Auto-Generat ed Referral 10/14/2023 10/13/2024 1 1 * Outpatient Procedure (Routine) - Pending Review Specialty Diagnoses / Procedures Referred By Contac t Referred To Contact [facility] Diagnoses Paroxysmal atrial fibrillation (HCC) Procedures ECG COMPLETE ECG ROUTINE ECG W/LEAST 12 LDS W/I&R Jm Cruz MD [address] [place] [address] [address] Referral ID Status Reason Start Date Expiration Date Visits Requested Visits Authorized [id number] Pending Review Auto-Generat ed Referral 10/14/2023 10/13/2024 1 1 [facility] for referral (narrative)* Outpatient Procedure (Routine) - New Request Specialty Diagnoses / Procedures Referred By Contac t Referred To Contact [facility] Diagnoses Paroxysmal atrial fibrillation (HCC) Procedures ECG COMPLETE ECG ROUTINE ECG W/LEAST 12 LDS W/I&R Jm Cruz MD [address] [place] [address] [address] Referral ID Status Reason Start Date Expiration Date Visits Requested Visits Authorized [id number] New Request Auto-Generat ed Referral 01/03/2024 01/02/2025 1 1 * Transition of Care (Routine) - Ref Not Required Specialty Diagnoses / Procedures Referred By Contac t Referred To Contact [facility] Procedures CARDIOVASCULAR MEDICINE [place] [address] [place] [address] [address] Referral ID Status Reason Start Date Expiration Date Visits Requested Visits Authorized [id number] Ref Not Required PCP Requested Referral 09/19/2024 01/02/2025 1 1 [facility] for referral (narrative)* Diagnostic Procedure Only (Routine) - Closed Specialty Diagnoses / Procedures Referred By Contac t Referred To Contact [facility]AG[facility] Diagnoses Mixed dementia (HCC) Procedures MRI BRAIN W QUANT WO IVCON MRI BRAIN BRAIN STEM W/[place] [address] [place] [address] Mr Imaging [place] [address] Referral ID Status Reason Start Date Expiration Date Visits Re quested Visits Authorized [id number] Closed 09/16/2023 04/25/2024 1 1 [facility] for referral (narrative)* Transition of Care (Routine) - Authorized Specialty Diagnoses / Procedures Referred By Contac t Ref[facility] Procedures CARDIOVASCULAR MEDICINE OP FOLLOW UP APPT ORDER Clarence Rios MD [address] [place] [address] Phone: tel: fax: [facility] [place] [address] [place] [address] Referral ID Status Reason Start Date Expiration Date Visits Requested Visits Authorized [id number] Authorized PCP Requested Referral 5 11/01/2025 1 1 * Transition of Care (Routine) - Authorized Specialty Diagnoses / Procedures Referred By Contac t Referred To [facility] Procedures CARDIOVASCULAR MEDICINE [place] [address] [place] [address] Phone: tel: fax: [facility] [place] [address] [place] [address] Referral ID Status Reason Start Date Expiration Date Visits Requested Visits Authorized [id number] Authorized PCP Requested Referral 5 11/01/2025 1 1 [facility] for referral (narrative)No reason for referral information availableWChildren's Hospital for Rehabilitation Work Phone: Reason for visit Narrative* Outpatient Procedure (Routine) - Closed Specialty Diagnoses / Procedures Referred By Contact Referred To Contact Cardiology / CARDIOVASCULAR MEDICINE Diagnoses Coronary artery disease follow up per recall order Procedures EST EPS Jm Cruz MD [address] [place] [id number] Phone: tel: fax: Jm Cruz MD [address] [place] [address] Phone: tel: fax: Referral ID Status Reason Start Date Expiration Date Visits Re quested Visits Authorized [id number] Closed 08/17/2024 08/17/[address] [facility] Reason for Referral Specialty Diagnoses / Procedures Referred By Contac t Referred To Contact Radiology Diagnoses Dyspnea, unspecified type Procedures XR CHEST 2 VIEW PA+LAT Christian Montesinos, [employer] [address] [place] [address] [facility] [address] [place] [address] [place] [address] Referral ID Status Reason Start Date Expiration Date Visits Re quested Visits Authorized [id number] Closed 10/09/2022 10/09/2023 1 1 Specialty Diagnoses / Procedures Referred By Contac t Referred To Contact Vascular [facility] Diagnoses Paroxysmal atrial fibrillation (HCC) Procedures CONSULT TO VASCULAR MEDICINE OFFICE/OUTPATIENT [facility] 60-74 MINUTES Clarence Rios MD [address] [place] [address] Referral ID Status Reason Start Date Expiration Date Visits Requested Visits Authorized [id number] Pending Review PCP Requested Referral 3 04/06/2024 1 1 Referral ID Status Reason Start Date Expiration Date Visits Requested Visits Authorized [id number] Pending Review PCP Requested Referral 3 04/17/2024 1 1 Specialty Diagnoses / Procedures Referred By Contac t Referred To Contact CT IMAGING Diagnoses Paroxysmal atrial fibrillation (HCC) Procedures CT PULMONARY VEIN W IVCON CT HEART CONTRAST EVAL CARDIAC STRUCTURE&MORPH Jm Cruz MD [address] [place] [address] Ct Imaging [place] [address] Referral ID Status Reason Start Date Expiration Date Visits Requested Visits Authorized [id number] Authorized Auto-Generat ed Referral 07/23/2023 08/21/2024 1 1 Specialty Diagnoses / Procedures Referred By Contac t Referred To [facility] Diagnoses Paroxysmal atrial fibrillation (HCC) Procedures ECHO TRANSESOPHAGEAL ECHO TRANSESOPHAG R-T 2D W/PRB IMG ACQUISJ I&R Jm Cruz MD [address] [place] [address] [place] [address] Referral ID Status Reason Start Date Expiration Date Visits Requested Visits Authorized [id number] Authorized Auto-Generat ed Referral 07/23/2023 07/22/2024 1 1 Specialty Diagnoses / Procedures Referred By Contac t Referred To [facility] Diagnoses Paroxysmal atrial fibrillation (HCC) Procedures ECHO ECHO TTHRC R-T 2D W/WOM-MODE COMPL SPEC&COLR D Jm Cruz MD [address] [place] [address] [place] [address] Referral ID Status Reason Start Date Expiration Date Visits Requested Visits Authorized [id number] Authorized Auto-Generat ed Referral 07/23/2023 07/22/2024 1 1 Specialty Diagnoses / Procedures Referred By Contac t Referred To [facility] Diagnoses Paroxysmal atrial fibrillation (HCC) Procedures ECG COMPLETE ECG ROUTINE ECG W/LEAST 12 LDS W/I&R Jm Cruz MD [address] [place] [address] [place] [address] Referral ID Status Reason Start Date Expiration Date Visits Requested Visits Authorized [id number] Authorized Auto-Generat ed Referral 07/23/2023 07/22/2024 1 1 Referral ID Status Reason Start Date Expiration Date V isits Requested Visits Authorized [id number] Closed Auto-Generate d Referral 07/23/2023 08/21/2024 1 1 Specialty Diagnoses / Procedures Referred By Contac t Referred To [facility] Procedures CARDIOVASCULAR MEDICINE OP FOLLOW UP APPT ORDER Manjit Guerrier MD [address] [place] [id number] [place] [address] Referral ID Status Reason Start Date Expiration Date Visits Requested Visits Authorized [id number] Ref Not Required PCP Requested Referral 10/01/2023 09/30/2024 1 1 Specialty Diagnoses / Procedures Referred By Contac t Referred To Contact MR IMAG[facility] Diagnoses Mixed dementia (HCC) Procedures MRI 3D POST PROCESSING 3D RENDERING W/INTERP&POSTPROC [place] [address] [place] [address] Mr Imaging [place] [address] Referral ID Status Reason Start Date Expiration Date Visits Requested Visits Authorized [id number] Pending Review Auto-Generat ed Referral 10/26/2023 11/24/2024 1 1 Specialty Diagnoses / Procedures Referred By Contac t Referred To Contact [facility] Diagnoses Mixed dementia (HCC) Procedures MRI BRAIN W QUANT WO IVCON MRI BRAIN BRAIN STEM W/[place] [address] [place] [address] Mr Imaging [place] [address] Referral ID Status Reason Start Date Expiration Date Visits Requested Visits Authorized [id number] Authorized Auto-Generat ed Referral 10/26/2023 11/24/2024 1 1 Specialty Diagnoses / Procedures Referred By Contac t Referred To Contact Diagnoses Vascular dementia with depressed mood (HCC) Procedures NEUROPSYCHOLOGICAL TESTING CONSULT NEUROBEHAVIORAL STATUS XM PHYS/QHP 1ST HOUR NEUROPSYCHOLOGICAL TST EVAL PHYS/QHP 1ST HOUR NEUROPSYCHOLOGICAL TST EVAL PHYS/QHP EA ADDL HR PSYCL/NRPSYCL TST TECH 2+ TST 1ST 30 MIN PSYCL/NRPSYCL TST TECH 2+ TST EA ADDL 30 [place] [address] [place] [id number] Referral ID Status Reason Start Date Expiration Date Visits Requested Visits Authorized [id number] Ref Not Required PCP Requested Referral 10/26/2023 01/24/2024 1 3 Specialty Diagnoses / Procedures Referred By Payam t Referred [facility] Procedures CARDIOVASCULAR MEDICINE OP FOLLOW UP APPT ORDER Clarence Rios MD [address] [place] [address] [facility] [place] [address] [place] [address] Referral ID Status Reason Start Date Expiration Date Visits Requested Visits Authorized [id number] Ref Not Required PCP Requested Referral 08/27/2024 02/27/2025 1 1 Summary Purpose Family History Arthritis Status:Active Comments:Father. Cancer Status:Active Comments:Mother. Arthritis Status:Active Comments:Father. Cancer Status:Active Comments:Mother. Arthritis Status:Active Comments:Father. Cancer Status:Active Comments:Mother. Arthritis Status:Active Comments:Father. Cancer Status:Active Comments:Mother. Arthritis Status:Active Comments:Father. Cancer Status:Active Comments:Mother. Arthritis Status:Active Comments:Father. Cancer Status:Active Comments:Mother. Arthritis Status:Active Comments:Father. Cancer Status:Active Comments:Mother. Arthritis Status:Active Comments:Father. Cancer Status:Active Comments:Mother. Arthritis Status:Active Comments:Father. Cancer Status:Active Comments:Mother. Arthritis Status:Active Comments:Father. Cancer Status:Active Comments:Mother. Arthritis Status:Active Comments:Father. Cancer Status:Active Comments:Mother. Arthritis Status:Active Comments:Father. Cancer Status:Active Comments:Mother. Arthritis Status:Active Comments:Father. Cancer Status:Active Comments:Mother. Arthritis Status:Active Comments:Father. Cancer Status:Active Comments:Mother. Arthritis Status:Active Comments:Father. Cancer Status:Active Comments:Mother. Arthritis Status:Active Comments:Father. Cancer Status:Active Comments:Mother. Arthritis Status:Active Comments:Father. Cancer Status:Active Comments:Mother. Arthritis Status:Active Comments:Father. Cancer Status:Active Comments:Mother. Arthritis Status:Active Comments:Father. Cancer Status:Active Comments:Mother. Arthritis Status:Active Comments:Father. Cancer Status:Active Comments:Mother. Arthritis Status:Active Comments:Father. Cancer Status:Active Comments:Mother. Arthritis Status:Active Comments:Father. Cancer Status:Active Comments:Mother. Arthritis Status:Active Comments:Father. Cancer Status:Active Comments:Mother. Arthritis Status:Active Comments:Father. Cancer Status:Active Comments:Mother. Arthritis Status:Active Comments:Father. Cancer Status:Active Comments:Mother. Arthritis Status:Active Comments:Father. Cancer Status:Active Comments:Mother. Arthritis Status:Active Comments:Father. Cancer Status:Active Comments:Mother. Arthritis Status:Active Comments:Father. Cancer Status:Active Comments:Mother. Arthritis Status:Active Comments:Father. Cancer Status:Active Comments:Mother. Arthritis Status:Active Comments:Father. Cancer Status:Active Comments:Mother. Arthritis Status:Active Comments:Father. Cancer Status:Active Comments:Mother. Arthritis Status:Active Comments:Father. Cancer Status:Active Comments:Mother. Arthritis Status:Active Comments:Father. Cancer Status:Active Comments:Mother. Arthritis Status:Active Comments:Father. Cancer Status:Active Comments:Mother. 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 Yes January 31, 2025 10:54am Chief Complaint and Reason for Visit Chief Complaint Cysto,Urethral Dilat ation Chief Complaint Admit Date CAD January 17, 2025 3:00 pm Chief Complaint Admit Date CAD January 17, 2025 3:00 pm CHEST PAIN January 31, 2025 10 :28am Additional Source Comments Source Comments (unrecognize d section and content) In the event this informatio n is protected by the Federal Confidentiality of Alcohol and Drug Abuse Patient Records regulations: The Federal rules restrict any use of the information to criminally investigate or prosecute any alcohol or drug abuse patient.[facility] the event this information is protected by the Federal Confidentiality of Alcohol and Drug Abuse Patient Records regulations: The Federal rules restrict any use of the information to criminally investigate or prosecute any alcohol or drug abuse patient.[facility] HospitalIn the event this information is protected by the Federal Confidentiality of Alcohol and Drug Abuse Patient Records regulations: The Federal rules restrict any use of the information to criminally investigate or prosecute any alcohol or drug abuse patient.[facility] HospitalIn the event this information is protected by the Federal Confidentiality of Alcohol and Drug Abuse Patient Records regulations: The Federal rules restrict any use of the information to criminally investigate or prosecute any alcohol or drug abuse patient.[facility] HospitalIn the event this information is protected by the Federal Confidentiality of Alcohol and Drug Abuse Patient Records regulations: The Federal rules restrict any use of the information to criminally investigate or prosecute any alcohol or drug abuse patient.[facility] HospitalIn the event this information is protected by the Federal Confidentiality of Alcohol and Drug Abuse Patient Records regulations: The Federal rules restrict any use of the information to criminally investigate or prosecute any alcohol or drug abuse patient.[facility] HospitalIn the event this information is protected by the Federal Confidentiality of Alcohol and Drug Abuse Patient Records regulations: The Federal rules restrict any use of the information to criminally investigate or prosecute any alcohol or drug abuse patient.[facility] HospitalIn the event this information is protected by the Federal Confidentiality of Alcohol and Drug Abuse Patient Records regulations: The Federal rules restrict any use of the information to criminally investigate or prosecute any alcohol or drug abuse patient.[facility] HospitalIn the event this information is protected by the Federal Confidentiality of Alcohol and Drug Abuse Patient Records regulations: The Federal rules restrict any use of the information to criminally investigate or prosecute any alcohol or drug abuse patient.[facility] HospitalIn the event this information is protected by the Federal Confidentiality of Alcohol and Drug Abuse Patient Records regulations: The Federal rules restrict any use of the information to criminally investigate or prosecute any alcohol or drug abuse patient.[facility] HospitalIn the event this information is protected by the Federal Confidentiality of Alcohol and Drug Abuse Patient Records regulations: The Federal rules restrict any use of the information to criminally investigate or prosecute any alcohol or drug abuse patient.[facility] HospitalIn the event this information is protected by the Federal Confidentiality of Alcohol and Drug Abuse Patient Records regulations: The Federal rules restrict any use of the information to criminally investigate or prosecute any alcohol or drug abuse patient.[facility] HospitalIn the event this information is protected by the Federal Confidentiality of Alcohol and Drug Abuse Patient Records regulations: The Federal rules restrict any use of the information to criminally investigate or prosecute any alcohol or drug abuse patient.[facility] HospitalIn the event this information is protected by the Federal Confidentiality of Alcohol and Drug Abuse Patient Records regulations: The Federal rules restrict any use of the information to criminally investigate or prosecute any alcohol or drug abuse patient.[facility] HospitalIn the event this information is protected by the Federal Confidentiality of Alcohol and Drug Abuse Patient Records regulations: The Federal rules restrict any use of the information to criminally investigate or prosecute any alcohol or drug abuse patient.[facility] HospitalIn the event this information is protected by the Federal Confidentiality of Alcohol and Drug Abuse Patient Records regulations: The Federal rules restrict any use of the information to criminally investigate or prosecute any alcohol or drug abuse patient.[facility] HospitalIn the event this information is protected by the Federal Confidentiality of Alcohol and Drug Abuse Patient Records regulations: The Federal rules restrict any use of the information to criminally investigate or prosecute any alcohol or drug abuse patient.[facility] HospitalIn the event this information is protected by the Federal Confidentiality of Alcohol and Drug Abuse Patient Records regulations: The Federal rules restrict any use of the information to criminally investigate or prosecute any alcohol or drug abuse patient.[facility] HospitalIn the event this information is protected by the Federal Confidentiality of Alcohol and Drug Abuse Patient Records regulations: The Federal rules restrict any use of the information to criminally investigate or prosecute any alcohol or drug abuse patient.[facility] HospitalIn the event this information is protected by the Federal Confidentiality of Alcohol and Drug Abuse Patient Records regulations: The Federal rules restrict any use of the information to criminally investigate or prosecute any alcohol or drug abuse patient.[facility] HospitalIn the event this information is protected by the Federal Confidentiality of Alcohol and Drug Abuse Patient Records regulations: The Federal rules restrict any use of the information to criminally investigate or prosecute any alcohol or drug abuse patient.[facility] HospitalIn the event this information is protected by the Federal Confidentiality of Alcohol and Drug Abuse Patient Records regulations: The Federal rules restrict any use of the information to criminally investigate or prosecute any alcohol or drug abuse patient.[facility] HospitalIn the event this information is protected by the Federal Confidentiality of Alcohol and Drug Abuse Patient Records regulations: The Federal rules restrict any use of the information to criminally investigate or prosecute any alcohol or drug abuse patient.[facility] HospitalIn the event this information is protected by the Federal Confidentiality of Alcohol and Drug Abuse Patient Records regulations: The Federal rules restrict any use of the information to criminally investigate or prosecute any alcohol or drug abuse patient.[facility] HospitalIn the event this information is protected by the Federal Confidentiality of Alcohol and Drug Abuse Patient Records regulations: The Federal rules restrict any use of the information to criminally investigate or prosecute any alcohol or drug abuse patient.[facility] HospitalIn the event this information is protected by the Federal Confidentiality of Alcohol and Drug Abuse Patient Records regulations: The Federal rules restrict any use of the information to criminally investigate or prosecute any alcohol or drug abuse patient.[facility] HospitalIn the event this information is protected by the Federal Confidentiality of Alcohol and Drug Abuse Patient Records regulations: The Federal rules restrict any use of the information to criminally investigate or prosecute any alcohol or drug abuse patient.[facility] HospitalIn the event this information is protected by the Federal Confidentiality of Alcohol and Drug Abuse Patient Records regulations: The Federal rules restrict any use of the information to criminally investigate or prosecute any alcohol or drug abuse patient.[facility] HospitalIn the event this information is protected by the Federal Confidentiality of Alcohol and Drug Abuse Patient Records regulations: The Federal rules restrict any use of the information to criminally investigate or prosecute any alcohol or drug abuse patient.[facility] HospitalIn the event this information is protected by the Federal Confidentiality of Alcohol and Drug Abuse Patient Records regulations: The Federal rules restrict any use of the information to criminally investigate or prosecute any alcohol or drug abuse patient.[facility] HospitalIn the event this information is protected by the Federal Confidentiality of Alcohol and Drug Abuse Patient Records regulations: The Federal rules restrict any use of the information to criminally investigate or prosecute any alcohol or drug abuse patient.[facility] HospitalIn the event this information is protected by the Federal Confidentiality of Alcohol and Drug Abuse Patient Records regulations: The Federal rules restrict any use of the information to criminally investigate or prosecute any alcohol or drug abuse patient.[facility] HospitalIn the event this information is protected by the Federal Confidentiality of Alcohol and Drug Abuse Patient Records regulations: The Federal rules restrict any use of the information to criminally investigate or prosecute any alcohol or drug abuse patient.[facility] HospitalIn the event this information is protected by the Federal Confidentiality of Alcohol and Drug Abuse Patient Records regulations: The Federal rules restrict any use of the information to criminally investigate or prosecute any alcohol or drug abuse patient.[facility] HospitalIn the event this information is protected by the Federal Confidentiality of Alcohol and Drug Abuse Patient Records regulations: The Federal rules restrict any use of the information to criminally investigate or prosecute any alcohol or drug abuse patient.[facility] HospitalIn the event this information is protected by the Federal Confidentiality of Alcohol and Drug Abuse Patient Records regulations: The Federal rules restrict any use of the information to criminally investigate or prosecute any alcohol or drug abuse patient.[facility] HospitalIn the event this information is protected by the Federal Confidentiality of Alcohol and Drug Abuse Patient Records regulations: The Federal rules restrict any use of the information to criminally investigate or prosecute any alcohol or drug abuse patient.[facility] HospitalIn the event this information is protected by the Federal Confidentiality of Alcohol and Drug Abuse Patient Records regulations: The Federal rules restrict any use of the information to criminally investigate or prosecute any alcohol or drug abuse patient.[facility] HospitalIn the event this information is protected by the Federal Confidentiality of Alcohol and Drug Abuse Patient Records regulations: The Federal rules restrict any use of the information to criminally investigate or prosecute any alcohol or drug abuse patient.[facility] HospitalIn the event this information is protected by the Federal Confidentiality of Alcohol and Drug Abuse Patient Records regulations: The Federal rules restrict any use of the information to criminally investigate or prosecute any alcohol or drug abuse patient.[facility] HospitalIn the event this information is protected by the Federal Confidentiality of Alcohol and Drug Abuse Patient Records regulations: The Federal rules restrict any use of the information to criminally investigate or prosecute any alcohol or drug abuse patient.[facility] HospitalIn the event this information is protected by the Federal Confidentiality of Alcohol and Drug Abuse Patient Records regulations: The Federal rules restrict any use of the information to criminally investigate or prosecute any alcohol or drug abuse patient.[facility] HospitalIn the event this information is protected by the Federal Confidentiality of Alcohol and Drug Abuse Patient Records regulations: The Federal rules restrict any use of the information to criminally investigate or prosecute any alcohol or drug abuse patient.[facility] HospitalIn the event this information is protected by the Federal Confidentiality of Alcohol and Drug Abuse Patient Records regulations: The Federal rules restrict any use of the information to criminally investigate or prosecute any alcohol or drug abuse patient.[facility] HospitalIn the event this information is protected by the Federal Confidentiality of Alcohol and Drug Abuse Patient Records regulations: The Federal rules restrict any use of the information to criminally investigate or prosecute any alcohol or drug abuse patient.[facility] HospitalIn the event this information is protected by the Federal Confidentiality of Alcohol and Drug Abuse Patient Records regulations: The Federal rules restrict any use of the information to criminally investigate or prosecute any alcohol or drug abuse patient.[facility] HospitalIn the event this information is protected by the Federal Confidentiality of Alcohol and Drug Abuse Patient Records regulations: The Federal rules restrict any use of the information to criminally investigate or prosecute any alcohol or drug abuse patient.[facility] HospitalIn the event this information is protected by the Federal Confidentiality of Alcohol and Drug Abuse Patient Records regulations: The Federal rules restrict any use of the information to criminally investigate or prosecute any alcohol or drug abuse patient.[facility] HospitalIn the event this information is protected by the Federal Confidentiality of Alcohol and Drug Abuse Patient Records regulations: The Federal rules restrict any use of the information to criminally investigate or prosecute any alcohol or drug abuse patient.[facility] HospitalIn the event this information is protected by the Federal Confidentiality of Alcohol and Drug Abuse Patient Records regulations: The Federal rules restrict any use of the information to criminally investigate or prosecute any alcohol or drug abuse patient.[facility] HospitalIn the event this information is protected by the Federal Confidentiality of Alcohol and Drug Abuse Patient Records regulations: The Federal rules restrict any use of the information to criminally investigate or prosecute any alcohol or drug abuse patient.[facility] HospitalIn the event this information is protected by the Federal Confidentiality of Alcohol and Drug Abuse Patient Records regulations: The Federal rules restrict any use of the information to criminally investigate or prosecute any alcohol or drug abuse patient.[facility] HospitalIn the event this information is protected by the Federal Confidentiality of Alcohol and Drug Abuse Patient Records regulations: The Federal rules restrict any use of the information to criminally investigate or prosecute any alcohol or drug abuse patient.[facility] HospitalIn the event this information is protected by the Federal Confidentiality of Alcohol and Drug Abuse Patient Records regulations: The Federal rules restrict any use of the information to criminally investigate or prosecute any alcohol or drug abuse patient.[facility] HospitalIn the event this information is protected by the Federal Confidentiality of Alcohol and Drug Abuse Patient Records regulations: The Federal rules restrict any use of the information to criminally investigate or prosecute any alcohol or drug abuse patient.[facility] HospitalIn the event this information is protected by the Federal Confidentiality of Alcohol and Drug Abuse Patient Records regulations: The Federal rules restrict any use of the information to criminally investigate or prosecute any alcohol or drug abuse patient.[facility] HospitalIn the event this information is protected by the Federal Confidentiality of Alcohol and Drug Abuse Patient Records regulations: The Federal rules restrict any use of the information to criminally investigate or prosecute any alcohol or drug abuse patient.[facility] HospitalIn the event this information is protected by the Federal Confidentiality of Alcohol and Drug Abuse Patient Records regulations: The Federal rules restrict any use of the information to criminally investigate or prosecute any alcohol or drug abuse patient.[facility] HospitalIn the event this information is protected by the Federal Confidentiality of Alcohol and Drug Abuse Patient Records regulations: The Federal rules restrict any use of the information to criminally investigate or prosecute any alcohol or drug abuse patient.[facility] HospitalIn the event this information is protected by the Federal Confidentiality of Alcohol and Drug Abuse Patient Records regulations: The Federal rules restrict any use of the information to criminally investigate or prosecute any alcohol or drug abuse patient.[facility] HospitalIn the event this information is protected by the Federal Confidentiality of Alcohol and Drug Abuse Patient Records regulations: The Federal rules restrict any use of the information to criminally investigate or prosecute any alcohol or drug abuse patient.[facility] HospitalIn the event this information is protected by the Federal Confidentiality of Alcohol and Drug Abuse Patient Records regulations: The Federal rules restrict any use of the information to criminally investigate or prosecute any alcohol or drug abuse patient.[facility] Reason for Visit (unrecogniz ed section and content) Reason Comments New Patient Specialty Diagnoses / Procedures Referred By Contac t Referred To Contact Internal Medicine / BRAIN HEALTH Diagnoses Mild cognitive impairment of uncertain or unknown etiology Mild Cognitive Impairment New Patient Consult Scheduled per Refferal Request Procedures OFFICE/OUTPATIENT [facility] MDM [address] [facility] Farhan Pizarro MD [address] [place] [address] Farhan Pizarro MD [address] [place] [address] Referral ID Status Reason Start Date Expiration Date Visits Re quested Visits Authorized [id number] Closed 09/16/2023 04/25/2024 1 1 Reason Comments Follow Up Specialty Diagnoses / Procedures Referred By Contac t Referred To Contact Neurology / NEUROLOGY Diagnoses Mild cognitive impairment of uncertain or unknown etiology Follow-up exam follow up Procedures OFFICE/OUTPATIENT [facility] 40 MIN [facility] [place] [address] [place] [address] Referral ID Status Reason Start Date Expiration Date Visits Re quested Visits Authorized [id number] Closed 09/16/2023 04/25/2024 1 1 Reason Comments Scanned Med Records Reason Comments Patient Education Reason Comments Education Of Patient/family Reason Comments Medication Problem Reason Comments Schedule Surgery PVI ablation + Watch man implant Reason Comments Radiology CT Specialty Diagnoses / Procedures Referred By Payam t Referred To Contact CT IMAGING Diagnoses Paroxysmal atrial fibrillation (HCC) Procedures CT PULMONARY VEIN W IVCON CT HEART CONTRAST EVAL CARDIAC STRUCTURE&MORPH Jm Cruz MD [address] [place] [address] Ct Imaging [place] [address] Referral ID Status Reason Start Date Expiration Date V isits Requested Visits Authorized [id number] Closed Auto-Generate d Referral 07/23/2023 08/21/2024 1 1 Reason Comments Patient Education PVI/ Watchman Specialty Diagnoses / Procedures Referred By Contact Referred To Contact Vascular Medicine / CARDIOVASCULAR MEDICINE Diagnoses PVI+WATCHMAN +PINK TICKET /EM[place] [id number] Procedures CON INTERNAL CLINICAL Jm Cruz MD [address] [place] [address] Manjit Guerrier MD [address] [place] [id number] Referral ID Status Reason Start Date Expiration Date Visits Re quested Visits Authorized [id number] Closed 09/07/2023 06/20/2024 1 1 Reason Comments TRANSMITTER 90 Days Reason Comments Referral Request Reason Comments [facility] REFERRAL Reason Comments Future Appointment Reason Comments New Patient Specialty Diagnoses / Procedures Referred By Contac t Referred To Contact Neurology / NEUROLOGY Diagnoses mild cognititve impairment Procedures [facility] Clarence Rios MD [address] [place] [address] [place] [address] [place] [address] Referral ID Status Reason Start Date Expiration Date Visits Re quested Visits Authorized [id number] Closed 10/26/2023 03/26/2024 1 1 Specialty Diagnoses / Procedures Referred By Contac t Referred To Contact Cardiology / CARDIOVASCULAR MEDICINE Diagnoses Chronic atrial fibrillation, unspecified Follow-up exam PVI+WATCHMAN FOLLOW UP Procedures OFFICE/OUTPATIENT ESTABLISHED HIGH MDM 40 MIN EST CLINICIAN Jm Cruz MD [address] [place] [address] Teri Palacio, [employer] BUILD ENGINEER[employer] [address] [place] [id number] Referral ID Status Reason Start Date Expiration Date Visits Re quested Visits Authorized [id number] Closed 08/04/2023 03/13/2024 1 1 Reason Comments Patient Question Reason Comments Radio Main J1 Reason Comments CARD Follow Up 1 Month Reason Comments Radiology MRI Specialty Diagnoses / Procedures Referred By Contac t Referred To Contact MR IMAGING Diagnoses Mixed dementia (HCC) Procedures MRI BRAIN W QUANT WO IVCON MRI BRAIN BRAIN STEM W/[place] [address] [place] [id number] Mr Imaging [place] [address] Referral ID Status Reason Start Date Expiration Date Visits Re quested Visits Authorized [id number] Closed 09/16/2023 04/25/2024 1 1 Reason Onset Date Comments Refill Request 03/08/2024 Reason Onset Date Comments Refill Request 09/23/2023 Reason Comments Approved Referral for Medical Care Appoi ntment 08/17/2024 Reason Comments Event ZIO PATCH Reason Comments Patient Update Redo PVI ablation+/- Amulet implant Reason Comments Established Patient Follow-Up Specialty Diagnoses / Procedures Referred By Contac t Referred To Contact [facility] [place] Procedures CARDIOVASCULAR MEDICINE OP FOLLOW UP APPT ORDER Clarence Rios MD [address] [place], [place] [id number] Phone: tel: fax: [place] [address] Referral ID Status Reason Start Date Expiration Date V isits Requested Visits Authorized [id number] Closed PCP Requested Referral 08/27/2024 02/27/2025 1 1 Reason Onset Date Comments Refill Request 11/22/2024 Care Teams (unrecognized sec tion and content) Salesperson Neckties Relationship Specialty Start Date End Date Clarence Rios MD [address] [place] [address] Primary Staff Physician Cardiology 08/10/22 Salesperson Neckties Relationship Specialty Start Date End Date Clarence Rios MD [address] [place], [place] [id number] Primary Staff Physician Cardiology 08/10/22 Salesperson Neckties Relationship Specialty Start Date End Date Clarence Rios MD [address] [place], [place] [address] [place] [phone] Primary Staff Physician Cardiology 08/10/22 Salesperson Neckties Relationship Specialty Start Date End Date Clarence Rios MD [address] [place] [address] Primary Staff Physician Cardiology 08/10/22 Salesperson Neckties Relationship Specialty Start Date End Date Clarence Rios MD [address] [place] [address] Primary Staff Physician Cardiology 08/10/22 Team Status: Inactive Member Role Status Dates Dr. Dashawn Cortes MD Attending Provider, Referr ing Provider Active Salesperson Neckties Relationship Specialty Start Date End Date Clarence Rios MD [address] [place] [address] Primary Staff Physician Cardiology 08/10/22 Team Status: Active Member Role Status Dates ANNA Khalil Primary Care Provider Active Team Status: Inactive Member Role Status Dates Dr. Dashawn Cortes MD Attending Provider, Referr ing Provider Active ANNA Khalil Primary Care Provider Active Dr. Mikie Armstrong MD Other Provider Active Salesperson Neckties Relationship Specialty Start Date End Date Clarence Rios MD [address] [place] [address] Primary Staff Physician Cardiology 08/10/22 Salesperson Neckties Relationship Specialty Start Date End Date Clarence Rios MD [address] [place] [address] Primary Staff Physician Cardiology 08/10/22 Salesperson Neckties Relationship Specialty Start Date End Date Clarence Rios MD [address] [place] [address] Primary Staff Physician Cardiology 08/10/22 Salesperson Neckties Relationship Specialty Start Date End Date Clarence Rios MD [address] [place] [address] Primary Staff Physician Cardiology 08/10/22 Salesperson Neckties Relationship Specialty Start Date End Date Clarence Rios MD [address] [place] [address] Primary Staff Physician Cardiology 08/10/22 Salesperson Neckties Relationship Specialty Start Date End Date Clarence Rios MD [address] [place] [address] Primary Staff Physician Cardiology 08/10/22 Joanie Donato CNP [address] [place] [address]846 Family Medicine 09/30/23 Salesperson Neckties Relationship Specialty Start Date End Date Clarence Rios MD [address] [place] [address] Primary Staff Physician Cardiology 08/10/22 Salesperson Neckties Relationship Specialty Start Date End Date Clarence Rios MD [address] [place] [address] Primary Staff Physician Cardiology 08/10/22 Joanie Donato CNP [address] [place] [address] 61092 Family Medicine 09/30/23 Salesperson Neckties Relationship Specialty Start Date End Date Clarence Rios MD [address] [place] [address] Primary Staff Physician Cardiology 08/10/22 Joanie Donato CNP [id number] [place] [phone] Family Medicine 09/30/23 Salesperson Neckties Relationship Specialty Start Date End Date Clarence Rios MD [address] [place] [address] Primary Staff Physician Cardiology 08/10/22 Joanie Donato CNP [address] [place] [address] 74899 Family Medicine 09/30/23 Salesperson Neckties Relationship Specialty Start Date End Date Clarence Rios MD [address] [place] [address] Primary Staff Physician Cardiology 08/10/22 Joanie Donato CNP [address] [place] [address] 24263 Family Medicine 09/30/23 Salesperson Neckties Relationship Specialty Start Date End Date Clarence Rios MD [address] [place] [address] Primary Staff Physician Cardiology 08/10/22 Joanie Donato CNP [address] [place] [address] 89361 Family Medicine 09/30/23 Salesperson Neckties Relationship Specialty Start Date End Date Clarence Rios MD [address] [place] [address] Primary Staff Physician Cardiology 08/10/22 Joanie Donato CNP [address] [place] [address] 13260 Family Medicine 09/30/23 Salesperson Neckties Relationship Specialty Start Date End Date Clarence Rios MD [address] [place] [address] Primary Staff Physician Cardiology 08/10/22 Joanie Donato CNP [address] [place] [address] 39043 Family Medicine 09/30/23 Salesperson Neckties Relationship Specialty Start Date End Date Clarence Rios MD [address] [place] [address] Primary Staff Physician Cardiology 08/10/22 Joanie Donato CNP [address] [place] [address] 58969 Family Medicine 09/30/23 Salesperson Neckties Relationship Specialty Start Date End Date Clarence Rios MD [address] [place] [address] Primary Staff Physician Cardiology 08/10/22 Joanie Donato CNP [address] [place], [place] [phone] Family Medicine 09/30/23 Salesperson Neckties Relationship Specialty Start Date End Date Clarence Rios MD [address] [place] [address] Primary Staff Physician Cardiology 08/10/22 Joanie Donato CNP [address] [place], [place] [phone] Family Medicine 09/30/23 Adam Shane PA-C [address] [place] [address] [place] [address] Family Medicine 12/31/23 Salesperson Neckties Relationship Specialty Start Date End Date Clarence Rios MD [address] [place] [address] Primary Staff Physician Cardiology 08/10/22 Joanie Donato CNP [address] [place] [address] 22341 Family Medicine 09/30/23 Adam Shane PA-C [address] [place] [address] Family Medicine 12/31/23 Salesperson Neckties Relationship Specialty Start Date End Date Clarence Rios MD [address] [place] [address] Primary Staff Physician Cardiology 08/10/22 Joanie Donato CNP [address] [place] [address] 03781 Family Medicine 09/30/23 Adam Shane PA-C [address] [place] [address] [place] [address] Family Medicine 12/31/23 Salesperson Neckties Relationship Specialty Start Date End Date Clarence Rios MD [address] [place] [address] Primary Staff Physician Cardiology 08/10/22 Joanie Donato CNP [address] [place] [address] 56042 Family Medicine 09/30/23 Adam Shane PA-C [address] [place] [address] Family Medicine 12/31/23 Salesperson Neckties Relationship Specialty Start Date End Date Clarence Rios MD [address] [place] [address] Primary Staff Physician Cardiology 08/10/22 Joanie Donato CNP [address] [place] [address] 11035 Family Medicine 09/30/23 Adam Shane PA-C [address] [place] [address] Family Medicine 12/31/23 Salesperson Neckties Relationship Specialty Start Date End Date Clarence Rios MD [address] [place] [address] Primary Staff Physician Cardiology 08/10/22 Joanie Donato CNP [address] [place] [address] 69004 Family Medicine 09/30/23 Adam Shane PA-C [address] [place] [address] [place] [address] Family Medicine 12/31/23 Salesperson Neckties Relationship Specialty Start Date End Date Clarence Rios MD [address] [place] [address] Primary Staff Physician Cardiology 08/10/22 Joanie Donato CNP [address] [place] [address] [phone] Family Medicine 09/30/23 Adam Shane PA-C [address] [place] [address] Family Medicine 12/31/23 Salesperson Neckties Relationship Specialty Start Date End Date Clarence Rios MD [address] [place] [address] Primary Staff Physician Cardiology 08/10/22 Joanie Donato CNP [address] [place] [address] 32075 Family Medicine 09/30/23 Adam Shane PA-C [address] [place] [address] Family Medicine 12/31/23 Salesperson Neckties Relationship Specialty Start Date End Date Clarence Rios MD [address] [place] [address] Primary Staff Physician Cardiology 08/10/22 Joanie Donato CNP [address] [place] [address]4073 Family Medicine 09/30/23 Adam Shane PA-C [address] [place] [address] [place] [address] Family Medicine 12/31/23 Salesperson Neckties Relationship Specialty Start Date End Date Clarence Rios MD [address] [place] [address] Primary Staff Physician Cardiology 08/10/22 Salesperson Neckties Relationship Specialty Start Date End Date Clarence Rios MD [address] [place] [address] Primary Staff Physician Cardiology 08/10/22 Joanie Donato CNP [address] [place] [address] 25519 Family Medicine 09/30/23 Adam Shane PA-C [address] [place] [address] Family Medicine 12/31/23 Salesperson Neckties Relationship Specialty Start Date End Date Clarence Rios MD [address] [place] [address] Primary Staff Physician Cardiology 08/10/22 Joanie Donato CNP [address] [place] [address] 20353 Family Medicine 09/30/23 Adam Shane PA-C [address] [place] [phone] Family Medicine 12/31/23 Salesperson Neckties Relationship Specialty Start Date End Date Clarence Rios MD [address] [place] [address] Primary Staff Physician Cardiology 08/10/22 Joanie Donato CNP [address] [place] [address] 58484 Family Medicine 09/30/23 Adam Shane PA-C [address] [place] [address] Family Medicine 12/31/23 Salesperson Neckties Relationship Specialty Start Date End Date Clarence Rios MD [address] [place] [address] Primary Staff Physician Cardiology 08/10/22 Joanie Donato CNP [address] [place] [address] 07396 Family Medicine 09/30/23 Adam Shane PA-C [address] [place] [address] [place] [address] Family Medicine 12/31/23 Salesperson Neckties Relationship Specialty Start Date End Date Clarence Rios MD [address] [place] [address] Primary Staff Physician Cardiology 08/10/22 Joanie Donato CNP [address] [place] [address] 08604 Family Medicine 09/30/23 Adam Shane PA-C [address] [place] [address] [place] [address] Family Medicine 12/31/23 Joanie Donato CNP [address] [place] [address] 25903 Referring Family Medicine 11/14/24 Salesperson Neckties Relationship Specialty Start Date End Date Clarence Rios MD [address] [place] [address] Primary Staff Physician Cardiology 08/10/22 Joanie Donato CNP [address] [place] [address] 89103 Family Medicine 09/30/23 Adam Shane PA-C [address] [place] [address] Family Medicine 12/31/23 Joanie Donato CNP [address] [place] [address] 09059 Referring Family Medicine 11/14/24 Salesperson Neckties Relationship Specialty Start Date End Date Clarence Rios MD [address] [place] [address] Primary Staff Physician Cardiology 08/10/22 Joanie Donato CNP [address] [place] [address]6979 Family Medicine 09/30/23 Adam Shane PA-C [address] [place] [address] [place] [address] Family Medicine 12/31/23 Joanie Donato CNP [address] [place] [address] 78693 Referring Family Medicine 11/14/24 Salesperson Neckties Relationship Specialty Start Date End Date Clarence Rios MD [address] [place] [address] Primary Staff Physician Cardiology 08/10/22 Joanie Donato CNP [address] [place] [address] 04597 Family Medicine 09/30/23 Adam Shane PA-C [address] [place] [place] [address] Family Medicine 12/31/23 Joanie Donato CNP [address] [place] [address] Referring Family Medicine 11/14/24 Team Status: Active Member Role/Relationship Status Dates ANNA Khalil Primary Care Provider Active Team Status: Inactive Member Role/Relationship Status Dates ANNA Khalil Primary Care Provider Active Start: January 17, 2025 End: January 17, 2025 Dr. Jake Rios DO Attending Provider Active Start: January 17, 2025 End: January 17, 2025 Dr. Jake Rios DO Referring Provider Active Start: January 17, 2025 End: January 17, 2025 BLANCA Greene Other Provider Active St art: January 17, 2025 End: January 17, 2025 Team Status: Active Member Role/Relationship Status Dates ANNA Khalil Primary Care Provider Active Start: January 17, 2025 Dr. Varinder Shepherd MD Attending Provider Active S tart: January 17, 2025 Team Status: Active Member Role/Relationship Status Dates [facility] Primary Care Provider Active Team Status: Inactive Member Role/Relationship Status Dates Dr. Cesar Nolasco DO Emergency Provider Active Start: January 31, 2025 End: January 31, 2025 [facility] Primary Care Provider Active Start: January 31, 2025 End: January 31, 2025 (unrecognized sect ion and content) No Status Records FoundNo Status Records FoundNo Status Records FoundNo Status Records FoundNo Status Records FoundNo Status Records Found INFORMATION SOURCE (unrecogn ized section and content) DATE CREATED AUTHOR 10/13/2022 [facility] [facility] DATE CREATED AUTHOR AUTHOR'S ORGANIZ ATION 01/06/2024 [facility] DATE CREATED AUTHOR AUTHOR'S ORGANIZ ATION 02/09/2024 [facility] DATE CREATED AUTHOR AUTHOR'S ORGANIZ ATION 07/11/2024 [facility] DATE CREATED AUTHOR AUTHOR'S ORGANIZ ATION 11/29/2024 [facility] DATE CREATED AUTHOR AUTHOR'S ORGANIZ ATION 01/28/2025 [facility] Goals (unrecognized section and content) Goals may be documented in a n alternate sectionGoals may be documented in an alternate sectionGoals may be documented in an alternate section FOR RECORDS PERTAINING TO PATIENTS WHO ARE OR HAVE BEEN ENROLLED IN A CHEMICAL DEPENDENCY/SUBSTANCEABUSE PROGRAM, SOME INFORMATION MAY BE OMITTED. This clinical summary was aggregated from multiple sources. Caution should be exercised in using it in the provision of clinical care. This summary normalizes information from multiple sources, and as a consequence, information in this document may materially change the coding, format and clinical context of patient data. In addition, data may be omitted in some cases. CLINICAL DECISIONS SHOULD BE BASED ON THE PRIMARY CLINICAL RECORDS. [facility] [employer] [facility]. provides no warranty or guarantee of the accuracy or completeness of information in this document.
== END 2025-01-31 15:13 | disposition home or self-care (01) ==
PROVIDERS: Emergency Provider Emergency Medicine; Visit Provider Emergency Medicine
DX: R07.9 Chest pain, unspecified (principal); I48.91 Unspecified atrial fibrillation; E11.9 Type 2 diabetes mellitus without complications; Z87.891 Personal history of nicotine dependence; E78.00 Pure hypercholesterolemia, unspecified; Z86.73 Personal history of transient ischemic attack (TIA), and cerebral infarction without residual deficits; Z79.01 Long term (current) use of anticoagulants; Z79.899 Other long term (current) drug therapy; Z96.649 Presence of unspecified artificial hip joint; R10.9 Unspecified abdominal pain
CPT/HCPCS: 71045; 74177; 80048; 84484; 85025; 93005; 96374; 99285; Q9967; A4216